=== PATIENT | male | born 1945 | race Caucasian/White ===

== ENCOUNTER 2021-02-24 12:27 | Day surgery (SDC) | payer OTHER, SELFPAY ==
[2021-02-18 12:37] VITALS: BMI 34.2
--- NOTE | 2021-02-23 10:15 | HO.ANESPROP2 ---
Documented by User: Zoraida Loya NP 02/23/21 10:24 HPI - Anesthesia Eval Consult details Narrative: 75yo M for?Upper Endoscopy and Colonoscopy Warfarin for PAF and s/p AVR - to bridge with lovenox AICD in situ [facility] Past Medical History Medical History Arthritis Asthma Barretts esophagus Collapsed lung COPD (chronic obstructive pulmonary disease) COVID-19 vaccine series completed Dilated cardiomyopathy Elevated cholesterol GERD (gastroesophageal reflux disease) History of paroxysmal atrial tachycardia History of placement of internal cardiac defibrillator HTN (hypertension) Myocardial infarction Osteopenia Sleep apnea Surgical History Surgical History H/O colonoscopy History of esophagogastroduodenoscopy (EGD) History of repair of hiatal hernia Hx of aortic valve replacement Social History Social History Are you a primary school childcare attendant to a significant other at home: No Do you presently have visiting nurse or other home services: No Patient Tobacco Use Status: Former Tobacco user Quit Date: 2018 Tobacco use type: Cigarette Years Smoked: 60 Use of substances other than those prescribed or required for medical reasons: No Have you been hit, kicked, punched, or otherwise hurt by someone within the past year? If so, by whom?: No Are you DNR?: Yes Advance Directives Information Provided: Yes (does not have a HCP/is DNR if his AICD fails per patient) Advance Directives on File: No Recently lost weight without trying: No Eating poorly because of decreased appetite: No Nutrition Risks: No Nutritional Risk Poor oral hygiene: No Meds Allergies Allergy/AdvReac Type Severity Reaction Status Date / Time Pagtaqu-Kor-Wvd Reductase Allergy Intermediate muscle Verified 02/18/21 12:26 Inhibitor cramping in ribcage Home Medications Medication Instructions Recorded Confirmed Last Taken Type albuterol sulfate 90 mcg/actuation 2 puff INHALATION Q4-6H PRN 02/18/21 02/18/21 Unknown History aerosol inhaler (Ventolin HFA) dofetilide 250 mcg capsule 250 mcg PO Q12H 02/18/21 02/18/21 Unknown History gemfibrozil 600 mg tablet 600 mg PO BID 02/18/21 02/18/21 Unknown History lisinopril 10 mg tablet 10 mg PO DAILY 02/18/21 02/18/21 Unknown History metoprolol tartrate 75 mg tablet 75 mg PO BID 02/18/21 02/18/21 Unknown History mometasone 200 mcg/actuation HFA 2 puff INHALATION BID 02/18/21 02/18/21 Unknown History aerosol inhaler (Asmanex HFA) omeprazole 40 mg capsule,delayed 40 mg PO DAILY 02/18/21 02/18/21 Unknown History release warfarin 2.5 mg tablet 1.25 mg PO DAILY 02/18/21 02/18/21 Unknown History Exam Exam Date and Time: February 23, 2021 1015 Height,Weight and Vital Signs: Height 5 ft 3 in Weight 87.543 kg Pertinent Lab Results Pertinent Lab Results: BMP 12/2020 from outside facility WNL Narrative Narrative: EKG 10/2020 AV dual-paced rhythm at 78 ECHO 01/[address] [facility] mechanical prosthesis in aortic position Impaired left ventricular contractile function with EF of 40% owing to a region of severe anteroapical hypokinesis Mild LVH AICD wire noted Borderline dilated ascending aorta remaining under 4cm Study performed in a sinus or AV paced rhythm with ectopy Stable when compared to 12/2018 AICD Interr 06/2020 DDDR Vpaced 99% Assessment and Plan Assessment Anesthesia Assessment: Chart Reviewed Documented by User: Lora Gorman MD 02/24/21 14:06 [facility] Past Medical History Medical History Arthritis Asthma Barretts esophagus Collapsed lung COPD (chronic obstructive pulmonary disease) COVID-19 vaccine series completed Dilated cardiomyopathy Elevated cholesterol GERD (gastroesophageal reflux disease) History of paroxysmal atrial tachycardia History of placement of internal cardiac defibrillator HTN (hypertension) Myocardial infarction Osteopenia Sleep apnea Surgical History Surgical History H/O colonoscopy History of esophagogastroduodenoscopy (EGD) History of repair of hiatal hernia Hx of aortic valve replacement History of Problems with Anesthesia: No Social History Social History Are you a primary school childcare attendant to a significant other at home: No Do you presently have visiting nurse or other home services: No Patient Tobacco Use Status: Former Tobacco user Quit Date: 2018 Tobacco use type: Cigarette Years Smoked: 60 Use of substances other than those prescribed or required for medical reasons: No Have you been hit, kicked, punched, or otherwise hurt by someone within the past year? If so, by whom?: No Are you DNR?: Yes Advance Directives Information Provided: Yes (does not have a HCP/is DNR if his AICD fails per patient) Advance Directives on File: No Recently lost weight without trying: No Eating poorly because of decreased appetite: No Nutrition Risks: No Nutritional Risk Poor oral hygiene: No Meds Allergies Allergy/AdvReac Type Severity Reaction Status Date / Time Ckxgwvh-Npf-Mwi Reductase Allergy Intermediate muscle Verified 02/18/21 12:26 Inhibitor cramping in ribcage Home Medications Medication Instructions Recorded Confirmed Last Taken Type albuterol sulfate 90 mcg/actuation 2 puff INHALATION Q4-6H PRN 02/18/21 02/18/21 Unknown History aerosol inhaler (Ventolin HFA) dofetilide 250 mcg capsule 250 mcg PO Q12H 02/18/21 02/18/21 Unknown History gemfibrozil 600 mg tablet 600 mg PO BID 02/18/21 02/18/21 Unknown History lisinopril 10 mg tablet 10 mg PO DAILY 02/18/21 02/18/21 Unknown History metoprolol tartrate 75 mg tablet 75 mg PO BID 02/18/21 02/18/21 Unknown History mometasone 200 mcg/actuation HFA 2 puff INHALATION BID 02/18/21 02/18/21 Unknown History aerosol inhaler (Asmanex HFA) omeprazole 40 mg capsule,delayed 40 mg PO DAILY 02/18/21 02/18/21 Unknown History release warfarin 2.5 mg tablet 1.25 mg PO DAILY 02/18/21 02/18/21 Unknown History Exam Airway Mallampati Class: II (Edentulous upper) TM Dist: >3cm Neck ROM: Limited Loose/Missing/Broken Teeth: Yes and Upper Heart: RRR Lungs: CTA Assessment and Plan Assessment Anesthesia Assessment: Anesthesia Plan Discussed Final Anesthetic Review History of Problems with Anesthesia: No NPO: Yes ASA Class: III Final Preanesthetic Review: Meds/Allgs Chart Reviewed, Consent Obtained/Reviewed and Anes Risks/Benef Reviewed Patient Risk: Intermediate Procedure Risk: Intermediate Anesthetic Plan Anesthetic Plan: MAC: Disposition: Standard PACU
[2021-02-24 12:46] VITALS: BP 136/70; PULSE 85; RESP 16; TEMP 35.8; O2SAT 98
[2021-02-24] MEDS: Lactated Ringers 1,000 ML 50 ML IVCONT (13:08)
--- NOTE | 2021-02-24 13:39 | MHC.SHP ---
Pre-Procedural Eval Section A Date of Service: 02/24/21 The patient is an INPATIENT: No Changes since office visit: No Cold of Flu in the past 2 weeks, No New Medical Problems, No Changes in Medication and No Patient answered all questions The History & Physical has been completed within 30 days and I have reviewed it.: No Section B Chief Complaint: screening,barretts Allergies: Allergies Allergy/AdvReac Type Severity Reaction Status Date / Time Xiuxvoi-Egq-Zoo Reductase Allergy Intermediate muscle Verified 02/18/21 12:26 Inhibitor cramping in ribcage Plan I have reviewed the history and physical and performed a pertinent physical examination on my patient. No changes have occurred unless specified.
[2021-02-24 14:04] LABS: INTERNATIONAL NORM RATIO 1.2 (0.9-1.1); Prothrombin Time 13.9 SEC (9.9-13.0)
[2021-02-24 14:23] VITALS: BP 130/70; PULSE 77; RESP 18; TEMP 37.2; O2SAT 98
--- NOTE | 2021-02-24 14:29 | PM.OP ---
Brief Operative Note Date of Service: 02/24/21 Pre-op diagnosis: Barretts, screening Post-op diagnosis: same Procedure: EGD, colon Surgeon: Konstantin Mccullough Anesthesia: MAC Was an Refrigerator Glazier used for this Procedure?: No Estimated blood loss (mL): 2 Pathology: other (bxs esophagus, antrum, polyps 50 and 40 cm) Condition: stable Disposition: PACU
[2021-02-24 14:38] VITALS: BP 126/69; PULSE 78; RESP 16; TEMP 36.1; O2SAT 97
--- NOTE | 2021-02-24 18:43 | OP_ITS ---
SURGEON: Konstantin Mccullough MD INDICATIONS: 1. Amaro's esophagus. 2. Colon cancer screening and prior history of colon polyps. PREOPERATIVE DIAGNOSIS: POSTOPERATIVE DIAGNOSIS: PROCEDURE PERFORMED: ESTIMATED BLOOD LOSS: COMPLICATIONS: ANESTHESIA: ASSISTANTS: SPECIMENS: PROCEDURES PERFORMED: 1. Upper endoscopy with biopsy. 2. Colonoscopy to the terminal ileum with snare polypectomy. MEDICATIONS: Monitored anesthesia care. DESCRIPTION OF PROCEDURE: History and physical performed. The risks and benefits of the procedure were explained to the patient. Informed consent was obtained. The patient was placed in the left lateral decubitus position. A digital rectal exam was performed and was found to be normal prior to the colonoscopy. First, the Olympus video gastroscope was introduced into the esophagus, stomach, and duodenum. Examination was performed and the scope was removed. He was repositioned for colonoscopy. The Olympus pediatric video colonoscope was introduced into the rectum and advanced to the cecum without difficulty. The cecum was identified by transillumination, palpation, and identification of ileocecal valve. Examination was performed and the scope was removed. He tolerated both procedures well and was returned to recovery area in stable condition. FINDINGS: UPPER ENDOSCOPY: Esophagus: There was a 1.5 cm area of Amaro's esophagus with no raised lesions or ulcerated areas. Biopsies were obtained at 36 and 35 cm. Stomach: The stomach showed no evidence of masses, ulcers, or polyps. Antral biopsies were obtained. Duodenum: The bulb and second portion were normal. COLONOSCOPY: The terminal ileum was examined and appeared normal. The visualized colonic mucosa was normal. The quality of the prep was fair with some liquid stool coating the mucosa. This was washed and suctioned as best possible. Two polyps were identified and removed with a snare, both measured less than 5 mm. The first was located at 50 cm. The second was located at 40 cm. There was scattered diverticulosis throughout the colon. Retroflexed examination showed small internal hemorrhoids. IMPRESSION: 1. Amaro's esophagus. 2. Colon polyps. RECOMMENDATION: Follow up the biopsy results. MD REY Roldan/SARAH / [id number]
== END 2021-02-24 15:41 | disposition home or self-care (01) ==
PROVIDERS: Nurse Practitioner; PCP Nurse Practitioner Family; Visit Provider Internal Medicine Gastroenterology
PROC: (CPT 45385; principal; 2021-02-24 13:30)
DX: Z12.11 Encounter for screening for malignant neoplasm of colon (principal); K63.5 Polyp of colon; K57.30 Diverticulosis of large intestine without perforation or abscess without bleeding; K64.8 Other hemorrhoids; Z86.010 Personal history of colon polyps; K22.70 Barrett's esophagus without dysplasia; I10 Essential (primary) hypertension; Z95.2 Presence of prosthetic heart valve; Z79.01 Long term (current) use of anticoagulants; Z79.899 Other long term (current) drug therapy
CPT/HCPCS: 45385; 43239; 36415; 85610; 88305; 88342

== ENCOUNTER → 2021-09-09 14:21 | Outpatient (BNVA) | payer OTHER, SELFPAY | PROVIDERS: PCP Nurse Practitioner Family; Visit Provider Internal Medicine Cardiovascular Disease | DX: I42.9 Cardiomyopathy, unspecified (principal); I48.0 Paroxysmal atrial fibrillation; I47.2 Ventricular tachycardia; Z79.01 Long term (current) use of anticoagulants; Z95.2 Presence of prosthetic heart valve; Z45.02 Encounter for adjustment and management of automatic implantable cardiac defibrillator | CPT/HCPCS: 93005; 99202 ==

== ENCOUNTER → 2022-01-18 20:49 | Outpatient (REF) | payer OTHER, SELFPAY | LOC: HO.SL 20:49 | PROVIDERS: PCP Nurse Practitioner Family; Visit Provider Nurse Practitioner Family | DX: G47.33 Obstructive sleep apnea (adult) (pediatric) (principal) | CPT/HCPCS: 95810 ==

== ENCOUNTER → 2022-05-25 14:18 | Outpatient (BNVA) | payer OTHER, SELFPAY | PROVIDERS: PCP Nurse Practitioner Family; Visit Provider Internal Medicine Cardiovascular Disease | DX: Z45.02 Encounter for adjustment and management of automatic implantable cardiac defibrillator (principal); I42.9 Cardiomyopathy, unspecified; I48.0 Paroxysmal atrial fibrillation; Z95.2 Presence of prosthetic heart valve; I47.20 Ventricular tachycardia, unspecified | CPT/HCPCS: 93005; 99212 ==

== ENCOUNTER → 2022-05-31 14:41 | Outpatient (REF) | payer OTHER, SELFPAY ==
--- NOTE | 2022-05-31 14:44 | CA_ITS ---
Transthoracic Echocardiogram Patient (Last, First, Middle): Everette Watkins, Gender: Male Date of : 1945 Age: 76 Procedure Date: 05/31/2022 Procedure Type: Transthoracic Echocardiogram Location: OP Height: 160.02 cm Weight: 88.91 kg BSA: 1.92 m2 Heart Rate: bpm BP: 122 / 70 mmHg Varnisher: BROCK Referring MD: Donnell Ledesma MD Steam Trap Man: Donnell Ledesma MD Symptoms: I42.9 - Cardiomyopathy, unspecified Study Quality: Fair/ Contrast used ECG Rhythm: Sinus Conclusions: - 1. Moderate LV systolic dysfunction with LVEF of 35-40% with regional wall motion abnormality consistent with ischemic cardiomyopathy with impaired relaxation filling pattern 2. Normally functioning mechanical aortic prosthetic valve with mean gradient of 15 mmHg with suggestion of patient prosthesis mismatch 3. Normal RV systolic pressure 4. Mildly dilated ascending aorta at 4 cm 5. No gross pericardial effusion Findings Procedure Information Contrast agent, definity, is being given per protocol without apparent complications. Left Ventricle Normal left ventricular cavity size. There is moderately increased left ventricular wall thickness. The left ventricular systolic function is moderately decreased. The visually estimated ejection fraction is between 35 40%. There is evidence of regional wall motion abnormalities. Spectral Doppler is indicative of an impaired relaxation filling pattern. Wall Motion Rest Echo Findings The apex, apical anterior, mid anterior, apical lateral, apical septum, and mid anteroseptal segments are akinetic. All other scored wall segments showed normal motion. Right Ventricle Normal right ventricular cavity size. There is borderline right ventricular systolic function. There is an ICD wire seen in the right ventricle. Atria The left atrium is moderately dilated. Interatrial shunt cannot be excluded. The right atrium is likely dilated. Aortic Valve A mechanical prosthetic aortic valve is present. The mean gradient is 15 mmHg. There is no aortic valve regurgitation. Mean gradient is marginally increased for a mechanical valve, most suggestive of patient prosthesis mismatch Mitral Valve The mitral valve was not well visualized. There is mild mitral annular calcification. There is trace mitral valve regurgitation. There is no mitral valve stenosis. Pulmonic Valve The pulmonic valve was not well visualized. Tricuspid Valve Likely normal tricuspid valve structure and function. There is mild tricuspid valve regurgitation. The right ventricular systolic pressure is normal. The right ventricular systolic pressure is 28 mmHg. Normal right atrial pressure. There is no evidence of pulmonary hypertension. Great Vessels The pulmonary artery was not well visualized. There is mild dilatation of the ascending aorta measuring 4.00 cm. Venous The inferior vena cava is normal in size and collapses greater than 50% with inspiration. Pericardium/Pleural There is no evidence of pericardial effusion. Prior Study Comparison No prior study available for comparison. Measurements 2D Linear Measurements IVSd: 1.41 0.6-0.9/0.6-1.0 cm LVIDd: 5.63 3.9-5.3/4.2-5.9 cm LVIDd Index: 2.93 2.4-3.2/2.2-3.1 cm/m2 LVIDs: 4.57 2.0-3.6 cm LVPWd: 1.40 0.7-1.1 cm Ao Root: 3.80 2.1-3.5 cm LA Diam: 4.10 2.7-3.8/3.0-4.0 cm LAIDs Index: 2.14 1.5-2.3 cm/m2 LV Mass: 439.67 67-162/88-224 g LV Mass Index: 228.99 43-95/49-115 g/m2 LVOT Diam: 2.10 3.0+(-)1.3 cm 2D Systolic Function EF 4C: 50.10 >55% EF 2C: 29.70 >55% EF BiP: 36.90 >55% Mitral Valve MV Pk E: 1.38 MV Decel Time: 225.00 E'Lateral: 5.22 E'Medial: 4.57 E/E' Med: 30.20 E/E' Lat: 26.40 PHT: 66.00 MVA PHT: 3.33 Decel [place]: 6.14 Aortic Valve AoV Pk Blaise: 2.63 AoV Mn Blaise: 1.78 AoV VTI: 0.57 AoV Pk Grad: 28.00 Aov Mn Grad: 15.00 MADY Cont.VTI: 1.12 LVOT LVOT Pk Blaise: 0.79 LVOT Mn [place]aise: 0.56 LVOT VTI: 0.18 LVOT Pk Grad: 3.00 LVOT Mn Grad: 1.00 LVOT Diam: 2.10 LVOT Area: 3.46 Diastolic Function MV Pk E: 1.38 E'Medial: 4.57 E/E' Med: 30.20 E' Laterial: 5.22 E/E' Lat: 26.40 Tricuspid Valve TR Pk Blaise: 2.50 TR Pk Grad: 25.00 RA Press: 3.00 RVSP: 28.00 Great Vessels Aorta Ao Root-2D: 3.80 2.0-3.7 cm Ao Asc: 4.00 2.1-3.4 cm Pulmonary Valve PV Pk Blaise: 0.87 Peak PV Grad: 3.00 Updated in Other Vendor System with Status of Final Donnell Ledesma MD electronically signed on 06/03/2022 3:07:30 PM with status of Final
== END ==
LOC: HO.CARD 14:41
PROVIDERS: Visit Provider Internal Medicine Cardiovascular Disease
DX: I42.9 Cardiomyopathy, unspecified (principal)
CPT/HCPCS: 93306; Q9957

== ENCOUNTER 2022-08-12 13:10 | Emergency (ER) | payer OTHER, SELFPAY ==
--- NOTE | ~2022-08-12 | XR_ITS ---
EXAMINATION: XR CHEST CLINICAL INFORMATION: Cough, recent COVID exposure. COMPARISON: None TECHNIQUE: 2 views of the chest were obtained. FINDINGS: Support devices: Left-sided pacemaker device appears in good position. Surgical clips overlie the epigastric region. No significant abnormality is noted involving the heart, lungs, mediastinum, bony thorax or soft tissues. XR/XR chest 2V IMPRESSION: No acute cardiopulmonary process.
[2022-08-12 13:12] VITALS: BP 118/53; PULSE 77; RESP 20; TEMP 36.4; O2SAT 98; BMI 33.6
--- NOTE | 2022-08-12 13:13 | ED.URI ---
HPI - URI/Sore Throat General Chief Complaint: Upper Respiratory Symptoms <ALYCIA aM - Last Filed: 08/12/22 13:22> Stated Complaint: Pneumonia? <ALYCIA Ma - Last Filed: 08/12/22 13:22> Time Seen by Provider: 08/12/22 17:20 <ALYCIA Ma - Last Filed: 08/12/22 13:22> Source: patient, family (daughter), RN notes reviewed and other <Karel Kang - Last Filed: 08/12/22 19:07> Mode of arrival: ambulatory <Karel Kang - Last Filed: 08/12/22 19:07> Limitations: no limitations <Karel Kang - Last Filed: 08/12/22 19:07> History of Present Illness HPI Narrative: 76-year-old male past medical history significant for V-tach status post biventricular ICD, aortic valve replacement on Coumadin, cardiomyopathy who presents for evaluation of flu-like symptoms. Patient reports that he has had flu-like symptoms with cough, congestion, weakness, nausea for the last 10 days. He reports he recently got back from a trip to [place] His at home was diagnosed with COVID-19 a few days ago [facility] ?when I was coughing there was a little bit of blood on the tissue. ? They wanted me to get checked out because I am on Coumadin. ? He reports feeling weak but his breathing is actually okay and he does not feel short of breath and has no chest pain. <Karel Kang - Last Filed: 08/12/22 19:07> Related Data Home Medications: Home Medications Medication Instructions Recorded Confirmed albuterol sulfate 90 mcg/actuation 2 puff inhalation Q4-6H PRN 02/18/21 05/25/22 aerosol inhaler (Ventolin HFA) Wheezing dofetilide 250 mcg capsule 250 mcg PO Q12H 02/18/21 05/25/22 gemfibrozil 600 mg tablet 600 mg PO BID 02/18/21 05/25/22 lisinopril 10 mg tablet 10 mg PO DAILY 02/18/21 05/25/22 mometasone 200 mcg/actuation HFA 2 puff inhalation BID 02/18/21 05/25/22 aerosol inhaler (Asmanex HFA) omeprazole 40 mg capsule,delayed 40 mg PO DAILY 02/18/21 05/25/22 release warfarin 2.5 mg tablet 1.25 mg PO DAILY 02/18/21 05/25/22 febuxostat 40 mg tablet 40 mg PO DAILY 09/09/21 05/25/22 metoprolol tartrate 75 mg tablet 100 mg PO BID 09/09/21 05/25/22 tamsulosin 0.4 mg capsule 0.4 mg PO BEDTIME 09/09/21 05/25/22 Previous Rx's Medication Instructions Recorded nirmatrelvir 150 mg-ritonavir 100 1 ea PO PER PKG DIR #20 ea 08/12/22 mg tablets in a dose pack (EUA) (Paxlovid) <ALYCIA Ma - Last Filed: 08/12/22 13:22> Allergies/Adverse Reactions: Allergies Allergy/AdvReac Type Severity Reaction Status Date / Time [id number] Reductase Allergy Intermediate muscle Verified 02/18/21 12:26 Inhibitor cramping [[id number] Reductase in ribcage Inhibitor] <ALYCIA Ma - Last Filed: 08/12/22 13:22> Review of Systems Constitutional: Constitutional: Reports as per HPI, Denies chills, Reports fatigue, Reports fever(s), Reports lethargy and Reports malaise <Karel Kang - Last Filed: 08/12/22 19:07> ENT: Reports sore throat <Karel Kang - Last Filed: 08/12/22 19:07> Cardiovascular: Cardiovascular: Denies chest pain and Denies dyspnea <Karel Kang - Last Filed: 08/12/22 19:07> Respiratory: Respiratory: Denies dyspnea <Karel Kang - Last Filed: 08/12/22 19:07> Gastrointestinal: Gastrointestinal: Denies abdominal pain, Denies constipation, Reports nausea, Reports vomiting and Denies hematemesis <Karel Kang - Last Filed: 08/12/22 19:07> Genitourinary: Genitourinary: Denies difficulty urinating and Denies dysuria <Karel Kang - Last Filed: 08/12/22 19:07> Endocrine: Endocrine: Reports fatigue <Karel Pearl - Last Filed: 08/12/22 19:07> [facility] Past Medical History Attestation statement: The following information was validated with the patient. <Karel Pearl - Last Filed: 08/12/22 19:07> Source: old records reviewed, obtained from family and nursing notes reviewed <Karel Kang - Last Filed: 08/12/22 19:07> Medical History: Medical History Arthritis Asthma Barretts esophagus Collapsed lung COPD (chronic obstructive pulmonary disease) COVID-19 vaccine series completed Dilated cardiomyopathy Elevated cholesterol GERD (gastroesophageal reflux disease) History of paroxysmal atrial tachycardia History of placement of internal cardiac defibrillator HTN (hypertension) Myocardial infarction Osteopenia Sleep apnea <ALYCIA Ma - Last Filed: 08/12/22 13:22> Surgical History: Surgical History H/O colonoscopy History of esophagogastroduodenoscopy (EGD) History of repair of hiatal hernia Hx of aortic valve replacement <ALYCIA Ma - Last Filed: 08/12/22 13:22> Social History Social History: Social History Are you a primary patient care associate to a significant other at home: No Do you presently have visiting nurse or other home services: No Alcohol intake: unknown Patient Tobacco Use Status: Former Tobacco user Quit Date: 2018 Tobacco use type: Cigarette Years Smoked: 60 Smoked in Last 30 Days: No Use of substances other than those prescribed or required for medical reasons: No Advance Directives: No Advance Directives Information Provided: Yes <ALYCIA Ma - Last Filed: 08/12/22 13:22> Physical Exam Vital Signs: Vital Signs: Last Vital Signs Temp 97.9 F 08/12/22 17:14 Pulse 60 08/12/22 17:14 Resp 16 08/12/22 17:14 BP 106/58 L 08/12/22 17:14 Pulse Ox 96 08/12/22 17:14 O2 Del Method 08/12/22 17:14 BMI result Body Mass Index 33.6 <ALYCIA Ma Last Filed: 08/12/22 13:22> Vital Signs: Last Vital Signs Temp 97.9 F 08/12/22 17:14 Pulse 60 08/12/22 17:14 Resp 16 08/12/22 17:14 BP 106/58 L 08/12/22 17:14 Pulse Ox 96 08/12/22 17:14 O2 Del Method 08/12/22 17:14 BMI result Body Mass Index 33.6 <Karel Kang - Last Filed: 08/12/22 19:07> Const: General: cooperative, healthy appearing, comfortable, no acute distress and well developed <Karel Kang - Last Filed: 08/12/22 19:07> Orientation/consciousness: patient oriented x3 <Karel Kang - Last Filed: 08/12/22 19:07> Limitations: no limitations <Karel Kang - Last Filed: 08/12/22 19:07> HEENT: Head: Yes normocephalic and Yes atraumatic <Karel Kang - Last Filed: 08/12/22 19:07> Mouth: Normal oral and palatal mucosa present, lip normal and tongue normal <Karel Kang - Last Filed: 08/12/22 19:07> Teeth and gingiva: dentition normal <Karel Kang - Last Filed: 08/12/22 19:07> Throat: Yes posterior oropharynx normal and No other (No retropharyngeal edema or erythema. No blood noted in the oropharynx) <Karel Kang - Last Filed: 08/12/22 19:07> Neck: Neck: Yes full ROM <Karel Kang - Last Filed: 08/12/22 19:07> Resp: Effort & Inspection: normal respiratory effort and able to speak in complete sentences <Karel Kang - Last Filed: 08/12/22 19:07> Auscultation: clear to auscultation bilaterally, no rales, no rhonchi and no wheezes <Karel Kang - Last Filed: 08/12/22 19:07> GI: Inspection: No Abdominal wall edema and No distended <Karel Kang - Last Filed: 08/12/22 19:07> Palpation (GI): Soft to palpation, nontender and no guarding <Karel Kang - Last Filed: 08/12/22 19:07> Auscultation: normoactive bowel sounds <Karel Kang - Last Filed: 08/12/22 19:07> Skin: General skin exam: no rashes or lesions noted and other (Warm dry, well perfused) <Karel Kang - Last Filed: 08/12/22 19:07> Neuro: General: patient oriented x3 and CN's II-XI intact bilaterally <Karel Kang - Last Filed: 08/12/22 19:07> Course Course Course Narrative: RME-13:15PM - 76-year-old male with a PMHx of asthma, arthritis, Amaro's esophagus, collapsed lung, COPD, cardiomyopathy dilated, hyperlipidemia, GERD, proximal atrial fibrillation with placement of internal cardiac defibrillator, hypertension, myocardial infarction, osteopenia and sleep apnea who is presenting to the ER with body aches, fatigue, malaise, cough with sputum production, with blood-tinged sputum, shortness of breath, nausea/vomiting unable to keep anything down since Monday worse today. Recently came back from a vacation at [place]. His has similar symptoms and she tested positive for COVID. He did not have a test at home although he assumes that he is positive for COVID. Plan: Will obtain labs, UA, chest x-ray, COVID/RSV/flu swab. Patient to be sent back to the waiting room to be evaluated in the ER. <ALYCIA Ma - Last Filed: 08/12/22 13:22> Reevaluation(s) Reevaluation #1: The patient 1st had his weakness has improved, he is not nauseous, his vital signs remained stable. He is stable for discharge at this time. The patient's daughter is bedside with patient home. He will be prescribed Paxil did sent to his pharmacy <Karel Kang - Last Filed: 08/12/22 19:07> Time: 18:59 <Karel Kang - Last Filed: 08/12/22 19:07> Medications Administered Discontinued Medications Generic Name Dose Route Start Last Admin Trade Name Freq PRN Reason Stop Dose Admin Sodium Chloride 1,000 mls @ 999 mls/hr 08/12/22 17:37 08/12/22 18:08 Ns IV 08/12/22 18:37 999 mls/hr .Q1H1M STA Administration Ondansetron HCl 4 mg 08/12/22 17:38 08/12/22 18:08 Ondansetron Hcl 4 Mg/2 Ml Vial IVPUSH 08/12/22 17:39 4 mg ONCE ONE Administration <ALYCIA Ma - Last Filed: 08/12/22 13:22> Medications Administered Discontinued Medications Generic Name Dose Route Start Last Admin Trade Name Freq PRN Reason Stop Dose Admin Sodium Chloride 1,000 mls @ 999 mls/hr 08/12/22 17:37 08/12/22 18:08 Ns IV 08/12/22 18:37 999 mls/hr .Q1H1M STA Administration Ondansetron HCl 4 mg 08/12/22 17:38 08/12/22 18:08 Ondansetron Hcl 4 Mg/2 Ml Vial IVPUSH 08/12/22 17:39 4 mg ONCE ONE Administration <Karel Kang - Last Filed: 08/12/22 19:07> Medical Decision Making Medical Decision Making MDM Narrative: 76-year-old male with past medical history is documented above presenting for evaluation of flu-like symptoms. His tested positive cold for 3 days ago. The patient tested positive for COVID-19 today. His chest x-ray is without infiltrates, pneumothorax or effusion. His vital signs are significant for mild hypotension. This which with IV fluids. He is not tachycardic, tachypneic or hypoxic. The patient is afebrile. Lab work is significant for an INR of 3.5 which is above the patient's target INR of 2.0-3.0. This was discussed with the patient he will hold 1 dose of his Coumadin. Patient was given Zofran for reported nausea and vomiting only has not had any vomiting in the emergency room <Karel Kang - Last Filed: 08/12/22 19:07> Differential Diagnosis Differential Diagnoses: The differential diagnosis associated with the presentation includes (COVID-19, pneumonia, flu-like symptoms, sepsis, hypertension, viral illness, gastroenteritis, biliary disease) <Karel Kang - Last Filed: 08/12/22 19:07> Lab Data MDM Lab Attestation statement: I reviewed the patient's lab results. <Karel Kang - Last Filed: 08/12/22 19:07> Result Diagrams: 08/12/22 13:27 08/12/22 13:27 <ALYCIA Ma - Last Filed: 08/12/22 13:22> Labs: Lab Results 08/12/22 08/12/22 08/12/22 Range/Units 13:27 13:27 13:27 WBC 5.3 (4.8-10.8) X10*3/uL RBC 4.42 L (4.60-5.80) X10*6/uL Hgb 14.0 (14.0-18.0) g/dl Hct 41.3 L (42.0-52.0) % MCV 93.4 (80.0-98.0) fL MCH 31.7 (27.0-33.0) pg MCHC 33.9 (31.0-36.0) g/dl RDW 13.2 (11.0-16.0) % Plt Count 150 L (160-400) X10*3/uL MPV 10.9 (9.4-12.4) fL Immature Gran % (Auto) 0.9 H (0.0-0.4) % Neut % (Auto) 70.4 (45-73) % Lymph % (Auto) 18.6 L (20-40) % [place] % (Auto) 9.1 (2-11) % Eos % (Auto) 0.8 (0-4) % Baso % (Auto) 0.2 (0-2) % Lymph # (Auto) 1.0 L (1.2-4.9) X10*3/uL [place] # (Auto) 0.5 (0.1-1.2) X10*3/uL Eos # (Auto) 0.0 (0.0-0.4) X10*3/uL Baso # (Auto) 0.0 (0.0-0.2) X10*3/uL Abs Immat Gran (auto) 0.05 H (0.00-0.03) X10*3/uL Absolute Neuts (auto) 3.7 (2.0-8.3) x10*3/uL Absolute Nucleated RBC 0.000 (0.0-0.012) X10*3/uL Nucleated RBC % (auto) 0.0 (0.0-0.2) /100WBC PT 41.9 H (10.0-13.1) SEC INR 3.5 H (0.9-1.1) Sodium (135-145) mmol/L Potassium (3.3-5.1) mmol/L Chloride (96-108) mmol/L Carbon Dioxide (22-29) mmol/L Anion Gap (12-20) BUN (9-16) mg/dL Creatinine (0.5-1.4) mg/dL Estim Creat Clear Calc Estimated GFR Random Glucose (60-115) mg/dL Calcium (8.4-10.2) mg/dL Magnesium (1.6-2.6) mg/dL Total Bilirubin (0.0-1.0) mg/dL AST (5-37) U/L ALT (0-40) U/L Alkaline Phosphatase (39-117) U/L Total Protein (6.5-8.0) g/dL Albumin (3.5-5.0) g/dL Lipase (8-78) U/L Influenza Type A (PCR) NEGATIVE (Negative) Influenza Type B (PCR) NEGATIVE (Negative) RSV RNA Qual (PCR) NEGATIVE (Negative) SARS-CoV-2 RNA (RT-PCR) POSITIVE A (Negative) 08/12/22 Range/Units 13:27 WBC (4.8-10.8) X10*3/uL RBC (4.60-5.80) X10*6/uL Hgb (14.0-18.0) g/dl Hct (42.0-52.0) % MCV (80.0-98.0) fL MCH (27.0-33.0) pg MCHC (31.0-36.0) g/dl RDW (11.0-16.0) % Plt Count (160-400) X10*3/uL MPV (9.4-12.4) fL Immature Gran % (Auto) (0.0-0.4) % Neut % (Auto) (45-73) % Lymph % (Auto) (20-40) % [place] % (Auto) (2-11) % Eos % (Auto) (0-4) % Baso % (Auto) (0-2) % Lymph # (Auto) (1.2-4.9) X10*3/uL [place] # (Auto) (0.1-1.2) X10*3/uL Eos # (Auto) (0.0-0.4) X10*3/uL Baso # (Auto) (0.0-0.2) X10*3/uL Abs Immat Gran (auto) (0.00-0.03) X10*3/uL Absolute Neuts (auto) (2.0-8.3) x10*3/uL Absolute Nucleated RBC (0.0-0.012) X10*3/uL Nucleated RBC % (auto) (0.0-0.2) /100WBC PT (10.0-13.1) SEC INR (0.9-1.1) Sodium 140 (135-145) mmol/L Potassium 4.6 (3.3-5.1) mmol/L Chloride 108 (96-108) mmol/L Carbon Dioxide 20 L (22-29) mmol/L Anion Gap 17 (12-20) BUN 39 H (9-16) mg/dL Creatinine 1.33 (0.5-1.4) mg/dL Estim Creat Clear Calc 46.5 Estimated GFR 52 Random Glucose 98 (60-115) mg/dL Calcium 8.7 (8.4-10.2) mg/dL Magnesium 2.0 (1.6-2.6) mg/dL Total Bilirubin 0.8 (0.0-1.0) mg/dL AST 25 (5-37) U/L ALT 15 (0-40) U/L Alkaline Phosphatase 105 (39-117) U/L Total Protein 6.5 (6.5-8.0) g/dL Albumin 3.7 (3.5-5.0) g/dL Lipase 59 (8-78) U/L Influenza Type A (PCR) (Negative) Influenza Type B (PCR) (Negative) RSV RNA Qual (PCR) (Negative) SARS-CoV-2 RNA (RT-PCR) (Negative) <ALYCIA Ma - Last Filed: 08/12/22 13:22> Lab Results 08/12/22 08/12/22 08/12/22 Range/Units 13:27 13:27 13:27 WBC 5.3 (4.8-10.8) X10*3/uL RBC 4.42 L (4.60-5.80) X10*6/uL Hgb 14.0 (14.0-18.0) g/dl Hct 41.3 L (42.0-52.0) % MCV 93.4 (80.0-98.0) fL MCH 31.7 (27.0-33.0) pg MCHC 33.9 (31.0-36.0) g/dl RDW 13.2 (11.0-16.0) % Plt Count 150 L (160-400) X10*3/uL MPV 10.9 (9.4-12.4) fL Immature Gran % (Auto) 0.9 H (0.0-0.4) % Neut % (Auto) 70.4 (45-73) % Lymph % (Auto) 18.6 L (20-40) % [place] % (Auto) 9.1 (2-11) % Eos % (Auto) 0.8 (0-4) % Baso % (Auto) 0.2 (0-2) % Lymph # (Auto) 1.0 L (1.2-4.9) X10*3/uL [place] # (Auto) 0.5 (0.1-1.2) X10*3/uL Eos # (Auto) 0.0 (0.0-0.4) X10*3/uL Baso # (Auto) 0.0 (0.0-0.2) X10*3/uL Abs Immat Gran (auto) 0.05 H (0.00-0.03) X10*3/uL Absolute Neuts (auto) 3.7 (2.0-8.3) x10*3/uL Absolute Nucleated RBC 0.000 (0.0-0.012) X10*3/uL Nucleated RBC % (auto) 0.0 (0.0-0.2) /100WBC PT 41.9 H (10.0-13.1) SEC INR 3.5 H (0.9-1.1) Sodium (135-145) mmol/L Potassium (3.3-5.1) mmol/L Chloride (96-108) mmol/L Carbon Dioxide (22-29) mmol/L Anion Gap (12-20) BUN (9-16) mg/dL Creatinine (0.5-1.4) mg/dL Estim Creat Clear Calc Estimated GFR Random Glucose (60-115) mg/dL Calcium (8.4-10.2) mg/dL Magnesium (1.6-2.6) mg/dL Total Bilirubin (0.0-1.0) mg/dL AST (5-37) U/L ALT (0-40) U/L Alkaline Phosphatase (39-117) U/L Total Protein (6.5-8.0) g/dL Albumin (3.5-5.0) g/dL Lipase (8-78) U/L Influenza Type A (PCR) NEGATIVE (Negative) Influenza Type B (PCR) NEGATIVE (Negative) RSV RNA Qual (PCR) NEGATIVE (Negative) SARS-CoV-2 RNA (RT-PCR) POSITIVE A (Negative) 08/12/22 Range/Units 13:27 WBC (4.8-10.8) X10*3/uL RBC (4.60-5.80) X10*6/uL Hgb (14.0-18.0) g/dl Hct (42.0-52.0) % MCV (80.0-98.0) fL MCH (27.0-33.0) pg MCHC (31.0-36.0) g/dl RDW (11.0-16.0) % Plt Count (160-400) X10*3/uL MPV (9.4-12.4) fL Immature Gran % (Auto) (0.0-0.4) % Neut % (Auto) (45-73) % Lymph % (Auto) (20-40) % [place] % (Auto) (2-11) % Eos % (Auto) (0-4) % Baso % (Auto) (0-2) % Lymph # (Auto) (1.2-4.9) X10*3/uL [place] # (Auto) (0.1-1.2) X10*3/uL Eos # (Auto) (0.0-0.4) X10*3/uL Baso # (Auto) (0.0-0.2) X10*3/uL Abs Immat Gran (auto) (0.00-0.03) X10*3/uL Absolute Neuts (auto) (2.0-8.3) x10*3/uL Absolute Nucleated RBC (0.0-0.012) X10*3/uL Nucleated RBC % (auto) (0.0-0.2) /100WBC PT (10.0-13.1) SEC INR (0.9-1.1) Sodium 140 (135-145) mmol/L Potassium 4.6 (3.3-5.1) mmol/L Chloride 108 (96-108) mmol/L Carbon Dioxide 20 L (22-29) mmol/L Anion Gap 17 (12-20) BUN 39 H (9-16) mg/dL Creatinine 1.33 (0.5-1.4) mg/dL Estim Creat Clear Calc 46.5 Estimated GFR 52 Random Glucose 98 (60-115) mg/dL Calcium 8.7 (8.4-10.2) mg/dL Magnesium 2.0 (1.6-2.6) mg/dL Total Bilirubin 0.8 (0.0-1.0) mg/dL AST 25 (5-37) U/L ALT 15 (0-40) U/L Alkaline Phosphatase 105 (39-117) U/L Total Protein 6.5 (6.5-8.0) g/dL Albumin 3.7 (3.5-5.0) g/dL Lipase 59 (8-78) U/L Influenza Type A (PCR) (Negative) Influenza Type B (PCR) (Negative) RSV RNA Qual (PCR) (Negative) SARS-CoV-2 RNA (RT-PCR) (Negative) <Karel Kang - Last Filed: 08/12/22 19:07> Independent Interpretation I performed an independent interpretation of an: Plain X-Ray <Karel Kang - Last Filed: 08/12/22 19:07> Interpretation: Agree with radiologist's interpretation of no acute disease <Karel Kang - Last Filed: 08/12/22 19:07> Discharge Plan Discharge Clinical Impression: COVID-19 <ALYCIA Ma - Last Filed: 08/12/22 13:22> Patient Disposition: Home, Self-Care <ALYCIA Ma - Last Filed: 08/12/22 13:22> Additional Instructions: Take Paxil with twice daily for the next 5 days as prescribed You may also use [id number] antipyretics such as acetaminophen and ibuprofen <ALYCIA Ma - Last Filed: 08/12/22 13:22> Prescriptions: New Paxlovid (EUA) 150-100 mg tablets,dose pack 1 ea PO PER PKG DIR Qty: 20 0RF Rx Instructions: 1 ea orally; No Action dofetilide 250 mcg Capsule 250 mcg PO Q12H warfarin 2.5 mg Tablet 1.25 mg PO DAILY gemfibrozil 600 mg Tablet 600 mg PO BID lisinopril 10 mg Tablet 10 mg PO DAILY Asmanex HFA 200 mcg/actuation Hfa Aerosol Inhaler 2 puff INHALATION BID omeprazole 40 mg Capsule,Delayed Release(Dr/Ec) 40 mg PO DAILY albuterol sulfate [Ventolin HFA] 90 mcg/actuation Hfa Aerosol Inhaler 2 puff INHALATION Q4-6H PRN (Reason: Wheezing) metoprolol tartrate 75 mg tablet 100 mg PO BID febuxostat 40 mg tablet 40 mg PO DAILY tamsulosin 0.4 mg capsule 0.4 mg PO BEDTIME <ALYCIA Ma - Last Filed: 08/12/22 13:22>
--- NOTE | 2022-08-12 13:20 | ECG_ITS ---
Test Reason : cough recent + covid exposure Blood Pressure : / mmHG Vent. Rate : 072 BPM Atrial Rate : 072 BPM P-R Int : 114 ms QRS Dur : 144 ms QT Int : 468 ms P-R-T Axes : 051 121 090 degrees QTc Int : 512 ms AV dual-paced rhythm Biventricular pacemaker detected Abnormal ECG No previous ECGs available Referred By: Antonia Hoff Electronically Signed By:Puma Licona
[2022-08-12 13:32] LABS: MANUAL DIFF FLAG NO
[2022-08-12 13:33] LABS: Basophils Percent Auto 0.2 % (0-2); Eosinophils Percent Auto 0.8 % (0-4); Hematocrit 41.3 % (42.0-52.0); Imm Gran Abs Auto 0.05 X10*3/uL (0.00-0.03); Imm Gran Pct Auto 0.9 % (0.0-0.4); Lymphocytes Percent Auto 18.6 % (20-40); Mean Corpuscular HGB Conc 33.9 g/dl (31.0-36.0); Mean Corpuscular Hemoglobin 31.7 pg (27.0-33.0); Mean Corpuscular Volume 93.4 fL (80.0-98.0); Mean Platelet Volume 10.9 fL (9.4-12.4); Monocytes Absolute Auto 0.5 X10*3/uL (0.1-1.2); Monocytes Percent Auto 9.1 % (2-11); Neutrophils Absolute Auto 3.7 x10*3/uL (2.0-8.3); Neutrophils Percent Auto 70.4 % (45-73); Platelet Count 150 X10*3/uL (160-400); Red Blood Count 4.42 X10*6/uL (4.60-5.80); Red Cell Distribution Width 13.2 % (11.0-16.0); White Blood Count 5.3 X10*3/uL (4.8-10.8)
[2022-08-12 13:38] LABS: INTERNATIONAL NORM RATIO 3.5 (0.9-1.1); Prothrombin Time 41.9 SEC (10.0-13.1)
[2022-08-12 13:54] LABS: Alanine Aminotransferase 15 U/L (0-40); Albumin Level 3.7 g/dL (3.5-5.0); Alkaline Phosphatase 105 U/L (39-117); Anion Gap 17 (12-20); Aspartate Amino Transferase 25 U/L (5-37); Bilirubin Total 0.8 mg/dL (0.0-1.0); Blood Urea Nitrogen 39 mg/dL (9-16); Calcium 8.7 mg/dL (8.4-10.2); Carbon Dioxide 20 mmol/L (22-29); Chloride 108 mmol/L (96-108); Creatinine Clr Calc Pharmacy 46.5; Estimated Glomerular Filt Rate 52; Glucose Random 98 mg/dL (60-115); Lipase 59 U/L (8-78); Potassium 4.6 mmol/L (3.3-5.1); Sodium 140 mmol/L (135-145); Total Protein 6.5 g/dL (6.5-8.0)
[2022-08-12 14:12] LABS: Influenza A PCR NEGATIVE (Negative); Influenza B PCR NEGATIVE (Negative); Resp Syncy Virus RNA Qual PCR NEGATIVE (Negative); SARS COV2 PCR INHOUSE POSITIVE (Negative)
[2022-08-12 17:14] VITALS: BP 106/58; PULSE 60; RESP 16; TEMP 36.6; O2SAT 96
--- NOTE | 2022-08-12 17:21 | PC.NURSE ---
Patient with Covid like symptoms over past week and a half Covid + LS clear no distress noted AOx 4 neuros intact IV access obtained patient remains on precautions for Covid will CTM
[2022-08-12] MEDS: 0.9 % Sodium Chloride 1,000 ML 999 ML IV (18:08)
[2022-08-12] MEDS: ondansetron HCL 4 MG/2 ML VIAL IVPUSH (18:08)
[2022-08-12 19:16] VITALS: BP 109/44; PULSE 60; RESP 16; TEMP 36.7; O2SAT 96
--- NOTE | 2022-08-12 19:26 | PC.NURSE ---
IV line removed. Pt tolerated well. Discharge instructions reviewed with pt. Pt verbalizes understanding.
== END 2022-08-12 19:27 | disposition home or self-care (01) ==
PROVIDERS: Physician Assistant Medical; Emergency Provider Emergency Medicine
DX: U07.1 COVID-19 (principal); I10 Essential (primary) hypertension; E78.5 Hyperlipidemia, unspecified; I48.0 Paroxysmal atrial fibrillation; Z95.810 Presence of automatic (implantable) cardiac defibrillator; Z95.2 Presence of prosthetic heart valve; Z79.01 Long term (current) use of anticoagulants; Z79.899 Other long term (current) drug therapy
CPT/HCPCS: 0241U; 36415; 71046; 80053; 83690; 83735; 85025; 85610; 93005; 96374; 99284; 99285; J2405

== ENCOUNTER 2022-08-31 20:27 | Emergency (ER) | payer OTHER, SELFPAY ==
--- NOTE | 2022-08-31 | ECG_ITS ---
Test Reason : SOB Blood Pressure : / mmHG Vent. Rate : 061 BPM Atrial Rate : 061 BPM P-R Int : 000 ms QRS Dur : 142 ms QT Int : 464 ms P-R-T Axes : 000 217 036 degrees QTc Int : 467 ms AV dual-paced rhythm Abnormal ECG When compared with ECG of 12-AUG-2022 14:13, Vent. rate has decreased BY 11 BPM Referred By: Generic ED Physician Electronically Signed By:JOSE GORDON
--- NOTE | ~2022-08-31 | XR_ITS ---
EXAMINATION: XR CHEST CLINICAL INFORMATION: Shortness of breath COMPARISON: Chest x-ray 08/12/2022 TECHNIQUE: 2 views of the chest were obtained. FINDINGS: No change position of pacemaker leads since prior chest x-ray. Cardiac mediastinal contours are normal. Mild prominence of the central hilar vessels with increased lung markings consistent with mild interstitial edema. Bilateral pleural effusions, small to moderate right pleural effusion and small left pleural effusion. XR/XR chest 2V IMPRESSION: Mild congestive heart failure. Bilateral pleural effusions.
[2022-08-31 20:33] VITALS: BP 130/88; BP 134/62; PULSE 78; RESP 22; TEMP 36.7; O2SAT 93; O2SAT 97; BMI 30.9
--- NOTE | 2022-08-31 20:45 | PC.NURSE ---
Bonnie ([facility]) [phone], call if/when ready to be d/c
--- NOTE | 2022-08-31 20:50 | ED_ITS ---
HPI - SOB/Dyspnea General Chief Complaint: Dyspnea Stated Complaint: SOB Time Seen by Provider: 08/31/22 20:49 Source: patient Mode of arrival: ambulatory History of Present Illness HPI Narrative: 76-year-old male he states that he did not get the most recent was for COVID but to get COVID last month. He states that his symptoms have remained resolved he still feels little short of breath. He has been using inhaler he denies fevers chills nausea vomiting or diarrhea. Patient arrives speaking full sentences not hypoxic or tachycardic and otherwise looks well with completely normal vitals. MD elicited complaint: shortness of breath and cough Related Data Home Medications Medication Instructions Recorded Confirmed albuterol sulfate 90 mcg/actuation 2 puff inhalation Q4-6H PRN 02/18/21 05/25/22 aerosol inhaler (Ventolin HFA) Wheezing dofetilide 250 mcg capsule 250 mcg PO Q12H 02/18/21 05/25/22 gemfibrozil 600 mg tablet 600 mg PO BID 02/18/21 05/25/22 lisinopril 10 mg tablet 10 mg PO DAILY 02/18/21 05/25/22 mometasone 200 mcg/actuation HFA 2 puff inhalation BID 02/18/21 05/25/22 aerosol inhaler (Asmanex HFA) omeprazole 40 mg capsule,delayed 40 mg PO DAILY 02/18/21 05/25/22 release warfarin 2.5 mg tablet 1.25 mg PO DAILY 02/18/21 05/25/22 febuxostat 40 mg tablet 40 mg PO DAILY 09/09/21 05/25/22 tamsulosin 0.4 mg capsule 0.4 mg PO BEDTIME 09/09/21 05/25/22 Previous Rx's Medication Instructions Recorded nirmatrelvir 150 mg-ritonavir 100 1 ea PO PER PKG DIR #20 ea 08/12/22 mg tablets in a dose pack (EUA) (Paxlovid) metoprolol tartrate 100 mg tablet 100 mg PO BID 90 days #180 tabs 08/26/22 prednisone 20 mg tablet 60 mg PO DAILY Asthma 5 days #15 08/31/22 tabs Allergies Allergy/AdvReac Type Severity Reaction Status Date / Time Wiibcuf-LFB-KdJ Reductase Allergy Intermediate muscle Verified 02/18/21 12:26 Inhibitor cramping [Qwloxon-Xav-Xeh Reductase in ribcage Inhibitor] Review of Systems Review of Systems: Review of systems: General: Patient denies any fever chills recent illness or falls Musculoskeletal: Denies back pain or body aches or other injuries HEENT: denies headache, runny nose, ear pain Respiratory: shortness of breath, cough Cardiovascular: no chest pain or palpitations : denies dysuria, frequency Abdomen: no nausea vomiting denies abdominal pain Extremities: no swelling, no pain Skin: no diaphoresis Yes all other systems are reviewed and are negative PMFSH Past Medical History Medical History Arthritis Asthma Barretts esophagus Collapsed lung COPD (chronic obstructive pulmonary disease) COVID-19 vaccine series completed Dilated cardiomyopathy Elevated cholesterol GERD (gastroesophageal reflux disease) History of paroxysmal atrial tachycardia History of placement of internal cardiac defibrillator HTN (hypertension) Myocardial infarction Osteopenia Sleep apnea Surgical History H/O colonoscopy History of esophagogastroduodenoscopy (EGD) History of repair of hiatal hernia Hx of aortic valve replacement Social History Social History Are you a primary manager progressive care to a significant other at home: No Do you presently have visiting nurse or other home services: No Alcohol intake: never Patient Tobacco Use Status: Former Tobacco user Quit Date: 2018 Tobacco use type: Cigarette Years Smoked: 60 Smoked in Last 30 Days: No Use of substances other than those prescribed or required for medical reasons: No Advance Directives: No Physical Exam Vital Signs: Vital Signs: Last Vital Signs Temp 98.0 F 08/31/22 21:20 Pulse 62 08/31/22 21:20 Resp 19 08/31/22 21:20 BP 141/63 H 08/31/22 21:20 Pulse Ox 94 08/31/22 21:20 O2 Del Method 08/31/22 21:20 BMI result Body Mass Index 30.9 General: Well-appearing well-nourished in no signs of distress HEENT: Normocephalic atraumatic Neck: No signs of JVD, no masses no tenderness or lymphadenopathy Cardiovascular: Regular rate and rhythm Respiratory: Clear to auscultation bilaterally Abdomen: Soft nontender no masses Extremities: Normal pedal pulses no signs of edema Skin: Dry warm no rashes Back: No tenderness full ROM Medical Decision Making Medical Decision Making [facility] Narrative: On check labs make sure patient is anemic I will also get an x-ray to make sure there is no pneumonia or other concerning signs. Patient is not wheezing I do f eel comfortable giving him dose of prednisone has he is already using his inhaler when he is not wheezing here right now. He is not hypoxic or tachycardic I do not think this patient has PE do not think a D-dimer was warranted. XR is negative I will send home with Predniosone. Differential Diagnosis Differential Diagnoses: The differential diagnosis associated with the presentation includes Acute on chronic bronchitis COPD shortness of breath related to dehydration Admission/Observation Consideration of admission/observation: Escalation of care including adm ission/observation considered Lab Data [facility] Lab Attestation statement: I reviewed the patient's lab results. 08/31/22 21:06 08/31/22 21:06 Labs: Lab Results 08/31/22 08/31/22 Range/Units 21:06 21:06 WBC 4.6 L (4.8-10.8) X10*3/uL RBC 3.77 L (4.60-5.80) X10*6/uL Hgb 12.0 L (14.0-18.0) g/dl Hct 35.8 L (42.0-52.0) % MCV 95.0 (80.0-98.0) fL MCH 31.8 (27.0-33.0) pg MCHC 33.5 (31.0-36.0) g/dl RDW 14.6 (11.0-16.0) % Plt Count 111 L D (160-400) X10*3/uL MPV 11.2 (9.4-12.4) fL Immature Gran % (Auto) 0.4 (0.0-0.4) % Neut % (Auto) 68.8 (45-73) % Lymph % (Auto) 20.0 (20-40) % Collier % (Auto) 8.9 (2-11) % Eos % (Auto) 1.7 (0-4) % Baso % (Auto) 0.2 (0-2) % Lymph # (Auto) 0.9 L (1.2-4.9) X10*3/uL Collier # (Auto) 0.4 (0.1-1.2) X10*3/uL Eos # (Auto) 0.1 (0.0-0.4) X10*3/uL Baso # (Auto) 0.0 (0.0-0.2) X10*3/uL Abs Immat Gran (auto) 0.02 (0.00-0.03) X10*3/uL Absolute Neuts (auto) 3.2 (2.0-8.3) x10*3/uL Absolute Nucleated RBC 0.000 (0.0-0.012) X10*3/uL Nucleated RBC % (auto) 0.0 (0.0-0.2) /100WBC Sodium 143 (135-145) mmol/L Potassium 3.7 (3.3-5.1) mmol/L Chloride 111 H (96-108) mmol/L Carbon Dioxide 24 (22-29) mmol/L Anion Gap 12 (12-20) BUN 15 (9-16) mg/dL Creatinine 1.02 (0.5-1.4) mg/dL Estim Creat Clear Calc 58.3 Estimated GFR > 60 Random Glucose 102 (60-115) mg/dL Calcium 8.2 L (8.4-10.2) mg/dL Independent Interpretation I performed an independent interpretation of an: EKG and Plain X-Ray Radiology Impression Discussion of test interpretation with radiology: I have reviewed the radiologist's reading. External Record Review External record reviewed: Inpatient record and Office record Discharge Plan Discharge Clinical Impression: Bronchitis Patient Disposition: Home, Self-Care Instructions: How to Use a Metered-Dose Inhaler (ED), Acute Bronchitis (ED) Additional Instructions: you were seen today for your breathing You had a XR and labs and sent home on prednisone Please follow up with your doctor. Prescriptions: New prednisone 20 mg tablet 60 mg PO DAILY 5 Days Qty: 15 0RF No Action metoprolol tartrate 100 mg tablet 100 mg PO BID 90 Days Qty: 180 3RF dofetilide 250 mcg Capsule 250 mcg PO Q12H warfarin 2.5 mg Tablet 1.25 mg PO DAILY gemfibrozil 600 mg Tablet 600 mg PO BID lisinopril 10 mg Tablet 10 mg PO DAILY Asmanex HFA 200 mcg/actuation Hfa Aerosol Inhaler 2 puff INHALATION BID omeprazole 40 mg Capsule,Delayed Release(Dr/Ec) 40 mg PO DAILY albuterol sulfate [Ventolin HFA] 90 mcg/actuation Hfa Aerosol Inhaler 2 puff INHALATION Q4-6H PRN (Reason: Wheezing) Paxlovid (EUA) 150-100 mg tablets,dose pack 1 ea PO PER PKG DIR Qty: 20 0RF Rx Instructions: 1 ea orally; febuxostat 40 mg tablet 40 mg PO DAILY tamsulosin 0.4 mg capsule 0.4 mg PO BEDTIME
--- NOTE | 2022-08-31 20:54 | PC.NURSE ---
Pt A&Ox4, denies any pain. Reports increase SOB, worsens with exertion. Reports productive cough with clear sputum. Lung sounds clear. Non-labored breathing, 94% on RA. Skin warm to touch, some mild edema noted bilaterally.
[2022-08-31 21:10] LABS: MANUAL DIFF FLAG NO
[2022-08-31 21:13] LABS: Basophils Percent Auto 0.2 % (0-2); Hematocrit 35.8 % (42.0-52.0); Imm Gran Abs Auto 0.02 X10*3/uL (0.00-0.03); Imm Gran Pct Auto 0.4 % (0.0-0.4); Mean Corpuscular HGB Conc 33.5 g/dl (31.0-36.0); Mean Corpuscular Hemoglobin 31.8 pg (27.0-33.0); Mean Platelet Volume 11.2 fL (9.4-12.4); PLT CLUMP 1; Red Blood Count 3.77 X10*6/uL (4.60-5.80); Red Cell Distribution Width 14.6 % (11.0-16.0); SCAN SMEAR FLAG 1
[2022-08-31 21:14] LABS: Eosinophils Absolute Auto 0.1 X10*3/uL (0.0-0.4); Eosinophils Percent Auto 1.7 % (0-4); Lymphocytes Absolute Auto 0.9 X10*3/uL (1.2-4.9); Monocytes Absolute Auto 0.4 X10*3/uL (0.1-1.2); Monocytes Percent Auto 8.9 % (2-11); Neutrophils Absolute Auto 3.2 x10*3/uL (2.0-8.3); Neutrophils Percent Auto 68.8 % (45-73)
[2022-08-31 21:18] LABS: Platelet Count 111 X10*3/uL (160-400); White Blood Count 4.6 X10*3/uL (4.8-10.8)
[2022-08-31 21:20] VITALS: BP 141/63; PULSE 62; RESP 19; TEMP 36.7; O2SAT 94
[2022-08-31 21:31] LABS: Anion Gap 12 (12-20); Blood Urea Nitrogen 15 mg/dL (9-16); Calcium 8.2 mg/dL (8.4-10.2); Carbon Dioxide 24 mmol/L (22-29); Chloride 111 mmol/L (96-108); Creatinine Clr Calc Pharmacy 58.3; Estimated Glomerular Filt Rate > 60; Glucose Random 102 mg/dL (60-115); Potassium 3.7 mmol/L (3.3-5.1); Sodium 143 mmol/L (135-145)
[2022-08-31] MEDS: predniSONE 20 MG TABLET 60 MG PO (21:41)
== END 2022-08-31 21:54 | disposition home or self-care (01) ==
PROVIDERS: Emergency Provider Student in an Organized Health Care Education/Training Program
DX: J40 Bronchitis, not specified as acute or chronic (principal); R06.02 Shortness of breath; I10 Essential (primary) hypertension; E78.5 Hyperlipidemia, unspecified; I48.0 Paroxysmal atrial fibrillation; Z87.891 Personal history of nicotine dependence; Z95.810 Presence of automatic (implantable) cardiac defibrillator; Z79.899 Other long term (current) drug therapy; Z79.01 Long term (current) use of anticoagulants
CPT/HCPCS: 36415; 71046; 80048; 85025; 93005; 99283; 99284

== ENCOUNTER → 2022-11-17 13:43 | Outpatient (BNVA) | payer OTHER, SELFPAY | PROVIDERS: PCP Family Medicine; Visit Provider Internal Medicine Cardiovascular Disease | DX: I42.9 Cardiomyopathy, unspecified (principal); I48.0 Paroxysmal atrial fibrillation; I47.20 Ventricular tachycardia, unspecified; I77.810 Thoracic aortic ectasia; I10 Essential (primary) hypertension; I47.1 Supraventricular tachycardia; Z95.810 Presence of automatic (implantable) cardiac defibrillator; Z79.01 Long term (current) use of anticoagulants; Z79.899 Other long term (current) drug therapy | CPT/HCPCS: 93005; 99212 ==

== ENCOUNTER → 2022-12-29 23:59 | Outpatient (BNV) | payer OTHER, SELFPAY ==
--- NOTE | 2023-01-03 11:22 | MHC.OFFVIS ---
Intake Intake Visit Reasons: Remote HF Monitoring- [employer] Allergies Vvtgpvg-QEE-ZrX Reductase Inhibitor [Mlmzjkz-Ziq-Lcj Reductase Inhibitor] Allergy (Intermediate, Verified 02/18/21 12:26) muscle cramping in ribcage [facility] Medical History Arthritis Asthma Barretts esophagus Collapsed lung COPD (chronic obstructive pulmonary disease) COVID-19 vaccine series completed Dilated cardiomyopathy Elevated cholesterol GERD (gastroesophageal reflux disease) History of paroxysmal atrial tachycardia History of placement of internal cardiac defibrillator HTN (hypertension) Myocardial infarction Osteopenia Sleep apnea Surgical History H/O colonoscopy History of esophagogastroduodenoscopy (EGD) History of repair of hiatal hernia Hx of aortic valve replacement Social History Are you a primary long term acute care registered nurse to a significant other at home: No Do you presently have visiting nurse or other home services: No Alcohol intake: never Patient Tobacco Use Status: Former Tobacco user Quit Date: 2018 Tobacco use type: Cigarette Years Smoked: 60 Office Procedures Cardiac Device Check Cardiac Device Check Details: Remote heart failure report generated 12/29/2022. Heart failure parameters have normalized and in normal range [id number] Cardiac Device Interrogation, cardio physiologic monitor Procedure code (CPT) selection complete Coding Level of Care Code Procedure Only Diagnoses CPT Codes Cardiac Device Check - Cardiac Device 15: [id number] Cardiac Device Interrogation, cardio physiologic monitor ([id number])
== END ==
PROVIDERS: PCP Family Medicine; Visit Provider Internal Medicine Cardiovascular Disease
DX: I47.20 Ventricular tachycardia, unspecified (principal); Z95.810 Presence of automatic (implantable) cardiac defibrillator
CPT/HCPCS: 93297

== ENCOUNTER → 2023-01-29 23:59 | Outpatient (BNV) | payer OTHER, SELFPAY ==
--- NOTE | 2023-01-30 12:39 | MHC.OFFVIS ---
Intake Intake Visit Reasons: Remote HF Monitoring- [employer] Allergies Ajtfckl-AAH-WyQ Reductase Inhibitor [Gzdyuos-Vqv-Ruv Reductase Inhibitor] Allergy (Intermediate, Verified 02/18/21 12:26) muscle cramping in ribcage [facility] Medical History Arthritis Asthma Barretts esophagus Collapsed lung COPD (chronic obstructive pulmonary disease) COVID-19 vaccine series completed Dilated cardiomyopathy Elevated cholesterol GERD (gastroesophageal reflux disease) History of paroxysmal atrial tachycardia History of placement of internal cardiac defibrillator HTN (hypertension) Myocardial infarction Osteopenia Sleep apnea Surgical History H/O colonoscopy History of esophagogastroduodenoscopy (EGD) History of repair of hiatal hernia Hx of aortic valve replacement Social History Are you a primary pediatric acute care unit nurse to a significant other at home: No Do you presently have visiting nurse or other home services: No Alcohol intake: never Patient Tobacco Use Status: Former Tobacco user Quit Date: 2018 Tobacco use type: Cigarette Years Smoked: 60 Office Procedures Cardiac Device Check Cardiac Device Check Details: Remote heart failure report generated 01/29/2023. Heart failure parameters are stable [id number] Cardiac Device Interrogation, cardio physiologic monitor Procedure code (CPT) selection complete Coding Level of Care Code Procedure Only Diagnoses CPT Codes Cardiac Device Check - Cardiac Device 15: [id number] Cardiac Device Interrogation, cardio physiologic monitor ([id number])
== END ==
PROVIDERS: PCP Family Medicine; Visit Provider Internal Medicine Cardiovascular Disease
DX: I42.9 Cardiomyopathy, unspecified (principal); Z95.810 Presence of automatic (implantable) cardiac defibrillator
CPT/HCPCS: 93297

== ENCOUNTER → 2023-03-01 23:59 | Outpatient (BNV) | payer OTHER, SELFPAY ==
--- NOTE | 2023-03-02 11:30 | A.OFFVIS_ITS ---
Intake Intake Visit Reasons: Remote HF Monitoring- [employer] Allergies Vonhxgp-KQR-TeR Reductase Inhibitor [Sxbnupz-Xbt-Axl Reductase Inhibitor] Allergy (Intermediate, Verified 02/18/21 12:26) muscle cramping in ribcage [facility] Medical History Arthritis Asthma Barretts esophagus Collapsed lung COPD (chronic obstructive pulmonary disease) COVID-19 vaccine series completed Dilated cardiomyopathy Elevated cholesterol GERD (gastroesophageal reflux disease) History of paroxysmal atrial tachycardia History of placement of internal cardiac defibrillator HTN (hypertension) Myocardial infarction Osteopenia Sleep apnea Surgical History H/O colonoscopy History of esophagogastroduodenoscopy (EGD) History of repair of hiatal hernia Hx of aortic valve replacement Social History Are you a primary clinical care leader to a significant other at home: No Do you presently have visiting nurse or other home services: No Alcohol intake: never Patient Tobacco Use Status: Former Tobacco user Quit Date: 2018 Tobacco use type: Cigarette Years Smoked: 60 Office Procedures Cardiac Device Check Cardiac Device Check Details: Remote heart failure report generated 03/01/2023. Heart failure parameters are stable [id number] Cardiac Device Interrogation, cardio physiologic monitor Procedure code (CPT) selection complete Coding Level of Care Code Procedure Only CPT Codes Cardiac Device Check - Cardiac Device 15: [id number] Cardiac Device Interrogation, cardio physiologic monitor ([id number])
== END ==
PROVIDERS: PCP Family Medicine; Visit Provider Internal Medicine Cardiovascular Disease
DX: I42.9 Cardiomyopathy, unspecified (principal); Z95.810 Presence of automatic (implantable) cardiac defibrillator
CPT/HCPCS: 93297

== ENCOUNTER → 2023-03-27 23:59 | Outpatient (BNV) | payer OTHER, SELFPAY ==
--- NOTE | 2023-03-29 10:05 | A.OFFVIS_ITS ---
Intake Intake Visit Reasons: Remote HF Monitoring- [employer] Allergies Tckovse-QDY-PqV Reductase Inhibitor [Bsrvnnw-Vzf-Pmc Reductase Inhibitor] Allergy (Intermediate, Verified 02/18/21 12:26) muscle cramping in ribcage [facility] Medical History Arthritis Asthma Barretts esophagus Collapsed lung COPD (chronic obstructive pulmonary disease) COVID-19 vaccine series completed Dilated cardiomyopathy Elevated cholesterol GERD (gastroesophageal reflux disease) History of paroxysmal atrial tachycardia History of placement of internal cardiac defibrillator HTN (hypertension) Myocardial infarction Osteopenia Sleep apnea Surgical History H/O colonoscopy History of esophagogastroduodenoscopy (EGD) History of repair of hiatal hernia Hx of aortic valve replacement Social History Are you a primary care management coordinator to a significant other at home: No Do you presently have visiting nurse or other home services: No Alcohol intake: never Patient Tobacco Use Status: Former Tobacco user Quit Date: 2018 Tobacco use type: Cigarette Years Smoked: 60 Office Procedures Cardiac Device Check Cardiac Device Check Details: Remote heart failure report generated 03/27/2023. Heart failure parameters are stable [id number] Cardiac Device Interrogation, cardio physiologic monitor Procedure code (CPT) selection complete Coding Level of Care Code Procedure Only CPT Codes Cardiac Device Check - Cardiac Device 15: [id number] Cardiac Device Interrogation, cardio physiologic monitor ([id number])
== END ==
PROVIDERS: PCP Family Medicine; Visit Provider Internal Medicine Cardiovascular Disease
DX: I42.9 Cardiomyopathy, unspecified (principal); Z95.810 Presence of automatic (implantable) cardiac defibrillator
CPT/HCPCS: 93297

== ENCOUNTER → 2023-05-01 23:59 | Outpatient (BNV) | payer OTHER, SELFPAY ==
--- NOTE | 2023-05-01 12:34 | A.OFFVIS_ITS ---
Intake Intake Visit Reasons: Remote HF Monitoring- [employer] Allergies Umfuita-GUV-QlR Reductase Inhibitor [Bdvozur-Syv-Wuo Reductase Inhibitor] Allergy (Intermediate, Verified 02/18/21 12:26) muscle cramping in ribcage [facility] Medical History Arthritis Asthma Barretts esophagus Collapsed lung COPD (chronic obstructive pulmonary disease) COVID-19 vaccine series completed Dilated cardiomyopathy Elevated cholesterol GERD (gastroesophageal reflux disease) History of paroxysmal atrial tachycardia History of placement of internal cardiac defibrillator HTN (hypertension) Myocardial infarction Osteopenia Sleep apnea Surgical History H/O colonoscopy History of esophagogastroduodenoscopy (EGD) History of repair of hiatal hernia Hx of aortic valve replacement Social History Are you a primary patient care specialist to a significant other at home: No Do you presently have visiting nurse or other home services: No Alcohol intake: never Patient Tobacco Use Status: Former Tobacco user Quit Date: 2018 Tobacco use type: Cigarette Years Smoked: 60 Office Procedures Cardiac Device Check Cardiac Device Check Details: Remote heart failure report generated 05/01/2023. Heart failure parameters are stable [id number] Cardiac Device Interrogation, cardio physiologic monitor Procedure code (CPT) selection complete Coding Level of Care Code Procedure Only CPT Codes Cardiac Device Check - Cardiac Device 15: [id number]-[id number] Cardiac Device Interrogation, cardio physiologic monitor ([id number])
== END ==
PROVIDERS: PCP Family Medicine; Visit Provider Internal Medicine Cardiovascular Disease
DX: I42.9 Cardiomyopathy, unspecified (principal); Z95.810 Presence of automatic (implantable) cardiac defibrillator
CPT/HCPCS: 93297

== ENCOUNTER 2023-05-23 14:16 | Outpatient (AMB) | payer OTHER, SELFPAY ==
--- NOTE | 2023-05-23 14:20 | A.OFFVIS_ITS ---
Intake Vital Signs 05/23/23 14:21 Height 5 ft 3 in Weight 185 lb 3.013 oz BMI 32.8 BP 120/80 Blood Pressure Location Lt brachial Position Sitting Pulse 80 Intake Visit Reasons: 6 mth f/up ICD and ekg Intake Note: 6 month follow-up with ekg and medtronic check feeling good Field Support Engineer Required: No Allergies Hrswruv-QPJ-PnU Reductase Inhibitor [Ejvybhl-Gec-Mlx Reductase Inhibitor] Allergy (Intermediate, Verified 02/18/21 12:26) muscle cramping in ribcage Medication List - Last Reconciled 05/23/23 by Donnell Ledesma MD albuterol sulfate 90 mcg/actuation (Ventolin HFA) 2 puffs inhalation Q4-6H PRN dofetilide 250 mcg PO Q12H febuxostat 40 mg PO DAILY gemfibrozil 600 mg PO BID lisinopril 10 mg PO DAILY metoprolol tartrate 100 mg PO BID 90 days mometasone 200 mcg/actuation (Asmanex HFA) 2 puffs inhalation BID omeprazole 40 mg PO DAILY tamsulosin 0.4 mg PO BEDTIME warfarin 1.25 mg PO DAILY HPI HPI Comments History of Present Illness Details Everette comes for follow-up. He continues to have significant exertional shortness of breath. Denies exertional chest pain. Denies any clear orthopnea, PND, abdominal distension, weight gain, leg edema. Currently not on any diuretic regimen. Denies any prolonged palpitations irregular heartbeat. No bleeding issues or neurologic events. No lightheadedness, syncope, ICD discharge. COUNTS INCLUDE 234 BEDS AT THE [facility] Medical History COVID-19 vaccine series completed Collapsed lung Myocardial infarction GERD (gastroesophageal reflux disease) History of placement of internal cardiac defibrillator History of paroxysmal atrial tachycardia Asthma Dilated cardiomyopathy Osteopenia Arthritis Elevated cholesterol Sleep apnea COPD (chronic obstructive pulmonary disease) HTN (hypertension) Barretts esophagus Surgical History History of repair of hiatal hernia Hx of aortic valve replacement History of esophagogastroduodenoscopy (EGD) H/O colonoscopy Social History Are you a primary director of patient care to a significant other at home: No Do you presently have visiting nurse or other home services: No Alcohol intake: never Patient Tobacco Use Status: Former Tobacco user Quit Date: 2018 Tobacco use type: Cigarette Years Smoked: 60 Review of Systems Const Denies chills, Denies fatigue, Denies fever(s), Denies frequent falls, Denies weakness, Denies weight gain and Denies weight loss ENT Denies dizziness Card Denies chest pain, Denies leg edema, Denies lightheadedness, Denies palpitations, Denies dyspnea, Denies dyspnea on exertion, Denies orthopnea and Denies other (loss of consciousness) Resp Denies cough, Denies dyspnea and Denies dyspnea on exertion GI Denies hematochezia and Denies change in stool character Musc Denies abnormal gait, Denies muscle weakness, Denies numbness, Denies radiating pain into limb and Denies tingling Neuro Denies Abnormal speech present, Denies abnormal gait, Denies dizziness, Denies frequent falls, Denies numbness, Denies tingling and Denies weakness Endo Denies fatigue and Denies palpitations Physical Exam Vital Signs: Last Vital Signs Pulse 80 05/23/23 14:21 BP 120/80 05/23/23 14:21 BMI result Body Mass Index 32.8 Const General: cooperative, comfortable, no acute distress, alert and awake Nutritional Appearance: obese Orientation/consciousness: patient oriented x3 Limitations: no limitations Neck Neck: Yes trachea midline, Yes supple and Yes no JVD Chest Chest palpation & inspection: normal inspection of the chest and other (Well- healed sternotomy scar) Resp Effort & Inspection: normal respiratory effort Auscultation: no rales, no wheezes and diminished lung sounds Cardio Jugular venous distension: no JVD Palpation: normal PMI Rate: regular rate Rhythm: regular rhythm Heart sounds: S1 normal heart sound present, Clicking heart sound present (Sarpy closing click of [place] aortic valve), no gallops and no murmurs Peripheral pulses: Peripheral pulses 2+ throughout GI Inspection: Yes obesity Auscultation: normal bowel sounds Skin General skin exam: no rashes or lesions noted Neuro General: patient oriented x3 and no focal motor deficits Speech: No Abnormal speech present Extrem General: Yes no clubbing, cyanosis or edema Psych Appearance: grossly normal Office Procedures Cardiac Device Check Cardiac Device Check Details: Biventricular Medtronic ICD in place. Programmed in DDDR at 60 beats per minute. Battery life is at about 4 months. Atrial sensitivity is low. Ventricular sensing is adequate. Atrial pacing thresholds adequate and reprogrammed to enhance battery life. RV pacing thresholds adequate and reprogrammed to enhance battery life. LV pacing thresholds adequate. Pacing and shock lead impedance is stable. Multiple high ventricular rate episode noted which are more consistent with SVT although some could represent nonsustained VT. Heart failure parameters are within normal limits. Bi V pacing 99.5% of the time. [id number] Cardiac Device Check, multi lead implantable defibrillator Procedure code (CPT) selection complete EKG Details: EKG shows AV dual paced rhythm with PVCs 18319-[id number], Complete Assessment & Plan Assessment & Plan (1) SOB (shortness of breath) on exertion: Code(s): R06.02 - Shortness of breath Plan: Patient with exertional shortness of shortness of breath with no overt signs of fluid overload and no device findings consistent with fluid accumulation. Findings most consistent with either ischemia, underlying COPD with restrictive lung function and/or deconditioning. Will refer him to phase 2 cardiac rehabilitation. Continue neurohormonal modulation with lisinopril and metoprolol therapy. Will schedule him for Lexiscan myocardial perfusion imaging to evaluate for myocardial ischemia as well as PFTs to assess for any obvious etiology that can be corrected on manage medically or interventionally if required. Also schedule for echocardiogram near future. (2) Cardiomyopathy: Code(s): I42.9 - Cardiomyopathy, unspecified Plan: Cardiomyopathy, ischemic in nature with moderate LV systolic dysfunction by last echocardiogram. Follow-up echocardiogram near future. Continue current metoprolol and lisinopril therapy. Clinically without any overt signs of heart failure. Continue rhythm control approach. Follow-up echocardiogram in near future. Continue CPAP therapy. (3) Paroxysmal atrial fibrillation: Code(s): I48.0 - Paroxysmal atrial fibrillation Plan: Paroxysmal atrial fibrillation which has overall remained suppressed on dofetilide therapy. Continue the same. Has tolerated this therapy well. Semi annual renal function test should be pursued. Currently on warfarin therapy for oral anticoagulation. Continue the same. Target INR between 2 and 3 being followed by [facility]. (4) Aortic valve replaced: Code(s): Z95.2 - Presence of prosthetic heart valve Plan: Mechanical aortic valve replacement in the past. The valve is working well overall by clinical exam as well as well last echocardiogram. Follow-up echocar diogram near future. Advise continue warfarin therapy with target INR between 2 and 3. SBE prophylaxis as per ACC/aha guidelines. (5) Biventricular ICD (implantable cardioverter-defibrillator) in place: Code(s): Z95.810 - Presence of automatic (implantable) cardiac defibrillator Plan: Biventricular ICD in place. As this is working well. Will follow remotely for heart failure follow every 3 months for device and battery check. Battery is close to RIMA and she was sent a sin alert when there is elective replacement indicator turned on. Follow up in the clinic in 6 months time, sooner p.r.n.. Greater than 40 minutes was spent in managing his care. Orders: Orders Cardiac Rehab Today I42.9 - Cardiomyopathy, unspecified CA echo transthoracic complete Today I42.9 - Cardiomyopathy, unspecified CA lexiscan stress w ck Today I42.9 - Cardiomyopathy, unspecified PFT pulmonary function test Today R06.02 - Shortness of breath Coding Level of Care Code Est Pt Level 5 (92471) Diagnoses SOB (shortness of breath) on exertion R06.02 Cardiomyopathy I42.9 Paroxysmal atrial fibrillation I48.0 Aortic valve replaced Z95.2 Biventricular ICD (implantable cardioverter-defibrillator) in place Z95.810 CPT Codes Cardiac Device Check - Cardiac Device 6: [id number] Cardiac Device Check, multi lead implantable defibrillator ([id number]) EKG - CPT: 32191-Zxbhfjepzrkyxhrab, Complete ([id number])
[2023-05-23 14:21] VITALS: BP 120/80; PULSE 80; BMI 32.8
== END 2023-05-23 15:03 | disposition home or self-care (01) ==
PROVIDERS: Referring Provider Family Medicine; Visit Provider Internal Medicine Cardiovascular Disease
DX: R06.02 Shortness of breath (principal); I42.9 Cardiomyopathy, unspecified; I48.0 Paroxysmal atrial fibrillation; Z95.2 Presence of prosthetic heart valve; Z95.810 Presence of automatic (implantable) cardiac defibrillator; R94.31 Abnormal electrocardiogram [ECG] [EKG]
CPT/HCPCS: 93010; 93284; 99215

== ENCOUNTER → 2023-05-23 14:16 | Outpatient (BNVA) | payer OTHER, SELFPAY | PROVIDERS: Visit Provider Internal Medicine Cardiovascular Disease | DX: Z45.02 Encounter for adjustment and management of automatic implantable cardiac defibrillator (principal); I42.9 Cardiomyopathy, unspecified; I48.0 Paroxysmal atrial fibrillation; R06.02 Shortness of breath; Z95.2 Presence of prosthetic heart valve | CPT/HCPCS: 93005; 99212 ==

== ENCOUNTER → 2023-06-01 23:59 | Outpatient (BNV) | payer OTHER, SELFPAY ==
--- NOTE | 2023-06-05 14:35 | MHC.OFFVIS ---
Intake Intake Visit Reasons: Remote HF Monitoring- Medtronic Allergies Xovwfgz-YCS-EmH Reductase Inhibitor [Vgetbgy-Evs-Vei Reductase Inhibitor] Allergy (Intermediate, Verified 02/18/21 12:26) muscle cramping in ribcage [facility] Medical History COVID-19 vaccine series completed Collapsed lung Myocardial infarction GERD (gastroesophageal reflux disease) History of placement of internal cardiac defibrillator History of paroxysmal atrial tachycardia Asthma Dilated cardiomyopathy Osteopenia Arthritis Elevated cholesterol Sleep apnea COPD (chronic obstructive pulmonary disease) HTN (hypertension) Barretts esophagus Surgical History History of repair of hiatal hernia Hx of aortic valve replacement History of esophagogastroduodenoscopy (EGD) H/O colonoscopy Social History Are you a primary senior care specialist to a significant other at home: No Do you presently have visiting nurse or other home services: No Alcohol intake: never Patient Tobacco Use Status: Former Tobacco user Quit Date: 2018 Tobacco use type: Cigarette Years Smoked: 60 Office Procedures Cardiac Device Check Cardiac Device Check Details: Remote heart failure report generated 06/01/2023. Heart failure parameters are stable [id number] Cardiac Device Interrogation, cardio physiologic monitor Procedure code (CPT) selection complete Assessment & Plan Assessment & Plan (1) Biventricular ICD (implantable cardioverter-defibrillator) in place: Code(s): Z95.810 - Presence of automatic (implantable) cardiac defibrillator Plan: Same as above Coding Level of Care Code Procedure Only Diagnoses Biventricular ICD (implantable cardioverter-defibrillator) in place Z95.810 CPT Codes Cardiac Device Check - Cardiac Device 15: [id number] Cardiac Device Interrogation, cardio physiologic monitor ([id number])
== END ==
PROVIDERS: PCP Family Medicine; Visit Provider Internal Medicine Cardiovascular Disease
DX: I42.9 Cardiomyopathy, unspecified (principal); Z95.810 Presence of automatic (implantable) cardiac defibrillator
CPT/HCPCS: 93297

== ENCOUNTER → 2023-06-01 23:59 | Outpatient (BNV) | payer OTHER, SELFPAY ==
--- NOTE | 2023-06-05 14:34 | MHC.OFFVIS ---
Intake Intake Visit Reasons: Remote ICD Check- Medtronic Allergies Hnaodcg-WXX-WuG Reductase Inhibitor [Tikzpbq-Opv-Dro Reductase Inhibitor] Allergy (Intermediate, Verified 02/18/21 12:26) muscle cramping in ribcage [facility] Medical History COVID-19 vaccine series completed Collapsed lung Myocardial infarction GERD (gastroesophageal reflux disease) History of placement of internal cardiac defibrillator History of paroxysmal atrial tachycardia Asthma Dilated cardiomyopathy Osteopenia Arthritis Elevated cholesterol Sleep apnea COPD (chronic obstructive pulmonary disease) HTN (hypertension) Barretts esophagus Surgical History History of repair of hiatal hernia Hx of aortic valve replacement History of esophagogastroduodenoscopy (EGD) H/O colonoscopy Social History Are you a primary home health care provider to a significant other at home: No Do you presently have visiting nurse or other home services: No Alcohol intake: never Patient Tobacco Use Status: Former Tobacco user Quit Date: 2018 Tobacco use type: Cigarette Years Smoked: 60 Office Procedures Cardiac Device Check Cardiac Device Check Details: Remote ICD report generated 06/01/2023. ICD function is adequate. [id number] Cardiac Interrogation, implant defibrillator w/interim Procedure code (CPT) selection complete Assessment & Plan Assessment & Plan (1) Biventricular ICD (implantable cardioverter-defibrillator) in place: Code(s): Z95.810 - Presence of automatic (implantable) cardiac defibrillator Plan: See above Coding Level of Care Code Procedure Only Diagnoses Biventricular ICD (implantable cardioverter-defibrillator) in place Z95.810 CPT Codes Cardiac Device Check - Cardiac Device 13: [id number] Cardiac Interrogation, implant defibrillator w/interim ([id number])
== END ==
PROVIDERS: PCP Family Medicine; Visit Provider Internal Medicine Cardiovascular Disease
DX: I42.9 Cardiomyopathy, unspecified (principal); Z95.810 Presence of automatic (implantable) cardiac defibrillator
CPT/HCPCS: 93295

== ENCOUNTER → 2023-07-02 23:59 | Outpatient (BNV) | payer OTHER, SELFPAY ==
--- NOTE | 2023-07-04 16:24 | MHC.OFFVIS ---
Intake Intake Visit Reasons: Remote HF Monitoring- Medtronic Allergies Xhzmmzq-EAD-IjD Reductase Inhibitor [Qlzoalo-Rht-Nit Reductase Inhibitor] Allergy (Intermediate, Verified 02/18/21 12:26) muscle cramping in ribcage [facility] Medical History COVID-19 vaccine series completed Collapsed lung Myocardial infarction GERD (gastroesophageal reflux disease) History of placement of internal cardiac defibrillator History of paroxysmal atrial tachycardia Asthma Dilated cardiomyopathy Osteopenia Arthritis Elevated cholesterol Sleep apnea COPD (chronic obstructive pulmonary disease) HTN (hypertension) Barretts esophagus Surgical History History of repair of hiatal hernia Hx of aortic valve replacement History of esophagogastroduodenoscopy (EGD) H/O colonoscopy Social History Are you a primary career services assistant to a significant other at home: No Do you presently have visiting nurse or other home services: No Alcohol intake: never Patient Tobacco Use Status: Former Tobacco user Quit Date: 2018 Tobacco use type: Cigarette Years Smoked: 60 Office Procedures Cardiac Device Check Cardiac Device Check Details: Remote heart failure report generated 07/02/2023. Heart failure parameters are stable [id number] Cardiac Device Interrogation, cardio physiologic monitor Procedure code (CPT) selection complete Assessment & Plan Assessment & Plan (1) Biventricular ICD (implantable cardioverter-defibrillator) in place: Code(s): Z95.810 - Presence of automatic (implantable) cardiac defibrillator Plan: See above Coding Level of Care Code Procedure Only Diagnoses Biventricular ICD (implantable cardioverter-defibrillator) in place Z95.810 CPT Codes Cardiac Device Check - Cardiac Device 15: [id number] Cardiac Device Interrogation, cardio physiologic monitor ([id number])
== END ==
PROVIDERS: PCP Family Medicine; Visit Provider Internal Medicine Cardiovascular Disease
DX: I42.9 Cardiomyopathy, unspecified (principal); Z95.810 Presence of automatic (implantable) cardiac defibrillator
CPT/HCPCS: 93297

== ENCOUNTER → 2023-07-17 08:53 | Outpatient (REF) | payer OTHER, SELFPAY ==
--- NOTE | ~2023-07-17 | NM_ITS ---
Lexiscan Myocardial perfusion study Indication: Cardiomyopathy, assess for coronary disease and ischemia Technique: The patient was brought in for a Lexiscan perfusion study on 07/17/2023 and was injected 0.4 mg of Lexiscan intravenously. Within a minute of this injection 30 mCi of sestamibi was given intravenously. Images were obtained using the SPECT gamma camera interlaced with the gating device. Images were obtained in supine position. Resting perfusion study was performed on 07/20/2023. Patient was administered 30 mCi of sestamibi intravenously at rest. Images were then obtained in supine position. Images were processed with the software and compared side to side in short axis, horizontal long axis and vertical long axis views. Total DLP 98mGy-cm. Findings: Raw acquisition reviewed. The stress perfusion study showed absent tracer uptake in several areas including most of the anterior wall, apex, parts of inferior wall and lateral wall. With CT attenuation correction there is lack of improvement and hence likely all true defects. The gated study shows severely reduced LV systolic function with calculated LVEF of 28%. LV cavity is dilated in size. The gated study shows markedly reduced wall thickening and contraction of segments. Resting study shows absent tracer uptake in several areas including most of the anterior wall, apex, parts of inferior wall, lateral wall and mostly similar to stress acquisition. Gating at rest reveals globally reduced wall motion with ejection fraction at 26%. The findings are consistent with large extensive fixed defects involving most of the anterior wall, apex, inferior wall, lateral wall. Minimal reversibility any in the inferior wall. NM/NM ck perf SPECT rest & str Impression: 1. 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 Mild ischemia in the inferior wall. 2. Gated LVEF is 28% during stress and 26% during rest. 3. Transient ischemic dilatation not present. EKG component of the test reported separately.
--- NOTE | 2023-07-17 08:56 | CA_ITS ---
Transthoracic Echocardiogram Patient (Last, First, Middle): Everette Watkins, Gender: Male Date of : 1945 Age: 77 Procedure Date: 07/17/2023 Procedure Type: Transthoracic Echocardiogram Location: OP Height: 160.02 cm Weight: 83.92 kg BSA: 1.87 m2 Heart Rate: bpm BP: 116 / 60 mmHg Vending Attendant: BROCK Referring MD: Donnell Ledesma MD Symptoms: I42.9 - Cardiomyopathy, unspecified Study Quality: Technically Difficult due to obesity ECG Rhythm: Undetermined Conclusions: - The left ventricular systolic function is moderately decreased. The visually estimated ejection fraction is between 30-35%. - The apical anterior and mid anteroseptal segments are akinetic. Even with contrast, difficult to assess LVEF/wall motion. - A mechanical prosthetic aortic valve is present. The prosthetic aortic valve appears to be functioning normally. Findings Procedure Information Contrast agent, definity, is being given per protocol without apparent complications. Left Ventricle Normal left ventricular cavity size. There is moderately increased left ventricular wall thickness. The left ventricular systolic function is moderately decreased. The visually estimated ejection fraction is between 30 35%. Regional wall motion abnormalities can not be excluded due to suboptimal endocardial definition. Diastolic function is indeterminate on the basis of available data. Wall Motion Rest Echo Findings The apical anterior and mid anteroseptal segments are akinetic. Right Ventricle The right ventricle was not well visualized. Mildly increased right ventricular cavity size. There is a pacemaker wire seen in the right ventricle. Atria The left atrium is severely dilated. The right atrium was not well visualized. Aortic Valve A mechanical prosthetic aortic valve is present. The prosthetic aortic valve appears to be functioning normally. The aortic valve was not well visualized. The mean gradient is 8 mmHg. Acceleration time within normal limits. No significant regurgitation noted. Mitral Valve There is mild mitral annular calcification. There is mild mitral valve regurgitation. There is no mitral valve stenosis. Pulmonic Valve The pulmonic valve is likely normal. Tricuspid Valve There is trace tricuspid valve regurgitation. Mild pulmonary hypertension is present. Great Vessels The asc aorta is normal in size. Venous The inferior vena cava is normal in size and collapses greater than 50% with inspiration. Pericardium/Pleural There is no evidence of pericardial effusion. Prior Study Comparison No significant change compared to prior study dated: 05/31/2022. Measurements 2D Linear Measurements IVSd: 1.57 0.6-0.9/0.6-1.0 cm LVIDd: 5.35 3.9-5.3/4.2-5.9 cm LVIDd Index: 2.86 2.4-3.2/2.2-3.1 cm/m2 LVIDs: 4.38 2.0-3.6 cm LVPWd: 1.52 0.7-1.1 cm Ao Root: 3.50 2.1-3.5 cm LA Diam: 3.80 2.7-3.8/3.0-4.0 cm LAIDs Index: 2.03 1.5-2.3 cm/m2 LV Mass: 466.00 67-162/88-224 g LV Mass Index: 249.20 43-95/49-115 g/m2 LVOT Diam: 2.10 3.0+(-)1.3 cm 2D Systolic Function EF 4C: 24.00 >55% EF 2C: 32.90 >55% EF BiP: 27.70 >55% Mitral Valve MV Pk E: 1.21 MV Decel Time: 208.00 E'Lateral: 5.22 E'Medial: 5.00 E/E' Med: 24.20 E/E' Lat: 23.20 PHT: 61.00 MVA PHT: 3.61 Decel Forest: 5.82 Aortic Valve AoV Pk Blaise: 2.31 AoV Mn Blaise: 1.28 AoV VTI: 0.44 AoV Pk Grad: 21.00 Aov Mn Grad: 8.00 MADY Cont.VTI: 1.50 LVOT LVOT Pk Blaise: 0.81 LVOT Mn Blaise: 0.58 LVOT VTI: 0.19 LVOT Pk Grad: 3.00 LVOT Mn Grad: 2.00 LVOT Diam: 2.10 LVOT Area: 3.46 Diastolic Function MV Pk E: 1.21 E'Medial: 5.00 E/E' Med: 24.20 E' Laterial: 5.22 E/E' Lat: 23.20 Tricuspid Valve TR Pk Blaise: 2.70 TR Pk Grad: 29.00 RA Press: 3.00 RVSP: 38.00 Great Vessels Aorta Ao Root-2D: 3.50 2.0-3.7 cm Ao Asc: 3.70 2.1-3.4 cm Pulmonary Valve PV Pk Blaise: 0.61 Peak PV Grad: 1.00 Updated in Other Vendor System with Status of Final Yang Garcia MD electronically signed on 07/18/2023 3:19:32 PM with status of Final
--- NOTE | 2023-07-17 08:56 | CA_ITS ---
Acquisition Time: 2023-07-17 10:09:48 Total Exercise Time: 00:02:00 Test Indications: Dyspnea CARDIOMYOPATHY Medications: METOPROLOL LISINOPRIL OMEPRAZOLE DOFETILIDE FEBUXOSTAT ASMANEX TAMSULOSIN WARFARIN ALBUTEROL Protocol: LEXISCAN Max HR: 070 BPM 48% of Pred: 144 BPM Max BP: 130/070 mmHG Max Work Load: 1.0 METS pharmacological stress test with Lexiscan injection, while sitting and kicking his legs, with mild sob, no chest discomfort, with isolated PVC, with normotensive response to injection, with nondiagnostic EKG for ischemia. Nuclear images pending. Test reviewed with Dr Licona. Referred By: Donnell Ledesma Overread By: JALYN MASON
== END ==
LOC: HO.CARD 08:53
PROVIDERS: PCP Family Medicine; Visit Provider Internal Medicine Cardiovascular Disease
DX: I42.9 Cardiomyopathy, unspecified (principal)
CPT/HCPCS: 78452; 93017; 93306; A9500; J0280; J2785; Q9957

== ENCOUNTER → 2023-07-17 08:56 | Outpatient (BNV) | payer OTHER, SELFPAY | PROVIDERS: PCP Family Medicine; Visit Provider Nurse Practitioner Family | DX: I25.10 Atherosclerotic heart disease of native coronary artery without angina pectoris (principal) | CPT/HCPCS: 78452; 93016; 93018; 93306 ==

== ENCOUNTER 2023-07-28 11:30 | Outpatient (RCR) | payer OTHER, SELFPAY | END 2023-08-16 07:39 | disposition home or self-care (01) | LOC: HO.CR 11:30 | PROVIDERS: PCP Family Medicine; Visit Provider Internal Medicine Cardiovascular Disease | DX: I42.9 Cardiomyopathy, unspecified (principal) | CPT/HCPCS: 93798 ==

== ENCOUNTER 2023-07-31 11:10 | Emergency (ER) | payer OTHER, SELFPAY ==
--- NOTE | ~2023-07-31 | XR_ITS ---
EXAMINATION: XR CHEST CLINICAL INFORMATION: Shortness of breath. COMPARISON: Most recent chest radiograph dated 08/31/2022. TECHNIQUE: 2 views of the chest were obtained. FINDINGS: Resolution of the previously seen small bilateral pleural effusions. No pleural effusion or pneumothorax. Minimal bibasilar atelectasis without confluent airspace consolidation. Stable cardiomegaly. Mediastinal surgical clips are redemonstrated. Left chest wall pacer/AICD, unchanged. XR/XR chest 2V IMPRESSION: Resolution of the previously seen small bilateral pleural effusions. Minimal bibasilar atelectasis without confluent airspace consolidation.
[2023-07-31 11:27] VITALS: BP 129/67; PULSE 72; RESP 20; TEMP 36.4; O2SAT 96; BMI 33.1
--- NOTE | 2023-07-31 11:28 | ED.GENADULT ---
HPI - General Adult General Chief complaint: Dyspnea Stated complaint: Diff breathing/Cough/N/V/D Time Seen by Provider: 07/31/23 12:10 Source: patient Mode of arrival: ambulatory Limitations: no limitations History of Present Illness HPI narrative: 77-year-old male with history of COPD presented with 3 days of generalized body ache, exertional dyspnea, cough with dark sputum, chills, and fever with nonbloody watery diarrhea, last time he felt that way when he had COVID infection, patient declined any exposure to sick contacts, no recent travel. no CP or SOB, no abdominal pain, no nausea, no vomiting. Related Data Home Medications Medication Instructions Recorded Confirmed albuterol sulfate 90 mcg/actuation 2 puff inhalation Q4-6H PRN 02/18/21 05/23/23 aerosol inhaler (Ventolin HFA) Wheezing dofetilide 250 mcg capsule 250 mcg PO Q12H 02/18/21 05/23/23 gemfibrozil 600 mg tablet 600 mg PO BID 02/18/21 05/23/23 lisinopril 10 mg tablet 10 mg PO DAILY 02/18/21 05/23/23 mometasone 200 mcg/actuation HFA 2 puff inhalation BID 02/18/21 05/23/23 aerosol inhaler (Asmanex HFA) omeprazole 40 mg capsule,delayed 40 mg PO DAILY 02/18/21 05/23/23 release warfarin 2.5 mg tablet 1.25 mg PO DAILY 02/18/21 05/23/23 febuxostat 40 mg tablet 40 mg PO DAILY 09/09/21 05/23/23 tamsulosin 0.4 mg capsule 0.4 mg PO BEDTIME 09/09/21 05/23/23 Previous Rx's Medication Instructions Recorded metoprolol tartrate 100 mg tablet 100 mg PO BID 90 days #180 tabs 08/26/22 Allergies Allergy/AdvReac Type Severity Reaction Status Date / Time Gouwwrl-IGB-JeZ Reductase Allergy Intermediate muscle Verified 02/18/21 12:26 Inhibitor cramping [Gsfhljg-Jih-Nia Reductase in ribcage Inhibitor] Review of Systems Review of Systems: All other systems are reviewed and are negative Constitutional: Reports as per HPI and Reports no additional constitutional complaints Eyes: Reports as per HPI and Reports no additional eye complaints Reports system reviewed and no additional complaints, except as documented Cardiovascular: Reports as per HPI and Reports no additional cardiovascular complaints Respiratory: Reports as per HPI and Reports no additional respiratory complaints Gastrointestinal: Reports as per HPI and Reports no additional gastrointestinal complaints Genitourinary: Reports no additional female genitourinary complaints Musculoskeletal: Reports no additional musculoskeletal complaints Skin/Breast: Reports system reviewed and no additional complaints, except as docu Psychiatric: Reports no additional psychiatric complaints Endocrine: Reports no additional endocrine complaints Hematologic/Lymphatic: Reports no additional hematologic/lymphatic complaints Allergic/Immunologic: Reports no additional allergic/immunologic complaints Reports system reviewed and no additional complaints, except as documented and Reports Abnormal speech present [facility] Past Medical History Medical History COVID-19 vaccine series completed Collapsed lung Myocardial infarction GERD (gastroesophageal reflux disease) History of placement of internal cardiac defibrillator History of paroxysmal atrial tachycardia Asthma Dilated cardiomyopathy Osteopenia Arthritis Elevated cholesterol Sleep apnea COPD (chronic obstructive pulmonary disease) HTN (hypertension) Barretts esophagus Surgical History History of repair of hiatal hernia Hx of aortic valve replacement History of esophagogastroduodenoscopy (EGD) H/O colonoscopy Social History Social History Are you a primary assurance services manager health care to a significant other at home: No Do you presently have visiting nurse or other home services: No Alcohol intake: never Patient Tobacco Use Status: Former Tobacco user Quit Date: 2018 Tobacco use type: Cigarette Years Smoked: 60 Smoked in Last 30 Days: No Use of substances other than those prescribed or required for medical reasons: No Advance Directives: No Advance Directives Information Provided: Yes Physical Exam ED Vital Signs: Vital Signs - 24 hr 07/31/23 11:27 07/31/23 11:51 Temperature 97.6 F 97.8 F Pulse Rate 72 68 Respiratory Rate 20 22 H Blood Pressure 129/67 148/73 H Pulse Oximetry 96 96 Oxygen Delivery Method Room Air Room Air BMI result Body Mass Index 33.1 Vital signs have been reviewed and appear to be correct. Blood pressure elevated. Heart rate normal. Respiratory rate normal. Temperature normal. Oxygen saturation normal. Appearance: Alert. Oriented X3. No acute distress. Head: Normal external exam. Normocephalic. Atraumatic. No Decker signs noted. No raccoon eyes noted Eyes: PERRLA. EOMI. Conjunctiva and sclera normal. Eyelids normal. ENT: TM's Normal. Pharynx normal. Uvula midline. Moist mucous membranes. No trismus noted. No drooling noted. No muffled voice noted. Neck: Normal inspection. Neck supple. FROM. No adenopathy. Thyroid Normal. No meningeal signs. No neck mass noted. CVS: Normal heart rate and rhythm. Heart sound normal. No murmurs noted. Pulses normal throughout. Respiratory: No respiratory distress. Painless inspiration. Breath sounds normal. No wheezes/rales/rhonchi noted. Chest nontender. No accessory muscle usage noted or decreased air movement noted. Abdomen: Soft and nontender. Bowel sounds normal in all 4 quadrants. No distention noted. No organomegaly noted. No visible injury noted. Back: No CVA tenderness. Full range of motion noted. Skin: Skin warm and dry. Normal skin color. Normal skin turgor. No rashes/lesions/lacerations noted. Extremities: No lower extremity edema. Extremities exhibit normal range of motion. Extremities nontender. Neuro: Oriented X 3. Cranial nerve exam: II-XII are grossly intact No motor deficit. No sensory deficit. Reflexes normal. Course Course Course Narrative: This is an RME: Additional HPI, ROS, PE not included below will be deferred to primary provider. This is a [id number]-male, with a hx of arthritis, asthma, COPD, cardiomyopathy, GERD, hypertension, mi, sleep apnea, presenting to the emergency department for evaluation of shortness of breath, cough, nausea, and diarrhea x several days. Endorsing productive cough with yellow phlegm as well as subjective fevers and chills 1+ pitting edema noted bilaterally. Vital signs within normal limits. Plan: Labs, EKG, chest x-ray, viral swabs Reevaluation(s) Reevaluation #1: COVID infection with symptoms started 3 days ago. With stable vital signs, stable O2 sat on that room air. Patient do not meet criteria for hospitalization was instructed to come back worsening of his symptoms. Patient was instructed to wear face mask at all times, frequent hand washing, social distancing, self quarantine. Time: 14:54 Medical Decision Making Differential Diagnosis Differential Diagnoses: The differential diagnosis associated with the presentation includes ( Pneumonia, pneumothorax, effusion, COVID infection, influenza, electrolyte abnormality, dehydration, severe anemia , UTI.) Admission/Observation Consideration of admission/observation: Escalation of care including admission/observation considered Lab Data MDM Lab Attestation statement: I reviewed the patient's lab results. 07/31/23 12:09 07/31/23 12:09 Labs: Lab Results 07/31/23 07/31/23 Range/Units 12:09 13:26 WBC 4.3 L (4.8-10.8) X10*3/uL RBC 3.79 L (4.60-5.80) X10*6/uL Hgb 12.1 L (14.0-18.0) g/dl Hct 36.4 L (42.0-52.0) % MCV 96.0 (80.0-98.0) fL MCH 31.9 (27.0-33.0) pg MCHC 33.2 (31.0-36.0) g/dl RDW 13.8 (11.0-16.0) % Plt Count 111 L (160-400) X10*3/uL MPV 11.3 (9.4-12.4) fL Immature Gran % (Auto) 0.9 H (0.0-0.4) % Neut % (Auto) 75.6 H (45-73) % Lymph % (Auto) 12.2 L (20-40) % Edgar % (Auto) 10.2 (2-11) % Eos % (Auto) 0.9 (0-4) % Baso % (Auto) 0.2 (0-2) % Lymph # (Auto) 0.5 L (1.2-4.9) X10*3/uL Edgar # (Auto) 0.4 (0.1-1.2) X10*3/uL Eos # (Auto) 0.0 (0.0-0.4) X10*3/uL Baso # (Auto) 0.0 (0.0-0.2) X10*3/uL Abs Immat Gran (auto) 0.04 H (0.00-0.03) X10*3/uL Absolute Neuts (auto) 3.3 (2.0-8.3) x10*3/uL Absolute Nucleated RBC 0.000 (0.0-0.012) X10*3/uL Nucleated RBC % (auto) 0.0 (0.0-0.2) /100WBC Sodium 140 (135-145) mmol/L Potassium 4.2 (3.3-5.1) mmol/L Chloride 106 (96-108) mmol/L Carbon Dioxide 23 (22-29) mmol/L Anion Gap 15 (12-20) BUN 18 H (9-16) mg/dL Creatinine 1.16 (0.5-1.4) mg/dL Estim Creat Clear Calc 52.1 Estimated GFR > 60 Random Glucose 94 (60-115) mg/dL Calcium 9.1 D (8.4-10.2) mg/dL Total Bilirubin 0.9 (0.0-1.0) mg/dL Direct Bilirubin 0.4 (0.0-0.5) mg/dL AST 16 (5-37) U/L ALT 12 (0-40) U/L Alkaline Phosphatase 79 (39-117) U/L Troponin I High Sens 27.4 (<3.5-35.0) ng/L Total Protein 6.6 (6.5-8.0) g/dL Albumin 3.7 (3.5-5.0) g/dL Urine Color Dark Yellow Urine Appearance Clear Urine pH 5.5 (5.0-9.0) Ur Specific Virgin 1.020 (1.005-1.025) Urine Protein Trace (Neg-Trace) mg/dL Urine Glucose (UA) Negative (Negative) mg/dL Urine Ketones Trace (Negative) mg/dL Urine Blood Negative (Negative) Urine Nitrite Negative (Negative) Ur Leukocyte Esterase Small (1+) H (Negative) Urine RBC 0-2 (0-2) /HPF Urine WBC 0-5 (0-5) /HPF Ur Squamous Epith Cells 0-2 (0-2) /HPF Urine Bacteria None Seen (None Seen) Hyaline Casts 0-2 (0-2) /LPF COVID-19 (ABBY) Positive A (Negative) COVID-19 Clin Com See Note Influenza Type A (BONITA) Negative (Negative) Influenza Type B (BONITA) Negative (Negative) Influenza A & B Note See Note Independent Interpretation I performed an independent interpretation of an: Plain X-Ray ( Chest:Resolution of the previously seen small bilateral pleural effusions. Minimal bibasilar atelectasis without confluent airspace consolidation.) Radiology Impression Discussion of test interpretation with radiology: I have reviewed the radiologist's reading. Discharge Plan Discharge Clinical Impression: COVID-19 virus infection Patient Disposition: Home, Self-Care Instructions: COVID-19 (Coronavirus Disease 2019) (ED) Additional Instructions: self quarantine for 1 week, frequent hand wash, wear face mask at all time, keep social distancing Prescriptions: No Action metoprolol tartrate 100 mg tablet 100 mg PO BID 90 Days Qty: 180 3RF dofetilide 250 mcg Capsule 250 mcg PO Q12H warfarin 2.5 mg Tablet 1.25 mg PO DAILY gemfibrozil 600 mg Tablet 600 mg PO BID lisinopril 10 mg Tablet 10 mg PO DAILY Asmanex HFA 200 mcg/actuation Hfa Aerosol Inhaler 2 puff INHALATION BID omeprazole 40 mg Capsule,Delayed Release(Dr/Ec) 40 mg PO DAILY albuterol sulfate [Ventolin HFA] 90 mcg/actuation Hfa Aerosol Inhaler 2 puff INHALATION Q4-6H PRN (Reason: Wheezing) febuxostat 40 mg tablet 40 mg PO DAILY tamsulosin 0.4 mg capsule 0.4 mg PO BEDTIME Referrals: Joseph Hodgson DO [Primary Care Provider] -
--- NOTE | 2023-07-31 11:32 | ECG_ITS ---
Test Reason : SOB Blood Pressure : / mmHG Vent. Rate : 060 BPM Atrial Rate : 060 BPM P-R Int : 146 ms QRS Dur : 148 ms QT Int : 518 ms P-R-T Axes : 000 162 -09 degrees QTc Int : 518 ms AV dual-paced rhythm Biventricular pacemaker detected Abnormal ECG When compared with ECG of 31-AUG-2022 20:43, No significant change was found Referred By: Yue Cordero Electronically Signed By:JOSE GORDON
[2023-07-31 11:51] VITALS: BP 148/73; PULSE 68; RESP 22; TEMP 36.6; O2SAT 96
--- NOTE | 2023-07-31 11:53 | PC.NURSE ---
pt awake, alert and oriented. breathing slightly elevated, noted to gave difficulty with speaking full sentences. skin warm and dry. pt reports SOB, sore throat, productive cough w/ yellow phlegm, chills, N/V/D all since monday. pt reports hx of COPD and asthma, no baseline O2, did use rescue inhaler this morning with no relief. breathing worsens with exertion, talking and coughing per pt. pt denies CP. ABD noted to be distended and hard, pt reports this sometimes happens with gas . no pedal or lower extremity edema noted.
--- NOTE | 2023-07-31 11:58 | PC.NURSE ---
pt noted to have increased WOB, positive congestion and cough. pt placed on bedside quality assurance monitor chassis, NSR w/ frequent PVCs. continuous pulse ox placed on pt, readings 92-96% on RA
--- NOTE | 2023-07-31 12:17 | PC.NURSE ---
IV established in the right AC 18G. labs sent. provider at bedside.
[2023-07-31 12:19] LABS: MANUAL DIFF FLAG NO
[2023-07-31 12:26] LABS: Basophils Percent Auto 0.2 % (0-2); Eosinophils Percent Auto 0.9 % (0-4); Hematocrit 36.4 % (42.0-52.0); Hemoglobin 12.1 g/dl (14.0-18.0); Imm Gran Abs Auto 0.04 X10*3/uL (0.00-0.03); Imm Gran Pct Auto 0.9 % (0.0-0.4); Lymphocytes Absolute Auto 0.5 X10*3/uL (1.2-4.9); Lymphocytes Percent Auto 12.2 % (20-40); Mean Corpuscular HGB Conc 33.2 g/dl (31.0-36.0); Mean Corpuscular Hemoglobin 31.9 pg (27.0-33.0); Mean Platelet Volume 11.3 fL (9.4-12.4); Monocytes Absolute Auto 0.4 X10*3/uL (0.1-1.2); Monocytes Percent Auto 10.2 % (2-11); Neutrophils Absolute Auto 3.3 x10*3/uL (2.0-8.3); Neutrophils Percent Auto 75.6 % (45-73); Platelet Count 111 X10*3/uL (160-400); Red Blood Count 3.79 X10*6/uL (4.60-5.80); Red Cell Distribution Width 13.8 % (11.0-16.0); White Blood Count 4.3 X10*3/uL (4.8-10.8)
[2023-07-31 12:36] LABS: COVID-19 Test Positive (Negative); IDNOW Serial# 9DB6401D
[2023-07-31 12:40] LABS: Alanine Aminotransferase 12 U/L (0-40); Albumin Level 3.7 g/dL (3.5-5.0); Alkaline Phosphatase 79 U/L (39-117); Anion Gap 15 (12-20); Aspartate Amino Transferase 16 U/L (5-37); Bilirubin Direct 0.4 mg/dL (0.0-0.5); Bilirubin Total 0.9 mg/dL (0.0-1.0); Blood Urea Nitrogen 18 mg/dL (9-16); Calcium 9.1 mg/dL (8.4-10.2); Carbon Dioxide 23 mmol/L (22-29); Chloride 106 mmol/L (96-108); Creatinine Clr Calc Pharmacy 52.1; Estimated Glomerular Filt Rate > 60; Glucose Random 94 mg/dL (60-115); Potassium 4.2 mmol/L (3.3-5.1); Sodium 140 mmol/L (135-145); Total Protein 6.6 g/dL (6.5-8.0)
[2023-07-31 12:42] LABS: IDNOW Serial# 6674DD1D; Influenza A Negative (Negative); Influenza B2 Negative (Negative)
[2023-07-31 13:03] LABS: Troponin-I High Sensitivity 27.4 ng/L (<3.5-35.0)
[2023-07-31 13:32] LABS: Appearance Urine Clear; Color Urine Dark Yellow; Glucose Urine UA Negative (Negative); Leukocyte Esterase Urine Small (1+) (Negative); Nitrite Urine Negative (Negative); PH 5.5 (5.0-9.0); UMIC TRIGGER UACC YES; Urine Blood Negative (Negative); Urine Ketones Trace mg/dL (Negative); Urine Protein Trace mg/dL (Neg-Trace)
[2023-07-31 13:42] LABS: Bacteria Urine None Seen (None Seen); Hyaline Casts Urine 0-2 /LPF (0-2); RBC Urine 0-2 /HPF (0-2); Squamous Epithelial Cell Urine 0-2 /HPF (0-2); UACC Culture Trigger YES; WBC Urine 0-5 /HPF (0-5)
== END 2023-07-31 15:09 | disposition home or self-care (01) ==
PROVIDERS: Physician Assistant Medical; Emergency Provider Emergency Medicine; PCP Family Medicine
DX: U07.1 COVID-19 (principal); R06.00 Dyspnea, unspecified; M79.10 Myalgia, unspecified site; R06.02 Shortness of breath; R94.31 Abnormal electrocardiogram [ECG] [EKG]; Z79.899 Other long term (current) drug therapy
CPT/HCPCS: 71046; 80048; 80076; 81001; 84484; 85025; 87086; 87502; 87635; 93005; 99283; 99285

== ENCOUNTER → 2023-07-31 11:32 | Outpatient (BNV) | payer OTHER, SELFPAY | PROVIDERS: Emergency Provider Emergency Medicine; PCP Family Medicine; Visit Provider Internal Medicine | DX: R06.02 Shortness of breath (principal); Z95.0 Presence of cardiac pacemaker | CPT/HCPCS: 93010 ==

== ENCOUNTER → 2023-09-01 23:59 | Outpatient (BNV) | payer OTHER, SELFPAY ==
--- NOTE | 2023-09-04 15:50 | A.OFFVIS_ITS ---
Intake Intake Visit Reasons: Remote HF Monitoring- [employer] Allergies Gxqtjqg-BHD-ZhM Reductase Inhibitor [Hhyavhn-Uea-Tgy Reductase Inhibitor] Allergy (Intermediate, Verified 02/18/21 12:26) muscle cramping in ribcage [facility] Medical History COVID-19 vaccine series completed Collapsed lung Myocardial infarction GERD (gastroesophageal reflux disease) History of placement of internal cardiac defibrillator History of paroxysmal atrial tachycardia Asthma Dilated cardiomyopathy Osteopenia Arthritis Elevated cholesterol Sleep apnea COPD (chronic obstructive pulmonary disease) HTN (hypertension) Barretts esophagus Surgical History History of repair of hiatal hernia Hx of aortic valve replacement History of esophagogastroduodenoscopy (EGD) H/O colonoscopy Social History Are you a primary health care manager to a significant other at home: No Do you presently have visiting nurse or other home services: No Alcohol intake: never Patient Tobacco Use Status: Former Tobacco user Quit Date: 2018 Tobacco use type: Cigarette Years Smoked: 60 Smoked in Last 30 Days: No Use of substances other than those prescribed or required for medical reasons: No Advance Directives: No Advance Directives Information Provided: Yes Office Procedures Cardiac Device Check Cardiac Device Check Details: Remote heart failure report generated 09/01/2023. Heart failure parameters are stable [id number] Cardiac Device Interrogation, cardio physiologic monitor Procedure code (CPT) selection complete Assessment & Plan Assessment & Plan (1) Biventricular ICD (implantable cardioverter-defibrillator) in place: Code(s): Z95.810 - Presence of automatic (implantable) cardiac defibrillator Plan: See above Coding Level of Care Code Procedure Only Diagnoses Biventricular ICD (implantable cardioverter-defibrillator) in place Z95.810 CPT Codes Cardiac Device Check - Cardiac Device 15: [id number] Cardiac Device Interrogation, cardio physiologic monitor ([id number])
== END ==
PROVIDERS: PCP Family Medicine; Visit Provider Internal Medicine Cardiovascular Disease
DX: I42.9 Cardiomyopathy, unspecified (principal); Z95.810 Presence of automatic (implantable) cardiac defibrillator
CPT/HCPCS: 93297

== ENCOUNTER → 2023-10-01 23:59 | Outpatient (BNV) | payer OTHER, SELFPAY ==
--- NOTE | 2023-10-03 14:00 | MHC.OFFVIS ---
Intake Intake Visit Reasons: Remote HF monitoring- [employer] Allergies Fprsebu-LYC-IkH Reductase Inhibitor [Rlwgkck-Gkj-Ptc Reductase Inhibitor] Allergy (Intermediate, Verified 02/18/21 12:26) muscle cramping in ribcage [facility] Medical History COVID-19 vaccine series completed Collapsed lung Myocardial infarction GERD (gastroesophageal reflux disease) History of placement of internal cardiac defibrillator History of paroxysmal atrial tachycardia Asthma Dilated cardiomyopathy Osteopenia Arthritis Elevated cholesterol Sleep apnea COPD (chronic obstructive pulmonary disease) HTN (hypertension) Barretts esophagus Surgical History History of repair of hiatal hernia Hx of aortic valve replacement History of esophagogastroduodenoscopy (EGD) H/O colonoscopy Social History Are you a primary child care leader to a significant other at home: No Do you presently have visiting nurse or other home services: No Alcohol intake: never Patient Tobacco Use Status: Former Tobacco user Quit Date: 2018 Tobacco use type: Cigarette Years Smoked: 60 Smoked in Last 30 Days: No Use of substances other than those prescribed or required for medical reasons: No Advance Directives: No Advance Directives Information Provided: Yes Office Procedures Cardiac Device Check Cardiac Device Check Details: Remote heart failure report generated 10/01/2023. Heart failure parameters are stable [id number] Cardiac Device Interrogation, cardio physiologic monitor Procedure code (CPT) selection complete Assessment & Plan Assessment & Plan (1) Biventricular ICD (implantable cardioverter-defibrillator) in place: Code(s): Z95.810 - Presence of automatic (implantable) cardiac defibrillator Plan: See above Coding Level of Care Code Procedure Only Diagnoses Biventricular ICD (implantable cardioverter-defibrillator) in place Z95.810 CPT Codes Cardiac Device Check - Cardiac Device 15: [id number] Cardiac Device Interrogation, cardio physiologic monitor ([id number])
== END ==
PROVIDERS: PCP Family Medicine; Visit Provider Internal Medicine Cardiovascular Disease
DX: Z45.02 Encounter for adjustment and management of automatic implantable cardiac defibrillator (principal)
CPT/HCPCS: 93297

== ENCOUNTER → 2023-10-01 23:59 | Outpatient (BNV) | payer OTHER, SELFPAY ==
--- NOTE | 2023-10-03 13:58 | MHC.OFFVIS ---
Intake Intake Visit Reasons: Remote ICD check- [employer] Allergies Uscsldk-RDL-ZjF Reductase Inhibitor [Egdounb-Ygn-Awk Reductase Inhibitor] Allergy (Intermediate, Verified 02/18/21 12:26) muscle cramping in ribcage [facility] Medical History COVID-19 vaccine series completed Collapsed lung Myocardial infarction GERD (gastroesophageal reflux disease) History of placement of internal cardiac defibrillator History of paroxysmal atrial tachycardia Asthma Dilated cardiomyopathy Osteopenia Arthritis Elevated cholesterol Sleep apnea COPD (chronic obstructive pulmonary disease) HTN (hypertension) Barretts esophagus Surgical History History of repair of hiatal hernia Hx of aortic valve replacement History of esophagogastroduodenoscopy (EGD) H/O colonoscopy Social History Are you a primary infant caregiver to a significant other at home: No Do you presently have visiting nurse or other home services: No Alcohol intake: never Patient Tobacco Use Status: Former Tobacco user Quit Date: 2018 Tobacco use type: Cigarette Years Smoked: 60 Smoked in Last 30 Days: No Use of substances other than those prescribed or required for medical reasons: No Advance Directives: No Advance Directives Information Provided: Yes Office Procedures Cardiac Device Check Cardiac Device Check Details: Remote ICD report generated 10/01/2023. Battery life is less than 1 month. Bi V pacing 99.4% of the time [id number] Cardiac Interrogation, implant defibrillator w/interim Procedure code (CPT) selection complete Assessment & Plan Assessment & Plan (1) Biventricular ICD (implantable cardioverter-defibrillator) in place: Code(s): Z95.810 - Presence of automatic (implantable) cardiac defibrillator Plan: See above Coding Level of Care Code Procedure Only Diagnoses Biventricular ICD (implantable cardioverter-defibrillator) in place Z95.810 CPT Codes Cardiac Device Check - Cardiac Device 13: [id number] Cardiac Interrogation, implant defibrillator w/interim ([id number])
== END ==
PROVIDERS: PCP Family Medicine; Visit Provider Internal Medicine Cardiovascular Disease
DX: Z45.02 Encounter for adjustment and management of automatic implantable cardiac defibrillator (principal)
CPT/HCPCS: 93295

== ENCOUNTER → 2023-10-30 23:59 | Outpatient (BNV) | payer OTHER, SELFPAY ==
--- NOTE | 2023-11-03 13:51 | A.OFFVIS_ITS ---
Intake Visit Reasons: Remote HF monitoring- [employer] Allergies Hsxgerv-OEH-JdZ Reductase Inhibitor [Qsbuhko-Cjc-Hoj Reductase Inhibitor] Allergy (Intermediate, Verified 02/18/21 12:26) muscle cramping in ribcage COUNT INCLUDES [facility] Medical History COVID-19 vaccine series completed Collapsed lung Myocardial infarction GERD (gastroesophageal reflux disease) History of placement of internal cardiac defibrillator History of paroxysmal atrial tachycardia Asthma Dilated cardiomyopathy Osteopenia Arthritis Elevated cholesterol Sleep apnea COPD (chronic obstructive pulmonary disease) HTN (hypertension) Barretts esophagus Surgical History History of repair of hiatal hernia Hx of aortic valve replacement History of esophagogastroduodenoscopy (EGD) H/O colonoscopy Social History Are you a primary rn home care to a significant other at home: No Do you presently have visiting nurse or other home services: No Alcohol intake: never Patient Tobacco Use Status: Former Tobacco user Quit Date: 2018 Tobacco use type: Cigarette Years Smoked: 60 Smoked in Last 30 Days: No Use of substances other than those prescribed or required for medical reasons: No Advance Directives: No Advance Directives Information Provided: Yes Office Procedures Cardiac Device Check Cardiac Device Check Details: Remote heart failure report generated 10/30/2023. Heart failure parameters are within normal limits [id number] Cardiac Device Interrogation, cardio physiologic monitor Procedure code (CPT) selection complete Assessment & Plan Assessment & Plan (1) Biventricular ICD (implantable cardioverter-defibrillator) in place: Code(s): Z95.810 - Presence of automatic (implantable) cardiac defibrillator Category: Medical Plan: See above Coding Level of Care Code Procedure Only Diagnoses Biventricular ICD (implantable cardioverter-defibrillator) in place Z95.810 CPT Codes Cardiac Device Check - Cardiac Device 15: [id number] Cardiac Device Interrogation, cardio physiologic monitor ([id number])
== END ==
PROVIDERS: PCP Family Medicine; Visit Provider Internal Medicine Cardiovascular Disease
DX: Z45.02 Encounter for adjustment and management of automatic implantable cardiac defibrillator (principal)
CPT/HCPCS: 93297

== ENCOUNTER 2023-11-16 13:31 | Outpatient (REF) | payer OTHER, SELFPAY ==
--- NOTE | ~2023-11-16 | XR_ITS ---
EXAMINATION: XR CHEST CLINICAL INFORMATION: Presence of automatic (implantable) cardiac defibrillator COMPARISON: Chest 07/31/2023 TECHNIQUE: 2 views of the chest were obtained. FINDINGS: The lungs are well expanded without focal consolidation, interstitial pulmonary edema or pneumothorax. Stable cardiomegaly. No pleural effusion. Mediastinal clips are again noted. Surgical clips are also seen in the region of the gastroesophageal junction. Left chest wall pacer/AICD is unchanged. No acute osseous abnormality. XR/XR chest 2V IMPRESSION: Left chest wall pacer/AICD is unchanged. No acute cardiopulmonary disease.
== END 2023-11-16 13:32 | disposition home or self-care (01) ==
LOC: HO.XRAY 13:31
PROVIDERS: PCP Family Medicine; Visit Provider Internal Medicine Cardiovascular Disease
DX: Z95.810 Presence of automatic (implantable) cardiac defibrillator (principal); Z95.2 Presence of prosthetic heart valve; I48.0 Paroxysmal atrial fibrillation; I42.9 Cardiomyopathy, unspecified
CPT/HCPCS: 71046; 99212

== ENCOUNTER 2023-11-16 13:31 | Outpatient (AMB) | payer OTHER, SELFPAY ==
--- NOTE | 2023-11-16 13:34 | A.OFFVIS_ITS ---
Vital Signs 11/16/23 13:35 Height 5 ft 3 in Weight 180 lb 12.465 oz BMI 32.0 BP 120/80 Blood Pressure Location Lt brachial Position Sitting Pulse 83 Intake Visit Reasons: 6 mth f/up pacer ck Intake Note: 6 month follow-up with Medtronic check at [facility] Monitor Car Operator Required: No Allergies Fvnbfic-AJK-FvS Reductase Inhibitor [Ryermse-Ffz-Uhy Reductase Inhibitor] Allergy (Intermediate, Verified 02/18/21 12:26) muscle cramping in ribcage Medication List - Last Reconciled 11/16/23 by Donnell Ledesma MD albuterol sulfate 90 mcg/actuation (Ventolin HFA) 2 puffs inhalation Q4-6H PRN dofetilide 250 mcg PO Q12H febuxostat 40 mg PO DAILY gemfibrozil 600 mg PO BID lisinopril 10 mg PO DAILY metoprolol tartrate 100 mg PO BID 90 days mometasone 200 mcg/actuation (Asmanex HFA) 2 puffs inhalation BID omeprazole 40 mg PO DAILY tamsulosin 0.4 mg PO BEDTIME warfarin 1.25 mg PO DAILY HPI Comments Details: Everette comes for follow-up, accompanied by his . Recently reached [facility] on his device. Had seen electrophysiology consulted yesterday and felt like his atrial lead was not sensing appropriately. He was brought in for his routine visit today. He is doing well from cardiac perspective. He denies any new symptoms. Denies any prolonged palpitation irregular heartbeat. No lightheadedness, syncope, ICD discharge. No orthopnea, PND, leg edema, weight gain, abdominal distension. No chest pain. No bleeding issues or neurologic events. [facility] Medical History COVID-19 vaccine series completed Collapsed lung Myocardial infarction GERD (gastroesophageal reflux disease) History of placement of internal cardiac defibrillator History of paroxysmal atrial tachycardia Asthma Dilated cardiomyopathy Osteopenia Arthritis Elevated cholesterol Sleep apnea COPD (chronic obstructive pulmonary disease) HTN (hypertension) Barretts esophagus Surgical History History of repair of hiatal hernia Hx of aortic valve replacement History of esophagogastroduodenoscopy (EGD) H/O colonoscopy Social History Are you a primary career counselor to a significant other at home: No Do you presently have visiting nurse or other home services: No Alcohol intake: never Patient Tobacco Use Status: Former Tobacco user Quit Date: 2018 Tobacco use type: Cigarette Years Smoked: 60 Review of Systems Const Denies chills, Denies fatigue, Denies fever(s), Denies frequent falls, Denies weakness, Denies weight gain and Denies weight loss ENT Denies dizziness Card Denies chest pain, Denies leg edema, Denies lightheadedness, Denies palpitations, Denies dyspnea, Denies dyspnea on exertion, Denies orthopnea and Denies other (loss of consciousness) Resp Denies cough, Denies dyspnea and Denies dyspnea on exertion GI Denies hematochezia and Denies change in stool character Musc Denies abnormal gait, Denies muscle weakness, Denies numbness, Denies radiating pain into limb and Denies tingling Neuro Denies Abnormal speech present, Denies abnormal gait, Denies dizziness, Denies frequent falls, Denies numbness, Denies tingling and Denies weakness Endo Denies fatigue and Denies palpitations Physical Exam Vital Signs: Last Vital Signs Pulse 83 11/16/23 13:35 BP 120/80 11/16/23 13:35 BMI result Body Mass Index 32.0 Const General: cooperative, comfortable, no acute distress, alert and awake Nutritional Appearance: obese Orientation/consciousness: patient oriented x3 Limitations: no limitations Neck Neck: Yes trachea midline, Yes supple and Yes no JVD Chest Chest palpation & inspection: normal inspection of the chest and other (Well- healed sternotomy scar) Resp Effort & Inspection: normal respiratory effort Auscultation: no rales, no wheezes and diminished lung sounds Cardio Jugular venous distension: no JVD Palpation: normal PMI Rate: regular rate Rhythm: regular rhythm Heart sounds: S1 normal heart sound present, Clicking heart sound present ([place] closing click of [place] aortic valve), no gallops and no murmurs Peripheral pulses: Peripheral pulses 2+ throughout GI Inspection: Yes obesity Auscultation: normal bowel sounds Skin General skin exam: no rashes or lesions noted Neuro General: patient oriented x3 and no focal motor deficits Speech: No Abnormal speech present Extrem General: Yes no clubbing, cyanosis or edema Psych Appearance: grossly normal Office Procedures Cardiac Device Check Cardiac Device Check Details: Biventricular Medtronic ICD in place. Atrial sensing is very low was reprogrammed leading to far field RV sensing. Otherwise biventricular function is adequate. 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 Ventricularly pacer dependent. No atrial fibrillation noted. Ventricular sensing is adequate. [id number] Cardiac Device Check, multi lead implantable defibrillator Procedure code (CPT) selection complete Assessment & Plan Assessment & Plan (1) Biventricular ICD (implantable cardioverter-defibrillator) in place: Code(s): Z95.810 - Presence of automatic (implantable) cardiac defibrillator Category: Medical Plan: Biventricular ICD in place for development of cardiomyopathy process after RV pacing. Ventricular pacing is working well. Atrial lead shows good lead impedance and thresholds but this showing undersensing of the atrial activity possibly related to scarring. Will most likely require atrial lead replacement, will discuss with EPS regarding presence of multiple leads. May require preoperative venogram to see if he has access through his current left subclavian system. Requires pulse generator change soon. (2) Aortic valve replaced: Code(s): Z95.2 - Presence of prosthetic heart valve Category: Medical Plan: Mechanical aortic valve in place. Working well by most recent echocardiogram. Continue to monitor annually by echocardiogram. Continue warfarin therapy with target INR between 2.5 and 3.5. Continue metoprolol therapy. SBE prophylaxis as per ACC/[place] guidelines. (3) Cardiomyopathy: Code(s): I42.9 - Cardiomyopathy, unspecified Category: Medical Plan: Severe cardiomyopathy with wall motion abnormality suggestive of ischemic cardiomyopathy. No symptoms of angina. No signs or symptoms of heart failure. Continue current neurohormonal modulation with metoprolol and lisinopril. Consider switching to Entresto therapy. No signs or symptoms of heart failure. Does not require any Lasix therapy. Follow-up echocardiogram in 6 months time. (4) Paroxysmal atrial fibrillation: Code(s): I48.0 - Paroxysmal atrial fibrillation Category: Medical Plan: Paroxysmal atrial fibrillation, currently suppressed on Tikosyn therapy. Continue to monitor by EKG every 6 months. Continue metoprolol therapy avoidance of stimulants was discussed. Has benefitted from rhythm control approach will continue pursue rhythm control approach. Continue full oral anticoagulation, currently on warfarin therapy with target INR between 2.5 and 3.5 Will follow up in the clinic in 2 months time tentatively post generator change. Thank you for allowing me to partake in his care Orders: Orders XR chest 2V Today Z95.810 - Presence of automatic (implantable) cardiac defibrillator Coding Level of Care Code Est Pt Level 4 (23480) Diagnoses Biventricular ICD (implantable cardioverter-defibrillator) in place Z95.810 Aortic valve replaced Z95.2 Cardiomyopathy I42.9 Paroxysmal atrial fibrillation I48.0 CPT Codes Cardiac Device Check - Cardiac Device 6: [id number] Cardiac Device Check, multi lead implantable defibrillator ([id number])
[2023-11-16 13:35] VITALS: BP 120/80; PULSE 83; BMI 32.0
== END 2023-11-16 14:22 | disposition home or self-care (01) ==
PROVIDERS: PCP Family Medicine; Visit Provider Internal Medicine Cardiovascular Disease
DX: Z95.810 Presence of automatic (implantable) cardiac defibrillator (principal); Z95.2 Presence of prosthetic heart valve; I42.9 Cardiomyopathy, unspecified; I48.0 Paroxysmal atrial fibrillation
CPT/HCPCS: 93284; 99214

== ENCOUNTER → 2023-11-30 23:59 | Outpatient (BNV) | payer OTHER, SELFPAY ==
--- NOTE | 2023-12-01 13:43 | MHC.OFFVIS ---
Intake Visit Reasons: Remote HF Monitoring- Medtronic Allergies Ivdupir-CSY-MtN Reductase Inhibitor [Rwghfxy-Zcn-Coa Reductase Inhibitor] Allergy (Intermediate, Verified 02/18/21 12:26) muscle cramping in ribcage [facility] Medical History COVID-19 vaccine series completed Collapsed lung Myocardial infarction GERD (gastroesophageal reflux disease) History of placement of internal cardiac defibrillator History of paroxysmal atrial tachycardia Asthma Dilated cardiomyopathy Osteopenia Arthritis Elevated cholesterol Sleep apnea COPD (chronic obstructive pulmonary disease) HTN (hypertension) Barretts esophagus Surgical History History of repair of hiatal hernia Hx of aortic valve replacement History of esophagogastroduodenoscopy (EGD) H/O colonoscopy Social History Are you a primary care program resident to a significant other at home: No Do you presently have visiting nurse or other home services: No Alcohol intake: never Patient Tobacco Use Status: Former Tobacco user Tobacco use type: Cigarette Years Smoked: 60 Office Procedures Cardiac Device Check Cardiac Device Check Details: Remote heart failure report generated 11/30/2023. Heart failure parameters are stable [id number] Cardiac Device Interrogation, cardio physiologic monitor Procedure code (CPT) selection complete Assessment & Plan Assessment & Plan (1) Biventricular ICD (implantable cardioverter-defibrillator) in place: Code(s): Z95.810 - Presence of automatic (implantable) cardiac defibrillator Category: Medical Plan: See above Coding Level of Care Code Procedure Only Diagnoses Biventricular ICD (implantable cardioverter-defibrillator) in place Z95.810 CPT Codes Cardiac Device Check - Cardiac Device 15: [id number] Cardiac Device Interrogation, cardio physiologic monitor ([id number])
== END ==
PROVIDERS: PCP Family Medicine; Visit Provider Internal Medicine Cardiovascular Disease
DX: Z45.02 Encounter for adjustment and management of automatic implantable cardiac defibrillator (principal)
CPT/HCPCS: 93297

== ENCOUNTER → 2023-12-19 12:36 | Outpatient (BNV) | payer OTHER, SELFPAY | PROVIDERS: PCP Family Medicine; Visit Provider Internal Medicine Cardiovascular Disease | DX: R94.31 Abnormal electrocardiogram [ECG] [EKG] (principal); Z95.0 Presence of cardiac pacemaker | CPT/HCPCS: 93010 ==

== ENCOUNTER 2023-12-19 17:21 | Inpatient (IN) | payer OTHER, SELFPAY ==
[2023-12-19] VITALS (11 sets, daily range): BP systolic 113–134; BP diastolic 52–78; PULSE 60–66; RESP 16–18; TEMP 35.9–36.4; O2SAT 96–99; BMI 32.8; BMI 32.5
--- NOTE | ~2023-12-19 | FL_ITS ---
EXAMINATION: XR FLUOROSCOPY WITH IMAGES CLINICAL INFORMATION: ICD generator change. COMPARISON: None available. TECHNIQUE: Fluoroscopy Supervised By: Dr. Joe Vines. Fluoroscopy Time: 20.0 minutes. Cumulative Dose: 217 mGy. DAP: 59.2 Gy-cm2. Images: 9. FINDINGS: Intraoperative fluoroscopy and spot films were performed during a procedure in the OR. An ACID is present with 6 leads seen. Some contrast media is seen in the axillary and innominate vein. Please correlate with Dr. Joe Vines's report for complete details. FL/FL guidance in OR IMPRESSION: Intraoperative fluoroscopy and spot films were obtained. Please see Dr. Joe Vines's report for complete details.
--- NOTE | ~2023-12-19 | XR_ITS ---
EXAMINATION: XR CHEST 2 VIEWS CLINICAL INFORMATION: AICD. COMPARISON: Prior chest radiographs, most recently 11/16/2023. TECHNIQUE: Frontal and lateral views of the chest were obtained. FINDINGS: The heart, great vessels, pulmonary vasculature and mediastinum are stable. There is stable mild cardiomegaly. AICD leads are unchanged in position, without lead fracture noted. The lungs show no focal infiltrate, effusion or pneumothorax. There is no acute osseous abnormality. XR/XR chest 2V IMPRESSION: 1. No active cardiopulmonary disease. 2. No AICD lead change in position or fracture is noted.
--- NOTE | 2023-12-19 12:36 | ECG_ITS ---
Test Reason : preop Blood Pressure : / mmHG Vent. Rate : 072 BPM Atrial Rate : 071 BPM P-R Int : 000 ms QRS Dur : 146 ms QT Int : 452 ms P-R-T Axes : 000 145 130 degrees QTc Int : 494 ms AV dual-paced rhythm Biventricular pacemaker detected Abnormal ECG When compared with ECG of 31-JUL-2023 12:34, Vent. rate has increased BY 12 BPM Referred By: Joe Vines Electronically Signed By:JIGNESH RICHEY MD
[2023-12-19 13:04] LABS: INTERNATIONAL NORM RATIO 1.8 (0.9-1.1); Prothrombin Time 21.9 SEC (11.1-13.3)
[2023-12-19] MEDS: Lactated Ringers 1,000 ML 100 ML IVCONT (13:13)
--- NOTE | 2023-12-19 13:40 | HO.ANESPROP2 ---
Documented by User: Zoraida Loya NP 12/18/23 11:03 HPI - Anesthesia Eval Consult details Narrative: 78yo M for ICD Generator Change [place] [facility] [place]madin for afib and s/p AVR PMFSH Active Problems Active Problems: All Active Problems COVID-19 virus infection (Acute) SOB (shortness of breath) on exertion (Acute) COVID-19 (Acute) Ventricular tachycardia (Acute) Biventricular ICD (implantable cardioverter-defibrillator) in place (Acute) Aortic valve replaced (Acute) Cardiomyopathy (Acute) Paroxysmal atrial fibrillation (Acute) Past Medical History Medical History COVID-19 vaccine series completed Collapsed lung Myocardial infarction GERD (gastroesophageal reflux disease) History of placement of internal cardiac defibrillator History of paroxysmal atrial tachycardia Asthma Dilated cardiomyopathy Osteopenia Arthritis Elevated cholesterol Sleep apnea COPD (chronic obstructive pulmonary disease) HTN (hypertension) Barretts esophagus Surgical History Surgical History History of repair of hiatal hernia Hx of aortic valve replacement History of esophagogastroduodenoscopy (EGD) H/O colonoscopy History of Problems with Anesthesia: No Social History Social History Are you a primary healthcare translator to a significant other at home: No Do you presently have visiting nurse or other home services: No Alcohol intake: never Patient Tobacco Use Status: Former Tobacco user Tobacco use type: Cigarette Years Smoked: 60 Use of substances other than those prescribed or required for medical reasons: No Are you DNR?: No Advance Directives: No Advance Directives Information Provided: Yes Meds Allergies Allergy/AdvReac Type Severity Reaction Status Date / Time Vnjespt-SAI-GiR Reductase Allergy Intermediate muscle Verified 02/18/21 12:26 Inhibitor cramping [Txezssv-Cgc-Szt Reductase in ribcage Inhibitor] Home Medications ?Medication ?Instructions ?Recorded ?Confirmed ?Last Taken ?Type albuterol sulfate 90 mcg/actuation 2 puff inhalation Q4-6H PRN 02/18/21 11/16/23 Unknown History aerosol inhaler (Ventolin HFA) Wheezing dofetilide 250 mcg capsule 250 mcg PO Q12H 02/18/21 11/16/23 Unknown History gemfibrozil 600 mg tablet 600 mg PO BID 02/18/21 11/16/23 Unknown History lisinopril 10 mg tablet 10 mg PO DAILY 02/18/21 11/16/23 Unknown History mometasone 200 mcg/actuation HFA 2 puff inhalation BID 02/18/21 11/16/23 Unknown History aerosol inhaler (Asmanex HFA) omeprazole 40 mg capsule,delayed 40 mg PO DAILY 02/18/21 11/16/23 Unknown History release warfarin 2.5 mg tablet 1.25 mg PO DAILY 02/18/21 11/16/23 Unknown History febuxostat 40 mg tablet 40 mg PO DAILY 09/09/21 11/16/23 Unknown History tamsulosin 0.4 mg capsule 0.4 mg PO BEDTIME 09/09/21 11/16/23 Unknown History Exam Pertinent Lab Results Pertinent Lab Results: Laboratory Tests 07/31/23 12:09 WBC 4.3 L Hgb 12.1 L Hct 36.4 L Plt Count 111 L Sodium 140 Potassium 4.2 Chloride 106 Carbon Dioxide 23 BUN 18 H Creatinine 1.16 Narrative Narrative: Cardiac Device Check 10/2023 Details: Biventricular Medtronic ICD in place. Atrial sensing is very low was reprogrammed leading to far field RV sensing. Otherwise biventricular function is adequate. 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 Ventricularly pacer dependent. No atrial fibrillation noted. Ventricular sensing is adequate. EKG 07/2023 Vent. Rate : 060 BPM Atrial Rate : 060 BPM P-R Int : 146 ms QRS Dur : 148 ms QT Int : 518 ms P-R-T Axes : 000 162 -09 degrees QTc Int : 518 ms AV dual-paced rhythm Biventricular pacemaker detected Abnormal ECG When compared with ECG of 31-AUG-2022 20:43, No significant change was found ECHO 06/2023 Conclusions: - The left ventricular systolic function is moderately decreased. The visually estimated ejection fraction is between 30-35%. - The apical anterior and mid anteroseptal segments are akinetic. Even with contrast, difficult to assess LVEF/wall motion. - A mechanical prosthetic aortic valve is present. The prosthetic aortic valve appears to be functioning normally. NM ck perf SPECT rest & str 06/2023 Impression: 1. 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 Mild ischemia in the inferior wall. 2. Gated LVEF is 28% during stress and 26% during rest. 3. Transient ischemic dilatation not present. EKG component of the test reported separately. Assessment and Plan Assessment Anesthesia Assessment: Chart Reviewed Final Anesthetic Review History of Problems with Anesthesia: No Documented by User: Dania Jaramillo DO 12/19/23 13:47 HPI - Anesthesia Eval Consult details Narrative: 78yo M for ICD Generator Change [place] [facility] [place] Coumadin for afib and s/p AVR. INR 1.8 today which is acceptable per Dr. Vines. [facility] Past Medical History Medical History COVID-19 vaccine series completed Collapsed lung Myocardial infarction GERD (gastroesophageal reflux disease) History of placement of internal cardiac defibrillator History of paroxysmal atrial tachycardia Asthma Dilated cardiomyopathy Osteopenia Arthritis Elevated cholesterol Sleep apnea COPD (chronic obstructive pulmonary disease) HTN (hypertension) Barretts esophagus Family History Family history of problems with anesthesia: No Surgical History Surgical History History of repair of hiatal hernia Hx of aortic valve replacement History of esophagogastroduodenoscopy (EGD) H/O colonoscopy History of Problems with Anesthesia: No Social History Social History Are you a primary healthcare translator to a significant other at home: No Do you presently have visiting nurse or other home services: No Alcohol intake: never Patient Tobacco Use Status: Former Tobacco user Tobacco use type: Cigarette Years Smoked: 60 Use of substances other than those prescribed or required for medical reasons: No Are you DNR?: No Advance Directives: No Advance Directives Information Provided: Yes Meds Allergies Allergy/AdvReac Type Severity Reaction Status Date / Time Fekpouw-PLP-EhZ Reductase Allergy Intermediate muscle Verified 02/18/21 12:26 Inhibitor cramping [Hsryioq-Wty-Ijj Reductase in ribcage Inhibitor] Home Medications ?Medication ?Instructions ?Recorded ?Confirmed ?Last Taken ?Type albuterol sulfate 90 mcg/actuation 2 puff inhalation Q4-6H PRN 02/18/21 11/16/23 Unknown History aerosol inhaler (Ventolin HFA) Wheezing dofetilide 250 mcg capsule 250 mcg PO Q12H 02/18/21 11/16/23 Unknown History gemfibrozil 600 mg tablet 600 mg PO BID 02/18/21 11/16/23 Unknown History lisinopril 10 mg tablet 10 mg PO DAILY 02/18/21 11/16/23 Unknown History mometasone 200 mcg/actuation HFA 2 puff inhalation BID 02/18/21 11/16/23 Unknown History aerosol inhaler (Asmanex HFA) omeprazole 40 mg capsule,delayed 40 mg PO DAILY 02/18/21 11/16/23 Unknown History release warfarin 2.5 mg tablet 1.25 mg PO DAILY 02/18/21 11/16/23 Unknown History febuxostat 40 mg tablet 40 mg PO DAILY 09/09/21 11/16/23 Unknown History tamsulosin 0.4 mg capsule 0.4 mg PO BEDTIME 09/09/21 11/16/23 Unknown History Exam Exam Date and Time: December 19, 2023 1338 Height,Weight and Vital Signs: Height 5 ft 3 in Weight 83.915 kg Vital Signs Temperature 96.6 F L 12/19/23 13:08 Pulse Rate 66 12/19/23 13:08 Respiratory Rate 16 12/19/23 13:08 Blood Pressure 128/78 12/19/23 13:08 Pulse Oximetry 97 12/19/23 13:08 Oxygen Delivery Method Room Air 12/19/23 13:08 Temperature 96.6 F L 12/19/23 13:08 Pulse Rate 66 12/19/23 13:08 Respiratory Rate 16 12/19/23 13:08 Blood Pressure 128/78 12/19/23 13:08 Pulse Oximetry 97 12/19/23 13:08 Oxygen Delivery Method Room Air 12/19/23 13:08 Airway Mallampati Class: III TM Dist: <=3cm Neck ROM: Limited Loose/Missing/Broken Teeth: Yes (edentulous top jaw, poor dentition lower jaw) Heart: S1S2 Lungs: CTAB Assessment and Plan Assessment Anesthesia Assessment: Anesthesia Plan Discussed and Chart Reviewed Final Anesthetic Review Family History of Problems with Anesthesia: No History of Problems with Anesthesia: No NPO: Yes ASA Class: IV Final Preanesthetic Review: No Changes in Pt Med Stat, Meds/Allgs Chart Reviewed, Consent Obtained/Reviewed and Anes Risks/Benef Reviewed Patient Risk: High Procedure Risk: High Anesthetic Plan Anesthetic Plan: GA and Agree w/ Assess. and Plan Disposition: Standard PACU
--- NOTE | 2023-12-19 16:39 | P.OP_ITS ---
Operative Note Operative Note Date of Service: 12/19/23 Narrative: ICD?Generator?Changeout?(Medtronic) Atrial lead upgrade Tunnelling of atrial lead from right side to left ? Cement Truck Loader: Dr. Joe Vines ? Description of Procedure:??Patient was identified brought to the electrophysiology laboratory in a postabsorptive state.??The left and right??pectoral region was prepped and draped in usual sterile fashion.??The patient received IV Antibiotics prior to the case for surgical prophylaxis. At start of the procedure 1% Lidocaine was infiltrated at prior incision site. Incision was made over the left pectoral area at the prior incision site and utilizing blunt dissection and electrocautery the prior device was exposed. Hemostasis was obtained with electrocautery. With further careful dissection the leads were freed from adhesions in the pocket. The?pulse?generator?was extracted. Left upper extremity venogram was performed. Left axillary vein was noted to be open. We attempted access of left axillary vein but were unable to cross the wire past the subclavian/innominate junction. Contrast was obtained on the right side and right sided veins were noted to be patent. Access was obtained. Atrial lead was placed in the right atrial appendage. lead was secured in the right axillary region and tunnelled to the left side and connected to the new pulse generator along with antibiotic pouch The wound was thoroughly irrigated with antibiotic solution. The existing leads were plugged into the pulse generator.. The?pulse?generator?and leads was placed into the subcutaneous pocket. The right and left pectoral pockets was closed with 3 layers of absorbable sutures.?? Patient tolerated the procedure well.??There were no complications. Conclusion Successful ICD?Generator?Changeout? Atrial lead upgrade Tunnelling of atrial lead from right side to left side Post-op instructions. Do not shower 3 days Keep bandage on 5 days Please do not remove steristrips. Let them fall by themselves. Restriction of left arm for 4-6 weeks.?
--- NOTE | 2023-12-19 16:53 | ECG_ITS ---
Test Reason : post op Blood Pressure : / mmHG Vent. Rate : 060 BPM Atrial Rate : 060 BPM P-R Int : 146 ms QRS Dur : 144 ms QT Int : 502 ms P-R-T Axes : 058 160 122 degrees QTc Int : 502 ms AV dual-paced rhythm Biventricular pacemaker detected Abnormal ECG When compared with ECG of 19-DEC-2023 12:36, Vent. rate has decreased BY 12 BPM Referred By: Joe Vines Electronically Signed By:JIGNESH RICHEY MD
[2023-12-19 18:01] LABS: INTERNATIONAL NORM RATIO 1.8 (0.9-1.1); Prothrombin Time 21.3 SEC (11.1-13.3)
[2023-12-19 18:04] LABS: Partial Thromboplastin Time 38.8 SEC (26.0-36.8)
[2023-12-19 18:05] LABS: Creatinine Clr Calc Pharmacy 44.5; Estimated Glomerular Filt Rate 52
--- NOTE | 2023-12-19 18:06 | PM.IMHP ---
History of Present Illness Date of Service: 12/19/23 Chief Complaint: Elective ICD generator changeout 78-year-old male with a history of ventricular tachycardia status post biventricular ICD implantation presents today for elective generator change out. Procedure done without issue. Examined in the postoperative area. Will need to be monitored overnight and interrogated in a.m.. Patient states no acute medical issues; was at baseline prior to this procedure Review of Systems Review of Systems: Denies chest pain Denies shortness of breath Denies nausea vomiting diarrhea Denies fever chills [facility] Medical History COVID-19 vaccine series completed Collapsed lung Myocardial infarction GERD (gastroesophageal reflux disease) History of placement of internal cardiac defibrillator History of paroxysmal atrial tachycardia Asthma Dilated cardiomyopathy Osteopenia Arthritis Elevated cholesterol Sleep apnea COPD (chronic obstructive pulmonary disease) HTN (hypertension) Barretts esophagus Surgical History History of repair of hiatal hernia Hx of aortic valve replacement History of esophagogastroduodenoscopy (EGD) H/O colonoscopy Social History Are you a primary career guidance counselor to a significant other at home: No Do you presently have visiting nurse or other home services: No Alcohol intake: never Patient Tobacco Use Status: Former Tobacco user Tobacco use type: Cigarette Years Smoked: 60 Use of substances other than those prescribed or required for medical reasons: No Are you DNR?: No Advance Directives: No Advance Directives Information Provided: Yes Meds Allergies Allergy/AdvReac Type Severity Reaction Status Date / Time Vyyfvzq-SEW-ReS Reductase Allergy Intermediate muscle Verified 02/18/21 12:26 Inhibitor cramping [Sairzqa-Rbn-Kcq Reductase in ribcage Inhibitor] Active Medications: Current Medications Acetaminophen (Acetaminophen 325 Mg Tablet) 650 mg PO Q6H PRN PRN Reason: Pain, Mild (Pain Scale 1-3), fever or headache Albuterol Sulfate (Albuterol Sulfate (0.083%) 2.5 Mg/3 Ml Vial.Neb) 2.5 mg INHALE ONCE PRN PRN Reason: Shortness of Breath/Wheezing Calcium Carbonate (Calcium Carbonate 750 Mg Tab.Chew) 750 mg PO Q4H PRN PRN Reason: Heartburn Enoxaparin Sodium (Enoxaparin Sodium 80 Mg/0.8 Ml Syringe) 80 mg 1 mg/kg (80 mg) SUBCUT Q12H [facility] Fentanyl (Fentanyl Citrate/Pf 100 Mcg/2 Ml Vial) 25 mcg IVPUSH Q5M PRN PRN Reason: Pain, Moderate(Pain Scale 4-6) Stop: 12/19/23 20:59 Fentanyl (Fentanyl Citrate/Pf 100 Mcg/2 Ml Vial) 25 mcg IVPUSH Q5M PRN PRN Reason: Pain, Moderate(Pain Scale 4-6) Stop: 12/19/23 22:50 Gemfibrozil (Gemfibrozil 600 Mg Tablet) 600 mg PO BID [facility] Haloperidol Lactate (Haloperidol Lactate 5 Mg/Ml Vial) 0.5 mg IVPUSH ONCE PRN PRN Reason: intractable nausea Stop: 12/19/23 20:59 Hydromorphone HCl (Hydromorphone Hcl 0.5 Mg/0.5 Ml Syringe) 0.25 mg IVPUSH Q5M PRN PRN Reason: Pain, Severe (Pain Scale 7-10) Stop: 12/19/23 20:59 Lactated Ringer's (Lr) 1,000 mls @ 100 mls/hr IVCONT .Q10H [facility] Last Infusion: 12/19/23 16:52 Dose: Infused Cefazolin Sodium/Dextrose (Ancef) 2 gm in 50 mls @ 100 mls/hr IV Q8H [facility] Stop: 12/20/23 16:00 Lisinopril (Lisinopril 10 Mg Tablet) 10 mg PO DAILY [facility]; Protocol Magnesium Hydroxide (Milk Of Magnesia 30 Ml Oral.Susp) 30 ml PO DAILY PRN PRN Reason: Constipation Melatonin (Melatonin 3 Mg Tablet) 6 mg PO BEDTIME PRN PRN Reason: Insomnia Metoprolol Tartrate (Metoprolol Tartrate 100 Mg Tablet) 100 mg PO BID [facility]; Protocol Non-Formulary Medication (Dofetilide) 250 mcg PO Q12H [facility] Non-Formulary Medication (Febuxostat) 40 mg PO DAILY [facility] Omeprazole (Omeprazole 40 Mg Capsule.Dr) 40 mg PO DAILY [facility] Ondansetron HCl (Ondansetron Hcl 4 Mg/2 Ml Vial) 4 mg IVPUSH Q8H PRN PRN Reason: Nausea and Vomiting Oxycodone HCl (Oxycodone Hcl Immed Release 5 Mg Tablet) 5 mg PO Q6H PRN PRN Reason: Pain, Moderate(Pain Scale 4-6) Sodium Chloride (0.9 % Sodium Chloride Flush 3 Ml Syringe) 3 ml IVFLUSH QSHIFT JERSON Tamsulosin HCl (Tamsulosin Hcl 0.4 Mg Capsule) 0.4 mg PO BEDTIME JERSON Warfarin Sodium (Warfarin Sodium 1.25 Mg Halftab) 1.25 mg PO DAILY [facility] Home Medications ?Medication ?Instructions ?Recorded ?Confirmed ?Last Taken ?Type albuterol sulfate 90 mcg/actuation 2 puff inhalation Q6H PRN Wheezing 02/18/21 12/19/23 11/09/22 08:00 History aerosol inhaler (Ventolin HFA) dofetilide 250 mcg capsule 250 mcg PO BID 02/18/21 12/19/23 12/18/23 20:00 History gemfibrozil 600 mg tablet 600 mg PO BID 02/18/21 12/19/23 12/18/23 08:00 History lisinopril 10 mg tablet 10 mg PO DAILY 02/18/21 12/19/23 12/18/23 20:00 History warfarin 2.5 mg tablet 1.25 mg PO DAILY 02/18/21 11/16/23 12/17/23 20:00 History febuxostat 40 mg tablet 40 mg PO DAILY 09/09/21 12/19/23 12/18/23 20:00 History tamsulosin 0.4 mg capsule 0.4 mg PO BEDTIME 09/09/21 12/19/23 12/18/23 20:00 History omeprazole 20 mg capsule,delayed 20 mg PO DAILY@0630 12/19/23 12/19/23 Unknown History release Physical Exam Vital Signs and Narrative: Vital Signs: Last Vital Signs Temp 97.5 F 12/19/23 16:46 Pulse 61 12/19/23 17:46 Resp 16 12/19/23 17:46 BP 118/56 L 12/19/23 17:46 Pulse Ox 96 12/19/23 17:46 O2 Del Method Room Air 12/19/23 17:46 O2 Flow Rate 1 12/19/23 17:01 BMI result Body Mass Index 32.8 Const: Other: Awake alert no acute distress Chest: Other: Bilateral op sites; dressings dry and intact no palpable fluctuance Resp: Other: Clear to auscultation bilaterally no rales rhonchi or wheezes Cardio: Other: Mechanical heart sounds; sharp clicking noted (Saint Santos valve) GI: Other: Soft nontender nondistended normoactive bowel sounds Extrem: Other: No edema bilaterally Results Labs 12/19/23 17:47 12/19/23 17:47 Labs: Laboratory Results - last 24 hr 12/19/23 12/19/23 12:49 17:47 PT 21.9 H 21.3 H INR 1.8 H 1.8 H APTT 38.8 H Estim Creat Clear Calc 44.5 Estimated GFR 52 Assessment and Plan (1) Biventricular ICD (implantable cardioverter-defibrillator) in place: Status: Acute Plan 78-year-old male with a history of ventricular tachycardia status post biventricular ICD placement presents for generator change out today electively. Procedure without acute issues. Will be admitted overnight on telemetry and reassess in a.m. 1. Ventricular tachycardia (status post implantable device change out) -observe on telemetry overnight -portable chest in a.m. -Cardiology to interrogate in a.m. 2. Paroxysmal atrial fibrillation/mechanical heart valve -Lovenox bridge 1 milligram/kilogram q.12 hours -start Coumadin tonight -continue all outpatient medication Full code Lovenox Patient will require overnight stay to monitor cardiac rhythm status post implantable device change out. This can not be achieved a lesser acute setting Quality Stroke Does the patient have a stroke diagnosis?: No VTE Prior VTE?: No VTE Risk Level:: Medical - moderate - high VTE Device Contraindication: Treatment Not Indicated VTE Drug Contraindication: N/A - Med Ordered
[2023-12-19 18:24] LABS: Hematocrit 37.8 % (42.0-52.0); Hemoglobin 12.9 g/dl (14.0-18.0); Mean Corpuscular HGB Conc 34.1 g/dl (31.0-36.0); Mean Corpuscular Hemoglobin 32.7 pg (27.0-33.0); Mean Corpuscular Volume 95.7 fL (80.0-98.0); Mean Platelet Volume 11.6 fL (9.4-12.4); Platelet Count 100 X10*3/uL (160-400); Red Blood Count 3.95 X10*6/uL (4.60-5.80); Red Cell Distribution Width 13.7 % (11.0-16.0)
--- NOTE | 2023-12-19 19:44 | PHA.MEDREC ---
Pharmacy Consult ? Medication Reconciliation Pharmacy has completed the medication reconciliation. Called [facility] and got a list from them, confirmed medications and saw Gemfibrozil 600mg 1 BID and Tamsulosin 0.4mg tabs one tab at bedtime was not on the [facility] list, when asked about them to the patient he stated that those were filled at the [facility] and by the time I asked and went to call them they were closed for the day. I confirmed all the meds but Gemfibrozil and Tamsulosin until we can call 12/19 and confirm them.
[2023-12-19] MEDS: Enoxaparin Sodium 80 MG/0.8 ML SYRINGE SUBCUT (20:50)
[2023-12-19] MEDS: ceFAZolin Sodium/Dextrose,Iso 2 GM/50 ML PIGGYBACK IV (20:52)
[2023-12-19] MEDS: 0.9 % Sodium Chloride Flush 3 ML SYRINGE IVFLUSH (20:54)
[2023-12-19] MEDS: Warfarin Sodium 1 MG TABLET PO (21:02)
[2023-12-19] MEDS: Metoprolol Tartrate 100 MG TABLET PO (21:03)
[2023-12-19] MEDS: Dofetilide 125 MCG CAPSULE 250 MCG PO (21:03)
[2023-12-19] MEDS: oxyCODONE HCl Immed Release 5 MG TABLET PO (23:23)
[2023-12-20] VITALS: BP 102/55; PULSE 60; RESP 20; TEMP 36.4; O2SAT 96
[2023-12-20 04:00] VITALS: BP 115/60; PULSE 61; RESP 20; TEMP 36.2; O2SAT 97
[2023-12-20 06:23] LABS: MANUAL DIFF FLAG NO
[2023-12-20 06:30] LABS: Hematocrit 35.9 % (42.0-52.0); Hemoglobin 12.7 g/dl (14.0-18.0); Imm Gran Abs Auto 0.04 X10*3/uL (0.00-0.03); Imm Gran Pct Auto 0.5 % (0.0-0.4); Lymphocytes Absolute Auto 0.9 X10*3/uL (1.2-4.9); Lymphocytes Percent Auto 12.5 % (20-40); Mean Corpuscular HGB Conc 35.4 g/dl (31.0-36.0); Mean Corpuscular Hemoglobin 33.9 pg (27.0-33.0); Mean Corpuscular Volume 95.7 fL (80.0-98.0); Mean Platelet Volume 11.6 fL (9.4-12.4); Monocytes Absolute Auto 0.3 X10*3/uL (0.1-1.2); Monocytes Percent Auto 3.6 % (2-11); Neutrophils Absolute Auto 6.3 x10*3/uL (2.0-8.3); Neutrophils Percent Auto 83.4 % (45-73); Platelet Count 109 X10*3/uL (160-400); Red Blood Count 3.75 X10*6/uL (4.60-5.80); Red Cell Distribution Width 13.4 % (11.0-16.0); White Blood Count 7.5 X10*3/uL (4.8-10.8)
[2023-12-20] MEDS: Omeprazole 40 MG CAPSULE.DR PO (06:31)
[2023-12-20] MEDS: oxyCODONE HCl Immed Release 5 MG TABLET PO (06:31)
[2023-12-20] MEDS: ceFAZolin Sodium/Dextrose,Iso 2 GM/50 ML PIGGYBACK IV (06:33)
[2023-12-20 06:38] LABS: Alanine Aminotransferase 11 U/L (0-40); Albumin Level 3.7 g/dL (3.5-5.0); Alkaline Phosphatase 83 U/L (39-117); Anion Gap 13 (12-20); Aspartate Amino Transferase 13 U/L (5-37); Bilirubin Total 0.6 mg/dL (0.0-1.0); Blood Urea Nitrogen 29 mg/dL (9-16); Calcium 9.1 mg/dL (8.4-10.2); Carbon Dioxide 23 mmol/L (22-29); Chloride 110 mmol/L (96-108); Creatinine Clr Calc Pharmacy 47.6; Estimated Glomerular Filt Rate 57; Glucose Random 121 mg/dL (60-115); Potassium 4.5 mmol/L (3.3-5.1); Sodium 141 mmol/L (135-145); Total Protein 6.3 g/dL (6.5-8.0)
[2023-12-20 06:46] LABS: INTERNATIONAL NORM RATIO 1.8 (0.9-1.1); Prothrombin Time 22.2 SEC (11.1-13.3)
[2023-12-20 07:48] VITALS: BP 119/60; PULSE 60; RESP 20; TEMP 36.3; O2SAT 96
--- NOTE | 2023-12-20 08:30 | HO.POSTANES ---
Post Anesthesia Evaluation Post Anesthesia Evaluation Date of Service: 12/19/23 Vital Signs: Vital Signs Temp Pulse Resp BP Pulse Ox O2 Del Method 12/20/23 07:48 97.4 F 60 20 119/60 96 CPAP 12/20/23 05:13 Room Air 12/20/23 04:00 97.2 F 61 20 115/60 97 CPAP 12/20/23 00:00 97.6 F 60 20 102/55 L 96 Room Air 12/19/23 21:03 60 134/60 Anesthesia: General Mental Status: Awake Pain Control: Satisfactory Nausea/Vomiting: None Hydration: Adequate Anesthesia-Related Issues: No Anes. Related Issues
[2023-12-20 09:00] VITALS: O2SAT 97
--- NOTE | 2023-12-20 09:33 | MHC.CM.PN ---
RANJITH 12/20/23 MALE S/P AICD BATTERY CHANGE He lives with his . 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 He is independent with all functional mobility. [facility] is [facility]. He will have a new pcp. Dr Wills 1st appt 02/16. The plan is to discharge after the device has been interrogated this am. Patient will f/o with Dr Ledesma 11/26/23 for suture removal. DP home self care. Pt has arranged for private transport home.
[2023-12-20] MEDS: lisinopriL 10 MG TABLET PO (09:37)
[2023-12-20] MEDS: Enoxaparin Sodium 80 MG/0.8 ML SYRINGE SUBCUT (09:37)
[2023-12-20] MEDS: Dofetilide 125 MCG CAPSULE 250 MCG PO (09:37)
[2023-12-20] MEDS: 0.9 % Sodium Chloride Flush 3 ML SYRINGE IVFLUSH (09:42)
[2023-12-20] MEDS: Metoprolol Tartrate 100 MG TABLET PO (09:42)
[2023-12-20 11:22] VITALS: BP 101/56; PULSE 60; RESP 18; TEMP 36.6; O2SAT 96
--- NOTE | 2023-12-20 12:29 | P.DS_ITS ---
DS: Providers Provider Date of Service: 12/20/23 Date of admission: 12/20/23 09:33 Date of discharge: 12/20/23 Primary care physician: Joseph Hodgson DO DS: Diagnosis Discharge Diagnosis (1) Biventricular ICD (implantable cardioverter-defibrillator) in place: Status: Acute DS: Summary Hospital Course Hospital Course: 78-year-old male with a history of ventricular tachycardia status post biventricular ICD implantation presents today for elective generator change out. Procedure done without issue. Examined in the postoperative area. Will need to be monitored overnight and interrogated in a.m.. Patient states no acute medical issues; was at baseline prior to this procedure Hospital Course Patient admitted to telemetry overnight with uneventful monitoring. Device was interrogated this morning and found to be without issue. After discussion with Cardiology, patient will be discharged to resume his current Coumadin dosing will follow up with his Coumadin Clinic in the next 3-5 days. He will follow up with Cardiology and PCP as scheduled Time Attestation Discharge Coordination Time (in mins): 35 Quality: Safe Use of Opioids Does Pt have an Active Cancer Diagnosis on the Problem List?: No Quality: Stroke Does the patient have a stroke diagnosis?: No Physical Exam Vital Signs: Vital Signs: Last Vital Signs Temp 97.8 F 12/20/23 11:22 Pulse 60 12/20/23 11:22 Resp 18 12/20/23 11:22 BP 101/56 L 12/20/23 11:22 Pulse Ox 96 12/20/23 11:22 O2 Del Method Room Air 12/20/23 11:22 O2 Flow Rate 1 12/19/23 17:01 BMI result Body Mass Index 32.5 Const: Other: Awake alert no acute distress Chest: Other: Bilateral op sites; dressings dry and intact no palpable fluctuance Resp: Other: Clear to auscultation bilaterally no rales rhonchi or wheezes Cardio: Other: Mechanical heart sounds; sharp clicking noted (Saint Santos valve) GI: Other: Soft nontender nondistended normoactive bowel sounds Extrem: Other: No edema bilaterally DS: Data Data Completed and Pending Labs on day of discharge: Laboratory Results - last 24 hr 12/19/23 12/19/23 12/20/23 12:49 17:47 06:15 WBC 8.0 7.5 RBC 3.95 L 3.75 L Hgb 12.9 L 12.7 L Hct 37.8 L 35.9 L MCV 95.7 95.7 MCH 32.7 33.9 H MCHC 34.1 35.4 RDW 13.7 13.4 Plt Count 100 L 109 L MPV 11.6 11.6 Immature Gran % (Auto) 0.5 H Neut % (Auto) 83.4 H Lymph % (Auto) 12.5 L [place] % (Auto) 3.6 Eos % (Auto) 0.0 Baso % (Auto) 0.0 Lymph # (Auto) 0.9 L [place] # (Auto) 0.3 Eos # (Auto) 0.0 Baso # (Auto) 0.0 Abs Immat Gran (auto) 0.04 H Absolute Neuts (auto) 6.3 Absolute Nucleated RBC 0.000 0.000 Nucleated RBC % (auto) 0.0 0.0 PT 21.9 H 21.3 H 22.2 H INR 1.8 H 1.8 H 1.8 H APTT 38.8 H Sodium 141 Potassium 4.5 Chloride 110 H Carbon Dioxide 23 Anion Gap 13 BUN 29 H Creatinine 1.33 1.24 Estim Creat Clear Calc 44.5 47.6 Estimated GFR 52 57 Random Glucose 121 H Calcium 9.1 Total Bilirubin 0.6 AST 13 ALT 11 Alkaline Phosphatase 83 Total Protein 6.3 L Albumin 3.7 Discharge Plan Discharge Anticipated Discharge Date/Time: 12/20/23 12:26 Patient Disposition: Home, Self-Care Discharge Diagnosis: ICD generator change out with atrial lead upgrade Referrals: Joseph Hodgson DO [Primary Care Provider] - 1 Week Discharge Medications: New omeprazole 40 mg Capsule,Delayed Release(Dr/Ec) 40 mg PO DAILY@0630 Qty: 30 0RF warfarin [Jantoven] 1 mg Tablet 1.25 mg PO DAILY@1800 Qty: 30 0RF Continued metoprolol tartrate 100 mg tablet 100 mg PO BID 90 Days Qty: 180 3RF dofetilide 250 mcg Capsule 250 mcg PO BID gemfibrozil 600 mg Tablet 600 mg PO BID lisinopril 10 mg Tablet 10 mg PO DAILY albuterol sulfate [Ventolin HFA] 90 mcg/actuation Hfa Aerosol Inhaler 2 puff INHALATION Q6H PRN (Reason: Wheezing) Patient Comments: time last taken is estimated last year omeprazole 20 mg Capsule,Delayed Release(Dr/Ec) 20 mg PO DAILY@0630 warfarin 1 mg Tablet 1 mg PO DAILY febuxostat 40 mg tablet 40 mg PO DAILY tamsulosin 0.4 mg capsule 0.4 mg PO BEDTIME Discharge Orders: Discharge Order (Routine); Ordered 12/20/23 Ordered By: Quincy Johnson Diet: Advance to usual diet Activity on Discharge: As tolerated Stand Alone Forms: Patient Portal Discharge page Print Language: Syrian Care Plan Goals: Continue all meds as taken prior to procedure. Restart your Coumadin at your prescribed dosing Health Concerns: Follow-up with Coumadin clinic as scheduled; should be within the next few days Plan of Treatment: Follow up with PCP and Cardiology as scheduled Assessment: See discharge summary
--- NOTE | 2023-12-20 12:43 | MHC.CM.PN ---
RANJITH 12/20/23 Patient is discharged to home today self care. He has arranged for a ride home.
== END 2023-12-20 13:14 | disposition home or self-care (01) | DRG 261 ==
LOC: HO.EDOVER 17:36 → HO.S3 18:43 → HO.IMC 18:50
PROVIDERS: Internal Medicine Cardiovascular Disease; Nurse Practitioner; Absent Provider Hospitalist; Admitting Provider Hospitalist; PCP Family Medicine; Referring Provider Family Medicine; Visit Provider Hospitalist
PROC: 0JPT0PZ Removal of Cardiac Rhythm Related Device from Trunk Subcutaneous Tissue and Fascia, Open Approach (ICD-10-PCS; CPT 33249; principal; 2023-12-19 15:00)
DX: Z45.02 Encounter for adjustment and management of automatic implantable cardiac defibrillator (principal); I47.20 Ventricular tachycardia, unspecified; I48.0 Paroxysmal atrial fibrillation; Z95.2 Presence of prosthetic heart valve; Z87.891 Personal history of nicotine dependence; Z79.01 Long term (current) use of anticoagulants; Z79.899 Other long term (current) drug therapy
CPT/HCPCS: 33249; 36415; 71046; 80053; 82565; 85025; 85027; 85610; 85730; 93005; C1769; C1882; C1889; C1892; C1898; J0131; J0690; J1100; J1650; J2371; J2405; J2704; J3010; Q9967

== ENCOUNTER → 2023-12-19 17:21 | Outpatient (BNV) | payer OTHER, SELFPAY | PROVIDERS: Absent Provider Hospitalist; Admitting Provider Hospitalist; PCP Family Medicine; Visit Provider Hospitalist | DX: Z95.810 Presence of automatic (implantable) cardiac defibrillator (principal) | CPT/HCPCS: 99222; 99239 ==

== ENCOUNTER 2023-12-26 13:59 | Outpatient (AMB) | payer OTHER, SELFPAY ==
[2023-12-26 14:15] VITALS: BP 120/52; PULSE 65; BMI 31.9
--- NOTE | 2023-12-26 14:15 | MHC.OFFVIS ---
Vital Signs 12/26/23 14:15 Height 5 ft 3 in Weight 179 lb 14.355 oz BMI 31.9 BP 120/52 L Blood Pressure Location Lt brachial Position Sitting Pulse 65 Pulse Source Pulse Oximeter Intake Visit Reasons: wound ck / device Chemical Analyst Required: No Allergies Bwxlnru-BPT-XgB Reductase Inhibitor [Utgnxhf-Guz-Fxx Reductase Inhibitor] Allergy (Intermediate, Verified 12/26/23 14:17) muscle cramping in ribcage Medication List - Last Reconciled 12/26/23 by Dayna Garcia, BUNG DRIVER-C albuterol sulfate 90 mcg/actuation (Ventolin HFA) 2 puffs inhalation Q6H PRN dofetilide 250 mcg PO BID febuxostat 40 mg PO DAILY gemfibrozil 600 mg PO BID lisinopril 10 mg PO DAILY metoprolol tartrate 100 mg PO BID 90 days omeprazole 20 mg PO DAILY@0630 omeprazole 40 mg PO DAILY@0630 tamsulosin 0.4 mg PO BEDTIME warfarin (Jantoven) 1.25 mg (1.25 x 1 mg) PO DAILY@1800 warfarin 1 mg PO DAILY HPI HPI wound ck / device: Details: Everette is a 78-year-old male with past medical history of nonischemic cardiomyopathy, paroxysmal atrial fibrillation, mechanical aortic valve replacement, ventricular tachycardia, Bi V ICD who recently underwent a generator change and now presents for wound check. Today he reports that he has been feeling well since his recent procedure. He has some minor soreness at the ICD site. No other chest discomfort at rest or with activity. No shortness of breath, lightheadedness, presyncope, syncope, PND, orthopnea or edema. Reports doing only light physical activity. Compliant with meds. No bleeding issues with Coumadin. [facility] Medical History (Updated 12/26/23 @ 15:37 by Dayna Garcia, BUNG DRIVER-C) COVID-19 vaccine series completed Collapsed lung Myocardial infarction GERD (gastroesophageal reflux disease) History of placement of internal cardiac defibrillator History of paroxysmal atrial tachycardia Asthma Dilated cardiomyopathy Osteopenia Arthritis Elevated cholesterol Sleep apnea COPD (chronic obstructive pulmonary disease) HTN (hypertension) Barretts esophagus Surgical History (Updated 12/26/23 @ 15:37 by Dayna Garcia, BUNG DRIVER-C) History of repair of hiatal hernia Hx of aortic valve replacement History of esophagogastroduodenoscopy (EGD) H/O colonoscopy Social History Household Members: Spouse Housing: House Are you a primary wound care technician to a significant other at home: No Do you presently have visiting nurse or other home services: No Alcohol intake: never Patient Tobacco Use Status: Former Tobacco user Tobacco use type: Cigarette Years Smoked: 60 service: Yes Review of Systems Const All systems reviewed & are unremarkable except as noted in HPI and below ENT Denies dizziness Card Details: Minor soreness at pacer site Denies chest pain, Denies chest pain at rest, Denies chest pain with activity, Denies rapid heart rate, Denies pedal edema, Denies edema, Denies leg edema, Denies lightheadedness, Denies palpitations, Denies dyspnea, Denies dyspnea on exertion and Denies orthopnea Resp Denies cough, Denies dyspnea and Denies dyspnea on exertion GI Denies hematochezia and Denies change in stool character Musc Denies abnormal gait, Denies limited range of motion, Denies muscle cramps, Denies muscle weakness, Denies numbness, Denies radiating pain into limb, Denies stiffness and Denies tingling Neuro Denies abnormal gait, Denies dizziness, Denies numbness and Denies tingling Endo Denies palpitations Physical Exam Vital Signs: Last Vital Signs Pulse 65 12/26/23 14:15 BP 120/52 L 12/26/23 14:15 BMI result Body Mass Index 31.9 Const General: cooperative, healthy appearing, comfortable and no acute distress Orientation/consciousness: patient oriented x3 Neck Neck: Yes normal visual inspection and Yes no JVD Chest Other: Pacer site left upper chest. Dressing removed and steri strips fully intact. No redness, swelling, drainage. Nontender to gentle palpation of the area. Incision well approximated at this time with Steri-Strips. Lead change site right upper chest, outer dressing removed. Steri-Strips intact. Also no redness, swelling, drainage. Incision well approximated with Steri-Strips. Resp Effort & Inspection: normal respiratory effort Auscultation: clear to auscultation bilaterally, no crackles, no rales, no rhonchi and no wheezes Cardio Jugular venous distension: no JVD Rate: regular rate Rhythm: regular rhythm Heart sounds: S2 normal heart sound present, Clicking heart sound present (aortic), no murmurs and no rubs Neuro General: patient oriented x3 Extrem General: Yes normal to inspection and No no pedal edema Psych Appearance: grossly normal Mental Status: mental status grossly normal Speech and movement: Normal speech and movement present Office Procedures Cardiac Device Check Cardiac Device Check Details: Medtronic Bi V ICD interrogation today, DDDR mode, low rate 60, battery 7 years, RV threshold 0.65 volts at 0.4 milliseconds, LV threshold 0.625 volts at 0.4 milliseconds, therapies reviewed, no VT or VF, PAF noted, longest 14 hours. [id number] Cardiac Device Check, multi lead implantable defibrillator Procedure code (CPT) selection complete Assessment & Plan Assessment & Plan (1) Biventricular ICD (implantable cardioverter-defibrillator) in place: Code(s): Z95.810 - Presence of automatic (implantable) cardiac defibrillator Category: Medical Plan: History of Medtronic Bi V ICD. Recent generator change and left atrial lead upgrade with tunneling from [id number]. Incisions well approximated over right and left upper chest regions, fully intact with Steri-Strips. No sign of infection, drainage, swelling or ecchymosis. Mild discomfort when laying on his sides. Remote monitoring in use. Device check today shows battery 7 years, device is functioning normally. No VT or VF. Office interrogation due in 1 month, for repeat device check and reduction in left atrial lead amplitude. (2) Visit for wound check: Code(s): Z51.89 - Encounter for other specified aftercare Category: Medical Plan: Site care reviewed with him. Leave Steri-Strips intact until they fall off on their own. He may shower and blot the areas dry. Call if any signs of redness, swelling, drainage, wound dehiscence. Instructed on not raising left arm above the level of his shoulder for another 2 weeks. (3) Paroxysmal atrial fibrillation: Code(s): I48.0 - Paroxysmal atrial fibrillation Category: Medical Plan: History of paroxysmal atrial fibrillation. Device interrogation shows 2 recent episodes PAF. He denies any heart palpitations. He is on metoprolol for heart rate control, dofetilide for rhythm control. Last EKG done 12/20/2023 showing V paced rhythm, rate 72. He is on Coumadin for anticoagulation, INR goal 2-3. Follows with anticoagulation clinic. (4) Cardiomyopathy: Code(s): I42.9 - Cardiomyopathy, unspecified Category: Medical Plan: History of ischemic cardiomyopathy. ICD in place. Last echocardiogram 07/17/2023 shows EF 30-35%, apical anterior and mid anterior septal segments akinetic, mechanical prosthetic aortic valve present and functioning normally. 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 He was managed medically. No reports of anginal sounding symptoms. He reports only light physical activity. Recent generator change as above. He is on lisinopril and metoprolol for neurohormonal modulation. No signs of decompensated heart failure on exam. He has not requiring diuretics. (5) Aortic valve replaced: Code(s): Z95.2 - Presence of prosthetic heart valve Category: Surgical Plan: History of mechanical aortic valve. Recent echo shows it is functioning normally. [place] click heard with auscultation. He is on Coumadin with INR goal 2-3. SBE prophylaxis reviewed. Plan Time spent on chart review, documentation, interview and assessment Coding Level of Care Code Est Pt Level 4 (02411) Diagnoses Biventricular ICD (implantable cardioverter-defibrillator) in place Z95.810 Visit for wound check Z51.89 Paroxysmal atrial fibrillation I48.0 Cardiomyopathy I42.9 Aortic valve replaced Z95.2 CPT Codes Cardiac Device Check - Cardiac Device 6: [id number] Cardiac Device Check, multi lead implantable defibrillator ([id number])
== END 2023-12-26 15:00 | disposition home or self-care (01) ==
PROVIDERS: PCP Family Medicine; Visit Provider Nurse Practitioner Family
DX: Z95.810 Presence of automatic (implantable) cardiac defibrillator (principal); Z51.89 Encounter for other specified aftercare; I48.0 Paroxysmal atrial fibrillation; I42.9 Cardiomyopathy, unspecified; Z95.2 Presence of prosthetic heart valve
CPT/HCPCS: 93284; 99214

== ENCOUNTER → 2023-12-26 13:59 | Outpatient (BNVA) | payer OTHER, SELFPAY | PROVIDERS: PCP Family Medicine; Visit Provider Nurse Practitioner Family | DX: I42.9 Cardiomyopathy, unspecified (principal); I48.0 Paroxysmal atrial fibrillation; Z95.810 Presence of automatic (implantable) cardiac defibrillator; Z51.89 Encounter for other specified aftercare | CPT/HCPCS: 99212 ==

== ENCOUNTER → 2023-12-31 23:59 | Outpatient (BNV) | payer OTHER, SELFPAY ==
--- NOTE | 2024-01-09 16:05 | MHC.OFFVIS ---
Intake Visit Reasons: Remote ICD check- Medtronic Allergies Leztfmd-XTV-RpY Reductase Inhibitor [Oaixsth-Rwd-Ahc Reductase Inhibitor] Allergy (Intermediate, Verified 12/26/23 14:17) muscle cramping in ribcage [facility] Medical History (Updated 01/09/24 @ 15:18 by Donnell Ledesma MD) Biventricular ICD (implantable cardioverter-defibrillator) in place COVID-19 vaccine series completed Collapsed lung Myocardial infarction GERD (gastroesophageal reflux disease) History of placement of internal cardiac defibrillator History of paroxysmal atrial tachycardia Asthma Dilated cardiomyopathy Osteopenia Arthritis Elevated cholesterol Sleep apnea COPD (chronic obstructive pulmonary disease) HTN (hypertension) Barretts esophagus Surgical History (Updated 12/28/23 @ 00:02 by Patience Aflaro) History of repair of hiatal hernia Hx of aortic valve replacement History of esophagogastroduodenoscopy (EGD) H/O colonoscopy Social History Household Members: Spouse Housing: House Are you a primary health care marketing manager to a significant other at home: No Do you presently have visiting nurse or other home services: No Alcohol intake: never Patient Tobacco Use Status: Former Tobacco user Tobacco use type: Cigarette Years Smoked: 60 service: Yes Office Procedures Cardiac Device Check Cardiac Device Check Details: Remote ICD report generated 12/31/2023. ICD function is adequate [id number] Cardiac Interrogation, implant defibrillator w/interim Procedure code (CPT) selection complete Assessment & Plan Assessment & Plan (1) Biventricular ICD (implantable cardioverter-defibrillator) in place: Code(s): Z95.810 - Presence of automatic (implantable) cardiac defibrillator Category: Medical Plan: See above Coding Level of Care Code Procedure Only Diagnoses Biventricular ICD (implantable cardioverter-defibrillator) in place Z95.810 CPT Codes Cardiac Device Check - Cardiac Device 13: [id number] Cardiac Interrogation, implant defibrillator w/interim ([id number])
== END ==
PROVIDERS: PCP Family Medicine; Visit Provider Internal Medicine Cardiovascular Disease
DX: Z45.02 Encounter for adjustment and management of automatic implantable cardiac defibrillator (principal)
CPT/HCPCS: 93295

== ENCOUNTER → 2023-12-31 23:59 | Outpatient (BNV) | payer OTHER, SELFPAY ==
--- NOTE | 2024-01-09 15:17 | MHC.OFFVIS ---
Intake Visit Reasons: Remote HF Monitoring- Medtr[employer] Allergies Rxsszbo-PWK-UxQ Reductase Inhibitor [Gbpaqgj-Kom-Tcx Reductase Inhibitor] Allergy (Intermediate, Verified 12/26/23 14:17) muscle cramping in ribcage [facility] Medical History (Updated 01/09/24 @ 15:18 by Donnell Ledesma MD) Biventricular ICD (implantable cardioverter-defibrillator) in place COVID-19 vaccine series completed Collapsed lung Myocardial infarction GERD (gastroesophageal reflux disease) History of placement of internal cardiac defibrillator History of paroxysmal atrial tachycardia Asthma Dilated cardiomyopathy Osteopenia Arthritis Elevated cholesterol Sleep apnea COPD (chronic obstructive pulmonary disease) HTN (hypertension) Barretts esophagus Surgical History (Updated 12/28/23 @ 00:02 by Patience Alfaro) History of repair of hiatal hernia Hx of aortic valve replacement History of esophagogastroduodenoscopy (EGD) H/O colonoscopy Social History Household Members: Spouse Housing: House Are you a primary respite care provider to a significant other at home: No Do you presently have visiting nurse or other home services: No Alcohol intake: never Patient Tobacco Use Status: Former Tobacco user Tobacco use type: Cigarette Years Smoked: 60 service: Yes Office Procedures Cardiac Device Check Cardiac Device Check Details: Remote heart failure report generated 12/31/2023. Heart failure parameters are stable [id number] Cardiac Device Interrogation, cardio physiologic monitor Procedure code (CPT) selection complete Assessment & Plan Assessment & Plan (1) Biventricular ICD (implantable cardioverter-defibrillator) in place: Code(s): Z95.810 - Presence of automatic (implantable) cardiac defibrillator Category: Medical Plan: See above Coding Level of Care Code Procedure Only Diagnoses Biventricular ICD (implantable cardioverter-defibrillator) in place Z95.810 CPT Codes Cardiac Device Check - Cardiac Device 15: [id number] Cardiac Device Interrogation, cardio physiologic monitor ([id number])
== END ==
PROVIDERS: PCP Family Medicine; Visit Provider Internal Medicine Cardiovascular Disease
DX: Z45.02 Encounter for adjustment and management of automatic implantable cardiac defibrillator (principal)
CPT/HCPCS: 93297

== ENCOUNTER 2024-01-30 14:20 | Outpatient (AMB) | payer OTHER, SELFPAY ==
[2024-01-30 14:25] VITALS: BP 130/80; PULSE 86; BMI 31.6
--- NOTE | 2024-01-30 14:25 | A.OFFVIS_ITS ---
Vital Signs 01/30/24 14:25 Height 5 ft 3 in Weight 178 lb 9.191 oz BMI 31.6 BP 130/80 Blood Pressure Location Lt brachial Position Sitting Pulse 86 Intake Visit Reasons: 6 wk new med device ck Intake Note: 6 week follow-up with Med[employer] check feeling good Machines Technician Required: No Allergies Cgtxuzq-TEI-CkI Reductase Inhibitor [Ryfwngv-Gjb-Rvk Reductase Inhibitor] Allergy (Intermediate, Verified 12/26/23 14:17) muscle cramping in ribcage Medication List - Last Reconciled 01/30/24 by Donnell Ledesma MD albuterol sulfate 90 mcg/actuation (Ventolin HFA) 2 puffs inhalation Q6H PRN dofetilide 250 mcg PO BID febuxostat 40 mg PO DAILY gemfibrozil 600 mg PO BID lisinopril 10 mg PO DAILY metoprolol tartrate 100 mg PO BID 90 days omeprazole 20 mg PO DAILY@0630 omeprazole 40 mg PO DAILY@0630 tamsulosin 0.4 mg PO BEDTIME warfarin (Jantoven) 1.25 mg (1.25 x 1 mg) PO DAILY@1800 warfarin 1 mg PO DAILY HPI Comments Details: Everette comes for follow-up. He has been doing well from cardiac perspective. He denies any symptoms of exertional shortness of breath, orthopnea, PND, leg edema. Denies any palpitations. No lightheadedness, syncope, ICD discharge. Denies any exertional chest pain. Has been taking all his medications regularly. No bleeding issues or neurologic events. [facility] Medical History Biventricular ICD (implantable cardioverter-defibrillator) in place COVID-19 vaccine series completed Collapsed lung Myocardial infarction GERD (gastroesophageal reflux disease) History of placement of internal cardiac defibrillator History of paroxysmal atrial tachycardia Asthma Dilated cardiomyopathy Osteopenia Arthritis Elevated cholesterol Sleep apnea COPD (chronic obstructive pulmonary disease) HTN (hypertension) Barretts esophagus Surgical History History of repair of hiatal hernia Hx of aortic valve replacement History of esophagogastroduodenoscopy (EGD) H/O colonoscopy Social History Household Members: Spouse Housing: House Are you a primary healthcare analyst to a significant other at home: No Do you presently have visiting nurse or other home services: No Alcohol intake: never Patient Tobacco Use Status: Former Tobacco user Tobacco use type: Cigarette Years Smoked: 60 service: Yes Review of Systems Const Denies chills, Denies fatigue, Denies fever(s), Denies frequent falls, Denies weakness, Denies weight gain and Denies weight loss ENT Denies dizziness Card Denies chest pain, Denies leg edema, Denies lightheadedness, Denies palpitations, Denies dyspnea, Denies dyspnea on exertion, Denies orthopnea and Denies other (loss of consciousness) Resp Denies cough, Denies dyspnea and Denies dyspnea on exertion GI Denies hematochezia and Denies change in stool character Musc Denies abnormal gait, Denies muscle weakness, Denies numbness, Denies radiating pain into limb and Denies tingling Neuro Denies Abnormal speech present, Denies abnormal gait, Denies dizziness, Denies frequent falls, Denies numbness, Denies tingling and Denies weakness Endo Denies fatigue and Denies palpitations Physical Exam Vital Signs: Last Vital Signs Pulse 86 01/30/24 14:25 BP 130/80 01/30/24 14:25 BMI result Body Mass Index 31.6 Const General: cooperative, comfortable, no acute distress, alert and awake Nutritional Appearance: obese Orientation/consciousness: patient oriented x3 Limitations: no limitations Neck Neck: Yes trachea midline, Yes supple and Yes no JVD Chest Chest palpation & inspection: normal inspection of the chest and other (Well- healed sternotomy scar) Resp Effort & Inspection: normal respiratory effort Auscultation: no rales, no wheezes and diminished lung sounds Cardio Jugular venous distension: no JVD Palpation: normal PMI Rate: regular rate Rhythm: regular rhythm Heart sounds: S1 normal heart sound present, Clicking heart sound present ([place] closing click of [place] aortic valve), no gallops and no murmurs Peripheral pulses: Peripheral pulses 2+ throughout GI Inspection: Yes obesity Auscultation: normal bowel sounds Skin General skin exam: no rashes or lesions noted Neuro General: patient oriented x3 and no focal motor deficits Speech: No Abnormal speech present Extrem General: Yes no clubbing, cyanosis or edema Psych Appearance: grossly normal Office Procedures Cardiac Device Check Cardiac Device Check Details: Biventricular Medtronic ICD in place. Programmed in DDDR at 60 beats per minute atrial sensing is excellent. Atrial pacing thresholds excellent and reprogrammed to enhance battery life. RV pacing thresholds excellent and reprogrammed to enhance battery life. LV pacing thresholds are stable. Battery life is at about 8 and half years. One episode of atrial fibrillation noted that lasted for 2 hours. Three episodes of nonsustained ventricular tachycardia noted. [id number] Cardiac Device Check, multi lead implantable defibrillator Procedure code (CPT) selection complete EKG Details: EKG shows atrially paced ventricularly paced rhythm with LV pacing 84148-Rlqatplrtbdsjmhlo, Complete Assessment & Plan Assessment & Plan (1) Cardiomyopathy: Code(s): I42.9 - Cardiomyopathy, unspecified Category: Medical Plan: Cardiomyopathy without symptoms of heart failure. Clinically euvolemic and well compensated. Currently having good control on his symptoms. Continue metoprolol as well as lisinopril for neurohormonal modulation. Signs and symptoms of heart failure were discussed. Avoidance of salt loading was discussed. Follow-up echocardiogram in 6 months time. (2) Paroxysmal atrial fibrillation: Code(s): I48.0 - Paroxysmal atrial fibrillation Category: Medical Plan: Paroxysmal atrial fibrillation with intermittent episodes of atrial fibrillation but lasting short period of time. Having no symptoms related to it. Continue current antiarrhythmic drug therapy with dofetilide which has helped him significantly. Continue rhythm control approach. Continue metoprolol therapy. Continue full oral anticoagulation, currently on warfarin. Maintain target INR between 2 and 3. (3) Aortic valve replaced: Code(s): Z95.2 - Presence of prosthetic heart valve Category: Surgical Plan: Status post aortic valve replacement. Valve is working well clinically. Continue warfarin therapy with target INR between 2.5 and 3.5. Follow-up echocardiogram 6 months time. SBE prophylaxis as per ACC/aha guidelines. (4) Biventricular ICD (implantable cardioverter-defibrillator) in place: Code(s): Z95.810 - Presence of automatic (implantable) cardiac defibrillator Category: Medical Plan: Biventricular ICD in place, working well. Reprogrammed for adequate function. Will follow remotely for heart failure as well as device function. Follow up in the clinic in 6 months time. Will follow up in the clinic in 6 months time, sooner p.r.n.. Thank you for allowing me to partake in his care Orders: Orders Basic Metabolic Panel Today I48.0 - Paroxysmal atrial fibrillation Coding Level of Care Code Est Pt Level 4 (21245) Diagnoses Cardiomyopathy I42.9 Paroxysmal atrial fibrillation I48.0 Aortic valve replaced Z95.2 Biventricular ICD (implantable cardioverter-defibrillator) in place Z95.810 CPT Codes Cardiac Device Check - Cardiac Device 6: 35446-FM Cardiac Device Check, multi lead implantable defibrillator ([id number]) EKG - CPT: 87752-Cglcnopjbaaxkzabq, Complete ([id number])
== END 2024-01-30 14:43 | disposition home or self-care (01) ==
PROVIDERS: PCP Family Medicine; Visit Provider Internal Medicine Cardiovascular Disease
DX: I42.9 Cardiomyopathy, unspecified (principal); I48.0 Paroxysmal atrial fibrillation; Z95.2 Presence of prosthetic heart valve; Z95.810 Presence of automatic (implantable) cardiac defibrillator
CPT/HCPCS: 93010; 93284; 99214

== ENCOUNTER 2024-01-30 14:20 | Outpatient (REF) | payer OTHER, SELFPAY ==
[2024-01-30 15:48] LABS: Anion Gap 9 (12-20); Blood Urea Nitrogen 22 mg/dL (9-16); Calcium 9.2 mg/dL (8.4-10.2); Carbon Dioxide 26 mmol/L (22-29); Chloride 110 mmol/L (96-108); Estimated Glomerular Filt Rate 58; Glucose Random 132 mg/dL (60-115); Sodium 140 mmol/L (135-145)
== END 2024-01-30 14:21 | disposition home or self-care (01) ==
LOC: HO.LAB 14:20
PROVIDERS: PCP Family Medicine; Visit Provider Internal Medicine Cardiovascular Disease
DX: I48.0 Paroxysmal atrial fibrillation (principal); I42.9 Cardiomyopathy, unspecified; Z95.2 Presence of prosthetic heart valve; Z45.02 Encounter for adjustment and management of automatic implantable cardiac defibrillator
CPT/HCPCS: 36415; 80048; 93005; 99212

== ENCOUNTER → 2024-03-02 23:59 | Outpatient (BNV) | payer OTHER, SELFPAY ==
--- NOTE | 2024-03-18 09:11 | A.OFFVIS_ITS ---
Intake Visit Reasons: remote HF monitoring- Medtr[employer] Allergies Jtvxxxl-QDL-OnX Reductase Inhibitor [Ihwxzox-Iax-Ajt Reductase Inhibitor] Allergy (Intermediate, Verified 12/26/23 14:17) muscle cramping in ribcage [facility] Medical History Biventricular ICD (implantable cardioverter-defibrillator) in place COVID-19 vaccine series completed Collapsed lung Myocardial infarction GERD (gastroesophageal reflux disease) History of placement of internal cardiac defibrillator History of paroxysmal atrial tachycardia Asthma Dilated cardiomyopathy Osteopenia Arthritis Elevated cholesterol Sleep apnea COPD (chronic obstructive pulmonary disease) HTN (hypertension) Barretts esophagus Surgical History History of repair of hiatal hernia Hx of aortic valve replacement History of esophagogastroduodenoscopy (EGD) H/O colonoscopy Social History Household Members: Spouse Housing: House Are you a primary healthcare project manager to a significant other at home: No Do you presently have visiting nurse or other home services: No Alcohol intake: never Patient Tobacco Use Status: Former Tobacco user Tobacco use type: Cigarette Years Smoked: 60 service: Yes Office Procedures Cardiac Device Check Cardiac Device Check Details: Remote heart failure report generated 03/02/2024. I was requested to read this study today. Heart failure parameters 11238-Wbtizk Cardiac Device Interrogation, cardio physiologic monitor Procedure code (CPT) selection complete Assessment & Plan Assessment & Plan (1) Biventricular ICD (implantable cardioverter-defibrillator) in place: Code(s): Z95.810 - Presence of automatic (implantable) cardiac defibrillator Category: Medical Plan: See above Coding Level of Care Code Procedure Only Diagnoses Biventricular ICD (implantable cardioverter-defibrillator) in place Z95.810 CPT Codes Cardiac Device Check - Cardiac Device 15: 94620-Rtxwyv Cardiac Device Interrogation, cardio physiologic monitor ([id number])
== END ==
PROVIDERS: PCP Family Medicine; Visit Provider Internal Medicine Cardiovascular Disease
DX: Z45.02 Encounter for adjustment and management of automatic implantable cardiac defibrillator (principal)
CPT/HCPCS: 93297

== ENCOUNTER → 2024-04-02 23:59 | Outpatient (BNV) | payer OTHER, SELFPAY ==
--- NOTE | 2024-04-03 11:51 | MHC.OFFVIS ---
Intake Visit Reasons: remote HF monitoring- [employer]tr[employer] Allergies Icpruxb-PAN-CwD Reductase Inhibitor [Ydtrpwr-Tpj-Yvn Reductase Inhibitor] Allergy (Intermediate, Verified 12/26/23 14:17) muscle cramping in ribcage [facility] Medical History Biventricular ICD (implantable cardioverter-defibrillator) in place COVID-19 vaccine series completed Collapsed lung Myocardial infarction GERD (gastroesophageal reflux disease) History of placement of internal cardiac defibrillator History of paroxysmal atrial tachycardia Asthma Dilated cardiomyopathy Osteopenia Arthritis Elevated cholesterol Sleep apnea COPD (chronic obstructive pulmonary disease) HTN (hypertension) Barretts esophagus Surgical History History of repair of hiatal hernia Hx of aortic valve replacement History of esophagogastroduodenoscopy (EGD) H/O colonoscopy Social History Household Members: Spouse Housing: House Are you a primary eye care professional to a significant other at home: No Do you presently have visiting nurse or other home services: No Alcohol intake: never Patient Tobacco Use Status: Former Tobacco user Tobacco use type: Cigarette Years Smoked: 60 service: Yes Office Procedures Cardiac Device Check Cardiac Device Check Details: Remote heart failure report generated 04/02/2024. Heart failure parameters are stable 36448-Yvqzxh Cardiac Device Interrogation, cardio physiologic monitor Procedure code (CPT) selection complete Assessment & Plan Assessment & Plan (1) Biventricular ICD (implantable cardioverter-defibrillator) in place: Code(s): Z95.810 - Presence of automatic (implantable) cardiac defibrillator Category: Medical Plan: See above Coding Level of Care Code Procedure Only Diagnoses Biventricular ICD (implantable cardioverter-defibrillator) in place Z95.810 CPT Codes Cardiac Device Check - Cardiac Device 15: 71308-Oxwblp Cardiac Device Interrogation, cardio physiologic monitor ([id number])
== END ==
PROVIDERS: PCP Family Medicine; Visit Provider Internal Medicine Cardiovascular Disease
DX: Z45.02 Encounter for adjustment and management of automatic implantable cardiac defibrillator (principal)
CPT/HCPCS: 93297

== ENCOUNTER → 2024-04-02 23:59 | Outpatient (BNV) | payer OTHER, SELFPAY ==
--- NOTE | 2024-04-03 11:52 | A.OFFVIS_ITS ---
Intake Visit Reasons: Remote ICD check- Medtronic Allergies Oiwwptg-PVZ-ByU Reductase Inhibitor [Wbffjxt-Yxs-Dwb Reductase Inhibitor] Allergy (Intermediate, Verified 12/26/23 14:17) muscle cramping in ribcage [facility] Medical History Biventricular ICD (implantable cardioverter-defibrillator) in place COVID-19 vaccine series completed Collapsed lung Myocardial infarction GERD (gastroesophageal reflux disease) History of placement of internal cardiac defibrillator History of paroxysmal atrial tachycardia Asthma Dilated cardiomyopathy Osteopenia Arthritis Elevated cholesterol Sleep apnea COPD (chronic obstructive pulmonary disease) HTN (hypertension) Barretts esophagus Surgical History History of repair of hiatal hernia Hx of aortic valve replacement History of esophagogastroduodenoscopy (EGD) H/O colonoscopy Social History Household Members: Spouse Housing: House Are you a primary career development director to a significant other at home: No Do you presently have visiting nurse or other home services: No Alcohol intake: never Patient Tobacco Use Status: Former Tobacco user Tobacco use type: Cigarette Years Smoked: 60 service: Yes Office Procedures Cardiac Device Check Cardiac Device Check Details: Remote ICD report generated 04/02/2024. ICD function is adequate. Bi V pacing 99.5% of the time [id number] Cardiac Interrogation, implant defibrillator w/interim Procedure code (CPT) selection complete Assessment & Plan Assessment & Plan (1) Biventricular ICD (implantable cardioverter-defibrillator) in place: Code(s): Z95.810 - Presence of automatic (implantable) cardiac defibrillator Category: Medical Plan: See above Coding Level of Care Code Procedure Only Diagnoses Biventricular ICD (implantable cardioverter-defibrillator) in place Z95.810 CPT Codes Cardiac Device Check - Cardiac Device 13: 85516-Yczrts Cardiac Interrogation, implant defibrillator w/interim ([id number])
== END ==
PROVIDERS: PCP Family Medicine; Visit Provider Internal Medicine Cardiovascular Disease
DX: Z45.02 Encounter for adjustment and management of automatic implantable cardiac defibrillator (principal)
CPT/HCPCS: 93295

== ENCOUNTER → 2024-05-03 23:59 | Outpatient (BNV) | payer OTHER, SELFPAY ==
--- NOTE | 2024-05-15 15:40 | A.OFFVIS_ITS ---
Intake Visit Reasons: Remote HF monitoring- Medtr[employer] Allergies Auihlik-SAN-QwS Reductase Inhibitor [Icsffts-Mpa-Jyr Reductase Inhibitor] Allergy (Intermediate, Verified 12/26/23 14:17) muscle cramping in ribcage [facility] Medical History Biventricular ICD (implantable cardioverter-defibrillator) in place COVID-19 vaccine series completed Collapsed lung Myocardial infarction GERD (gastroesophageal reflux disease) History of placement of internal cardiac defibrillator History of paroxysmal atrial tachycardia Asthma Dilated cardiomyopathy Osteopenia Arthritis Elevated cholesterol Sleep apnea COPD (chronic obstructive pulmonary disease) HTN (hypertension) Barretts esophagus Surgical History History of repair of hiatal hernia Hx of aortic valve replacement History of esophagogastroduodenoscopy (EGD) H/O colonoscopy Social History Household Members: Spouse Housing: House Are you a primary palliative care physician to a significant other at home: No Do you presently have visiting nurse or other home services: No Alcohol intake: never Patient Tobacco Use Status: Former Tobacco user Tobacco use type: Cigarette Years Smoked: 60 service: Yes Office Procedures Cardiac Device Check Cardiac Device Check Details: Remote heart failure report generated 05/03/2024. Heart failure parameters are stable 26391-Yppbgi Cardiac Device Interrogation, cardio physiologic monitor Procedure code (CPT) selection complete Assessment & Plan Assessment & Plan (1) Biventricular ICD (implantable cardioverter-defibrillator) in place: Code(s): Z95.810 - Presence of automatic (implantable) cardiac defibrillator Category: Medical Plan: See above Coding Level of Care Code Procedure Only Diagnoses Biventricular ICD (implantable cardioverter-defibrillator) in place Z95.810 CPT Codes Cardiac Device Check - Cardiac Device 15: 06826-Uasmjf Cardiac Device Interrogation, cardio physiologic monitor ([id number])
== END ==
PROVIDERS: PCP Family Medicine; Visit Provider Internal Medicine Cardiovascular Disease
DX: Z45.02 Encounter for adjustment and management of automatic implantable cardiac defibrillator (principal)
CPT/HCPCS: 93297

== ENCOUNTER 2024-05-08 13:39 | Outpatient (REF) | payer OTHER, SELFPAY ==
--- NOTE | 2024-05-08 13:42 | PFT_ITS ---
Flows: FEV1: 68 % of predicted at 1.62 L FVC: 88 % of predicted at 2.75 L FEV1/FVC: 59 % Bronchodilator response: Present in small to medium airways only Volumes: Total lung capacity: 74 % of predicted at 4.10 L Residual volume: 58 % of predicted at 1.23 L Slow vital capacity: 85 % of predicted at 2.86 L Expiratory reserve volume: 61 % of predicted at 0.52 L Diffusion capacity: Moderately decreased, adjusts to being mildly decreased after correction for alveolar ventilation. 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 Decreased diffusion capacity suggests emphysema. MTDD
== END 2024-05-08 13:40 | disposition home or self-care (01) ==
LOC: HO.RESP 13:39
PROVIDERS: PCP Family Medicine; Visit Provider Internal Medicine Cardiovascular Disease
DX: R06.02 Shortness of breath (principal)
CPT/HCPCS: 94010; 94640; 94727; 94729

== ENCOUNTER → 2024-05-08 13:42 | Outpatient (BNV) | payer OTHER, SELFPAY | PROVIDERS: PCP Family Medicine; Visit Provider Internal Medicine Pulmonary Disease | DX: R06.02 Shortness of breath (principal) | CPT/HCPCS: 94060; 94727; 94729 ==

== ENCOUNTER → 2024-06-02 23:59 | Outpatient (BNV) | payer OTHER, SELFPAY ==
--- NOTE | 2024-06-05 15:15 | MHC.OFFVIS ---
Intake Visit Reasons: Remote HF monitoring- Medtr[employer] Allergies Jblzait-BYN-ZoW Reductase Inhibitor [Mxyaotw-Jvm-Kiv Reductase Inhibitor] Allergy (Intermediate, Verified 12/26/23 14:17) muscle cramping in ribcage [facility] Medical History Biventricular ICD (implantable cardioverter-defibrillator) in place COVID-19 vaccine series completed Collapsed lung Myocardial infarction GERD (gastroesophageal reflux disease) History of placement of internal cardiac defibrillator History of paroxysmal atrial tachycardia Asthma Dilated cardiomyopathy Osteopenia Arthritis Elevated cholesterol Sleep apnea COPD (chronic obstructive pulmonary disease) HTN (hypertension) Barretts esophagus Surgical History History of repair of hiatal hernia Hx of aortic valve replacement History of esophagogastroduodenoscopy (EGD) H/O colonoscopy Social History Household Members: Spouse Housing: House Are you a primary director of career services to a significant other at home: No Do you presently have visiting nurse or other home services: No Alcohol intake: never Patient Tobacco Use Status: Former Tobacco user Tobacco use type: Cigarette Years Smoked: 60 service: Yes Office Procedures Cardiac Device Check Cardiac Device Check Details: Remote heart failure report generated 06/02/2024. Heart failure parameters are still within normal limits 76890-Lclgpk Cardiac Device Interrogation, cardio physiologic monitor Procedure code (CPT) selection complete Assessment & Plan Assessment & Plan (1) Biventricular ICD (implantable cardioverter-defibrillator) in place: Code(s): Z95.810 - Presence of automatic (implantable) cardiac defibrillator Category: Medical Plan: See above Coding Level of Care Code Procedure Only Diagnoses Biventricular ICD (implantable cardioverter-defibrillator) in place Z95.810 CPT Codes Cardiac Device Check - Cardiac Device 15: 51767-Aqeota Cardiac Device Interrogation, cardio physiologic monitor ([id number])
== END ==
PROVIDERS: PCP Family Medicine; Visit Provider Internal Medicine Cardiovascular Disease
DX: Z45.02 Encounter for adjustment and management of automatic implantable cardiac defibrillator (principal)
CPT/HCPCS: 93297

== ENCOUNTER → 2024-06-21 12:42 | Outpatient (REF) | payer OTHER, SELFPAY ==
--- NOTE | 2024-06-21 12:45 | CA_ITS ---
Transthoracic Echocardiogram Patient (Last, First, Middle): Everette Watkins, Gender: Male Date of : 1945 Age: 78 Procedure Date: 06/21/2024 Procedure Type: Transthoracic Echocardiogram Location: OP Height: 160.02 cm Weight: 79.83 kg BSA: 1.83 m2 Heart Rate: 65 bpm BP: 124 / 78 mmHg Surgery Manager: Referring MD: Donnell Ledesma MD Symptoms: Z95.2 - Presence of prosthetic heart valve Study Quality: Technically Difficult, Unable to get IV in ECG Rhythm: Atrial Fibrillation Conclusions: - Normal left ventricular cavity size. There is severely increased left ventricular wall thickness. The left ventricular systolic function is severely decreased. The visually estimated ejection fraction is between 15-20%. - The apical lateral, apical septum, mid anterolateral, mid inferoseptal, mid anteroseptal, and mid inferolateral segments are akinetic. - The apex, apical anterior, and mid anterior segments are dyskinetic. - Normal right ventricular cavity size. There is mildly decreased right ventricular systolic function. There is a pacemaker wire seen in the right ventricle. - A mechanical prosthetic aortic valve is present. The prosthetic aortic valve appears to be functioning normally. - Normal right atrial pressure. Mild pulmonary hypertension is present. - There is mild dilatation of the ascending aorta measuring 3.80 cm. Findings Left Ventricle Normal left ventricular cavity size. There is severely increased left ventricular wall thickness. The left ventricular systolic function is severely decreased. The visually estimated ejection fraction is between 15 20%. There is evidence of regional wall motion abnormalities. Abnormal diastolic function is noted. Spectral Doppler is indicative of a restrictive filling pattern. Elevated filling pressures. Wall Motion Rest Echo Findings The apical lateral, apical septum, mid anterolateral, mid inferoseptal, mid anteroseptal, and mid inferolateral segments are akinetic. The apex, apical anterior, and mid anterior segments are dyskinetic. Right Ventricle Normal right ventricular cavity size. There is mildly decreased right ventricular systolic function. There is a pacemaker wire seen in the right ventricle. Atria The left atrium is severely dilated. Aortic Valve A mechanical prosthetic aortic valve is present. The prosthetic aortic valve appears to be functioning normally. There is no aortic valve stenosis. There is no aortic valve regurgitation. Mitral Valve The mitral valve appears normal. There is trace mitral valve regurgitation. There is no mitral valve stenosis. Pulmonic Valve The pulmonic valve is likely normal. Tricuspid Valve There is mild tricuspid valve regurgitation. The right ventricular systolic pressure is 44 mmHg. Normal right atrial pressure. Mild pulmonary hypertension is present. Great Vessels There is mild dilatation of the ascending aorta measuring 3.80 cm. The visualized portions of the pulmonary artery and branches are normal. Venous The inferior vena cava is normal in size and collapses greater than 50% with inspiration. Pericardium/Pleural There is no evidence of pericardial effusion. Prior Study Comparison Changes noted compared to prior study dated: 07/17/2023. EF 15-20% with multiple regional motion abnormalities. Measurements 2D Linear Measurements IVSd: 1.54 0.6-0.9/0.6-1.0 cm LVIDd: 4.95 3.9-5.3/4.2-5.9 cm LVIDd Index: 2.70 2.4-3.2/2.2-3.1 cm/m2 LVIDs: 2.78 2.0-3.6 cm LVPWd: 1.48 0.7-1.1 cm Ao Root: 3.50 2.1-3.5 cm LA Diam: 3.70 2.7-3.8/3.0-4.0 cm LAIDs Index: 2.02 1.5-2.3 cm/m2 LV Mass: 400.37 67-162/88-224 g LV Mass Index: 218.78 43-95/49-115 g/m2 LVOT Diam: 2.40 3.0+(-)1.3 cm 2D Systolic Function EF 4C: 19.50 >55% EF 2C: 23.20 >55% EF BiP: 19.40 >55% Mitral Valve MV VTI: 0.39 MV Pk Blaise: 1.59 MV Mn Blaise: 0.77 MV Pk Grad: 10.00 MV Mn Grad: 3.00 MV Pk E: 1.35 MV Decel Time: 239.00 E'Lateral: 3.37 E'Medial: 3.70 E/E' Med: 36.50 E/E' Lat: 40.10 PHT: 70.00 MVA PHT: 3.14 MVA Continuity: 1.30 Decel Dare: 5.65 Aortic Valve AoV Pk Blaise: 2.32 AoV Mn Blaise: 1.62 AoV VTI: 0.50 AoV Pk Grad: 22.00 Aov Mn Grad: 12.00 MADY Cont.VTI: 1.01 LVOT LVOT Pk Blaise: 0.53 LVOT Mn Blaise: 0.37 LVOT VTI: 0.11 LVOT Pk Grad: 1.00 LVOT Mn Grad: 1.00 LVOT Diam: 2.40 LVOT Area: 4.52 Diastolic Function MV Pk E: 1.35 E'Medial: 3.70 E/E' Med: 36.50 E' Laterial: 3.37 E/E' Lat: 40.10 Right Ventricle TAPSE (mm): 20.70 TVS' Blaise: 7.07 Tricuspid Valve TR Pk Blaise: 3.19 TR Pk Grad: 41.00 RVSP: 44.00 Great Vessels Aorta Ao Root-2D: 3.50 2.0-3.7 cm Ao Asc: 3.80 2.1-3.4 cm Pulmonary Valve PV Pk Blaise: 0.71 Peak PV Grad: 2.00 Updated in Other Vendor System with Status of Final Puma Licona MD electronically signed on 06/23/2024 8:01:50 PM with status of Final
== END ==
LOC: HO.CARD 12:42
PROVIDERS: PCP Family Medicine; Visit Provider Internal Medicine Cardiovascular Disease
DX: Z95.2 Presence of prosthetic heart valve (principal)
CPT/HCPCS: 93306

== ENCOUNTER → 2024-06-21 12:45 | Outpatient (BNV) | payer OTHER, SELFPAY | PROVIDERS: PCP Family Medicine; Visit Provider Internal Medicine Cardiovascular Disease | DX: I36.1 Nonrheumatic tricuspid (valve) insufficiency (principal); Z95.2 Presence of prosthetic heart valve | CPT/HCPCS: 93306 ==

== ENCOUNTER 2024-06-27 14:30 | Outpatient (REF) | payer OTHER, SELFPAY ==
[2024-06-27 16:26] LABS: Anion Gap 13 (12-20); Blood Urea Nitrogen 20 mg/dL (9-16); Calcium 9.3 mg/dL (8.4-10.2); Carbon Dioxide 23 mmol/L (22-29); Chloride 110 mmol/L (96-108); Estimated Glomerular Filt Rate 54; Glucose Random 93 mg/dL (60-115); Potassium 4.9 mmol/L (3.3-5.1); Sodium 141 mmol/L (135-145)
== END 2024-06-27 14:31 | disposition home or self-care (01) ==
LOC: HO.LAB 14:30
PROVIDERS: Visit Provider Internal Medicine Cardiovascular Disease
DX: I47.20 Ventricular tachycardia, unspecified (principal)
CPT/HCPCS: 36415; 80048

== ENCOUNTER → 2024-07-03 23:59 | Outpatient (BNV) | payer OTHER, SELFPAY ==
--- NOTE | 2024-07-09 14:02 | A.OFFVIS_ITS ---
Intake Visit Reasons: Remote HF monitoring- Medtronic Allergies Octsxsx-RZS-NwN Reductase Inhibitor [Axzxlns-Dae-Tuk Reductase Inhibitor] Allergy (Intermediate, Verified 12/26/23 14:17) muscle cramping in ribcage [facility] Medical History Biventricular ICD (implantable cardioverter-defibrillator) in place COVID-19 vaccine series completed Collapsed lung Myocardial infarction GERD (gastroesophageal reflux disease) History of placement of internal cardiac defibrillator History of paroxysmal atrial tachycardia Asthma Dilated cardiomyopathy Osteopenia Arthritis Elevated cholesterol Sleep apnea COPD (chronic obstructive pulmonary disease) HTN (hypertension) Barretts esophagus Surgical History History of repair of hiatal hernia Hx of aortic valve replacement History of esophagogastroduodenoscopy (EGD) H/O colonoscopy Social History Household Members: Spouse Housing: House Are you a primary transitions rn care coordinator to a significant other at home: No Do you presently have visiting nurse or other home services: No Alcohol intake: never Patient Tobacco Use Status: Former Tobacco user Tobacco use type: Cigarette Years Smoked: 60 service: Yes Office Procedures Cardiac Device Check Cardiac Device Check Details: Remote heart failure report generated June 2024. Heart failure parameters are stable [id number] Cardiac Device Interrogation, cardio physiologic monitor Procedure code (CPT) selection complete Assessment & Plan Assessment & Plan (1) Biventricular ICD (implantable cardioverter-defibrillator) in place: Code(s): Z95.810 - Presence of automatic (implantable) cardiac defibrillator Category: Medical Plan: See above Coding Level of Care Code Procedure Only Diagnoses Biventricular ICD (implantable cardioverter-defibrillator) in place Z95.810 CPT Codes Cardiac Device Check - Cardiac Device 15: [id number] Cardiac Device Interrogation, cardio physiologic monitor ([id number])
== END ==
PROVIDERS: PCP Family Medicine; Visit Provider Internal Medicine Cardiovascular Disease
DX: Z45.02 Encounter for adjustment and management of automatic implantable cardiac defibrillator (principal)
CPT/HCPCS: 93297

== ENCOUNTER → 2024-07-03 23:59 | Outpatient (BNV) | payer OTHER, SELFPAY ==
--- NOTE | 2024-07-09 14:04 | A.OFFVIS_ITS ---
Intake Visit Reasons: Remote ICD check- Medtronic Allergies Vzxthka-KCV-YhN Reductase Inhibitor [Efznyrl-Yyu-Ttc Reductase Inhibitor] Allergy (Intermediate, Verified 12/26/23 14:17) muscle cramping in ribcage [facility] Medical History Biventricular ICD (implantable cardioverter-defibrillator) in place COVID-19 vaccine series completed Collapsed lung Myocardial infarction GERD (gastroesophageal reflux disease) History of placement of internal cardiac defibrillator History of paroxysmal atrial tachycardia Asthma Dilated cardiomyopathy Osteopenia Arthritis Elevated cholesterol Sleep apnea COPD (chronic obstructive pulmonary disease) HTN (hypertension) Barretts esophagus Surgical History History of repair of hiatal hernia Hx of aortic valve replacement History of esophagogastroduodenoscopy (EGD) H/O colonoscopy Social History Household Members: Spouse Housing: House Are you a primary home care and home health aides teacher to a significant other at home: No Do you presently have visiting nurse or other home services: No Alcohol intake: never Patient Tobacco Use Status: Former Tobacco user Tobacco use type: Cigarette Years Smoked: 60 service: Yes Office Procedures Cardiac Device Check Cardiac Device Check Details: Remote ICD report generated 07/03/2024. ICD function is adequate. Bi V pacing 99.3% of the time [id number] Cardiac Interrogation, implant defibrillator w/interim Procedure code (CPT) selection complete Assessment & Plan Assessment & Plan (1) Biventricular ICD (implantable cardioverter-defibrillator) in place: Code(s): Z95.810 - Presence of automatic (implantable) cardiac defibrillator Category: Medical Plan: See above Coding Level of Care Code Procedure Only Diagnoses Biventricular ICD (implantable cardioverter-defibrillator) in place Z95.810 CPT Codes Cardiac Device Check - Cardiac Device 13: [id number] Cardiac Interrogation, implant defibrillator w/interim ([id number])
== END ==
PROVIDERS: PCP Family Medicine; Visit Provider Internal Medicine Cardiovascular Disease
DX: Z45.02 Encounter for adjustment and management of automatic implantable cardiac defibrillator (principal)
CPT/HCPCS: 93295

== ENCOUNTER → 2024-08-03 23:59 | Outpatient (BNV) | payer OTHER, SELFPAY ==
--- NOTE | 2024-08-08 14:08 | MHC.OFFVIS ---
Intake Visit Reasons: Remote HF monitoring- [employer] Allergies Dhwfaif-PQJ-FlI Reductase Inhibitor [Enmlaoy-Bwj-Mal Reductase Inhibitor] Allergy (Intermediate, Verified 12/26/23 14:17) muscle cramping in ribcage [facility] Medical History Biventricular ICD (implantable cardioverter-defibrillator) in place COVID-19 vaccine series completed Collapsed lung Myocardial infarction GERD (gastroesophageal reflux disease) History of placement of internal cardiac defibrillator History of paroxysmal atrial tachycardia Asthma Dilated cardiomyopathy Osteopenia Arthritis Elevated cholesterol Sleep apnea COPD (chronic obstructive pulmonary disease) HTN (hypertension) Barretts esophagus Surgical History (Updated 08/08/24 @ 13:56 by Donnell Ledesma MD) Aortic valve replaced History of repair of hiatal hernia Hx of aortic valve replacement History of esophagogastroduodenoscopy (EGD) H/O colonoscopy Social History Household Members: Spouse Housing: House Are you a primary customer care voice consultant to a significant other at home: No Do you presently have visiting nurse or other home services: No Alcohol intake: never Patient Tobacco Use Status: Former Tobacco user Tobacco use type: Cigarette Years Smoked: 60 service: Yes Office Procedures Cardiac Device Check Cardiac Device Check Details: Remote heart failure report generated 08/03/2024. Heart failure parameters are stable [id number] Cardiac Device Interrogation, cardio physiologic monitor Procedure code (CPT) selection complete Assessment & Plan Assessment & Plan (1) Biventricular ICD (implantable cardioverter-defibrillator) in place: Code(s): Z95.810 - Presence of automatic (implantable) cardiac defibrillator Category: Medical Plan: See above Coding Level of Care Code Procedure Only Diagnoses Biventricular ICD (implantable cardioverter-defibrillator) in place Z95.810 CPT Codes Cardiac Device Check - Cardiac Device 15: [id number] Cardiac Device Interrogation, cardio physiologic monitor ([id number])
== END ==
PROVIDERS: PCP Family Medicine; Visit Provider Internal Medicine Cardiovascular Disease
DX: Z45.02 Encounter for adjustment and management of automatic implantable cardiac defibrillator (principal)
CPT/HCPCS: 93297

== ENCOUNTER 2024-08-08 13:18 | Outpatient (AMB) | payer OTHER, SELFPAY ==
--- NOTE | 2024-08-08 13:20 | A.OFFVIS_ITS ---
Vital Signs 08/08/24 13:23 Height 5 ft 3 in Weight 176 lb 5.917 oz BMI 31.2 BP 120/70 Blood Pressure Location Lt brachial Position Sitting Pulse 77 Intake Visit Reasons: 6 mth f/up w/ med ck Allergies Gzgxggj-JEX-PhG Reductase Inhibitor [Ynvniqh-Imh-Tsg Reductase Inhibitor] Allergy (Intermediate, Verified 12/26/23 14:17) muscle cramping in ribcage Medication List - Last Reconciled 08/08/24 by Donnell Ledesma MD albuterol sulfate 90 mcg/actuation (Ventolin HFA) 2 puffs inhalation Q6H PRN dofetilide 250 mcg PO BID febuxostat 40 mg PO DAILY gemfibrozil 600 mg PO BID metoprolol tartrate 100 mg PO BID 90 days omeprazole 20 mg PO DAILY@0630 omeprazole 40 mg PO DAILY@0630 tamsulosin 0.4 mg PO BEDTIME valsartan 80 mg PO BID warfarin (Jantoven) 1.25 mg (1.25 x 1 mg) PO DAILY@1800 warfarin 1 mg PO DAILY HPI Comments Details: Everette comes for follow-up. Has been taking all his medications. Denies any symptoms of palpitations. No lightheadedness, syncope, ICD discharge. Takes all his medications. He said he had lab work done with his PCP yesterday, everything was within okay limits. Finally seeing a associate store leader for his shortness of breath. He denies any clear orthopnea, PND, leg edema, abdominal distension. No bleeding issues or neurologic events. He has Coumadin levels are being followed by [facility]. Echocardiogram in May showed markedly reduced LV ejection fraction of 15-20% with severely increased wall thickness with multiple different regional wall motion abnormalities consistent with ischemic cardiomyopathy. Normally functioning prosthetic aortic valve. [facility] Medical History Biventricular ICD (implantable cardioverter-defibrillator) in place COVID-19 vaccine series completed Collapsed lung Myocardial infarction GERD (gastroesophageal reflux disease) History of placement of internal cardiac defibrillator History of paroxysmal atrial tachycardia Asthma Dilated cardiomyopathy Osteopenia Arthritis Elevated cholesterol Sleep apnea COPD (chronic obstructive pulmonary disease) HTN (hypertension) Barretts esophagus Surgical History (Updated 08/08/24 @ 13:56 by Donnell Ledesma MD) Aortic valve replaced History of repair of hiatal hernia Hx of aortic valve replacement History of esophagogastroduodenoscopy (EGD) H/O colonoscopy Social History Household Members: Spouse Housing: House Are you a primary progressive care unit registered nurse to a significant other at home: No Do you presently have visiting nurse or other home services: No Alcohol intake: never Patient Tobacco Use Status: Former Tobacco user Tobacco use type: Cigarette Years Smoked: 60 service: Yes Review of Systems Const Denies chills, Denies fatigue, Denies fever(s), Denies frequent falls, Denies weakness, Denies weight gain and Denies weight loss ENT Denies dizziness Card Denies chest pain, Denies leg edema, Denies lightheadedness, Denies palpitations, Denies dyspnea, Denies dyspnea on exertion, Denies orthopnea and Denies other (loss of consciousness) Resp Denies cough, Denies dyspnea and Denies dyspnea on exertion GI Denies hematochezia and Denies change in stool character Musc Denies abnormal gait, Denies muscle weakness, Denies numbness, Denies radiating pain into limb and Denies tingling Neuro Denies Abnormal speech present, Denies abnormal gait, Denies dizziness, Denies frequent falls, Denies numbness, Denies tingling and Denies weakness Endo Denies fatigue and Denies palpitations Physical Exam Vital Signs: Last Vital Signs Pulse 77 08/08/24 13:23 BP 120/70 08/08/24 13:23 BMI result Body Mass Index 31.2 Const General: cooperative, comfortable, no acute distress, alert and awake Nutritional Appearance: obese Orientation/consciousness: patient oriented x3 Limitations: no limitations Neck Neck: Yes trachea midline, Yes supple and Yes no JVD Chest Chest palpation & inspection: normal inspection of the chest and other (Well- healed sternotomy scar) Resp Effort & Inspection: normal respiratory effort Auscultation: no rales, no wheezes and diminished lung sounds Cardio Jugular venous distension: no JVD Palpation: normal PMI Rate: regular rate Rhythm: regular rhythm Heart sounds: S1 normal heart sound present, Clicking heart sound present (Cross closing click of [place] aortic valve), no gallops and no murmurs Peripheral pulses: Peripheral pulses 2+ throughout GI Inspection: Yes obesity Auscultation: normal bowel sounds Skin General skin exam: no rashes or lesions noted Neuro General: patient oriented x3 and no focal motor deficits Speech: No Abnormal speech present Extrem General: Yes no clubbing, cyanosis or edema Psych Appearance: grossly normal Office Procedures Cardiac Device Check Cardiac Device Check Details: Biventricular Medtronic ICD in place. Programmed in DDDR at 60 beats per minute. Biventricular pacing 99 % of the time. Atrial fibrillation burden noted at 0.8%. Multiple episodes of nonsustained VT noted which was appropriately sensed. Atrial ventricular sensing is adequate. Atrial ventricular capture thresholds are adequate and reprogrammed to provide adequate safety margin and to preserve retrofit installer battery life. Pacing and shock lead impedance is stable. Battery life is at about 8 years [id number] Cardiac Device Check, multi lead implantable defibrillator Procedure code (CPT) selection complete EKG Details: EKG shows atrially sensed, ventricularly paced rhythm with left ventricular pacing with normal QT interval [id number], Complete Assessment & Plan Assessment & Plan (1) Biventricular ICD (implantable cardioverter-defibrillator) in place: Code(s): Z95.810 - Presence of automatic (implantable) cardiac defibrillator Category: Medical Plan: Biventricular ICD in place for severe LV systolic dysfunction, working well. Reprogrammed for adequate function. Will follow remotely for heart failure as well as device functioning. (2) Hx of aortic valve replacement: Comment: 1983 ([place].Santos valve) Code(s): Z95.2 - Presence of prosthetic heart valve Category: Surgical Plan: Prior history of [place] Santos aortic valve replacement in 1983. Valve seems to be working well clinically and by recent echocardiogram. Continue warfarin therapy being followed by [facility] in [place]. Maintain target INR between 2.5 and 3. SBE prophylaxis as per ACC/aha guidelines. (3) Ventricular tachycardia: Code(s): I47.2 - Ventricular tachycardia Category: Medical Plan: Noted episodes of nonsustained ventricular tachycardia which at 5-6 beats which her expected although no therapies delivered. For now continue metoprolol therapy. Avoidance of stimulants was discussed. (4) Paroxysmal atrial fibrillation: Code(s): I48.0 - Paroxysmal atrial fibrillation Category: Medical Plan: Paroxysmal atrial fibrillation without any significantly increasing burden at this point time. Clinically doing well. Continue rhythm control approach which has helped him significantly with his heart failure syndrome. Continue dofetilide therapy. Quarterly renal function test should be pursued. Currently on warfarin therapy being followed by [facility]. Maintain target INR between 2.5 and 3. Avoidance of stimulants was discussed. (5) Cardiomyopathy: Code(s): I42.9 - Cardiomyopathy, unspecified Category: Medical Plan: Severe cardiomyopathy suspected to be ischemic. Clinically without any signs and symptoms heart failure. Could not tolerate other neurohormonal modulation with Entresto. For now continue valsartan as well as metoprolol therapy. Clinically with no signs or symptoms of heart failure. Continue rhythm control approach as above. Signs and symptoms of heart failure were discussed. Avoidance of salt loading was discussed. His shortness of breath could easily be explained by severe cardiomyopathy although his symptoms as more suggestive of COPD as well. Follow up with Pulmonary. Will follow up in the clinic in 6 months time. Greater than 30 minutes was spent in managing his complex care Coding Level of Care Code Est Pt Level 5 (04722) Complex EM visit Add On G2211 Diagnoses Biventricular ICD (implantable cardioverter-defibrillator) in place Z95.810 Hx of aortic valve replacement Z95.2 Ventricular tachycardia I47.2 Paroxysmal atrial fibrillation I48.0 Cardiomyopathy I42.9 CPT Codes Cardiac Device Check - Cardiac Device 6: [id number] Cardiac Device Check, multi lead implantable defibrillator ([id number]) EKG - CPT: 40845-Kxqwwpzrtsdhuabsm, Complete ([id number])
[2024-08-08 13:23] VITALS: BP 120/70; PULSE 77; BMI 31.2
--- OUTSIDE RECORDS SUMMARY | 2024-08-08 13:26 | XMS_ITS ---
Author Organization [facility] Address [address] [place] [address] Care Team Providers Care Slot Editor Name Role Phone KATHE Arriaga, DOUG Primary Care Provider Konstantin Muñoz Jr Unavailable ALLERGIES Allergen (clinical drug ingredient) Drug/Non Drug Allergy documented on EMR Reaction Allergy Type Onset Date Status Substance with 8-knkkvig-4-methylgluta ryl-coenzyme A reductase inhibitor mechanism of action (substance) Statins Unknown Drug Allergy Active 12 Hour Nasal [place] Unknown Drug Allergy Active REASON FOR VISIT Patient presents today for Amaro's Esophagus MEDICATIONS Medication SIG (Take, Route, Frequency, Duration) Notes Start Date End Date Status Asmanex HFA 200 MCG/ACT 2 puffs Inhalati on Twice a day Active Lisinopril 10 MG 1 tablet Orally Once a day for 30 day(s) Active Dofetilide 250 MCG 1 capsule Orally Twi ce a day for 30 day(s) Active Omeprazole 40 MG 1 capsule 30 minutes before morning meal Orally Once a day for 30 day(s) 01/27/2021 Active Coumadin Active Calcium Active Metoprolol Tartrate 75 MG 1 tablet with food Orally Twice a day for 30 day(s) Active Gemfibrozil 600 MG 1 tablet 30 minutes before morning and evening meals Orally Twice a day Active SOCIAL HISTORY Tobacco Use: Social History Observation Description Date Details (start date - stop date) Former Smoker NA - NA Sex Assigned At : Social History Observation Description Sex Assigned At Unknown Tobacco Use/Smoking Question Answer Notes Patient is a former smoker How long has it been since you last smoked? 1-5 years Alcohol Screen Question Answer Notes Did you have a drink containing alcohol in the p ast year? 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 K22.70 and Colon cancer screening Z12.11 ASSESSMENTS Encounter Date Diagnosis Assessment Notes Treatment Notes Treatment Clinical Notes 01/24/2024 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
--- OUTSIDE RECORDS SUMMARY | 2024-08-08 13:27 | XMS_ITS | Encounter Summary ---
Author Name [facility] [place] Organization [facility] [place] Address [address] [place] [address] Care Team Providers Care Salt Washer Name Role Phone DOUG ARCHULETA Primary Care Provider Unavailabl e Insurance Providers: All historical and current Section Date Range: From patient's date of to the date document was created. This section includes the names of all active insurance providers for the patient. Insurance Provider Type of Coverage Plan Name Start of Policy Coverage End of Policy Coverage Group Number Member ID Insurance Provider's Telephone Number Policy Zendejas's Name Patient's Relationship to Policy Zendejas MEDICARE (WNR) MEDICARE (M) PART A Jun 26, 2006 PART A [id number] [phone] DIMITRIS HENSLEY PATIENT MEDICARE (WNR) MEDICARE (M) PART A Jun 26, 2006 PART A [id number] [id number] DIMITRIS HENSLEY PATIENT Selected Encounter This section includes the information on record at [place] for the Encounter. Date/Time Encounter Type Encounter Description Reason Pro vider Source Jul 30, 2024 12:22 PM Outpatient Encounter PRIMARY CARE/MEDICINE IHE Encounter Template Text not used by [place] Plan of Treatment: Future Appointments (+ 6 months) and Future Tests (+/- 45 days) The Plan of Treatment section includes future care activities for the patient from all [facility] treatment[facility]ilities. This section includes future appointments and future orders which are active, pending or scheduled. Future Appointments This section includes appointments that were scheduled to occur 6 months from the date of the Encounter, up to a maximum of 20 appointments. The data comes from all [place] treatment facilities. Appointment Date/Time Appointment Type Appointme nt Facility Name Aug 08, 2024 09:30 AM [facility] Aug 19, 2024 08:00 AM AMBULATORY - MEDICINE [facility] Oct 08, 2024 01:00 PM [facility] November 04, 2024 03:00 PM AMBULATORY - MEDICINE [facility] Active, Pending, and Scheduled Orders This section includes a listing of several types of active, pending, and scheduled orders, including clinic medications orders, diagnostic test orders, procedure orders and consult orders; where the start date of the order is 45 days before the date of the Encounter or 45 days after the date of theEncounter. The data comes from all [facility]. Test Date/Time Test Type Test Details Facility Name Aug 20, 2024 12:00 AM Laboratory - Chemi strиван Order PT & INR (COUMADIN) BLOOD (BLUE-PLASMA) SP ONCE [facility] Lab Results: +/- 30 days of the encounter This section includes the Chemistry and Hematology Lab Results on record with [place] for the patient. Radiology Reports and Pathology Reports are provided separately, in subsequent sections. Lab Results This section contains the Chemistry/Hematology Results that were resulted 30 days before or 30 daysafter the date of the Encounter. Date/Time Source Result Type Result - Unit Interpretation Reference Range Comment Aug 06, 2024 10:32 AM [facility] LIPID PANEL FASTING Specimen Type: SERUM No comment entered. Ordering Provider: GAIL VALDIVIA Report Released Date/Time: Jul 30, 2024 09:22 AM Reporting Lab: [facility] [address] [facility] [address] Performing Lab: [address] [address] CHOLESTEROL 164 mg/dL TRIGLYCERIDE 88 mg/dL 0-150 LDL calculated 106 mg/dL 0-129 CHOL/HDL 4.1 HDL CHOLESTEROL 40 mg/dL 40-60 Aug 06, 2024 10:32 AM [facility] LIVER FUNCTION Specimen Type: SERUM No comment entered. Ordering Provider: GAIL VALDIVIA Report Released Date/Time: Jul 30, 2024 09:22 AM Reporting Lab: [facility] [address] [facility] [address] Performing Lab: [address] [address] PROTEIN,TOTAL 6.6 g/dL 6.0-8.3 ALBUMIN 3.6 g/dL 3.5-5.0 ALKALINE PHOSPHATASE 81 U/L 40-150 AST 13 U/L 5-34 ALT 10 U/L BILIRUBIN, TOTAL 0.7 mg/dL 0.2-1.2 Aug 06, 2024 10:32 AM [facility] HEMOGLOBIN A1C PANEL Specimen Type: BLOOD Comment: Values obtained from A1C measurements can vary. For atypical A1C assays, a reported value of 7.0 could actually be between 6.72 and 7.28 if measured by a reference method. A reported value of 9.0 could actually be between 8.73 and 9.27. Ref: http://www.ngs p.org/CAPdata. asp Ordering Provider: GAIL VALDIVIA Report Released Date/Time: Jul 30, 2024 09:22 AM Reporting Lab: [address] [address] Performing Lab: [address] [address] HEMOGLOBIN A1C 5.2 4.0-5.6 Aug 06, 2024 10:32 AM [facility] BASIC METABOLIC PANEL (fasting) Specimen Type: SERUM No comment entered. Ordering Provider: GAIL VALDIVIA Report Released Date/Time: Jul 30, 2024 09:22 AM Reporting Lab: [address] [address] Performing Lab: [address] [address] UREA NITROGEN 24 mg/dL 7-25 GLUCOSE 98 mg/dL 65-100 SODIUM 142 mmol/L 135-145 POTASSIUM 4.6 mmol/L 3.5-5.0 CHLORIDE 110 mmol/L 100-110 CO2 25 meq/L 20-30 CREATININE, Serum 1.12 mg/dL 0.50-1.40 eGFR(CKD-EPI 2020) 67 mL/min >60 Aug 06, 2024 10:32 AM [facility] TSH Specimen Type: SERUM No comment entered. Ordering Provider: GAIL VALDIVIA Report Released Date/Time: Jul 30, 2024 09:22 AM Reporting Lab: [facility] [address] [facility] [address] Performing Lab: [address] [address] TSH 2.61 u[IU]/mL 0.35-5.00 Aug 06, 2024 10:32 AM [facility] MICROALBUMIN CREATININE RATIO PANEL Specimen Type: URINE No comment entered. Ordering Provider: GAIL VALDIVIA Report Released Date/Time: Jul 30, 2024 09:22 AM Reporting Lab: [facility] [address] [facility] [address] Performing Lab: [address] [address] MICROALBUMIN/C REATININE RATIO 17.6 mg/g 0-29.9 MICROALBUMIN,Q UANTITATIVE 2.5 mg/dL RR UNAVAIL CREATININE URINE 141.74 mg/dL Aug 06, 2024 10:32 AM [facility] MICROSCOPIC AUTOMATED, URINE Specimen Type: URINE Comment: If Glucose = >500 and Ketones are positive, please alert the Physician. Ordering Provider: GAIL VALDIVIA Report Released Date/Time: Jul 30, 2024 09:22 AM Reporting Lab: [address] [address] Performing Lab: [address] [address] UA WBC 0-5 /[HPF] 0-5 UA RBC 3-5 /[HPF] 0-3 UA SQUAMOUS EPITH FEW /[HPF] Aug 06, 2024 10:32 AM [facility] CBC AND DIFF (AUTO) Specimen Type: BLOOD No comment entered. Ordering Provider: GAIL VALDIVIA Report Released Date/Time: Jul 30, 2024 09:22 AM Reporting Lab: [facility] [address] [facility] [address] Performing Lab: [facility] [address] [facility] [address] WBC 4.64 10*3/uL 4.50-11.00 RBC 3.86 10*6/uL L 4.23-5.66 HGB 12.3 g/dL L 12.8-17 HCT 37.2 L 39.2-50.4 MCV 96.4 fL 82-99 MCHC 33.1 g/dL 30.8-35.1 PLT 112 10*3/uL L 140-360 RDW-CV 13.1 12.0-16.0 MONO, ABS 0.27 10*3/uL L 0.30-1.10 MCH 31.9 pg 26.2-32.6 NEUT % 68.3 43.7-75.8 LYMPH % 24.4 14.0-42.3 MONO % 5.8 5.1-13.7 EOS % 0.9 0.4-6.8 BASO % 0.2 0.1-2.0 NEUT, ABS 3.17 10*3/uL 2.20-7.60 LYMPH, ABS 1.13 10*3/uL 1.00-3.20 EOS, ABS 0.04 10*3/uL 0.03-0.44 BASO, ABS 0.01 10*3/uL 0.01-0.13 IMMATURE GRAN % 0.4 0.0-0.7 IMMATURE GRAN, ABS 0.02 10*3/uL 0.00-0.06 NRBC % 0.0 0.0-0.0 NRBC, ABS 0.00 10*3/uL 0.00-0.00 Aug 06, 2024 10:32 AM [facility] URINALYSIS Specimen Type: URINE Comment: If Glucose = >500 and Ketones are positive, please alert the Physician. Ordering Provider: GAIL VALDIVIA Report Released Date/Time: Jul 30, 2024 09:22 AM Reporting Lab: [address] [address] Performing Lab: [address] [address] UA COLOR Yellow Yellow UA APPEARANCE Clear Clear UA GLUCOSE Normal mg/dL Negative UA KETONES NEGATIVE mg/dL Negative UA BLOOD NEGATIVE mg/dL Negative UA PROTEIN NEGATIVE mg/dL Negative UA NITRITE NEGATIVE mg/dL Negative UA BILIRUBIN NEGATIVE mg/dL Negative UA SPECIFIC GRAVITY 1.024 H 1.016-1.02 2 UA pH 6.5 5.0-9.0 UA UROBILINOGEN 4 mg/dL <2.0 UA LEUKOCYTE TRACE Negative Aug 06, 2024 10:31 AM [facility] PT & INR (COUMADIN) Specimen Type: PLASMA No comment entered. Ordering Provider: REILLY JAIME Report Released Date/Time: Jul 02, 2024 04:04 PM Reporting Lab: [address] [address] Performing Lab: [address] [address] INR 1.9 PROTIME 20.1 s H 10.0-13.1 Jul 02, 2024 01:00 PM [facility] PT & INR (COUMADIN) Specimen Type: PLASMA No comment entered. Ordering Provider: REILLY JAIME Report Released Date/Time: Jun 04, 2024 02:14 PM Reporting Lab: [address] [address] Performing Lab: [address] [address] INR 2.3 PROTIME 25.2 s H 10.0-13.1 Social History: Smoking Status (Most current) and Tobacco Use (All prior to encounter date) This section includes the most current, and the historical, smoking and tobacco- related health factors from the [place] facility where the Encounter took place. Current Smoking Status This section includes the most current smoking, or tobacco-related health factor, from the [place] facility where the Encounter took place. Date/Time Current Smoking Status Comment Dwight ity May 24, 2021 08:53 AM [facility] Tobacco Use History This section includes a history of the smoking, or tobacco-related health factors, that were collected on or before the date of the Encounter. The data comes from the [place] facility where the Encounter took place. Date/Time Smoking Status/Tobacco Use Comment F acility May 24, 2021 08:53 AM VA-TOBACCO NEVER USED [place] [facility] [place] [facility] May 24, 2021 08:53 AM VA-TOBACCO QUIT 1 TO < 5 YRS [place] [facility] [place] [facility] Apr 27, 2020 11:42 AM [facility]AC[facility] Advance Directives: All historical and current Section Date Range: From patient's date of to the date document was created. This section includes ALL of a patient's completed or amended [place] Advance and Rescinded Directives. The entries below indicate that a directive exists for the patient, but an actual copy is not included with this document. The data comes from all [place] facilities. Date Advance Directives Provider Source Oct 03, 2017 ADVANCE DIRECTIVE MARILU MIRZA [facility] Dec 23, 2013 ADVANCE DIRECTIVE NIALL SALCEDO Encounter Notes: All associated encounter notes This section contains the clinical notes associated to the Encounter. Date/Time Encounter Note(s) Provider Source Jul 30, 2024 12:23 PM PRIMARY CARE TELEP MICHAEL ENCOUNTER NOTE: LOCAL TITLE: TELEPHONE NOTE/PRIMARY CARE STANDARD TITLE: PRIMARY CARE TELEPHONE ENCOUNTER NOTE DATE OF NOTE: JUL 30, 2024@12:23 ENTRY DATE: JUL 30, 2024@12:23:13 AUTHOR: SUMANTH SOLIZ EXP COSIGNER: URGENCY: STATUS: COMPLETED S/W VET RE FBW PRIOR TO APPT ON 08/08 /barbie/ SUMANTH SOLIZ ADVANCED SHIPPING CHECKER Signed: 07/30/2024 12:23 SUMANTH SOLIZFIELD
--- OUTSIDE RECORDS SUMMARY | 2024-08-08 13:27 | XMS_ITS | Patient Health Record ---
Author Organization [facility] Address [address] [place] [address] Care Team Providers Care [employer] Special Education Teacher Name Role Phone KATHE Arriaga, DOUG Primary Care Provider Konstantin Muñoz Jr Unavailable ALLERGIES Allergen (clinical drug ingredient) Drug/Non Drug Allergy documented on EMR Reaction Allergy Type Onset Date Status Substance with 7-camflpe-4-methylgluta ryl-coenzyme A reductase inhibitor mechanism of action (substance) Statins Unknown Drug Allergy Active 12 Hour Nasal [place] Unknown Drug Allergy Active REASON FOR REFERRAL Referring Provider First Name DOUG Referring Provider Last Name KATHE Referred Organization [facility] Referred Provider Konstantin Mccullough Jr Referred Address [address] [facility],[place], [place],[address], Referred Provider Specialty Gastroentero logy Referral Priority Routine MEDICATIONS Medication SIG (Take, Route, Frequency, Duration) [...] evening meals Orally Twice a day Active IMMUNIZATIONS Vaccine Route Administration Date Status Comme nts Influenza Unknown 03/26/2020 Administered Influenza Unknown 05/16/2023 Administered SOCIAL HISTORY Tobacco Use: Social History Observation [...] ast year? 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 180639769 Problem Colon cancer screening (Z12.11) Active confirmed 612578854 Problem skilled nursing (current) use of anticoagulants (Z79.01) Active confirmed 728433413 Problem Amaro esophagus (K22.70) Active confirmed Amaro esophagus (125415936) VITAL SIGNS Temperature 97.1 degrees Fahrenheit 01/24/2024 Blood pressure diastolic 00 mm Hg 01/24/2024 Height 63 in 01/24/2024 Blood pressure systolic 000 mm Hg 01/24/2024 Weight 178 lb 6 oz lbs 01/24/2024 BMI 31.59 kg/m2 01/24/2024 Encounters Encounter Location Date Provider Diagnosis [facility] [address] [place] [address] 01/24/2024 Konstantin Mccullough Jr Amaro's esophagus without dysplasia K22.70 and Colon cancer screening Z12.11 ASSESSMENTS Encounter Date Diagnosis Assessment Notes Treatment Notes Treatment Clinical Notes 01/24/2024 Colon cancer screening (ICD-10 - Z12.11) 01/24/2024 Amaro's esophagus without dysplasia (ICD-10 - K22.70) Genetic testing and your cancer risk material was printed PLAN OF TREATMENT Future Test Test Name Order Date UPPER GI ENDOSCOPY 01/27/2021 COLONOSCOPY 01/27/2021 Next Appt Details Provider Name:Konstantin escalera Jr, 01/23/2025 01:15:00 PM, [address], [address], [place], [address], Insurance Providers Payer Name Payer Address Payer Phone Subscriber Number Group Number Insured Name Patient Relationship to Insured Coverage Start Date Coverage End Date [facility]LY [facility] [employer] [address] [place] [address] [id number] ERIC HENSLEY Self - patient is the insured MEDICAL (GENERAL) HISTORY Medical History History ICD Code AVR, St. Santos's valve Hypertension COPD Hyperlipidemia Amaro's esophagus, EGD 02/25 1, short segment Amaro's, no dysplasia. Further screening is not recommended Colonoscopy 03/16, 2 hyperpla stic polyps, further screening is not recommended. 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 Santos valve 1984 Pacemaker/defibrillator placement
--- OUTSIDE RECORDS SUMMARY | 2024-08-08 13:27 | XMS_ITS | Encounter Summary ---
Author Name [facility] [place] Address [address] [place] [address] Care Team Providers Care Commissioned Fire Officer Name Role Phone LIZET ARCHULETAA Primary Care Provider Unavailabl e Insurance Providers: [...] PART A Jun 26, 2006 PART A [id number] DIMITRIS WATKINS PATIENT MEDICARE (WNR) MEDICARE (M) PART A Jun 26, 2006 PART A [id number] [id number] [phone] DIMITRIS WATKINS PATIENT Selected Encounter This section includes the information on record at [place] for the Encounter. Date/Time Encounter Type Encounter Description Reason Provider Source Feb 12, 2024 12:30 PM OFFICE O/P EST MOD 30 MIN UROLOGY CLINIC ICD-10-CM N40.1 Benign prostatic hyperplasia with lower urinary tract symp ERIKALOFGARRETT Encounter Template Text not used by VA Assessments - Encounter Diagnoses This section includes the primary and secondary diagnoses documented for the Encounter. Date/Time Primary/Secondary Diagnosis Diagnosis Name Provider Source Feb 12, 2024 12:58 PM PRIMARY Benign prostatic hyperplasia with lower urinary tract symp ANNGARRETT Aguillon Plan of Treatment: Future Appointments (+ 6 months) and Future Tests (+/- 45 days) The Plan of Treatment section includes future care activities for the patient from all [place] treatmentfacilities. This section includes future appointments and future orders which are active, pending or scheduled. Future Appointments This section includes appointments that were scheduled to occur 6 months from the date of the Encounter, up to a maximum of 20 appointments. The data comes from all [place] treatment facilities. Appointment Date/Time Appointment Type Appointme nt Facility Name Apr 09, 2024 01:00 PM AMBULATORY - NONE [place] [facility] [place] [facility] Jun 21, 2024 01:00 PM AMBULATORY - MEDICINE [place] [facility] [place] [facility] Aug 08, 2024 09:30 AM AMBULATORY - MEDICINE [facility] Lab Results: +/- 30 days of the encounter This section includes the Chemistry and Hematology Lab Results on record with VA for the patient. Radiology Reports and Pathology Reports are provided separately, in subsequent sections. Lab Results This section contains the Chemistry/Hematology Results that were resulted 30 days before or 30 daysafter the date of the Encounter. Date/Time Source Result Type Result - Unit Interpretation Reference Range Comment Mar 11, 2024 01:17 PM [facility] [place] [facility] PT & INR (COUMADIN) Specimen Type: PLASMA No comment entered. Ordering Provider: JA MARQUEZ Report Released Date/Time: Feb 12, 2024 02:50 PM Reporting Lab: [place] [facility] [place] [address] [address] Performing Lab: [facility] [address] [address] INR 1.5 PROTIME 16.8 s H 10.0-13.1 Feb 12, 2024 11:18 AM [facility] & INR (COUMADIN) Specimen Type: PLASMA No comment entered. Ordering Provider: KATINA GRANT Report Released Date/Time: Jan 15, 2024 04:23 PM Reporting Lab: [place] [facility] [place] [address] [address] Performing Lab: [facility] [address] [address] INR 2.2 PROTIME 24.1 s H 10.0-13.1 Jan 15, 2024 12:58 PM [facility] PT & INR (COUMADIN) Specimen Type: PLASMA No comment entered. Ordering Provider: KATINA GRANT Report Released Date/Time: Jan 01, 2024 02:52 PM Reporting Lab: [facility] [address] [facility] [address] Performing Lab: [facility] [address] [facility] [address] INR 2.0 PROTIME 22.5 s H 10.0-13.1 Advance Directives: All historical and current Section Date Range: From patient's date of to the date document was created. This section includes ALL of a patient's completed or amended [place] Advance and Rescinded Directives. The entries below indicate that a directive exists for the patient, but an actual copy is not included with this document. The data comes from all [place] facilities. Date Advance Directives Provider Source Oct 03, 2017 ADVANCE DIRECTIVE MARILU MIRZA [facility] Dec 23, 2013 ADVANCE DIRECTIVE NIALL SALCEDO Encounter Notes: All associated encounter notes This section contains the clinical notes associated to the Encounter. Date/Time Encounter Note(s) Provider Source Feb 12, 2024 12:26 PM UROLOGY OUTPATIENT NOTE: LOCAL TITLE: CLINIC PROGRESS NOTE STANDARD TITLE: UROLOGY OUTPATIENT NOTE DATE OF NOTE: FEB 12, 2024@12:26 ENTRY DATE: FEB 12, 2024@12:26:50 AUTHOR: GARRETT MACKEY EXP COSIGNER: URGENCY: STATUS: COMPLETED CC: Follow up HPI: Mr. Watkins is a 78 yo WM who is known to for f/u of his BPH/LUTS. Taking Flomax with good effect, f/u in 09/2020 and reported nocturia as bothersome, PVR low and did not wish to trial any other medications/therapies. Follow up in 09/2021, taking Flomax 0.4mg from PCP in [facility] and doing well, PVR = 21 mL and no voiding complaints. F/u in 09/2022, worsening LUTS with slower flow and difficulty starting stream, feels as though he empties completely. Nocturia 4x, wears CPAP every night for ELENI. PVR = 3mL, it was agreed to trial increase of Flomax to 0.8mg which he did not notice any improvement with and agreed to add Finasteride. F/u in 07/2023, decreased Flomax back to 0.4mg and continued on Finasteride, no changes but wished to CPM. Today patient states voiding is stable with Finasteride/Flomax 0.4mg, content to continue. Pt denies dysuria, urgency, gross hematuria, incomplete bladder emptying. PMH: per chart review 1. Sleep Apnea -on cpap regularly 2. 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 Amaro's Esophagus 4. Colonic Polyps 5. Nicotine Dependence 6. 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 Hyperlipidemia 8. Esophageal Reflux (GERD) 9. Asthma 10. BPH 11. ED Allergies: LOVASTATIN, SIMVASTATIN, NIACIN, FLUVASTATIN, OMEPRAZOLE Active Outpatient Medications (excluding Supplies): Active Outpatient Medications Status = 1) FINASTERIDE 5MG TAB TAKE ONE TABLET BY MOUTH ONCE ACTIVE DAILY FOR PROSTATE Active Non-VA Medications Status = 1) Non-VA WARFARIN<HAZ PURPLE> TAB 1.25MG MOUTH MONDAY, ACTIVE MONDAY AND MONDAY 2) Non-VA WARFARIN<HAZ PURPLE> TAB 2.5MG MOUTH ACTIVE MIRZA-MO-WE-FR medications reconciled - Flomax per PCP in [place] Labs: Sep 27, 2023 CREATININE, Serum 1.28 mg/dL 0.50 - 1.40 [631] eGFR(CKD-EPI 2020) 58 L mL/min Ref: >=60 [631] GLUCOSE 96 mg/dL 65 - 100 [631] May 31, 2022 CREATININE, Serum 1.39 mg/dL 0.50 - 1.40 [631] eGFR(CKD-EPI 2020) 53 L mL/min Ref: >=60 [631] HEMOGLOBIN A1C 5.4 % 4.0 - 5.6 [631] Imaging: N/A PE: Gen: NAD, AAOX4 Resp: regular, no increase work of breathing GI: abdomen soft, non-tender, no distension or guarding appreciated LE: no swelling appreciated PVR: 17 mL A/P: Mr. Watkins is a 78 yo WM who is known to for f/u of his BPH/LUTS. 1. BPH/LUTS: -Empties bladder well -No complaints -Content to continue on Flomax/Finasteride -Will ask PCP to renew Finasteride when needed RTC PRN Call with questions/concerns in the interim /barbie/ GARRETT MACKEY APRN ADVANCED PRACTICE REGISTERED NURSE Signed: 02/12/2024 12:58 GARRETT MACKEY
--- OUTSIDE RECORDS SUMMARY | 2024-08-08 13:28 | XMS_ITS | Encounter Summary ---
Author Name [facility] [place] Organization [facility] [place] [facility] [place] Address [address] [place] [id number] Care Team Providers Care Sales And Retail Management Recruiter Name Role Phone KATHE DOUG Primary Care Provider Unavailabl e Insurance Providers: [...] PART A Jun 26, 2006 PART A [id number] DIMITRIS HENSLEY PATIENT MEDICARE (WNR) MEDICARE (M) PART A Jun 26, 2006 PART A [id number] [id number] DIMITRIS HENSLEY PATIENT Selected Encounter This section includes the information on record at [place] for the Encounter. Date/Time Encounter Type Encounter Description Reason Provider Source Feb 12, 2024 10:33 AM QNHP OL DIG ASSMT&MGMT 21+ PULMONARY/CHEST ICD-10-CM Z12.2 Encntr screen for malignant neoplasm of respiratory organs ROMAN BREAUX Encounter Template Text not used by [facility] Assessments - Encounter Diagnoses This section includes the primary and secondary diagnoses documented for the Encounter. Date/Time Primary/Secondary Diagnosis Diagnosis Name Provider Source Feb 12, 2024 10:45 AM PRIMARY Encntr screen for malignant neoplasm of respiratory organs [facility] Plan of Treatment: Future Appointments (+ 6 months) and Future Tests (+/- 45 days) The Plan of Treatment section includes future care activities for the patient from all [place] treatmentfacilities. This section includes future appointments and future orders which are active, pending or scheduled. Future Appointments This section includes appointments that were scheduled to occur 6 months from the date of the Encounter, up to a maximum of 20 appointments. The data comes from all [place] treatment facilities. Appointment Date/Time Appointment Type Appointme nt Facility Name Apr 09, 2024 01:00 PM AMBUL[facility]ORY - NONE [place] [facility] Jun 21, 2024 01:00 PM [facility] [place]IC[facility] [place] [facility] Aug 08, 2024 09:30 AM AMBULATORY - MEDICINE [facility] Lab Results: +/- 30 days of the encounter This section includes the Chemistry and Hematology Lab Results on record with [place] for the patient. Radiology Reports and Pathology Reports are provided separately, in subsequent sections. Lab Results This section contains the Chemistry/Hematology Results that were resulted 30 days before or 30 daysafter the date of the Encounter. Date/Time Source Result Type Result - Unit Interpretation Reference Range Comment Mar 11, 2024 01:17 PM [facility] ([place]) Specimen Type: PLASMA No comment entered. Ordering Provider: JA MARQUEZ Report Released Date/Time: Feb 12, 2024 02:50 PM Reporting Lab: [facility] [address] Performing Lab: [facility] [address] INR 1.5 PROTIME 16.8 s H 10.0-13.1 Feb 12, 2024 11:18 AM [facility] PT & INR ([place]) Specimen Type: PLASMA No comment entered. Ordering Provider: KATINA GRANT Report Released Date/Time: Jan 15, 2024 04:23 PM Reporting Lab: [address] [address] Performing Lab: [facility] [address] [address] INR 2.2 PROTIME 24.1 s H 10.0-13.1 Jan 15, 2024 12:58 PM [facility] ([place]) Specimen Type: PLASMA No comment entered. Ordering Provider: KATINA GRANT Report Released Date/Time: Jan 01, 2024 02:52 PM Reporting Lab: [facility] [address] [address] Performing Lab: [facility] [address] [address] INR 2.0 PROTIME 22.5 s H 10.0-13.1 Social History: Smoking Status (Most current) and Tobacco Use (All prior to encounter date) This section includes the most current, and the historical, smoking and tobacco- related health factors from the [place] facility where the Encounter took place. Current Smoking Status This section includes the most current smoking, or tobacco-related health factor, from the [place] facility where the Encounter took place. Date/Time Current Smoking Status Comment Facil ity May 24, 2021 08:53 AM VA-TOBACCO NEVER USED [facility] Tobacco Use History This section includes a history of the smoking, or tobacco-related health factors, that were collected on or before the date of the Encounter. The data comes from the [place] facility where the Encounter took place. Date/Time Smoking Status/Tobacco Use Comment F acility May 24, 2021 08:53 AM VA-TOBACCO NEVER USED [facility] May 24, 2021 08:53 AM VA-TOBACCO QUIT 1 TO < 5 YRS [facility] Apr 27, 2020 11:42 AM VA-TOBACCO NEVER USED [facility] Advance Directives: All historical and current Section Date Range: From patient's date of to the date document was created. This section includes ALL of a patient's completed or amended VA Advance and Rescinded Directives. The entries below indicate that a directive exists for the patient, but an actual copy is not included with this document. The data comes from all [place] facilities. Date Advance Directives Provider Source Oct 03, 2017 ADVANCE DIRECTIVE MARILU MIRZA T [facility] Dec 23, 2013 ADVANCE DIRECTIVE NIALL SALCEDO LD Encounter Notes: All associated encounter notes This section contains the clinical notes associated to the Encounter. Date/Time Encounter Note(s) Provider Source Feb 12, 2024 10:33 AM PREVENTIVE MEDICINE RISK ASSESSMENT SCREENING NOTE: LOCAL TITLE: LUNG CANCER SCREENING DOCUMENTATION STANDARD TITLE: PREVENTIVE MEDICINE RISK ASSESSMENT SCREENING NO DATE OF NOTE: FEB 12, 2024@10:33 ENTRY DATE: FEB 12, 2024@10:34:01 AUTHOR: NU BREAUX COSIGNER: URGENCY: STATUS: COMPLETED LUNG CANCER SCREENING PROGRAM [facility] Chart review completed by [facility] LCS Program. Information provided in this documentation is obtained from source documents within the Veterans personal electronic health record and directly from the through LCS Coorinator outreach in an effort to confirm eligibility for Lung Cancer Screening. LCS Coordinator outreach attempt, successful. PCP: Gail Valdivia HEATER MECHANIC. 78 year old seen in clinic by PCPSamuel on 02/09/24. Lung Cancer Screening provider clinical reminder completed, patient meets USPSTF criteria for Lung Cancer Screening: Age 50-80, minimum 20 pack year history of smoking cigarettes, currently smoking or quit within the past 15 years. Provider engaged in a shared decision making conversation with the [place] discussing rationale, risks and benefits for Lung Cancer Screening. At the conclusion of the visit, with the Veterans permission, an order for LCS LDCT was placed. scheduled for 04/09/2024 Cigarette Smoking Hx: 61 TPY (1 pack/day for 60 years) Smoking Status: Quit 2018 Referral to Tobacco Cessation Program: N/A Clinically Relevant: COPD, ELENI, GERD, Amaro's esophagus, A-fib, HTN, HLD, cardiomyopathy, hx valve replacement, has pacemaker/defib replaced 11/2023. hx of spontaneous Right pneumothorax 1976 unknown etiology. Active Problem Gout M10.9 02/09/2024 GAIL VALDIVIA Benign prostatic hypertrophy N40.0 02/09/2024 GAIL VALDIVIA Atrial fibrillation I48.91 09/07/2023 DOUG ARCHULETA Obstructive sleep apnea syndrome G4 02/09/2024 BREANNA LAU Moderate chronic obstructive pulmon 09/07/2023 DOUG ARCHULETA Osteopenia R69. 09/14/2015 TRES THAYER History of aortic valve replacement 04/02/2015 MARITZADEMETRIUS AVILABIE Benign essential hypertension I10. 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 09/27/2023 DOUG ARCHULETA Former smoker Z87.891 02/11/2024 GAIL VALDIVIA Cardiac pacemaker in situ (SNOMED C 02/11/2024 GAIL VALDIVIA Hyperlipidemia (SNOMED CT [id number]) 09/27/2023 DOUG ARCHULETA Gastroesophageal reflux disease wit 06/09/2022 JEIMY FUNEZ Active Outpatient Medications (including Supplies): Active Outpatient Medications Status 1) CICLESONIDE 160MCG 60D ORAL INHL INHALE 1 PUFF BY ACTIVE MOUTH TWICE DAILY (RINSE MOUTH AFTER USE) (REPLACES MOMETASONE [ASMANEX]) 2) DOFETILIDE 250MCG CAP TAKE ONE CAPSULE BY MOUTH TWICE ACTIVE DAILY FOR ATRIAL FIBRILLATION 3) FEBUXOSTAT 40MG TAB TAKE ONE TABLET BY MOUTH ONCE ACTIVE DAILY TO PREVENT ACUTE GOUT ATTACK 4) LISINOPRIL 10MG TAB TAKE ONE TABLET BY MOUTH DAILY TO ACTIVE CONTROL BLOOD PRESSURE 5) METOPROLOL TARTRATE 100MG TAB TAKE ONE TABLET BY ACTIVE MOUTH TWICE DAILY DIRECTED BY PROVIDER FOR BLOOD PRESSURE/HEART 6) TAMSULOSIN HCL 0.4MG CAP TAKE TWO CAPSULES BY MOUTH ACTIVE ONCE DAILY IMAGING STUDIES: IP - Imaging Profile 04/29/2022 CT THORAX W/O CONT CPT Code: 52403 Interpreting Staff: RADIOLOGY,OUTSIDE Exam Case Number: [id number] Exam Status: COMPLETE Rpt Status: VERIFIED Technologist: RUFUS RANGEL Reason for Study: 12 month nodule follow up Report: CT THORAX W/O CONT [PRINTSET] HISTORY: 12 month nodule follow-up COMPARISON: April 29, 2021 and April 29, 2020 TECHNIQUE: Images were obtained [facility] the local [facility], and then submitted to the [facility] for interpretation. [address] Serial transverse [address] images of the chest without contrast. Additional coronal and sagittal reconstructed images were obtained. Additional vessel suppression images obtained. Total DLP (mGy*cm): 103 IV Contrast: None FINDINGS: Hide Measuring Machine Operator images demonstrate left subclavian approach AICD device and surgical clips in the epigastric region. Atherosclerotic calcifications are noted in the aorta and branch vessels, including the coronary arteries. Sternotomy and sequelae of aortic valve replacement noted. Caliber of the ascending thoracic aorta measures up to 3.2 cm. No aneurysm. Borderline cardiomegaly with prominent left atrium noted. No pericardial effusion. No mediastinal or hilar adenopathy. Multiple surgical clips identified in the epigastric region. No abnormal mediastinal mass is seen. No inflammatory changes are seen. The tracheobronchial tree appears patent. No endobronchial lesions are seen. Severe centrilobular emphysema is present. Small amount of apical bullous disease is noted. The appearance is unchanged. No focal airspace consolidation or pleural effusion is seen. No pneumothorax is seen. Unchanged mild pleural thickening at the medial right lung apex. Prominent extrapleural and pericardial and epicardial adipose tissues noted diffusely. Unchanged appearance of multiple pulmonary nodules including a 4 mm right upper lobe nodule seen on image 97 of 397, CT series #8. A small 3 mm right middle lobe nodule seen on image 188 appears unchanged. There is a new mixed density nodule seen in the left upper lobe on image 174 measuring approximately 8 mm x 3 mm in size, with central more solid appearance and peripheral more groundglass appearance. Solid component appears less than 6 mm in size. The partially visualized upper abdomen appears unremarkable. The chest wall soft tissues appear unremarkable. Osteopenia is noted. Degenerative osteophytosis noted in the spine. No acute osseous abnormality is seen. Impression: 1. New mixed density nodule in the left upper lobe measuring approximately 8 x 3 mm in size, partially groundglass and partially solid in appearance. Follow-up chest CT in 6 months is recommended. 2. Severe emphysema and unchanged appearance of other small nodules. 3. Atherosclerotic calcifications throughout the coronary arteries and sequelae of prior aortic valve replacement and cardiac pulse generating device. READING PHYSICIAN: Eric Gregory M.D. -[id number] 04/30/2022 11:32 EDT [facility] National Teleradiology Program [phone] (For Medical Practitioner Use Only) Attention Patients / Veterans: If you have questions or concerns about these test results, please contact your ordering provider or primary care team. DX Codes: POSSIBLE MALIGNANCY 04/29/2021 CT THORAX W/O CONT CPT Code: 76618 Interpreting Staff: RADIOLOGY,OUTSIDE Exam Case Number: [id number] Exam Status: COMPLETE Rpt Status: VERIFIED Technologist: SAVANNA FERRER Reason for Study: low dose chect CT nodule monitoring Report: CT THORAX W/O CONT [PRINTSET] HISTORY: low dose chect CT nodule monitoring COMPARISON: 04/27/2020 TECHNIQUE: Helical CT of the chest, with multiplanar reformats was performed at the local [place] facility with maximum intensity projection (MIP) reconstructions and vessel suppression imaging. 1136 images were received by the [place] [facility] ([facility]P) for interpretation. RADIATION DOSE (mGy*cm): 195 IV CONTRAST: Not administered. FINDINGS: Lower Neck: The visualized portions of the thyroid gland are unremarkable. No lymph node enlargement or mass. Airways: Patent. Mediastinum/jorge/axillae: No lymph node enlargement. Thickening of the distal thoracic esophagus, suggesting esophagitis. Surgical clips at the gastroesophageal junction. Heart: Heart size is mildly enlarged. Status post aortic valve replacement. Mitral annulus calcification. Coronary artery calcifications: Moderate. No pericardial effusion. Vessels: The ascending aorta measures 3.9 x 3.9 cm on image 28 of series 3. Extensive calcifications of the thoracic aorta and branch vessels.The main pulmonary artery is not enlarged. Left subclavian multilead cardiac rhythm maintenance device is seen in place with lead tips in the right atrial appendage, right ventricle, and great cardiac vein. Pleura: No pneumothorax or pleural effusion. Right posterior costal pleural thickening on image 64 series 8. Lungs: Mild central bronchial thickening. Scarring at the right lung apex. Substantial paraseptal and advanced destructive centrilobular pulmonary emphysema. Unchanged 3 mm medial right upper lobe solid nodule on image 110 of series 8. Unchanged 4 mm medial right upper lobe solid nodule on image 103 of series 8. Unchanged right middle lobe micronodule on image 205 of series 8. Tiny calcified granulomas in the left lung no new suspicious lung nodule. Interval development of interlobular septal thickening and groundglass opacities in the lungs, consistent with interstitial pulmonary edema. No pneumonia. Musculoskeletal: Moderate degenerative changes of the cervical spine. Upper Abdomen: Unremarkable. Other: Unremarkable. Impression: 1. Right posterior costal pleural calcification. 2. Severe pulmonary emphysema. 3. Unchanged small right lung nodules. These nodules are likely benign. No new suspicious lung nodule. If the patient meets criteria for CT lung screening, suggest follow-up low-dose unenhanced CT scan of the chest in 12 months. 4. Mild cardiomegaly. Aortic valve replacement. Development of mild interstitial pulmonary edema. 5. Fusiform dilatation of the ascending aorta. READING PHYSICIAN: Zachary Figueroa M.D. -[id number] 04/30/2021 13:56 EDT [facility] [phone] (For Medical Practitioner Use Only) [address] [place] [address], [address] [place] [address] Attention Patients / Veterans: If you have questions or concerns about these test results, please contact your ordering provider or primary care team. DX Codes: SIGNIFICANT ABNORMALITY, ATTN NEEDED 04/29/2020 CT THORAX W/O CONT CPT Code: 29493 Interpreting Staff: ZACHARY FROST Exam Case Number: [id number] Exam Status: COMPLETE Rpt Status: VERIFIED Technologist: KYM LUU Reason for Study: smoker-screening Report: EXAM: CT chest without contrast HISTORY: Look for cancer COMPARISON: Chest x-ray 07/09/2015 TECHNIQUE: Helical CT thorax from the thoracic inlet to the upper abdomen. Multiplanar reformats and the Tomogram were reviewed. DOSE: Information is available in the PACS system. FINDINGS: Hide Measuring Machine Operator: There is a left anterior chest multilead Pacemaker/defibrillator device. With multiple leads is unchanged. LUNGS AND AIRWAYS: The trachea and mainstem bronchi are patent. Moderately advanced centrilobular emphysematous changes with biapical bulla. As the medial right upper lobe 4 mm nodule image 8-107. There are are several 1 to 2 mm nodules at the lateral left lung base image 9-125. No suspicious lung nodules. No lung consolidation. PLEURAL SPACES: No pleural effusion. No pneumothorax. MEDIASTINUM, LYMPH NODES, VASCULAR CALCIFICATIONS: Prominent heart size.No significant pericardial effusion.. Normal caliber great vessels. There are heavy arterial vascular calcifications: Including coronary artery. No suspicious mediastinal, hilar, or axillary lymphadenopathy. LIMITED UPPER NOMINAL IMAGING WITHOUT IV CONTRAST: ADRENALS: No suspicious abnormality. INCIDENTAL: Surgical clips are seen at the gastric esophageal junction. BONES: No acute changes. Impression: 1. Medial right upper lobe 4 mm nodule. Recommendation: Noncontrast chest CT in one year. 2. Bullous emphysema. DX Codes: No immediate attention required 07/09/2015 CHEST 2 VIEWS PA&LAT CPT Code: 56938 Interpreting Staff: LOI LOAIZA Exam Case Number: [id number] Exam Status: COMPLETE Rpt Status: VERIFIED Technologist: RODDY HERNANDEZ Reason for Study: COUGH, GREEN SPUTUM History: Covering resident, fellow, HEATER MECHANIC or attending: FERNANDO Thayer [place] Pager: [phone] Backup pager: History: COUGH X'S 3 WEEKS, TREATED WITH ANTIBIOTICS 06/20/15. STILL COUGH PRODUCTIVE OF GREEN SPUTUM Report: Chest: Cough with green sputum production. PA and lateral views are compared to previous of 07-31-14. Mild hyperinflation of the lungs is redemonstrated suggesting presence of COPD. However no pulmonary infiltrates or masses. Heart size is within upper limits of normal. Pacemaker defibrillator device with multiple leads is reidentified with the pack over the left chest and leads in the heart as before. No pneumothorax. Epigastric surgical clips are again seen also without change. Bone mineralization is average for age. Impression: No evidence of active disease. Mild hyperinflation of lungs, which may indicate the presence of COPD, is redemonstrated without change. Heart is within upper limits of normal without congestion or effusion. Pacemaker/defibrillator with multiple leads is unchanged. DX Codes: No immediate attention required Pulmonary Medicine Provider: Per [place], saw [facility] for sleep apnea testing/evaluation 2007, hasn't seen pulmonary since. PFTS: 09/01/2017 Pulmonary Function Test INTERPRETATION FVC =Forced Vital Capacity FEV1=Forced Expiratory Volume at 1 second ERV =Expiratory [place] Volume FRC =Functional Residual Capacity RV =Residual Volume TLC =Total Lung Capacity Spirometry: FVC 2.48 L, 75 % of predicted.(Mildly Reduced) FEV1 1.57 L, 65% of predicted.(Mildly Reduced) FEV1/FVC 63% (normal:70 to 90%) Static Lung Volume testing: Total lung capacity 4.4L, 77% of predicted. Reduced ERV 30% of predicted which may reflect obesity or body habitus. Reduced ERV and FRC may reflect obesity or body habitus. Diffusing Capacity: Diffusing capacity is 37% of predicted. Impression: Moderate obstructive physiology. Reduction in ERV may reflect obesity or body habitus. Mild restrictive ventilatory defect. Severely reduced diffusing capacity. TTE: 02/03/2021 Echocardiogram Interpretation Summary Abnormal study. Normally functioning [place] mechanical prosthesis in the aortic position. Impaired left ventricular contractile function with an ejection fraction of 40% owing to a region of severe anteroapical hypokinesis as described previously. Mild left ventricular hypertrophy.. AICD wire noted. Borderline dilated ascending aorta remaining under 4 cm. Study performed in a sinus or AV paced rhythm with ectopy. Overall findings are stable when compared to prior [place] echocardiogram report from [place] dated 01/22/2019. Pathology: No prior relevant pathology per chart review. Personal History of Malignancy: No personal hx malignancy per report. Family History of Malignancy: No family hx malignancy per [place] report. 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 LCS welcome letter and educational materials will be mailed to Veterans address on file. Chart review for administrative purposes only. This documentation serves to update TPY reminder based on 's reported smoking history during LCS outreach call. [place] reports smoked for 60 years, no more than 1 pack/day, quit smoking 2018. Patient used cigarettes in the past, but quit and does not currently use them: Quit smoking LESS THAN 15 years. Year the patient quit smoking: Date: 2018 ? Exact date is unknown How many years has the patient smoked? # of years 60 Average number of packs/day over the entire time patient smoked: Packs/day 1 This documentation serves to satisfy the Initial provider clinical reminder for LCS in the absence of prior completion, with LCS LDCT ordered: No clinical exclusions, patient is a current candidate for the lung cancer screening program. Patient agrees to lung cancer screening. Lung cancer screening information provided and low dose CT will be ordered. /barbie/ ANATOLY LAURA,RN. LUNG CANCER SCREENING NURSE Signed: 02/12/2024 10:45 NU BREAUX [place] [facility]
--- OUTSIDE RECORDS SUMMARY | 2024-08-08 13:28 | XMS_ITS | Encounter Summary ---
Author Name [facility] [place] Organization [facility] [place] [place] Address [address] [place] [id number] Care Team Providers Care Medical Referral Coordinator Name Role Phone DOUG ARCHULETA Primary Care [...] PART A Jun 26, 2006 PART A [id number] DIMITRIS HENSLEY PATIENT MEDICARE (WNR) MEDICARE (M) PART A Jun 26, 2006 PART A [id number] DIMITRIS HENSLEY PATIENT Selected Encounter This section includes the information on record at [place] for the Encounter. Date/Time Encounter Type Encounter Description Reason Provider Source November 01, 2023 10:30 AM OFFICE O/P EST LOW 20 MIN PRIMARY CARE/MEDICINE ICD-10-CM I10 Essential (primary) hypertension DOUG ARCHULETA Encounter Template Text not used by [place] Assessments - Encounter Diagnoses This section includes the primary and secondary diagnoses documented for the Encounter. Date/Time Primary/Secondary Diagnosis Diagnosis Name Provider Source November 01, 2023 11:39 AM PRIMARY Essential (primary) hypertension DOUG ARCHULETA November 01, 2023 11:39 AM SECONDARY Hyperlipidemia, unspecified DOUG ARCHULETA November 01, 2023 11:39 AM SECONDARY Tobacco use DOUG ARCHULETA LEROY BILLINGS Plan of Treatment: Future Appointments (+ 6 months) and Future Tests (+/- 45 days) The Plan of Treatment section includes future care activities for the patient from all [place] treatmentfacilities. This section includes future appointments and future orders which are active, pending or scheduled. Future Appointments This section includes appointments that were scheduled to occur 6 months from the date of the Encounter, up to a maximum of 20 appointments. The data comes from all [place] treatment facilities. Appointment Date/Time Appointment Type Appointme nt Facility Name November 15, 2023 08:00 AM AMBULATORY - MEDICINE [place] [facility] [place] [facility] November 15, 2023 01:45 PM AMBULATORY - MEDICINE [place] [facility] [place] [facility] Jan 24, 2024 10:00 AM AMBULATORY - MEDICINE [place] [facility] [place] [facility] Feb 09, 2024 01:00 PM AMBUL[facility]ORY - MEDICINE [facility] Feb 12, 2024 12:30 PM AMBUL[place]ORY [place] SURG[place] [facility] Apr 09, 2024 01:00 PM AMBUL[facility]ORY - NONE [facility] Lab Results: +/- 30 days of the encounter This section includes the Chemistry and Hematology Lab Results on record with [place] for the patient. Radiology Reports and Pathology Reports are provided separately, in subsequent sections. Lab Results This section contains the Chemistry/Hematology Results that were resulted 30 days before or 30 daysafter the date of the Encounter. Date/Time Source Result Type Result - Unit Interpretation Reference Range Comment Nov 29, 2023 09:04 AM [facility] PT & INR (COUMADIN) Specimen Type: PLASMA No comment entered. Ordering Provider: TG SALAS Report Released Date/Time: November 01, 2023 01:31 PM Reporting Lab: [facility] [address] [facility] [id number] Performing Lab: [facility] [address] [address] INR 2.0 PROTIME 21.6 s H 10.0-13.1 November 01, 2023 09:59 AM [facility] PT & INR (COUMADIN) Specimen Type: PLASMA No comment entered. Ordering Provider: TG SALAS Report Released Date/Time: Oct 11, 2023 01:49 PM Reporting Lab: [facility] [address] [facility] [address] Performing Lab: [address] [address] INR 2.0 PROTIME 22.3 s H 10.0-13.1 Oct 11, 2023 11:05 AM [facility] PT & INR (COUMADIN) Specimen Type: PLASMA No comment entered. Ordering Provider: TG SALAS Report Released Date/Time: Sep 27, 2023 01:26 PM Reporting Lab: [facility] [address] [address] Performing Lab: [address] [address] INR 2.4 PROTIME 25.9 s H 10.0-13.1 Social History: Smoking Status (Most current) and Tobacco Use (All prior to encounter date) This section includes the most current, and the historical, smoking and tobacco- related health factors from the [place] facility where the Encounter took place. Current Smoking Status This section includes the most current smoking, or tobacco-related health factor, from the [place] facility where the Encounter took place. Date/Time Current Smoking Status Comment Dwight itиван Sep 27, 2023 10:30 AM VA-TOBACCO FORMER USER [facility] Tobacco Use History This section includes a history of the smoking, or tobacco-related health factors, that were collected on or before the date of the Encounter. The data comes from the [place] facility where the Encounter took place. 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 YES [facility] Dec 20, 2018 09:40 AM VA-TOBACCO USE MED NOTIFY PROVIDER [facility] Dec 20, 2018 09:40 AM VA-TOBACCO USE WI 30 MIN OF WAKEUP [facility] Dec 20, 2018 09:40 AM VA-TOBACCO USER EVERY DAY [facility] Mar 05, 2018 01:38 PM CURRENT SMOKER [facility] Sep 04, 2017 01:34 PM CURRENT SMOKER [facility] Sep 09, 2016 01:00 PM QUIT TOBACCO USE I N PAST YEAR 04/26/16 quit [facility] Sep 14, 2015 08:27 AM QUIT TOBACCO USE I N PAST YEAR [facility] Feb 13, 2015 05:11 PM QUIT TOBACCO USE I N PAST YEAR [facility] Aug 18, 2014 04:22 PM V1-PT NOT INTEREST ED IN QUIT TOBACCO USE [facility] Dec 16, 2013 10:23 AM CURRENT SMOKER 1/2 ppd [facility] Dec 16, 2013 10:23 AM V1-PT DECLINES REF TO TOBACCO CESS [facility] Dec 16, 2013 10:23 AM V1-PT DECLINES TOB ACCO CESSATION [facility] Dec 16, 2013 10:23 AM V1-PT NOT INTEREST ED IN QUIT TOBACCO USE [facility] Sep 25, 2012 01:54 PM QUIT TOBACCO USE I N PAST YEAR [facility] Dec 23, 2011 09:43 AM CURRENT SMOKER Pt states he smokes a half a pack of cigaretts a day. [facility] Dec 23, 2011 09:43 AM V1-PT DECLINES REF TO TOBACCO CESS [facility] Dec 23, 2011 09:43 AM V1-PT DECLINES TOB ACCO CESSATION [facility] Dec 23, 2011 09:43 AM V1-PT NOT INTEREST ED IN QUIT TOBACCO USE [facility] Dec 30, 2010 01:14 PM V1-PT DECLINES REF TO TOBACCO CESS [facility] Dec 30, 2010 01:14 PM V1-PT DECLINES TOB ACCO CESSATION [facility] Dec 30, 2010 01:14 PM V1-PT NOT INTEREST ED IN QUIT TOBACCO USE [facility] Jun 02, 2010 09:23 AM CURRENT SMOKER smoker for 50 yrs...1 ppd [facility] Jun 02, 2010 09:23 AM V1-PT DECLINES REF TO TOBACCO CESS [facility] Jun 02, 2010 09:23 AM V1-PT THINKING ABO UT QUIT TOBACCO USE [facility] May 19, 2009 11:23 AM CURRENT SMOKER 10-12 cigaretts daily...smoking 50 years [facility] Apr 08, 2008 01:51 PM CURRENT SMOKER Patient reports smoking a pack of ciggs a day. [facility] Dec 18, 2007 10:09 AM V1-PT DECLINES REF TO TOBACCO CESS [facility] Dec 18, 2007 10:09 AM V1-PT READY TO MARCIANO T TOBACCO USE [facility] Apr 17, 2007 01:58 PM QUIT TOBACCO USE I N PAST YEAR [facility] Oct 16, 2006 02:20 PM V1-PT DECLINES REF TO TOBACCO CESS [facility] Oct 16, 2006 02:20 PM V1-PT READY TO MARCIANO T TOBACCO USE [facility] Jan 13, 2006 01:11 PM CURRENT SMOKER Rocío continues to smoke 1 pkg of cigarettes daily. He said he does not want quit tobacco. [facility] Nov 30, 2004 12:31 PM CURRENT SMOKER 1 pack a day [facility] Advance Directives: All historical and current Section Date Range: From patient's date of to the date document was created. This section includes ALL of a patient's completed or amended [place] Advance and Rescinded Directives. The entries below indicate that a directive exists for the patient, but an actual copy is not included with this document. The data comes from all [place] facilities. Date Advance Directives Provider Source Oct 03, 2017 ADVANCE DIRECTIVE MARILU MIRZA [facility] Dec 23, 2013 ADVANCE DIRECTIVE NIALL SALCEDO Encounter Notes: All associated encounter notes This section contains the clinical notes associated to the Encounter. Date/Time Encounter Note(s) Provider Source November 01, 2023 10:34 AM PREVENTIVE MEDICIN E NURSING NOTE: LOCAL TITLE: CLINICAL REMINDERS/NURSING STANDARD TITLE: PREVENTIVE MEDICINE NURSING NOTE DATE OF NOTE: NOVEMBER 01, 2023@10:34 ENTRY DATE: NOVEMBER 01, 2023@10:34:22 AUTHOR: CATHY GAN EXP COSIGNER: URGENCY: STATUS: COMPLETED Falls & Incontinence Screen: Falls Screen: 4. No falls within the past year. Incontinence Screen No incontinence. /barbie/ CATHY GAN LPN PACT 10 Signed: 11/01/2023 10:39 CATHY GAN [facility] November 01, 2023 05:59 AM PHYSICIAN NOTE: LOCAL TITLE: NOTE STANDARD TITLE: PHYSICIAN NOTE DATE OF NOTE: NOVEMBER 01, 2023@05:59 ENTRY DATE: NOVEMBER 01, 2023@05:59:58 AUTHOR: DOUG ARCHULETA EXP COSIGNER: URGENCY: STATUS: COMPLETED HISTORY OF PRESENT ILLNESS: ERIC HENSLEY, is a 77 yo MALE [place], who presents at the [facility] for his annual wellness exam. Labs completed. He recently transferred from Dr Hodgson's panel on 09/27/23. [facility] is PCP. started off our conversation complaining about and berating Dr Ledesma citing his inadequacies and mistakes and poor practice qualities. He cited details that Dr Ledesma paid no attention to me and is considering switching to [facility] cardiology. Advised him to let me know if decides to do this to put in consults. After completing our discussion about his lab results and performing an exam, I questioned him about calling me a bitch twice to my nurse Cathy Gan. He denied the allegation and started complaining about the fact that I spent an hour with the previous patient running over time and that his appt was for 10:30AM and he should have been seen on time. I advised him that other 's visits are confidential and none of his business and that times spent with patients can vary depending on need. He brushed right by me while trying to explain, grabbed his coat, walked out. NonVA Providers: Cardiology: Dr Ledesma - [facility] Cardio Gastroenterology: Dr Mccullough - [facility] Active problems - Computerized Problem List is the source for the followin. Atrial fibrillation 2. Obstructive sleep apnea syndrome 3. Moderate chronic obstructive pulmonary disease 4. Osteopenia 5. History of aortic valve replacement 6. Benign essential hypertension 7. Long-term current use of anticoagulant 8. Dilated cardiomyopathy 9. Amaro's esophagus 10. Colonoscopy Screening 11. Nicotine dependence 12. Postsurgical Status of Cardiac Pacemaker in Situ 13. Hyperlipidemia 14. Gastroesophageal reflux disease with esophagitis The following VA and Non-VA meds were reconciled with patient: Active Outpatient Medications (including Supplies): Issue Date Status Last Fill Active Outpatient Medications Refills Expiration ======= 1) ALBUTEROL 90MCG (CFC-F) 200D ORAL INHL ACTIVE Issu:12-20-22 Qty: 1 for 30 days Sig: INHALE 2 Refills: 3 Last:12-20-22 PUFFS BY MOUTH EVERY 6 HOURS NEEDED Expr:12-21-23 [place]ORNESS OF BREATHE 2) CICLESONIDE 160MCG 60D ORAL INHL Qty: 3 ACTIVE Issu:09-08-23 for 90 days Sig: INHALE 1 PUFF BY Refills: 0 Last:09-09-23 MOUTH TWICE DAILY (RINSE MOUTH AFTER Expr:12-07-23 USE) (REPLACES MOMETASONE [ASMANEX]) 3) DOFETILIDE 250MCG CAP Qty: 180 for 90 ACTIVE Issu:07-31-23 days Sig: TAKE ONE CAPSULE BY MOUTH Refills: 1 Last:07-31-23 TWICE DAILY TO PREVENT ATRIAL Expr:07-31-24 FIBRILLATION 4) FEBUXOSTAT 40MG TAB Qty: 90 for 90 days ACTIVE Issu:12-20-22 Sig: TAKE ONE TABLET BY MOUTH ONCE Refills: 0 Last:09-24-23 DAILY Expr:12-21-23 5) GEMFIBROZIL 600MG TAB Qty: 180 for 90 ACTIVE Issu:09-08-23 days Sig: TAKE ONE TABLET BY MOUTH Refills: 0 Last:09-09-23 TWICE DAILY TO LOWER CHOLESTEROL Expr:12-07-23 6) LISINOPRIL 10MG TAB Qty: 90 for 90 days ACTIVE Issu:09-08-23 Sig: TAKE ONE TABLET BY MOUTH DAILY TO Refills: 0 Last:09-09-23 CONTROL BLOOD PRESSURE Expr:12-07-23 7) WARFARIN NA (SU STATE) 1MG TAB Qty: ACTIVE Issu:10-11-23 105 for 90 days Sig: TAKE ONE TABLET Refills: 0 Last:10-11-23 BY MOUTH WITH DIRECTIONS PROVIDED FROM Expr:01-09-24 YOUR [place] PROVIDER ([facility]ATION CLINIC extension [id number]) FOR THE PREVENTION OF BLOOD CLOTS ALLERGIES: ========= PRILOSEC 20MG CAPSULE, ZOCOR, FLUVASTATIN, MEXILETINE, ALLOPURINOL LAB HISTORY: CHEM 7 TREND Collection DT Spec GLUCOSE BUN CREATIN Sodium K+/Pot CL CO2 09/27/2023 10:00 SERUM 96 24 1.28 142 4.9 107 26 11/16/2022 10:09 SERUM 96 21 1.09 141 4.6 109 23 05/31/2022 13:05 SERUM 97 27 H 1.39 138 4.8 109 25 10/26/2021 11:00 SERUM 104 H 21 1.22 139 5.1 H 107 25 06/22/2021 13:04 SERUM 91 21 1.19 140 4.4 107 22 CBC TREND Collection DT Spec WBC RBC HGB HCT MCV MCH PLT 09/27/2023 10:00 BLOOD 5.27 4.21 L 13.4 40.9 97.1 31.8 143 11/16/2022 10:09 BLOOD 4.71 3.88 L 12.4 L 37.7 L 97.2 32.0 144 05/31/2022 13:05 BLOOD 5.62 3.85 L 12.2 L 36.8 L 95.6 31.7 156 09/29/2020 12:57 BLOOD 5.78 4.10 L 13.0 40.0 97.6 31.7 165 04/27/2020 13:31 BLOOD 6.06 4.04 L 13.0 39.3 97.3 32.2 160 HEMOGLOBIN A1C TREND Collection DT Spec HGBA1c 09/27/2023 10:00 BLOOD 5.5 11/16/2022 10:09 BLOOD 5.0 05/31/2022 13:05 BLOOD 5.4 03/01/2018 13:11 BLOOD 5.6 08/18/2015 13:16 BLOOD 5.5 LIPID PANEL TREND Collection DT Spec CHOL HDL CHO/HDL LDL-c TRIG 09/27/2023 10:00 SERUM 161 33 L 4.9 101 137 11/16/2022 10:09 SERUM 183 33 L 5.5 122 140 05/31/2022 13:05 SERUM 167 28 L 6.0 103 182 H 10/26/2021 11:00 SERUM 189 33 L 5.7 119 183 H 09/29/2020 12:57 SERUM 207 H 32 L 6.5 132 H 215 H LIVER PANEL TREND Collection DT Spec AST ALT T BILI ALK MADONNA T. PROT ALBUMIN 09/27/2023 10:00 SERUM 17 15 0.6 96 6.6 3.7 11/16/2022 10:09 SERUM 12 13 0.4 82 6.4 3.5 05/31/2022 13:05 SERUM 15 17 0.5 81 6.3 3.3 L 10/26/2021 11:00 SERUM 16 18 0.7 83 6.7 3.5 07/13/2021 12:58 SERUM 29 36 0.5 84 6.7 3.8 Collection DT Spec TSH 09/27/2023 10:00 SERUM 1.58 HISTORY: PERIOD OF SERVICE - [employer] FROM Jun TO Sep COMBAT SERVICE INDICATED: No VITAL SIGNS: Blood Pressure 121/76 (11/01/2023 10:33) Pulse 94 (11/01/2023 10:33) Respiration 16 (11/01/2023 10:33) Pulse Oximetry 96% (11/01/2023 10:33) Temperature 98.7 F [37.1 C] (11/01/2023 10:33) Pain 0 (11/01/2023 10:33) Height 63 in [160.0 cm] (11/01/2023 10:33) Weight 182.6 lb [82.83 kg] (11/01/2023 10:33) BMI BMI: 32.4 REVIEW OF SYSTEMS: ENT: No sore throat, no cough CARDIOVASCULAR: No chest pain, no palpitations RESPIRATORY: No SOB, no wheezing GASTROINTESTINAL: No abd pain, no N/V/D MUSCULOSKELETAL: No joint pain, no joint swelling NEUROLOGIC: No H/A, no numbness, no weakness, no tingling EXAMINATION: GENERAL: WD/WN , pleasant & in NAD HEENT: Moist mucosa NECK: Supple HEART: RRR, S1-S2, no murmurs LUNGS: CTA B/L, no wheezes ABDOMEN: Soft, NT/ND PERIPH PULSES: 2+ B/L EXTREMITIES: FROM x 4 gait normal NEUROLOGIC: AAO x3, no focal findings PSYCHIATRIC: Good eye contact ASSESSMENT/PLAN: Adult Annual General Wellness Exam -advised eye exams yearly and dental exams Q6 mths prn -advised heart healthy well balanced diet and lifestyle habits -advised regular CV exercise for 30 mins on most days of the week 1. Atrial Fibrillation: on coumadin managed by [place] [facility], on dofetilide 250mg BID, managed by Dr Ledesma 2. Dilated Cardiomyopathy: managed by Dr Ledesma, last OV 05/23/24 3. 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 Pacemaker: s/p medtronic biventricular dual chamber defibrillator implantation in 1984 with his AICD in 2009 and redo for [employer]IM[employer] in 2016, AICD is monitered though Dr Ledesma's office 5. Hypertension: well controlled on lisinopril 10mg/day and metoprolol tartrate 100mg BID 6. Hyperlipidemia: under acceptable control on gemfibrozil 600mg BID Collection DT Spec CHOL HDL CHO/HDL LDL-c TRIG 09/27/2023 10:00 SERUM 161 33 L 4.9 101 137 7. COPD: on ciclesonide inh BID and alb inh prn 8. Obesity: BMI ~32, counseled on weight loss 9. Sleep Apnea: mod-severe, compliant with CPAP 10. Amaro's Esophagus: on omeprazole 40mg/QAM, last EGD 02/24/21 - appt for EGD scheduled for 01/24/24 /[facility] 11. Gout: on febuxostat 40mg/day 12. BPH: on tamsulosin 0.8mg/day 13. Colonoscopy Screening: last screen 02/24/21 - 2 polyps - repeat ?, per vet aged out, will confirm however with GI FOLLOW UP: 6 mths - HTN/Lipids/WT - FBW prior ========= (Unlikely he will return to this Pact team due to his poor behavior today.) UPCOMING APPOINTMENTS: 01/24/2024 10:00 [facility] CARE-EGD No barriers; Patient understands and agrees to current treatment plan. If pt has any questions, concerns, or changes in current health status he/she will call or come in to the VA. EGD F/U: EGD F/U procedure already scheduled outside of local [facility]. Home Telehealth (CCHT) Referral: Patient not a candidate for CCHT Program at this time. Medication Reconciliation: Outpatient: Has the patient been taking medications as documented in the EMLR? YES: The patient has been taking medications as documented in the EMLR. Essential Medication List for Review used to complete this medication reconciliation. INCLUDED IN THIS LIST: Alphabetical list of active outpatient prescriptions dispensed from this [place] (local) and dispensed from another [place] or [facility] facility (remote) as well as inpatient orders (local, pending and active), local clinic medications, locally documented non-VA medications, and local prescriptions that have or been discontinued in the past 90 days. - All changes in medications, including all non-VA/Herbal/OTC medications were entered into CPRS. - If there were any medications the patient should no longer take, they were discontinued. - The patient/caregiver was instructed to update this list, discard old lists, and take this list to the next appointment, whether with a VA or non-VA provider. JLV Link Data on this list may not be complete. Please check [email or web address] - [email or web address]. Allergies/ADRs (Tool #5) FACILITY ALLERGY/ADR -------- [facility] D NO KNOWN ALLERGIES [facility] [place] [facility] ALLOPURINOL [facility] [place] [facility] FLUVASTATIN [facility] [place] [facility] MEXILETINE [facility] [place] [facility] PRILOSEC [facility]MG [facility] [place] [facility] FLUVASTATIN [facility] LOVASTATIN [facility] NIACIN [facility] OMEPRAZOLE [facility] SIMVASTATIN Med Recon NoGlossary (Tool #1) INCLUDED IN THIS LIST: Alphabetical list of active outpatient prescriptions dispensed from this [place] (local) and dispensed from another [place] or [facility] facility (remote) as well as inpatient orders (local pending and active), local clinic medications, locally documented non-VA medications, and local prescriptions that have or been discontinued in the past 90 days. Non-VA Meds Last Documented On: Dec 09, 2021 NOTE The display of VA prescriptions dispensed from another [place] or [facility] facility (remote) is limited to active outpatient prescription entries matched to National Drug File at the originating site and may not include some items such as investigational drugs, compounds, etc. NOT INCLUDED IN THIS LIST: Medications self-entered by the patient into personal health records (i.e. [facility]) are NOT included in this list. Non-VA medications documented outside this [place], remote inpatient orders (regardless of status) and remote clinic medications are NOT included in this list. The patient and provider must always discuss medications the patient is taking, regardless of where the medication was dispensed or obtained. ------ OUTPT ALBUTEROL 90MCG (CFC-F) 200D ORAL INHL (Status = Active) INHALE 2 PUFFS BY MOUTH EVERY 6 HOURS NEEDED SHORNESS OF BREATHE Rx# [id number] Last Released: 12/23/22 Qty/Days Supply: 07/25 Rx Expiration Date: 12/21/23 Refills Remainin Remote ALPROSTADIL 40MCG/CARTRIDGE INJ,SYSTEM INJECT 40 MCG(CARTRIDGE) INTO CAVERNOSAL CAVITY 1 HOUR BEFORE SEXUAL RELATIONS. FOR SEXUAL RELATIONS Last Filled: 02/06/23 (Active at [facility]) Rx Expiration Date: 02/04/24 Days Supply: 30 OUTPT CICLESONIDE 160MCG 60D ORAL INHL (Status = Active) INHALE 1 PUFF BY MOUTH TWICE DAILY (RINSE MOUTH AFTER USE) (REPLACES MOMETASONE [ASMANEX]) Rx# [id number] Last Released: 09/12/23 Qty/Days Supply: Rx Expiration Date: 12/07/23 Refills Remainin OUTPT DOFETILIDE 250MCG CAP (Status = Active) TAKE ONE CAPSULE BY MOUTH TWICE DAILY TO PREVENT ATRIAL FIBRILLATION Rx# [id number] Last Released: 08/07/23 Qty/Days Supply: 180/90 Rx Expiration Date: 07/31/24 Refills Remainin Indication: TO PREVENT ATRIAL FIBRILLATION OUTPT FEBUXOSTAT 40MG TAB (Status = Active) TAKE ONE TABLET BY MOUTH ONCE DAILY Rx# [id number] Last Released: 09/22/23 Qty/Days Supply: 90/90 Rx Expiration Date: 12/21/23 Refills Remainin Remote FINASTERIDE 5MG TAB TAKE ONE TABLET BY MOUTH ONCE DAILY FOR PROSTATE Last Filled: 10/24/23 (Active at [facility]) Rx Expiration Date: 08/04/24 Days Supply: 90 OUTPT GEMFIBROZIL 600MG TAB (Status = Active) TAKE ONE TABLET BY MOUTH TWICE DAILY TO LOWER CHOLESTEROL Rx# [id number] Last Released: 09/11/23 Qty/Days Supply: 180/90 Rx Expiration Date: 12/07/23 Refills Remainin OUTPT LISINOPRIL 10MG TAB (Status = Discontinued) TAKE ONE TABLET BY MOUTH DAILY TO CONTROL BLOOD PRESSURE Rx# [id number] Last Released: 06/13/23 Qty/Days Supply: 90/90 Rx Expiration Date: 09/10/23 Refills Remainin OUTPT LISINOPRIL 10MG TAB (Status = Active) TAKE ONE TABLET BY MOUTH DAILY TO CONTROL BLOOD PRESSURE Rx# [id number] Last Released: 09/11/23 Qty/Days Supply: 90/90 Rx Expiration Date: 12/07/23 Refills Remainin OUTPT METOPROLOL TARTRATE 100MG TAB (Status = ) TAKE ONE TABLET BY MOUTH TWICE DAILY DIRECTED BY PROVIDER FOR BLOOD PRESSURE/HEART Rx# [id number] Last Released: 08/16/23 Qty/Days Supply: 180/90 Rx Expiration Date: 08/27/23 Refills Remainin OUTPT TAMSULOSIN HCL 0.4MG CAP (Status = ) TAKE TWO CAPSULES BY MOUTH ONCE DAILY Rx# [id number] Last Released: 05/10/23 Qty/Days Supply: 180/90 Rx Expiration Date: 10/25/23 Refills Remainin Indication: FOR ENLARGED PROSTATE OUTPT WARFARIN NA (SU STATE) 1MG TAB (Status = Discontinued) TAKE ONE TABLET BY MOUTH WITH DIRECTIONS PROVIDED FROM YOUR VA PROVIDER ([facility]IN[facility] EXTENSION [id number]) FOR THE PREVENTION OF BLOOD CLOTS Rx# [id number] Last Released: 07/12/23 Qty/Days Supply: Rx Expiration Date: 10/04/23 Refills Remainin Indication: TO PREVENT BLOOD CLOTS OUTPT WARFARIN NA (SU STATE) 1MG TAB (Status = Active) TAKE ONE TABLET BY MOUTH WITH DIRECTIONS PROVIDED FROM YOUR [place] PROVIDER (ANTICO[facility]ULATION CLINIC EXTENSION [id number]) FOR THE PREVENTION OF BLOOD CLOTS Rx# [id number] Last Released: 10/12/23 Qty/Days Supply: Rx Expiration Date: 01/09/24 Refills Remainin Indication: TO PREVENT BLOOD CLOTS ------ SUPPLIES ------ /barbie/ DOUG ARCHULETA MD Primary Care Physician Signed: 11/01/2023 11:45 DOUG ARCHULETA [facility]
--- OUTSIDE RECORDS SUMMARY | 2024-08-08 13:28 | XMS_ITS | Encounter Summary ---
Author Name [facility] Address [address] [place] [id number] Care Team Providers Care Bobbin Inspector Name Role Phone DOUG ARCHULETA Primary Care [...] PART A Jun 26, 2006 PART A [id number] [phone] DIMITRIS HENSLEY PATIENT MEDICARE (WNR) MEDICARE (M) PART A Jun 26, 2006 PART A [id number] [id number] DIMITRIS HENSLEY PATIENT Selected Encounter This section includes the information on record at [place] for the Encounter. Date/Time Encounter Type Encounter Description Reason Pro vider Source Aug 08, 2024 09:39 AM Outpatient Encounter PRIMARY CARE/MEDICINE [facility] Encounter Template Text not used by [place] Plan of Treatment: Future Appointments (+ 6 [...] 20 appointments. The data comes from all [place] treatment facilities. Appointment Date/Time Appointment Type Appointme nt Facility Name Aug 19, 2024 08:00 AM AMBULATORY - MEDICINE [facility] Oct 08, 2024 01:00 PM AMBULATORY - NONE [facility] November 04, 2024 03:00 PM AMBULATORY - MEDICINE [facility] [place] Active, Pending, and Scheduled Orders This section includes a listing of several types of active, pending, and scheduled orders, including clinic medications orders, diagnostic test orders, procedure orders and consult orders; where the start date of the order is 45 days before the date of the Encounter or 45 days after the date of theEncounter. The data comes from all [facility]. Test Date/Time Test Type Test Details Facility Name Aug 20, 2024 12:00 AM Laboratory - Chemi stry Order PT & INR ([facility]) BLOOD (BLUE-PLASMA) SP ONCE [facility] Lab Results: +/- 30 days of the encounter This section includes the Chemistry and Hematology Lab Results on record with [place] for the patient. Radiology Reports and Pathology Reports are provided separately, in subsequent sections. Lab Results This section contains the Chemistry/Hematology Results that were resulted 30 days before or 30 daysafter the date of the Encounter. Date/Time Source Result Type Result - Unit Interpretation Reference Range Comment Aug 06, 2024 10:32 AM [facility] LIPID PANEL FASTING Specimen Type: SERUM No comment entered. Ordering Provider: GAIL VALDIVIA Report Released Date/Time: Jul 30, 2024 09:22 AM Reporting Lab: [facility] [address] [facility] [address] Performing Lab: [facility] [address] [facility] [address] CHOLESTEROL 164 mg/dL TRIGLYCERIDE 88 mg/dL 0-150 LDL calculated 106 mg/dL 0-129 CHOL/HDL 4.1 HDL CHOLESTEROL 40 mg/dL 40-60 Aug 06, 2024 10:32 AM [facility] HEMOGLOBIN A1C PANEL Specimen Type: BLOOD [...] Jul 30, 2024 09:22 AM Reporting Lab: [address] [phone] Performing Lab: [address] [address] HEMOGLOBIN A1C 5.2 4.0-5.6 Aug 06, 2024 10:32 AM [facility] LIVER FUNCTION Specimen Type: SERUM No comment entered. Ordering Provider: GAIL VALDIVIA Report Released Date/Time: Jul 30, 2024 09:22 AM Reporting Lab: [address] [address] Performing Lab: [address] [address] PROTEIN,TOTAL 6.6 g/dL 6.0-8.3 ALBUMIN 3.6 g/dL 3.5-5.0 ALKALINE PHOSPHATASE 81 U/L 40-150 AST 13 U/L 5-34 ALT 10 U/L BILIRUBIN, TOTAL 0.7 mg/dL 0.2-1.2 Aug 06, 2024 10:32 AM [facility] BASIC METABOLIC PANEL (fasting) Specimen Type: SERUM No comment entered. Ordering Provider: GAIL VALDIVIA Report Released Date/Time: Jul 30, 2024 09:22 AM Reporting Lab: [address] [address] Performing Lab: [address] [address] UREA NITROGEN 24 mg/dL 7-25 GLUCOSE 98 mg/dL 65-100 SODIUM 142 mmol/L 135-145 POTASSIUM 4.6 mmol/L 3.5-5.0 CHLORIDE 110 mmol/L 100-110 CO2 25 meq/L 20-30 CREATININE, Serum 1.12 mg/dL 0.50-1.40 eGFR(CKD-EPI 2020) 67 mL/min >60 Aug 06, 2024 10:32 AM [facility] TSH Specimen Type: SERUM No comment entered. Ordering Provider: GAIL VALDIVIA Report Released Date/Time: Jul 30, 2024 09:22 AM Reporting Lab: [facility] [address] [facility] [address] Performing Lab: [facility] [address] [facility] [address] TSH 2.61 u[IU]/mL 0.35-5.00 Aug 06, 2024 10:32 AM [facility] MICROALBUMIN CREATININE RATIO PANEL Specimen Type: URINE No comment entered. Ordering Provider: GAIL VALDIVIA Report Released Date/Time: Jul 30, 2024 09:22 AM Reporting Lab: [facility] [address] [facility] [address] Performing Lab: [facility] [address] [facility] [address] MICROALBUMIN/C REATININE RATIO 17.6 mg/g 0-29.9 MICROALBUMIN,Q UANTITATIVE 2.5 mg/dL RR UNAVAIL CREATININE URINE 141.74 mg/dL Aug 06, 2024 10:32 AM [facility] MICROSCOPIC AUTOMATED, URINE Specimen Type: URINE Comment: If Glucose = >500 and Ketones are positive, please alert the Physician. Ordering Provider: GAIL VALDIVIA Report Released Date/Time: Jul 30, 2024 09:22 AM Reporting Lab: [address] [phone] Performing Lab: [address] [address] UA WBC 0-5 /[HPF] 0-5 UA RBC 3-5 /[HPF] 0-3 UA SQUAMOUS EPITH FEW /[HPF] Aug 06, 2024 10:32 AM [facility] CBC AND DIFF (AUTO) Specimen Type: BLOOD No comment entered. Ordering Provider: GAIL VALDIVIA Report Released Date/Time: Jul 30, 2024 09:22 AM Reporting Lab: [facility] [address] [facility] [address] Performing Lab: [facility] [address] [facility] [address] WBC 4.64 10*3/uL 4.50-11.00 RBC 3.86 10*6/uL [...] 10*3/uL 0.00-0.00 Aug 06, 2024 10:32 AM [facility] URINALYSIS Specimen Type: URINE Comment: If Glucose = >500 and Ketones are positive, please alert the Physician. Ordering Provider: GAIL VALDIVIA Report Released Date/Time: Jul 30, 2024 09:22 AM Reporting Lab: [facility] [address] [facility] [phone] Performing Lab: [address] [address] UA COLOR Yellow Yellow UA APPEARANCE Clear Clear UA GLUCOSE Normal mg/dL Negative UA KETONES NEGATIVE mg/dL Negative UA BLOOD NEGATIVE mg/dL Negative UA PROTEIN NEGATIVE mg/dL Negative UA NITRITE NEGATIVE mg/dL Negative UA BILIRUBIN NEGATIVE mg/dL Negative UA SPECIFIC GRAVITY 1.024 H 1.016-1.02 2 UA pH 6.5 5.0-9.0 UA UROBILINOGEN 4 mg/dL <2.0 UA LEUKOCYTE TRACE Negative Aug 06, 2024 10:31 AM [facility] PT & INR ([facility]) Specimen Type: PLASMA No comment entered. Ordering Provider: REILLY JAIME Report Released Date/Time: Jul 02, 2024 04:04 PM Reporting Lab: [address] [address] Performing Lab: [address] [address] INR 1.9 PROTIME 20.1 s H 10.0-13.1 Social History: Smoking Status (Most current) and Tobacco Use (All prior to encounter date) This section includes the most current, and the historical, smoking and tobacco- related health factors from the [place] facility where the Encounter took place. Current Smoking Status This section includes the most current smoking, or tobacco-related health factor, from the [place] facility where the Encounter took place. Date/Time Current Smoking Status Comment Dwight ity May 24, 2021 08:53 AM VA-TOBACCO NEVER USED [facility] Tobacco Use History This section includes a history of the smoking, or tobacco-related health factors, that were collected on or before the date of the Encounter. The data comes from the [place] facility where the Encounter took place. Date/Time Smoking Status/Tobacco Use Comment F acility May 24, 2021 08:53 AM VA-TOBACCO NEVER USED [facility] May 24, 2021 08:53 AM VA-TOBACCO QUIT 1 TO < 5 YRS [facility] Apr 27, 2020 11:42 AM VA-TOBACCO NEVER USED [facility] Advance Directives: All historical and current Section Date Range: From patient's date of to the date document was created. This section includes ALL of a patient's completed or amended [place] Advance and Rescinded Directives. The entries below indicate that a directive exists for the patient, but an actual copy is not included with this document. The data comes from all [place] facilities. Date Advance Directives Provider Source Oct 03, 2017 ADVANCE DIRECTIVE HERMESMARILUPawan Torres [facility] Dec 23, 2013 ADVANCE DIRECTIVE NIALL SALCEDO Encounter Notes: All associated encounter notes This section contains the clinical notes associated to the Encounter. Date/Time Encounter Note(s) Provider Source Aug 08, 2024 09:39 AM PREVENTIVE MEDICIN E NURSING NOTE: LOCAL TITLE: CLINICAL REMINDERS/NURSING STANDARD TITLE: PREVENTIVE MEDICINE NURSING NOTE DATE OF NOTE: AUG 08, 2024@09:39 ENTRY DATE: AUG 08, 2024@09:39:47 AUTHOR: NAN WALSH EXP COSIGNER: URGENCY: STATUS: COMPLETED COVID-19 Immunization: Refused Moderna Monovalent COVID-19 vaccine Immunization: COVID-19 (MODERNA), MRNA, LNP-S, PF, 50 MCG/0.5 ML (AGES 12+ YEARS) Refusal Reason: PATIENT DECISION Patient refuses all immunization(s) in the COVID-19 group Date Documented: 08/08/24 09:40 RSV Immunization: Respiratory Syncytial Virus (RSV) Vaccine: Refused Pfizer (Abrysvo, RSVpreF vaccine). Immunization: RSV, BIVALENT, PROTEIN SUBUNIT RSVPREF, DILUENT RECONSTITUTED, 0.5 ML, PF Refusal Reason: PATIENT DECISION Patient refuses all immunization(s) in the RSV group Date Documented: 08/08/24 09:40 Eye Care At-Risk Screen : Patient identified to be at risk for the following eye condition(s): MACULAR DEGENERATION: Macular Degeneration Risk Factors Information: Reminder Term: VA-AMD RISK FACTORS Encounter Diagnosis: 11/01/2023@10:30 Z72.0 (ICD-10-CM) Tobacco use rank: SECONDARY Prov. Narr. - Nicotine dependence ([facility] [id number]) Action: Patient has a future eye care appointment scheduled within the next 90 days. Date of Appointment: [facility] is [facility] to schedule /barbie/ OLIVE WALSH LPN LPN Signed: 08/08/2024 09:41 OLIVE WALSH [place]
--- OUTSIDE RECORDS SUMMARY | 2024-08-08 13:28 | XMS_ITS | Encounter Summary ---
Author Name [facility] [place] [facility] [place] [facility] [place] Address [address] [place] [id number] Care Team Providers Care Surface Grinding Machine Hand Name Role Phone LIZET ARCHULETAA Primary Care [...] PART A Jun 26, 2006 PART A [id number] [phone] DIMITRIS HENSLEY PATIENT MEDICARE (WNR) MEDICARE (M) PART A Jun 26, 2006 PART A [id number] DIMITRIS HENSLEY PATIENT Selected Encounter This section includes the information on record at [place] for the Encounter. Date/Time Encounter Type Encounter Description Reason Provider Source Apr 09, 2024 02:44 PM QNHP OL DIG ASSMT&MGMT 11-20 PULMONARY/CHEST ICD-10-CM R91.1 Solitary pulmonary nodule CARLA CELAYA CCA L IHE Encounter Template Text not used by [facility] Assessments - Encounter Diagnoses This section includes the primary and secondary diagnoses documented for the Encounter. Date/Time Primary/Secondary Diagnosis Diagnosis Name Provider Source Apr 09, 2024 04:16 PM PRIMARY Solitary pulmonary nodule PUCCARLA WAYNE CCA L [facility] Plan of Treatment: Future Appointments (+ 6 months) and Future Tests (+/- 45 days) The Plan of Treatment section includes future care activities for the patient from all [place] treatmentfacilities. This section includes future appointments and future orders which are active, pending or scheduled. Future Appointments This section includes appointments that were scheduled to occur 6 months from the date of the Encounter, up to a maximum of 20 appointments. The data comes from all [place] treatment facilities. Appointment Date/Time Appointment Type Appointme nt Facility Name Jun 21, 2024 01:00 PM AMBULATORY - MEDICINE [facility] Aug 08, 2024 09:30 AM [facility] Aug 19, 2024 08:00 AM AMBUL[facility] - MEDICINE [facility] Oct 08, 2024 01:00 PM AMBULATORY - NONE [facility] Lab Results: +/- 30 days of the encounter This section includes the Chemistry and Hematology Lab Results on record with [place] for the patient. Radiology Reports and Pathology Reports are provided separately, in subsequent sections. Lab Results This section contains the Chemistry/Hematology Results that were resulted 30 days before or 30 daysafter the date of the Encounter. Date/Time Source Result Type Result - Unit Interpretation Reference Range Comment Apr 26, 2024 10:32 AM [facility] PT & INR ([place]) Specimen Type: PLASMA No comment entered. Ordering Provider: FERNY BOURNE Report Released Date/Time: Mar 29, 2024 02:19 PM Reporting [facility] [address] [address] Performing Lab: [address] [address] INR 2.4 PROTIME 25.5 s H 10.0-13.1 Apr 26, 2024 10:32 AM [facility] LIVER FUNCTION Specimen Type: SERUM No comment entered. Ordering Provider: DOUG ARCHULETA Report Released Date/Time: November 01, 2023 06:13 AM Reporting Lab: [address] [place] [address] Performing Lab: [address] [address] PROTEIN,TOTAL 6.1 g/dL 6.0-8.3 ALBUMIN 3.3 g/dL L 3.5-5.0 ALKALINE PHOSPHATASE 88 U/L 40-150 AST 12 U/L 5-34 ALT 12 U/L BILIRUBIN, TOTAL 0.6 mg/dL 0.2-1.2 Apr 26, 2024 10:32 AM [facility] LIPID PANEL FASTING Specimen Type: SERUM No comment entered. Ordering Provider: DOUG ARCHULETA Report Released Date/Time: November 01, 2023 06:13 AM Reporting Lab: [address] [address] Performing Lab: [address] [address] CHOLESTEROL 156 mg/dL TRIGLYCERIDE 94 mg/dL 0-150 LDL calculated 102 mg/dL 0-129 CHOL/HDL 4.5 HDL CHOLESTEROL 35 mg/dL L 40-60 Apr 26, 2024 10:32 AM [facility] BASIC METABOLIC PANEL (fasting) Specimen Type: SERUM No comment entered. Ordering Provider: DOUG ARCHULETA Report Released Date/Time: November 01, 2023 06:13 AM Reporting Lab: [address] [address] Performing Lab: [address] [address] UREA NITROGEN 23 mg/dL 7-25 GLUCOSE 96 mg/dL 65-100 SODIUM 140 mmol/L 135-145 POTASSIUM 4.3 mmol/L 3.5-5.0 CHLORIDE 111 mmol/L H 100-110 CO2 23 meq/L 20-30 CREATININE, Serum 1.18 mg/dL 0.50-1.40 eGFR(CKD-EPI 2020) 64 mL/min >60 Mar 29, 2024 10:09 AM [facility] PT & INR ([place]) Specimen Type: PLASMA No comment entered. Ordering Provider: KATINA GRANT Report Released Date/Time: Mar 18, 2024 03:54 PM Reporting [facility] [address] [address] Performing Lab: [facility] [place] [address] [address] INR 2.0 PROTIME 22.3 s H 10.0-13.1 Mar 18, 2024 10:11 AM [facility] PT & INR ([place]) Specimen Type: PLASMA No comment entered. Ordering Provider: ANTONETTE AGUILLON Report Released Date/Time: Mar 12, 2024 10:30 AM Reporting Lab: [facility] [address] [address] Performing Lab: [facility] [address] [address] INR 1.8 PROTIME 19.8 s H 10.0-13.1 Mar 11, 2024 01:17 PM [facility] PT & INR ([place]) Specimen Type: PLASMA No comment entered. Ordering Provider: JA MARQUEZ Report Released Date/Time: Feb 12, 2024 02:50 PM Reporting Lab: [facility] [place] [address] [address] Performing Lab: [facility] [address] [address] INR 1.5 PROTIME 16.8 s H 10.0-13.1 Social History: Smoking Status (Most current) and Tobacco Use (All prior to encounter date) This section includes the most current, and the historical, smoking and tobacco- related health factors from the [place] facility where the Encounter took place. Current Smoking Status This section includes the most current smoking, or tobacco-related health factor, from the [place] facility where the Encounter took place. Date/Time Current Smoking Status Comment Dwight rosas May 24, 2021 08:53 AM [facility]-TOBACCO NEVER USED [facility] Tobacco Use History This section includes a history of the smoking, or tobacco-related health factors, that were collected on or before the date of the Encounter. The data comes from the [place] facility where the Encounter took place. Date/Time Smoking Status/Tobacco Use Comment F acility May 24, 2021 08:53 AM VA-TOBACCO NEVER USED [facility] May 24, 2021 08:53 AM VA-TOBACCO QUIT 1 TO < 5 YRS [place] [facility] [place] [facility] Apr 27, 2020 11:42 AM VA-TOBACCO NEVER USED [facility] Advance Directives: All historical and current Section Date Range: From patient's date of to the date document was created. This section includes ALL of a patient's completed or amended [place] Advance and Rescinded Directives. The entries below indicate that a directive exists for the patient, but an actual copy is not included with this document. The data comes from all [place] facilities. Date Advance Directives Provider Source Oct 03, 2017 ADVANCE DIRECTIVE MARILU MIRZA [facility] Dec 23, 2013 ADVANCE DIRECTIVE NIALL SALCEDO Radiology Reports: +/- 30 days of the encounter Radiology Reports For cases when an order for radiology services may have been completed prior to the date of the Encounter, the report list includes the Radiology Reports that were completed up to 30 days before dateof the Encounter. For cases when an order for radiology services may have been completed after the date of the Encounter, the report list also includes the Radiology Reports that were completed up to30 days after date of the Encounter. The data comes from all [place] treatment facilities. Date/Time Radiology Report Provider Source Apr 09, 2024 12:51 PM LDCT LUNG CANCER SCREENING: ERIC HENSLEY [id number] -[id number] M Ex Date: APR 09, 2024@12:51 Req Phys: GAIL VALDIVIA Loc: CWM/SO/PACT 7 (Req'g Loc) Img Loc: NHM/CT Service: Unknown [facility] [address] (Case 42 COMPLETE) LDCT LUNG CANCER SCREENING (CT Detailed) CPT:38785 Reason for Study: lung cancer screening Clinical History: LDCT For Lung Cancer Screening Questionnaire Please verify the following nine conditions are met. If any are not met, the patient does not qualify for this exam. Answer the below questions: 1. Age 55-80 --> Yes 2. 30 pack-year or more smoking history --> Yes 3. Must be a Surgical candidate --> Yes 4. Has quit smoking less than 15 years --> Yes 5. No known lung nodule --> multiple small nodules noted LDCT 04/29/22 6. no history of Lung Cancer --> Yes 7. Absent of Lung Cancer symptoms --> Yes 8. Patient is agreeable to shared decision making with primary ordering provider regarding needed care--> Yes 9. Willing to participate in smoking cessation --> Yes Report Status: Verified Date Reported: APR 09, 2024 Date Verified: APR 09, 2024 Trolley Worker E-Sig:/ES/ORION ORTIZ JR Report: Study: Lung cancer screening CT of the chest. Provided History: Lung cancer screening. Comparison: CT scan of the chest from April 29, 2022, April 29, 2021 and April 29, 2020. Technique: 1 mm lung algorithm and 3 mm soft tissue algorithm axial reconstructions from the lung apices through the lung bases without the administration of intravenous contrast as per standard department protocol for lung cancer screening. Subsequently, sagittal and coronal reformats were generated. MIP images also provided and reviewed. Secondary computer-aided detection with post-processing from [employer] is used. The lack of intravenous contrast inherently limits the evaluation of hilar structures, vascular structures, and abnormal enhancement patterns. Lower than standard dose was utilized limiting sensitivity for fine parenchymal detail. Dose Parameters: CTDI(vol): 2.6 mGy. DLP: 90.5 mGy*cm. Findings: Lungs: Emphysema: Mild to moderate centrilobular and paraseptal emphysematous changes with associated scattered parenchymal scarring is unchanged. Index Nodule: New 5.4 mm solid, irregular left upper lobe pulmonary nodule, 8-103. Other Nodules: None. Interval resolution of several small previously scattered pulmonary nodules. Lungs/airway findings: No acute pulmonary process or pleural effusion is identified. There are mild dependent changes present at the lung bases. The tracheobronchial tree is patent and normal. Multiple scattered bilateral punctate calcified granulomata are again seen. Heart, mediastinum and lymph nodes: Moderate global cardiomegaly again seen. Prominent aortic valve annular calcifications again seen. Left-sided AICD pacemaker device present in the left chest. The heart size is normal. No pericardial effusion identified. Normal caliber thoracic aorta. No mediastinal or hilar lymphadenopathy by size criteria. No axillary lymphadenopathy by size criteria. Normal caliber pulmonary arteries. Visualized coronary artery and aortic calcifications: Atherosclerotic changes of the aorta and coronary arteries. Upper abdomen: Epigastric surgical clips present. Bones and soft tissues: Normal age-related degenerative changes present. No acute bony abnormality identified. Other findings: None. Impression: No acute pulmonary process identified. Lung-RADS Assessment: Category 3, probably benign. Recommendation: Lung cancer screening CT in 6 months. Other Significant Findings and Recommendations: None. Primary Diagnostic Code: No immediate attention required Secondary Diagnostic Codes: LUNGRADS 3: PROBABLY BENIGN Primary Interpreting Staff: ORION ORTIZ JR, Radiologist (Trolley Worker) /ORION GRUBER JR [place] [facility] [facility] Encounter Notes: All associated encounter notes This section contains the clinical notes associated to the Encounter. Date/Time Encounter Note(s) Provider Source Apr 09, 2024 02:44 PM PREVENTIVE MEDICINE RISK ASSESSMENT SCREENING NOTE: LOCAL TITLE: LUNG CANCER SCREENING DOCUMENTATION STANDARD TITLE: PREVENTIVE MEDICINE RISK ASSESSMENT SCREENING NO DATE OF NOTE: APR 09, 2024@14:44 ENTRY DATE: APR 09, 2024@14:44:57 AUTHOR: KEL CELAYA COSIGNER: URGENCY: STATUS: COMPLETED LUNG CANCER SCREENING DOCUMENTATION Has ADDENDA TRACKING OF NODULE INDICATED: Date of current image: Date: April 09, 2024 Lung RADS Score: 3 Index Nodule: New 5.4 mm solid, irregular left upper lobe pulmonary nodule, 8-103. Other Nodules: None. Interval resolution of several small previously scattered pulmonary nodules. Incidental Findings: The following *INCIDENTAL FINDINGS* were noted: Emphysema: Mild to moderate centrilobular and paraseptal emphysematous changes with associated scattered parenchymal scarring is unchanged Heart, mediastinum and lymph nodes: Moderate global cardiomegaly again seen. Prominent aortic valve annular calcifications again seen. Left-sided AICD pacemaker device present in the left chest. Visualized coronary artery and aortic calcifications: Atherosclerotic changes of the aorta and coronary arteries. Upper abdomen: Epigastric surgical clips present. I am notifying the Primary Care Provider for information, and for follow-up of incidental findings, if indicated. Comment: Alejandra Wills APPLICATION ARCHITECT MANAGER via TEAMs message and second signer in CPRS, PACT team via second signer in CPRS Plan: Interval until next LDCT scan is due: 6 months Comment: Pending recommendations via image review for all LR 3/0 through established clinical pathway with [place], [place] Patient Notification of results: Patient contacted by telephone. Comment: Call placed to the . Results of LCS LDCT reviewed in detail, specifically the interval resolution of previously described small nodules and new 5.4mm nodule in the PHILL. Education provided. Discussed the process for image review through [place], [place]. [place] aware that the radiology recommendations are for a 6 month LCS LDCT, however the recommendation from [place] may align with this recommendation or vary. Webster aware that LCS Coordinator will follow up with him by phone with recommendations. [place] expressed understanding of this plan and agreement. /es/ KEL LEDBETTER,RN,OCN LUNG CANCER SCREENING NURSE NAVIGATOR Signed: 04/09/2024 15:01 Receipt Acknowledged By: 04/18/2024 04:59 /es/ ALEJANDRA WILLS NP NURSE PRACTITIONER 04/09/2024 16:24 /es/ ANATOLY MONAHAN RN-BC REGISTERED NURSE for CHENG SALAZAR 04/09/2024 ADDENDUM STATUS: COMPLETED Recommendations from [place], [place] on 04/09/2024: [facility] Associated on: Apr 09, 2024@15:56:34 LOCAL TITLE: LUNG CANCER SCREENING E-CONSULT STANDARD TITLE: PULMONARY CONSULT DATE OF NOTE: APR 09, 2024@15:52 ENTRY DATE: APR 09, 2024@15:52:48 AUTHOR: VICENTE MUNOZ EXP COSIGNER: URGENCY: STATUS: COMPLETED 78 year old male, part of [facility] LCS Program. He just underwent a new LDCT for LCS on 04/09/2024, there does not appear to be an interval scan in 2022, and last scan noted to be 04/29/2022. On the 04/09/2024 there is a new <6mm nodule in the PHILL that was not present 2 years ago. This nodule is too small and he does appear to have a hx of waxing and waning nodules as some nodules noted on prior imaging are not seen on this scan. According to lung rads criteria a new nodule noted to be 4mm or greater but less than 6mm is coded a lung rads 3. Recommendations : LDCT LCS in 6months- this to be coordinated by the [facility] LCS team. /es/ VICENTE MUNOZ APRN, [employer] PRACTICE REGISTERED NURSE Signed: 04/09/2024 15:56 LCS Coordinator placed call to concurrence of 6 month LCS LDCT reviewed with [place]. [place] verbalized good understanding and agreement with this plan. /barbie/ KEL HERNANDEZN,RN,OCN LUNG CANCER SCREENING NURSE NAVIGATOR Signed: 04/09/2024 16:16 KEL CELAYA [facility]
--- OUTSIDE RECORDS SUMMARY | 2024-08-08 13:28 | XMS_ITS | Encounter Summary ---
Author Name [facility] [place] Organization [facility] [place] Address [address] [place] [id number] Care Team Providers Care Sap Project Manager Name Role Phone DOUG ARCHULETA Primary Care [...] PART A Jun 26, 2006 PART A [id number] DIMITRIS HENSLEY PATIENT MEDICARE (WNR) MEDICARE (M) PART A Jun 26, 2006 PART A [id number] DIMITRIS HENSLEY PATIENT Selected Encounter This section includes the information on record at CT for the Encounter. Date/Time Encounter Type Encounter Description Reason Provider Source Feb 09, 2024 01:00 PM OFFICE O/P EST MOD 30 MIN PRIMARY CARE/MEDICINE ICD-10-CM I48.91 Unspecified atrial fibrillation BARBARA VALDIVIA Rashid Encounter Template Text not used by CT Assessments - Encounter Diagnoses This section includes the primary and secondary diagnoses documented for the Encounter. Date/Time Primary/Secondary Diagnosis Diagnosis Name Provider Source Feb 11, 2024 08:44 AM PRIMARY Unspecified atrial fibrillation GAIL VALDIVIA Feb 11, 2024 08:44 AM SECONDARY Chronic obstructive pulmonary disease, unspecified GAIL VALDIVIA [facility] Feb 11, 2024 08:44 AM SECONDARY Dilated cardiomyopathy GAIL VALDIVIA [facility] Feb 11, 2024 08:44 AM SECONDARY Essential (primary) hypertension GAIL VALDIVIA [facility] Feb 11, 2024 08:44 AM SECONDARY Hyperlipidemia, unspecified GAIL VALDIVIA [facility] Feb 11, 2024 08:44 AM SECONDARY MCC (current) use of anticoagulants GAIL VALDIVIA [facility] Feb 11, 2024 08:44 AM SECONDARY Personal history of nicotine dependence GAIL VALDIVIA [facility] Feb 11, 2024 08:44 AM SECONDARY Presence of cardiac pacemaker GAIL VALDIVIA [facility] Plan of Treatment: Future Appointments (+ 6 months) and Future Tests (+/- 45 days) The Plan of Treatment section includes future care activities for the [facility] This section includes future appointments and future orders which are active, pending or scheduled. Future Appointments This section includes appointments that were scheduled to occur 6 months from the date of the Encounter, up to a maximum of 20 appointments. The data comes from all CT treatment facilities. Appointment Date/Time Appointment Type Appointme nt Facility Name Feb 12, 2024 12:30 PM AMBULATORY - SURGERY [facility] Apr 09, 2024 01:00 PM AMBULATORY - NONE [facility] Jun 21, 2024 01:00 PM AMBULATORY - MEDICINE [facility] Aug 08, 2024 09:30 AM AMBULATORY - MEDICINE [facility] Lab Results: +/- 30 days of the encounter This section includes the Chemistry and Hematology Lab Results on record with CT for the patient. Radiology Reports and Pathology Reports are provided separately, in subsequent sections. Lab Results This section contains the Chemistry/Hematology Results that were resulted 30 days before or 30 daysafter the date of the Encounter. Date/Time Source Result Type Result - Unit Interpretation Reference Range Comment Feb 12, 2024 11:18 AM [facility] PT & INR ([facility]) Specimen Type: PLASMA No comment entered. Ordering Provider: KATINA GRANT Report Released Date/Time: Jan 15, 2024 04:23 PM Reporting Lab: [address] [address] Performing Lab: [facility] [address] [facility] [address] INR 2.2 PROTIME 24.1 s H 10.0-13.1 Jan 15, 2024 12:58 PM [facility] PT & INR ([place]) Specimen Type: PLASMA No comment entered. Ordering Provider: KATINA GRANT Report Released Date/Time: Jan 01, 2024 02:52 PM Reporting Lab: [facility] [address] [facility] [address] Performing Lab: [facility] [address] [facility] [address] INR 2.0 PROTIME 22.5 s H 10.0-13.1 Vital Signs: All taken on the encounter date This section contains inpatient and outpatient Vital Signs collected on the date of the Encounter. Date/Time Temperature Pulse Blood Pressure Respiratory Rate SP02 Pain Height Weight Body Mass Index Source Feb 09, 2024 01:06 PM 97.7 93 124/81 20 96 63 178 [address] [facility] IE Social History: Smoking Status (Most current) and Tobacco Use (All prior to encounter date) This section includes the most current, and the historical, smoking and tobacco- related health factors from the CT facility where the Encounter took place. Current Smoking Status This section includes the most current smoking, or tobacco-related health factor, from the [place] facility where the Encounter took place. Date/Time Current Smoking Status Comment Dwight itиван Sep 27, 2023 10:30 AM VA-TOBACCO FORMER USER [facility] Tobacco Use History This section includes a history of the smoking, or tobacco-related health factors, that were collected on or before the date of the Encounter. The data comes from the CT facility where the Encounter took place. 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 [facility] Dec 20, 2018 09:40 AM VA-TOBACCO USE MED NOTIFY PROVIDER [facility] Dec 20, 2018 09:40 AM VA-TOBACCO USE WI 30 MIN OF WAKEUP [facility] Dec 20, 2018 09:40 AM VA-TOBACCO USER EVERY DAY [facility] Mar 05, 2018 01:38 PM [facility] Sep 04, 2017 01:34 PM [facility] Sep 09, 2016 01:00 PM QUIT TOBACCO USE I N PAST YEAR 04/26/16 quit [facility] Sep 14, 2015 08:27 AM QUIT TOBACCO USE I N PAST YEAR [facility] Feb 13, 2015 05:11 PM QUIT TOBACCO USE I N PAST YEAR [facility] Aug 18, 2014 04:22 PM V1-PT NOT INTEREST ED IN QUIT TOBACCO USE [facility] Dec 16, 2013 10:23 AM CURRENT SMOKER 1/2 ppd [facility] Dec 16, 2013 10:23 AM V1-PT DECLINES REF TO [facility]CO [facility] Dec 16, 2013 10:23 AM V1-PT DECLINES TOB ACCO CESSATION [facility] Dec 16, 2013 10:23 AM V1-PT NOT INTEREST ED IN QUIT TOBACCO USE [facility] Sep 25, 2012 01:54 PM QUIT TOBACCO USE I N PAST YEAR [facility] Dec 23, 2011 09:43 AM CURRENT SMOKER Pt states he smokes a half a pack of cigaretts a day. [facility] Dec 23, 2011 09:43 AM V1-PT DECLINES REF TO TOBACCO [facility] Dec 23, 2011 09:43 AM V1-PT DECLINES TOB ACCO CESSATION [facility] Dec 23, 2011 09:43 AM V1-PT NOT INTEREST ED IN QUIT TOBACCO USE [facility] Dec 30, 2010 01:14 PM V1-PT DECLINES REF TO TOBACCO [facility] Dec 30, 2010 01:14 PM V1-PT DECLINES TOB ACCO CESSATION [facility] Dec 30, 2010 01:14 PM V1-PT NOT INTEREST ED IN QUIT TOBACCO USE [facility] Jun 02, 2010 09:23 AM CURRENT SMOKER smoker for 50 yrs...1 ppd [facility] Jun 02, 2010 09:23 AM V1-PT DECLINES REF TO TOBACCO [facility] Jun 02, 2010 09:23 AM V1-PT THINKING ABO UT QUIT TOBACCO USE [facility] May 19, 2009 11:23 AM CURRENT SMOKER 10-12 cigaretts daily...smoking 50 years [facility] Apr 08, 2008 01:51 PM CURRENT SMOKER Patient reports smoking a pack of ciggs a day. [facility] Dec 18, 2007 10:09 AM V1-PT DECLINES REF TO TOBACCO [facility] Dec 18, 2007 10:09 AM V1-PT READY TO MARCIANO T TOBACCO USE [facility] Apr 17, 2007 01:58 PM QUIT TOBACCO USE I N PAST YEAR [facility] Oct 16, 2006 02:20 PM V1-PT [facility]CL[facility]ES REF [facility] Oct 16, 2006 02:20 PM V1-PT READY TO MARCIANO T TOBACCO USE [facility] Jan 13, 2006 01:11 PM CURRENT SMOKER Rocío continues to smoke 1 pkg of cigarettes daily. He said he does not want quit tobacco. [facility] Nov 30, 2004 12:31 PM CURRENT SMOKER 1 pack a day [facility] Advance Directives: All historical and current Section Date Range: From patient's date of to the date document was created. This section includes ALL of a patient's completed or amended CT Advance and Rescinded Directives. The entries below indicate that a directive exists for the patient, but an actual copy is not included with this document. The data comes from all CT facilities. Date Advance Directives Provider Source Oct 03, 2017 ADVANCE DIRECTIVE MARILU MIRZA [facility] Dec 23, 2013 ADVANCE DIRECTIVE NIALL SALCEDO Encounter Notes: All associated encounter notes This section contains the clinical notes associated to the Encounter. Date/Time Encounter Note(s) Provider Source Apr 11, 2024 08:05 AM ADDENDUM: LOCAL TITLE: Addendum STANDARD TITLE: ADDENDUM DATE OF NOTE: APR 11, 2024@08:05:14 ENTRY DATE: APR 11, 2024@08:05:15 AUTHOR: GAIL VALDIVIA EXP COSIGNER: URGENCY: STATUS: COMPLETED Please notify patient that nodule noted on CT appears benign but we should recheck CT in 6 months. /barbie/ STORM STERN CERTIFIED NURSE PRACTITIONER Signed: 04/11/2024 08:05 Receipt Acknowledged By: 04/16/2024 10:10 /barbie/ ANATOLY MONAHAN RN-BC REGISTERED NURSE --- Original Document --- 02/09/24 NURSE PRACTITIONER OUTPATIENT NOTE: PRIMARY CARE VISIT ERIC HENSLEY, is a 78 y/o WHITE MALE who presents today at the [facility]. TYPE OF VISIT: Face to face HPI: AFib, HTN, cardiomyopathy. Hx valve replacement. Has pacemaker/defib, replaced November 2023. On Warfarin. INR has been stable. HLD - on gemfibrozil. Would like to go to [facility] for cardiology f/u. COPD - hs smoker, quit 5 years ago. Last LDCT shsowed multiple small nodules 04/29/22. On maintenance and rescue Rx. Recent labs reviewed and all medications were reconciled during this visit. HEALTHCARE PROVIDERS: cardiolgy GI HISTORY: PERIOD OF SERVICE - [employer] FROM Jun TO Sep COMBAT SERVICE INDICATED: No VITAL SIGNS: Temperature 97.7 F [36.5 C] (02/09/2024 13:06) Blood Pressure 124/81 (02/09/2024 13:06) Pulse 93 (02/09/2024 13:06) Respiration 20 (02/09/2024 13:06) Pain 0 (11/01/2023 10:33) BMI BMI: 31.6 Weight 178 lb [80.74 kg] (02/09/2024 13:06) Pulse Oximetry 96% (02/09/2024 13:06) ASSISTIVE DEVICES: NA REVIEW OF SYSTEMS: CONSTITUTIONAL: No fevers, chills, unexpected weight changes. CARDIOVASCULAR: No chest pain, palpitations or peripheral edema. RESPIRATORY: No SOB, cough, sputum, wheeze. GASTROINTESTINAL: Denies abdominal pain, N/V/D/C. No melena or hematochezia. GENITOURINARY: No dysuria, hematuria, urinary frequency or urgency. No nocturia. NEUROLOGIC: No headaches, dizziness, numbness/tingling in the extremities or unilateral weakness. PHYSICAL EXAMINATION: General: Well-appearing in no obvious distress. Mental Status: Alert and oriented x4. Neck: Supple. No lymphadenopathy. No bruit. Thyroid unremarkable. Lungs: CTAB, diminished in bases. Normal chest excursion. Eupneic respirations. CV: Heart tones S1, S2. RRR. No M/G/R. Pacemaker palpated left upper chest. No peripheral edema. GI: Abdomen is soft and nontender. No palpable mass or organomegaly. : No CVA tenderness. Neuro: CN II through XII grossly intact. Normal speech. Normal gait. Psych: Normal mood and affect. Normal judgment. Cooperative with exam, follows commands. ALLERGIES: PRILOSEC 20MG CAPSULE, ZOCOR, FLUVASTATIN, MEXILETINE, ALLOPURINOL HEALTH MAINTENANCE - see end of note PREVENTIVE MEDICINE GOALS Info Only: [facility] DUE NOW EGD F/U Jan 31 Home Telehealth ([facility]HT) Referral October 31 Primary Care Provider Search DUE NOW Medication Reconciliation DUE NOW (Optional) Whole Health Documentation DUE NOW ASSESSMENT/PLAN: Active problems - Computerized Problem List is the source for the followin. Atrial fibrillation - stable, continues on warfarin. INR stable. Has pacer. Referral made to [facility] cardiology for f/u 2. Benign essential hypertension - stable, continue Rx 3. Dilated cardiomyopathy - see POC #1 4. Postsurgical Status of Cardiac Pacemaker in Situ - replaced 11/2023 5. Hyperlipidemia (SNOMED CT 11932554) - labs stable, continue Rx 6. History of aortic valve replacement - 7. Long-term current use of anticoagulant (SNOMED CT 079690440) - at high risk for bleeding complications. INR has been stable. 8. Moderate chronic obstructive pulmonary disease - former smoker. Continue Rx. Decline expected with natural progression of disease. Will order repeat LDCT 9. Former smoker - quit 2019. Will repeat labs next appt FOLLOW UP: Return to clinic as noted below and/or sooner PRN UPCOMING APPOINTMENTS: No data available No barriers noted; patient understands and agrees to current treatment plan. If patient has any questions, concerns or changes in current health status he/she will call or come in to the [facility]. HM: Info Only: [facility] Capable: Primary Care Provider Search: Patient desires Primary Care at this [facility] - already established. Medication Reconciliation: Outpatient: Has the patient been taking medications as documented in the EMLR? YES: The patient has been taking medications as documented in the EMLR. Essential Medication List for Review used to complete this medication reconciliation. INCLUDED IN THIS LIST: Alphabetical list of active outpatient prescriptions dispensed from this CT (local) and dispensed from another CT or [facility] facility (remote) as well as inpatient orders [...] whether with a VA or non-VA provider. /barbie/ STORM STERN CERTIFIED NURSE PRACTITIONER Signed: 02/11/2024 08:45 GAIL VALDIVIA [facility] Feb 09, 2024 01:02 PM PRIMARY CARE NURSE PRACTITIONER OUTPATIENT NOTE: LOCAL TITLE: NURSE PRACTITIONER OUTPATIENT NOTE STANDARD TITLE: PRIMARY CARE NURSE PRACTITIONER OUTPATIENT NOTE DATE OF NOTE: FEB 09, 2024@13:02 ENTRY DATE: FEB 09, 2024@13:02:56 AUTHOR: GAIL VALDIVIA EXP COSIGNER: URGENCY: STATUS: COMPLETED NURSE PRACTITIONER OUTPATIENT NOTE Has ADDENDA PRIMARY CARE VISIT ERIC CHAN HENSLEY, is a 78 y/o WHITE MALE [place] who presents today at the [facility]. TYPE OF VISIT: Face to face HPI: AFib, HTN, cardiomyopathy. Hx valve replacement. Has pacemaker/defib, replaced November 2023. On Warfarin. INR has been stable. HLD - on gemfibrozil. Would like to go to [facility] for cardiology f/u. COPD - hs smoker, quit 5 years ago. Last LDCT shsowed multiple small nodules 04/29/22. On maintenance and rescue Rx. Recent labs reviewed and all medications were reconciled during this visit. HEALTHCARE PROVIDERS: cardiolgy GI HISTORY: PERIOD OF SERVICE - [employer] FROM Jun TO Sep COMBAT SERVICE INDICATED: No VITAL SIGNS: Temperature 97.7 F [36.5 C] (02/09/2024 13:06) Blood Pressure 124/81 (02/09/2024 13:06) Pulse 93 (02/09/2024 13:06) Respiration 20 (02/09/2024 13:06) Pain 0 (11/01/2023 10:33) BMI BMI: 31.6 Weight 178 lb [80.74 kg] (02/09/2024 13:06) Pulse Oximetry 96% (02/09/2024 13:06) ASSISTIVE DEVICES: NA REVIEW OF SYSTEMS: CONSTITUTIONAL: No fevers, chills, unexpected weight changes. CARDIOVASCULAR: No chest pain, palpitations or peripheral edema. RESPIRATORY: No SOB, cough, sputum, wheeze. GASTROINTESTINAL: Denies abdominal pain, N/V/D/C. No melena or hematochezia. GENITOURINARY: No dysuria, hematuria, urinary frequency or urgency. No nocturia. NEUROLOGIC: No headaches, dizziness, numbness/tingling in the extremities or unilateral weakness. PHYSICAL EXAMINATION: General: Well-appearing in no obvious distress. Mental Status: Alert and oriented x4. Neck: Supple. No lymphadenopathy. No bruit. Thyroid unremarkable. Lungs: CTAB, diminished in bases. Normal chest excursion. Eupneic respirations. CV: Heart tones S1, S2. RRR. No M/G/R. Pacemaker palpated left upper chest. No peripheral edema. GI: Abdomen is soft and nontender. No palpable mass or organomegaly. : No CVA tenderness. Neuro: CN II through XII grossly intact. Normal speech. Normal gait. Psych: Normal mood and affect. Normal judgment. Cooperative with exam, follows commands. ALLERGIES: PRILOSEC 20MG CAPSULE, ZOCOR, FLUVASTATIN, MEXILETINE, ALLOPURINOL HEALTH MAINTENANCE - see end of note PREVENTIVE MEDICINE GOALS Info Only: [facility] DUE NOW EGD F/U Jan 31 Home Telehealth ([facility]HT) Referral October 31 Primary Care Provider Search DUE NOW Medication Reconciliation DUE NOW (Optional) Whole Health Documentation DUE NOW ASSESSMENT/PLAN: Active problems - Computerized Problem List is the source for the followin. Atrial fibrillation - stable, continues on warfarin. INR stable. Has pacer. Referral made to [facility] cardiology for f/u 2. Benign essential hypertension - stable, continue Rx 3. Dilated cardiomyopathy - see POC #1 4. Postsurgical Status of Cardiac Pacemaker in Situ - replaced 11/2023 5. Hyperlipidemia (SNOMED CT 13380084) - labs stable, continue Rx 6. History of aortic valve replacement - 7. Long-term current use of anticoagulant (SNOMED CT 585116432) - at high risk for bleeding complications. INR has been stable. 8. Moderate chronic obstructive pulmonary disease - former smoker. Continue Rx. Decline expected with natural progression of disease. Will order repeat LDCT 9. Former smoker - quit 2018. Will repeat labs next appt FOLLOW UP: Return to clinic as noted below and/or sooner PRN UPCOMING APPOINTMENTS: No data available No barriers noted; patient understands and agrees to current treatment plan. If patient has any questions, concerns or changes in current health status he/she will call or come in to the [facility]. HM: Info Only: [facility] Connect Capable: Primary Care Provider Search: Patient desires Primary Care at this [facility] - already established. Medication Reconciliation: Outpatient: Has the patient been taking medications as documented in the EMLR? YES: The patient has been taking medications as documented in the EMLR. Essential Medication List for Review used to complete this medication reconciliation. INCLUDED IN THIS LIST: Alphabetical list of active outpatient prescriptions dispensed from this CT (local) and dispensed from another [facility] or [facility] facility (remote) as well as inpatient orders [...] whether with a VA or non-VA provider. /STORM Guevara CERTIFIED NURSE PRACTITIONER Signed: 02/11/2024 08:45 04/11/2024 ADDENDUM STATUS: COMPLETED Please notify patient that nodule noted on CT appears benign but we should recheck CT in 6 months. /STORM Guevara CERTIFIED NURSE PRACTITIONER Signed: 04/11/2024 08:05 Receipt Acknowledged By: 04/16/2024 10:10 /barbie/ ANATOLY MONAHAN RN-REY REGISTERED NURSE 04/16/2024 ADDENDUM STATUS: COMPLETED [facility] staff has spoke with [place] regarding lung cancer screening results and recommendation to recheck in 6 months. no further action needed. /ANATOLY Odonnell RN-BC REGISTERED NURSE Signed: 04/16/2024 10:12 GAIL VALDIVIA
--- OUTSIDE RECORDS SUMMARY | 2024-08-08 13:28 | XMS_ITS | Encounter Summary ---
Author Name [facility] [place] Organization [facility] [place] Address [address] [place] [id number] Care Team Providers Care Belt Repairer Name Role Phone DOUG ARCHULETA Primary Care [...] PART A Jun 26, 2006 PART A [id number] [phone] DIMITRIS HENSLEY PATIENT MEDICARE (WNR) MEDICARE (M) PART A Jun 26, 2006 PART A [id number] [phone] DIMITRIS HENSLEY PATIENT Selected Encounter This section includes the information on record at [place] for the Encounter. Date/Time Encounter Type Encounter Description Reason Provider Source Sep 27, 2023 10:30 AM OFFICE O/P EST MOD 30 MIN PRIMARY CARE/MEDICINE ICD-10-CM I10 Essential (primary) hypertension DOUG ARCHULETA Encounter Template Text not used by NE Assessments - Encounter Diagnoses This section includes the primary and secondary diagnoses documented for the Encounter. Date/Time Primary/Secondary Diagnosis Diagnosis Name Provider Source Sep 27, 2023 11:01 AM PRIMARY Essential (primary) hypertension DOUG ARCHULETA Sep 27, 2023 11:01 AM SECONDARY Amaro's esophagus without dysplasia DOUG ARCHULETA MANUELITO Sep 27, 2023 11:01 AM SECONDARY Chronic obstructive pulmonary disease, unspecified DOUG ARCHULETA MANUELITO Sep 27, 2023 11:01 AM SECONDARY Hyperlipidemia, unspecified DOUG ARCHULETA Plan of Treatment: Future Appointments (+ 6 months) and Future Tests (+/- 45 days) The Plan of Treatment section includes future care activities for the patient from all [place] treatmentfacilities. This section includes future appointments and future orders which are active, pending or scheduled. Future Appointments This section includes appointments that were scheduled to occur 6 months from the date of the Encounter, up to a maximum of 20 appointments. The data comes from all [place] treatment facilities. Appointment Date/Time Appointment Type Appointme nt Facility Name November 01, 2023 10:30 AM AMBULATORY [place]ICINE [place] [facility] [place] [facility] November 15, 2023 08:00 AM [facility] November 15, 2023 01:45 PM AM[facility]ULATORY - MEDICINE [place] [facility] [place] [facility] Jan 24, 2024 10:00 AM AMBULATORY - MEDICINE [place] [facility] [place] [facility] Feb 09, 2024 01:00 PM AMBULATORY - MEDICINE [facility] Feb 12, 2024 12:30 PM AMBULATORY - SURGERY [facility] Lab Results: +/- 30 days of the encounter This section includes the Chemistry and Hematology Lab Results on record with NE for the patient. Radiology Reports and Pathology Reports are provided separately, in subsequent sections. Lab Results This section contains the Chemistry/Hematology Results that were resulted 30 days before or 30 daysafter the date of the Encounter. Date/Time Source Result Type Result - Unit Interpretation Reference Range Comment Oct 11, 2023 11:[address] [facility] PT & INR (COUMADIN) Specimen Type: PLASMA No comment entered. Ordering Provider: TG SALAS Report Released Date/Time: Sep 27, 2023 01:26 PM Reporting [facility] [address] [address] Performing Lab: [address] [address] INR 2.4 PROTIME 25.9 s H 10.0-13.1 Sep 27, 2023 10:[address] [facility] PT & INR (COUMADIN) Specimen Type: PLASMA No comment entered. Ordering Provider: FERNY BOURNE Report Released Date/Time: Sep 13, 2023 03:08 PM Reporting Lab[facility] [address] [facility] [address] Performing Lab: [facility] [address] [address] INR 2.1 PROTIME 22.8 s H 10.0-13.1 Sep 27, 2023 10:[address] [facility] VITAMIN B12 Specimen Type: SERUM No comment entered. Ordering Provider: DOUG ARCHULETA Report Released Date/Time: Sep 27, 2023 06:33 AM Reporting Lab: [facility] [address] [address] Performing Lab: [facility] [address] [address] VITAMIN B12 303 pg/mL 200-900 Sep 27, 2023 10:[address] [facility] LIPID PANEL FASTING Specimen Type: SERUM No comment entered. Ordering Provider: DOUG ARCHULETA Report Released Date/Time: Sep 27, 2023 06:33 AM Reporting Lab: [facility] [address] [address] Performing Lab: [facility] [address] [address] CHOLESTEROL 161 mg/dL TRIGLYCERIDE 137 mg/dL 0-150 LDL calculated 101 mg/dL 0-129 CHOL/HDL 4.9 HDL CHOLESTEROL 33 mg/dL L 40-60 Sep 27, 2023 10:[address] [facility] URIC ACID Specimen Type: SERUM No comment entered. Ordering Provider: DOUG ARCHULETA Report Released Date/Time: Sep 27, 2023 06:33 AM Reporting Lab: [facility] [address] [address] Performing Lab: [facility] [address] [facility] [address] URIC ACID 1.8 mg/dL L 3.5-7.2 Sep 27, 2023 10:00 AM [facility] LIVER FUNCTION Specimen Type: SERUM No comment entered. Ordering Provider: DOUG ARCHULETA Report Released Date/Time: Sep 27, 2023 06:33 AM Reporting Lab: [address] [address] Performing Lab: [address] [address] PROTEIN,TOTAL 6.6 g/dL 6.0-8.3 ALBUMIN 3.7 g/dL 3.5-5.0 ALKALINE PHOSPHATASE 96 U/L 40-150 AST 17 U/L 5-34 ALT 15 U/L BILIRUBIN, TOTAL 0.6 mg/dL 0.2-1.2 Sep 27, 2023 10:00 AM [facility] TSH Specimen Type: SERUM No comment entered. Ordering Provider: DOUG ARCHULETA Report Released Date/Time: Sep 27, 2023 06:33 AM Reporting Lab: [address] [address] Performing Lab: [address] [address] TSH 1.58 u[IU]/mL 0.35-5.00 Sep 27, 2023 10:00 AM [facility] BASIC METABOLIC PANEL (fasting) Specimen Type: SERUM No comment entered. Ordering Provider: DOUG ARCHULETA Report Released Date/Time: Sep 27, 2023 06:33 AM Reporting Lab: [address] [address] Performing Lab: [address] [address] UREA NITROGEN 24 mg/dL 7-25 GLUCOSE 96 mg/dL 65-100 SODIUM 142 mmol/L 135-145 POTASSIUM 4.9 mmol/L 3.5-5.0 CHLORIDE 107 mmol/L 100-110 CO2 26 meq/L 20-30 CREATININE, Serum 1.28 mg/dL 0.50-1.40 eGFR(CKD-EPI 2020) 58 mL/min L >60 Sep 27, 2023 10:00 AM [facility] HEMOGLOBIN A1C PANEL Specimen Type: BLOOD Comment: Values obtained from A1C measurements can vary. For atypical A1C assays, a reported value of 7.0 could actually be between 6.72 and 7.28 if measured by a reference method. A reported value of 9.0 could actually be between 8.73 and 9.27. Ref: [email or web address] Ordering Provider: DOUG ARCHULETA Report Released Date/Time: Sep 27, 2023 06:33 AM Reporting Lab: [address] [address] Performing Lab: [address] [address] HEMOGLOBIN A1C 5.5 4.0-5.6 Sep 27, 2023 10:00 AM [facility] CBC AND DIFF (AUTO) Specimen Type: BLOOD No comment entered. Ordering Provider: DOUG ARCHULETA Report Released Date/Time: Sep 27, 2023 06:33 AM Reporting Lab: [address] [address] Performing Lab: [address] [address] WBC 5.27 10*3/uL 4.50-11.00 RBC 4.21 10*6/uL L 4.23-5.66 HGB 13.4 g/dL 12.8-17 HCT 40.9 39.2-50.4 MCV 97.1 fL 82-99 MCHC 32.8 g/dL 30.8-35.1 PLT 143 10*3/uL 140-360 RDW-CV 13.2 12.0-16.0 [place], Abs 0.36 10*3/uL 0.30-1.10 MCH 31.8 pg 26.2-32.6 Neut % 70.0 43.7-75.8 Lymph % 20.9 14.0-42.3 [place] % 6.8 5.1-13.7 Eos % 1.1 0.4-6.8 Baso % 0.4 0.1-2.0 Neut, Abs 3.69 10*3/uL 2.20-7.60 Lymph, Abs 1.10 10*3/uL 1.00-3.20 Eos, Abs 0.06 10*3/uL 0.03-0.44 Baso, Abs 0.02 10*3/uL 0.01-0.13 Immature Gran % 0.8 H 0.0-0.7 Immature Gran, Abs 0.04 10*3/uL 0.00-0.06 Sep 13, 2023 10:[address] [facility] PT & INR ([place]OU[place]IN) Specimen Type: PLASMA No comment entered. Ordering Provider: FERNY BOURNE Report Released Date/Time: Aug 30, 2023 03:07 PM Reporting Lab: [address] [address] Performing Lab: [address] [address] INR 2.2 PROTIME 24.4 s H 10.0-13.1 Aug 30, 2023 10:33 AM [facility] PT & INR (COU[place]ADIN) Specimen Type: PLASMA No comment entered. Ordering Provider: MARY PALAFOX Report Released Date/Time: Aug 24, 2023 11:15 AM Reporting Lab: [address] [address] [facility]forming Lab[facility] [address] [address] INR 2.6 PROTIME 27.9 s H 10.0-13.1 Social History: Smoking Status (Most current) and Tobacco Use (All prior to encounter date) This section includes the most current, and the historical, smoking and tobacco- related health factors from the NE facility where the Encounter took place. Current Smoking Status This section includes the most current smoking, or tobacco-related health factor, from the NE facility where the Encounter took place. Date/Time Current Smoking Status Comment Dwight rosas Sep 27, 2023 10:30 AM VA-TOBACCO FORMER USER [facility] Tobacco Use History This section includes a history of the smoking, or tobacco-related health factors, that were collected on or before the date of the Encounter. The data comes from the NE facility where the Encounter took place. Date/Time Smoking Status/Tobacco Use Comment F acility Sep 27, 2023 10:30 AM VA-TOBACCO QUIT 5 TO < 15 YRS [facility] Jun 09, 2022 01:00 PM VA-TOBACCO NEVER USED [facility] Dec 20, 2018 09:40 AM VA-TOBACCO USE 30 YEARS OR MORE [facility] Dec 20, 2018 09:40 AM VA-TOBACCO USE ADVICE [facility] Dec 20, 2018 09:40 AM VA-TOBACCO USE RN EMBEDDED YES [facility] Dec 20, 2018 09:40 AM VA-TOBACCO USE MED NOTIFY PROVIDER [facility] Dec 20, 2018 09:40 AM VA-TOBACCO USE WI 30 MIN OF WAKEUP [facility] Dec 20, 2018 09:40 AM VA-TOBACCO USER EVERY DAY [facility] Mar 05, 2018 01:38 PM CURRENT SMOKER SPRI [facility] Sep 04, 2017 01:34 PM CURRENT SMOKER LEOI [facility] Sep 09, 2016 01:00 PM QUIT TOBACCO USE I N PAST YEAR 04/26/16 quit [facility] Sep 14, 2015 08:27 AM QUIT TOBACCO USE I N PAST YEAR [facility] Feb 13, 2015 05:11 PM QUIT TOBACCO USE I N PAST YEAR [facility] Aug 18, 2014 04:22 PM V1-PT NOT INTEREST ED IN QUIT TOBACCO USE [facility] Dec 16, 2013 10:23 AM CURRENT SMOKER 1/2 ppd [facility] Dec 16, 2013 10:23 AM V1-PT DECLINES REF TO TOBACCO CESS [facility] Dec 16, 2013 10:23 AM V1-PT DECLINES TOB ACCO CESSATION [facility] Dec 16, 2013 10:23 AM V1-PT NOT INTEREST ED IN QUIT TOBACCO USE [facility] Sep 25, 2012 01:54 PM QUIT TOBACCO USE I N PAST YEAR [facility] Dec 23, 2011 09:43 AM CURRENT SMOKER Pt states he smokes a half a pack of cigaretts a day. [facility] Dec 23, 2011 09:43 AM V1-PT DECLINES REF TO TOBACCO CESS [facility] Dec 23, 2011 09:43 AM V1-PT DECLINES TOB ACCO CESSATION [facility] Dec 23, 2011 09:43 AM V1-PT NOT INTEREST ED IN QUIT TOBACCO USE [facility] Dec 30, 2010 01:14 PM V1-PT DECLINES REF TO TOBACCO CESS [facility] [place] Dec 30, 2010 01:14 PM V1-PT DECLINES TOB ACCO CESSATION [facility] Dec 30, 2010 01:14 PM V1-PT NOT INTEREST ED IN QUIT TOBACCO USE [facility] Jun 02, 2010 09:23 AM CURRENT SMOKER smoker for 50 yrs...1 ppd [facility] Jun 02, 2010 09:23 AM V1-PT DECLINES REF TO TOBACCO CESS [facility] Jun 02, 2010 09:23 AM V1-PT THINKING ABO UT QUIT TOBACCO USE [facility] May 19, 2009 11:23 AM CURRENT SMOKER 10-12 cigaretts daily...smoking 50 years [facility] Apr 08, 2008 01:51 PM CURRENT SMOKER Patient reports smoking a pack of ciggs a day. [facility] Dec 18, 2007 10:09 AM V1-PT DECLINES REF TO TOBACCO CESS [facility] Dec 18, 2007 10:09 AM V1-PT READY TO MARCIANO T TOBACCO USE [facility] Apr 17, 2007 01:58 PM QUIT TOBACCO USE I N PAST YEAR [facility] Oct 16, 2006 02:20 PM V1-PT DECLINES REF TO TOBACCO CESS [facility] Oct 16, 2006 02:20 PM V1-PT READY TO MARCIANO T TOBACCO USE [facility] Jan 13, 2006 01:11 PM CURRENT SMOKER Rocío continues to smoke 1 pkg of cigarettes daily. He said he does not want quit tobacco. [facility] Nov 30, 2004 12:31 PM CURRENT SMOKER 1 pack a day [facility] Advance Directives: All historical and current Section Date Range: From patient's date of to the date document was created. This section includes ALL of a patient's completed or amended [place] Advance and Rescinded Directives. The entries below indicate that a directive exists for the patient, but an actual copy is not included with this document. The data comes from all [place] facilities. Date Advance Directives Provider Source Oct 03, 2017 ADVANCE DIRECTIVE MARILU MIRZA [facility] Dec 23, 2013 ADVANCE DIRECTIVE NIALL SALCEDO Encounter Notes: All associated encounter notes This section contains the clinical notes associated to the Encounter. Date/Time Encounter Note(s) Provider Source Sep 27, 2023 10:37 AM PREVENTIVE MEDICIN E NURSING NOTE: LOCAL TITLE: CLINICAL REMINDERS/NURSING STANDARD TITLE: PREVENTIVE MEDICINE NURSING NOTE DATE OF NOTE: SEP 27, 2023@10:37 ENTRY DATE: SEP 27, 2023@10:37:26 AUTHOR: DEMETRI JOYIGNER: URGENCY: STATUS: COMPLETED Advance Directive Screen MH AD: Patient has an Advance Directive on file at this [facility]. No updates are needed at this time. The patient received education about Advance Directives and written notification of his/her rights. Homelessness/Food Insecurity Screen: In the past 2 months, have you been living in stable housing that you own, rent, or stay in as part of a household? Yes - Living in stable housing. Are you worried or concerned that in the next 2 months you may NOT have stable housing that you own, rent, or stay in as part of a household? No - Not worried about housing near future The reports the following: Within the past 12 months, you worried whether your food would run out before you got money to buy more. Never true Within the past 12 months, the food you bought just didn't last and you didn't have money to get more. Never true Depression Screening: Perform PHQ-2 A PHQ-2 screen was performed. The score was 0 which is a negative screen for depression. Over the past two weeks, how often have you been bothered by the following problems? 1. Little interest or pleasure in doing things Not at all 2. Feeling down, depressed, or hopeless Not at all Tobacco Use Screening: The patient is a former tobacco user. The patient quit five to less than fifteen years ago. Alcohol Use Screen (AUDIT-C): Alcohol Screen: SCREEN FOR ALCOHOL (AUDIT-C) An alcohol screening test (AUDIT-C) was negative (score=0). 1. How often did you have a drink containing alcohol in the past year? Consider a drink to be a 12 ounce can or bottle of regular beer, 8 ounces of malt liquor, a 5 ounce glass of table wine, or a 1.5 ounce shot of liquor (like scotch, gin, or vodka). Never 2. How many drinks containing alcohol did you have on a typical day when you were drinking in the past year? Response not required due to responses to other questions. 3. How often did you have six or more drinks on one occasion in the past year? Response not required due to responses to other questions. COVID-19 Immunization: Defer vaccine, reassess in 1 year Reason: decline Sexual Orientation: The patient thinks of their sexual orientation as: Straight or Heterosexual RHS Screen: RHS Screen Session Format: Face to Face Environmental Check Upon inquiry, the individual reports that the environment is safe to proceed. Informed Consent to Screen and Document The individual consents to proceed with screening. The individual consents to documentation of responses. PRIMARY SCREEN: In the past 12 months, how often did a current or former intimate partner (e.g., boyfriend, girlfriend, , , sexual partner): 1. Scream or curse at you Never 2. Insult or talk down to you Never 3. Threaten you with harm Never 4. Physically hurt you Never 5. Force or pressure you to have sexual contact against your will, or when you were unable to say no Never ?? The HITS tool (items 1-4 above) is US copyright protected by Quincy Castellanos MD, and the user has full rights to use it throughout the [facility] system. PRIMARY SCREEN RESULT: The Primary Screen is NEGATIVE. The individual answered never to all forms of IPV above (i.e., answered never to all 5 items) The individual accepts education and/or resources: No EDUCATION: The individual indicated readiness to learn. Education offered during this session as noted above. The individual indicated understanding by asking relevant questions and making appropriate comments. No barriers to learning were observed or identified. Eye Care At-Risk Screen : Patient identified to be at risk for the following eye condition(s): MACULAR DEGENERATION: Macular Degeneration Risk Factors Information: Reminder Term: VA-AMD RISK FACTORS Encounter Diagnosis: 06/09/2022@13:00 Z72.0 (ICD-10-CM) Tobacco use rank: SECONDARY Prov. Narr. - Nicotine dependence ([facility] [[email or web address]] [id number]) Action: Referral Ordered: Comprehensive Eye Exam Patient has an exclusion to Tele-Eye Screening. Schedule for a comprehensive eye exam ordered. /barbie/ MATILDA MEIT 10 Signed: 09/27/2023 10:41 DEMETRI JOY [facility] Sep 27, 2023 06:06 AM PHYSICIAN NOTE: LOCAL TITLE: MD NOTE STANDARD TITLE: PHYSICIAN NOTE DATE OF NOTE: SEP 27, 2023@06:06 ENTRY DATE: SEP 27, 2023@06:06:31 AUTHOR: DOUG ARCHULETA COSIGNER: URGENCY: STATUS: COMPLETED HISTORY OF PRESENT ILLNESS: ERIC CHAN HENSLEY, is a 77 yo MALE , who presents at the [facility] as a transfer from Dr Hodgson's panel whom he last saw 12/20/22. The [facility] is [facility]. Reviewed chart in detail. Last set of screening labs completed 11/16/22. He lives with his girlfriend in [place]. Has 2 children he does not see much. 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 He tells me hejust got his labs drawn this AM and states he was fasting. NonVA Providers: Cardiology: Dr Ledesma [facility] Cardio Gastroenterology: Dr Mccullough [facility] GI Active problems - Computerized Problem List [...] Hyperlipidemia 14. Gastroesophageal reflux disease with esophagitis Active and Recently Outpatient Medications (including Supplies): Active Outpatient Medications Status ========= 1) ALBUTEROL 90MCG (CFC-F) 200D ORAL INHL INHALE 2 PUFFS ACTIVE BY MOUTH EVERY 6 HOURS NEEDED SHORNESS OF BREATHE 2) CICLESONIDE 160MCG 60D ORAL INHL INHALE 1 PUFF BY ACTIVE MOUTH TWICE DAILY (RINSE MOUTH AFTER USE) (REPLACES MOMETASONE [ASMANEX]) 3) DOFETILIDE 250MCG CAP TAKE ONE CAPSULE BY MOUTH TWICE ACTIVE DAILY TO PREVENT ATRIAL FIBRILLATION 4) FEBUXOSTAT 40MG TAB TAKE ONE TABLET BY MOUTH ONCE ACTIVE DAILY 5) GEMFIBROZIL 600MG TAB TAKE ONE TABLET BY MOUTH TWICE ACTIVE DAILY TO LOWER CHOLESTEROL 6) LISINOPRIL 10MG TAB TAKE ONE TABLET BY MOUTH DAILY TO ACTIVE CONTROL BLOOD PRESSURE 7) TAMSULOSIN HCL 0.4MG CAP TAKE TWO CAPSULES BY MOUTH ACTIVE ONCE DAILY 8) WARFARIN NA (SU STATE) 1MG TAB TAKE ONE TABLET BY ACTIVE MOUTH WITH DIRECTIONS PROVIDED FROM YOUR VA PROVIDER ([facility] extension [id number]) FOR THE PREVENTION OF BLOOD CLOTS ALLERGIES: ========= PRILOSEC 20MG CAPSULE, ZOCOR, FLUVASTATIN, MEXILETINE, ALLOPURINOL LAB HISTORY: CHEM 7 TREND Collection DT Spec GLUCOSE BUN CREATIN Sodium K+/Pot CL CO2 11/16/2022 10:09 SERUM 96 21 1.09 141 4.6 109 23 05/31/2022 13:05 SERUM 97 27 H 1.39 138 4.8 109 25 10/26/2021 11:00 SERUM 104 H 21 1.22 139 5.1 H 107 25 06/22/2021 13:04 SERUM 91 21 1.19 140 4.4 107 22 04/09/2021 10:27 SERUM 117 H 29 H 1.29 138 4.4 105 22 CBC TREND Collection DT Spec WBC RBC HGB HCT MCV MCH PLT 11/16/2022 10:09 BLOOD 4.71 3.88 L 12.4 L 37.7 L 97.2 32.0 144 05/31/2022 13:05 BLOOD 5.62 3.85 L 12.2 L 36.8 L 95.6 31.7 156 09/29/2020 12:57 BLOOD 5.78 4.10 L 13.0 40.0 97.6 31.7 165 04/27/2020 13:31 BLOOD 6.06 4.04 L 13.0 39.3 97.3 32.2 160 02/25/2020 10:49 BLOOD 6.15 3.88 L 12.6 L 37.4 L 96.4 32.5 146 HEMOGLOBIN A1C TREND Collection DT Spec HGBA1c 11/16/2022 10:09 BLOOD 5.0 05/31/2022 13:05 BLOOD 5.4 03/01/2018 13:11 BLOOD 5.6 08/18/2015 13:16 BLOOD 5.5 11/30/2011 08:46 BLOOD 5.5 LIPID PANEL TREND Collection DT Spec CHOL HDL CHO/HDL LDL-c TRIG 11/16/2022 10:09 SERUM 183 33 L 5.5 122 140 05/31/2022 13:05 SERUM 167 28 L 6.0 103 182 H 10/26/2021 11:00 SERUM 189 33 L 5.7 119 183 H 09/29/2020 12:57 SERUM 207 H 32 L 6.5 132 H 215 H 02/25/2020 10:49 SERUM 211 H 40 5.3 140 H 157 H LIVER PANEL TREND Collection DT Spec AST ALT T BILI ALK MADONNA T. PROT ALBUMIN 11/16/2022 10:09 SERUM 12 13 0.4 82 6.4 3.5 05/31/2022 13:05 SERUM 15 17 0.5 81 6.3 3.3 L 10/26/2021 11:00 SERUM 16 18 0.7 83 6.7 3.5 07/13/2021 12:58 SERUM 29 36 0.5 84 6.7 3.8 09/29/2020 12:57 SERUM 17 15 0.3 76 6.9 3.6 Collection DT Spec TSH 11/16/2022 10:09 SERUM 2.69 HISTORY: PERIOD OF SERVICE - [facility] FROM Jun TO Sep COMBAT SERVICE INDICATED: No VITAL SIGNS: Blood Pressure 119/78 (09/27/2023 10:36) Pulse 82 (09/27/2023 10:36) Respiration 16 (09/27/2023 10:36) Pulse Oximetry 96% (09/27/2023 10:36) Temperature 97.1 F [36.2 C] (09/27/2023 10:36) Pain 0 (09/27/2023 10:36) Height 63 in [160.0 cm] (09/27/2023 10:36) Weight 182.5 lb [82.78 kg] (09/27/2023 10:36) BMI BMI: 32.4 REVIEW OF SYSTEMS: CARDIOVASCULAR: No chest pain, no palpitations RESPIRATORY: No SOB, no wheezing GASTROINTESTINAL: No abd pain, no N/V/D GENITOURINARY: No dysuria, no hematuria MUSCULOSKELETAL: No joint pain, no joint swelling PSYCHIATRIC: No anxiety, no trouble sleeping, no depression NEUROLOGIC: No H/A, no numbness, no weakness, no tingling EXAMINATION: GENERAL: WD/WN , pleasant & in NAD HEENT: Moist mucosa NECK: Supple, no carotid bruits HEART: RRR, S1-S2, +murmur, loud snap from AVR LUNGS: CTA B/L, no wheezes ABDOMEN: Soft, NT/ND, no HSM, + BS x 4 Quads PERIPH PULSES: 2+ B/L EXTREMITIES: FROM x 4, gait normal NEUROLOGIC: AAO x3, no focal findings PSYCHIATRIC: Good eye contact, affect normal ASSESSMENT/PLAN: 1. Atrial Fibrillation: on coumadin managed by NE ACC, on dofetilide 250mg BID 2. Dilated Cardiomyopathy: managed by Dr Ledesma, last OV 05/23/24 3. 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 Pacemaker: s/p medtronic biventricular dual chamber defibrillator implantation in 1984 with his AICD in 2009 and redo for [employer]IM[employer] in 2017, AICD is monitered though demian Ledesma's office 5. Hypertension: well controlled on lisinopril 10mg/day and metoprolol tartrate 100mg BID 6. Hyperlipidemia: on gemfibrozil 600mg BID 7. COPD: on ciclesonide inh BID and alb inh prn 8. Obesity: BMI ~32, counseled on weight loss 9. Sleep Apnea: mod-severe, compliant with CPAP 10. 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 Gout: on febuxostat 40mg/day 12. BPH: on tamsulosin 0.8mg/day 13. Colonoscopy Screening: last screen 02/24/21 - 2 polyps - repeat ? FOLLOW UP: 6 weeks - AWE - FBW prior ========= No barriers; Patient understands and agrees to current treatment plan. If pt has any questions, concerns, or changes in current health status he/she will call or come in to the [facility]. Medication Reconciliation: Outpatient: Has the patient been taking medications as documented in the EMLR? YES: The patient has been taking medications as documented in the EMLR. Essential Medication List for Review used to complete this medication reconciliation. INCLUDED IN THIS LIST: Alphabetical list of active outpatient prescriptions dispensed from this NE (local) and dispensed from another [place] or [facility] facility (remote) as well as inpatient [...] list may not be complete. Please check JLV. Allergies/ADRs (Tool #5) FACILITY ALLERGY/ADR -------- [facility] NO KNOWN ALLERGIES [facility] [place] ALLOPUR[facility] FLUVASTATIN [facility] [facility] PRILOSEC [facility] FLUVASTATIN [facility] LOVASTATIN [facility] NIACIN [facility] OMEPRAZOLE [facility] SIMVASTATIN Med Recon Donnaary (Tool #1) INCLUDED IN THIS LIST: Alphabetical list of active outpatient prescriptions dispensed from this [place] (local) and dispensed from another [place] or [facility] facility (remote) as well as inpatient orders (local pending and active), local clinic medications, locally documented non-VA medications, and local prescriptions that have or been discontinued in the past 90 days. Non-VA Meds Last Documented On: Dec 09, 2021 NOTE The display of VA prescriptions dispensed from another [place] or [facility] facility (remote) is limited to active outpatient prescription entries matched to National Drug File at the originating site and may not include some items such as investigational drugs, compounds, etc. NOT INCLUDED IN THIS LIST: Medications self-entered by the patient into personal health records (i.e. [employer]) are NOT included in this list. Non-VA medications documented outside this [place], remote inpatient orders (regardless of status) and remote clinic medications are NOT included in this list. The patient and provider must always discuss medications the patient is taking, regardless of where the medication was dispensed or obtained. -------- OUTPT ALBUTEROL 90MCG (CFC-F) 200D ORAL INHL (Status = Active) INHALE 2 PUFFS BY MOUTH EVERY 6 HOURS NEEDED [facility] [place] Rx# [id number] Last Released: 12/23/22 Qty/Days Supply: 07/25 Rx Expiration Date: 12/21/23 Refills Remainin Remote ALPROSTADIL 40MCG/CARTRIDGE INJ,SYSTEM INJECT 40 MCG(CARTRIDGE) INTO CAVERNOSAL CAVITY 1 HOUR BEFORE SEXUAL RELATIONS. FOR SEXUAL RELATIONS Last Filled: 02/06/23 (Active at [facility]) Rx Expiration Date: 02/04/24 Days Supply: 30 OUTPT CICLESONIDE 160MCG 60D ORAL INHL (Status = Active) INHALE 1 PUFF BY MOUTH TWICE DAILY (RINSE MOUTH AFTER USE) (REPLACES MOMETASONE [ASMANEX]) Rx# [id number] Last Released: 09/12/23 Qty/Days Supply: Rx Expiration Date: 12/07/23 Refills Remainin OUTPT DOFETILIDE 250MCG CAP (Status = Active) TAKE ONE CAPSULE BY MOUTH TWICE DAILY TO PREVENT ATRIAL FIBRILLATION Rx# [id number] Last Released: 08/07/23 Qty/Days Supply: Rx Expiration Date: 07/31/24 Refills Remainin Indication: TO PREVENT ATRIAL FIBRILLATION OUTPT FEBUXOSTAT 40MG TAB (Status = Active) TAKE ONE TABLET BY MOUTH ONCE DAILY Rx# [id number] Last Released: 09/22/23 Qty/Days Supply: Rx Expiration Date: 12/21/23 Refills Remainin Remote FINASTERIDE 5MG TAB TAKE ONE TABLET BY MOUTH ONCE DAILY FOR PROSTATE Last Filled: 10/24/23 (Active/Suspended at [facility]) Rx Expiration Date: 08/04/24 Days Supply: 90 OUTPT GEMFIBROZIL 600MG TAB (Status = Active) TAKE ONE TABLET BY MOUTH TWICE DAILY TO LOWER CHOLESTEROL Rx# [id number] Last Released: 09/11/23 Qty/Days Supply: 180 Rx Expiration Date: 12/07/23 Refills Remainin OUTPT LISINOPRIL 10MG TAB (Status = Discontinued) TAKE ONE TABLET BY MOUTH DAILY TO CONTROL BLOOD PRESSURE Rx# [id number] Last Released: 06/13/23 Qty/Days Supply: Rx Expiration Date: 09/10/23 Refills Remainin OUTPT LISINOPRIL 10MG TAB (Status = Active) TAKE ONE TABLET BY MOUTH DAILY TO CONTROL BLOOD PRESSURE Rx# [id number] Last Released: 09/11/23 Qty/Days Supply: Rx Expiration Date: 12/07/23 Refills Remainin OUTPT METOPROLOL TARTRATE 100MG TAB (Status = ) TAKE ONE TABLET BY MOUTH TWICE DAILY DIRECTED BY PROVIDER FOR BLOOD PRESSURE/HEART Rx# [id number] Last Released: 08/16/23 Qty/Days Supply: 180 Rx Expiration Date: 08/27/23 Refills Remainin OUTPT TAMSULOSIN HCL 0.4MG CAP (Status = Active) TAKE TWO CAPSULES BY MOUTH ONCE DAILY Rx# [id number] Last Released: 05/10/23 Qty/Days Supply: 180/90 Rx Expiration Date: 10/25/23 Refills Remainin Indication: FOR ENLARGED PROSTATE OUTPT WARFARIN NA (SU STATE) 1MG TAB (Status = Discontinued) TAKE ONE TABLET BY MOUTH WITH DIRECTIONS PROVIDED FROM YOUR VA PROVIDER (ANTICOAGULATION CLINIC EXTENSION 2454) FOR THE PREVENTION OF BLOOD CLOTS Rx# [id number] Last Released: 04/26/23 Qty/Days Supply: Rx Expiration Date: 07/23/23 Refills Remainin Indication: TO PREVENT BLOOD CLOTS OUTPT WARFARIN NA (SU STATE) 1MG TAB (Status = Active) TAKE ONE TABLET BY MOUTH WITH DIRECTIONS PROVIDED FROM YOUR [place] PROVIDER (ANTICOAGULATION CLINIC EXTENSION 1073) FOR THE PREVENTION OF BLOOD CLOTS Rx# [id number] Last Released: 07/12/23 Qty/Days Supply: Rx Expiration Date: 10/04/23 Refills Remainin Indication: TO PREVENT BLOOD CLOTS -------- SUPPLIES -------- [facility] ([facility] Referral: Patient declines participation in [facility] at this time. Follow Up Colonoscopy: Colonoscopy is due based on information available to this reminder. Defer reminder for 4 months Reason for deferral: defer EGD F/U: Order placed for EGD F/U procedure. Home Telehealth ([facility]) Referral: Patient not a candidate for [facility] at this time. /barbie/ DOUG ARCHULETA MD Primary Care Physician Signed: 09/27/2023 11:21 DOUG ARCHULETA Sep 12, 2023 01:48 PM ADMINISTRATIVE NOT E: LOCAL TITLE: ADMINISTRATIVE NOTE STANDARD TITLE: ADMINISTRATIVE NOTE DATE OF NOTE: SEP 12, 2023@13:48 ENTRY DATE: SEP 12, 2023@13:48:48 AUTHOR: KENNETH MORAES EXP COSIGNER: URGENCY: STATUS: COMPLETED [place] is requesting a new primary care provider. Form has been completed with . Veterans current provider: DOUG ARCHULETA [place] is requesting... [ ] Review of my opioid medication treatment [X} New provider in the same location [ ] New primary care provider at a new location [ ] NHM [ ] POPC [ ] GOPC [ ] WOPC [ ] FOPC Lacquer Sprayer please approve/disapprove and assign new PCP. Roosevelt made appt with Pact Team 10 for 09/27/23 to be seen earlier per CPRS. He states he is almost out of medication. He has not been seen by the new Pact 2 provider. /barbie/ KENNETH CASTILLO Signed: 09/12/2023 13:53 Receipt Acknowledged By: 09/15/2023 12:14 /barbie/ ALEJANDRA ARMENTA NP NURSE PRACTITIONER KENNETH MORAES
--- OUTSIDE RECORDS SUMMARY | 2024-08-08 13:28 | XMS_ITS ---
Author Name [facility] [place] Organization [facility] [place] Address [address] [place] [id number] Care Team Providers Care Farm Adviser Name Role Phone DOUG ARCHULETA Primary Care [...] PART A Jun 26, 2006 PART A [id number] DIMITRIS HENSLEY PATIENT MEDICARE (WNR) MEDICARE (M) PART A Jun 26, 2006 PART A [id number] [phone] DIMITRIS HENSLEY PATIENT Selected Encounter This section includes the information on record at [place] for the Encounter. Date/Time Encounter Type Encounter Description Reason Provider Source Aug 06, 2024 02:42 PM MTMS BY PHARM EST 15 MIN TELEPHONE/SHIRA KHALIL ICD-10-CM Z51.81 Encounter for therapeutic drug level monitoring REILLY JAIME Rashid Encounter Template Text not used by [place] Assessments - Encounter Diagnoses This section includes the primary and secondary diagnoses documented for the Encounter. Date/Time Primary/Secondary Diagnosis Diagnosis Name Provider Source Aug 06, 2024 02:42 PM PRIMARY Encounter for therapeutic drug level monitoring REILLY JAIME [facility] [address] ([id number]) Plan of Treatment: Future Appointments (+ 6 [...] 08, 2024 09:30 AM AMBULATORY - MEDICINE [facility] [place] Aug 19, 2024 08:00 AM AMBULATORY - MEDICINE [facility] Oct 08, 2024 01:00 PM AMBULATORY - [facility] November 04, 2024 03:00 PM [facility] Active, Pending, and Scheduled Orders This section includes a listing of several types of active, pending, and scheduled orders, including clinic medications orders, diagnostic test orders, procedure orders and consult orders; where the start date of the order is 45 days before the date of the Encounter or 45 days after the date of theEncounter. The data comes from all [place] treatment facilities. Test Date/Time Test Type Test Details Facility Name Aug 20, 2024 12:00 AM Laboratory - Chemi stry Order PT & INR (COUMADIN) BLOOD (BLUE-PLASMA) SP ONCE [facility] Lab Results: +/- 30 days of [...] Range Comment Aug 06, 2024 10:32 AM [facility] LIPID PANEL FASTING Specimen Type: SERUM No comment entered. Ordering Provider: GAIL VALDIVIA Report Released Date/Time: Jul 30, 2024 09:22 AM Reporting Lab: [address] [address] Performing Lab: [facility] [address] [facility] [address] CHOLESTEROL 164 mg/dL TRIGLYCERIDE 88 mg/dL 0-150 LDL calculated 106 mg/dL 0-129 CHOL/HDL 4.1 HDL CHOLESTEROL 40 mg/dL 40-60 Aug 06, 2024 10:32 AM [facility] HEMOGLOBIN A1C PANEL Specimen Type: BLOOD [...] Jul 30, 2024 09:22 AM Reporting Lab: [address] [address] Performing Lab: [address] [address] HEMOGLOBIN A1C 5.2 4.0-5.6 Aug 06, 2024 10:32 AM [facility] LIVER FUNCTION Specimen Type: SERUM No comment entered. Ordering Provider: GAIL VALDIVIA Report Released Date/Time: Jul 30, 2024 09:22 AM Reporting Lab: [address] [address] Performing Lab: [address] [address] PROTEIN,TOTAL 6.6 g/dL 6.0-8.3 ALBUMIN 3.6 g/dL 3.5-5.0 ALKALINE PHOSPHATASE 81 U/L 40-150 AST 13 U/L 5-34 ALT 10 U/L BILIRUBIN, TOTAL 0.7 mg/dL 0.2-1.2 Aug 06, 2024 10:32 AM [facility] BASIC METABOLIC PANEL (fasting) Specimen Type: SERUM No comment entered. Ordering Provider: GAIL VALDIVIA Report Released Date/Time: Jul 30, 2024 09:22 AM Reporting Lab: [facility] [address] [facility] [address] Performing [facility]: [facility] [address] [address] UREA NITROGEN 24 mg/dL 7-25 GLUCOSE 98 mg/dL 65-100 SODIUM 142 mmol/L 135-145 POTASSIUM 4.6 mmol/L 3.5-5.0 CHLORIDE 110 mmol/L 100-110 CO2 25 meq/L 20-30 CREATININE, Serum 1.12 mg/dL 0.50-1.40 eGFR(CKD-EPI 2020) 67 mL/min >60 Aug 06, 2024 10:32 AM [facility] TSH Specimen Type: SERUM No comment entered. Ordering Provider: GAIL VALDIVIA Report Released Date/Time: Jul 30, 2024 09:22 AM Reporting Lab: [address] [address] Performing Lab: [address] [address] TSH 2.61 u[IU]/mL 0.35-5.00 Aug 06, 2024 10:32 AM [facility] MICROALBUMIN CREATININE RATIO PANEL Specimen Type: URINE No comment entered. Ordering Provider: GAIL VALDIVIA Report Released Date/Time: Jul 30, 2024 09:22 AM Reporting Lab: [address] [address] Performing Lab: [address] [address] MICROALBUMIN/C REATININE RATIO 17.6 mg/g 0-29.9 MICROALBUMIN,Q UANTITATIVE 2.5 mg/dL RR UNAVAIL CREATININE URINE 141.74 mg/dL Aug 06, 2024 10:32 AM [facility] MICROSCOPIC AUTOMATED, URINE Specimen Type: URINE Comment: If Glucose = >500 and Ketones are positive, please alert the Physician. Ordering Provider: GAIL VALDIVIA Report Released Date/Time: Jul 30, 2024 09:22 AM Reporting Lab: [facility] [address] [facility] [address] Performing Lab: [facility] [address] [facility] [address] UA WBC 0-5 /[HPF] 0-5 UA RBC 3-5 /[HPF] 0-3 UA SQUAMOUS EPITH FEW /[HPF] Aug 06, 2024 10:32 AM [facility] CBC AND DIFF (AUTO) Specimen Type: BLOOD No comment entered. Ordering Provider: GAIL VALDIVIA Report Released Date/Time: Jul 30, 2024 09:22 AM Reporting Lab: [facility] [address] [facility] [address] Performing Lab: [facility] [address] [facility] [address] WBC 4.64 10*3/uL 4.50-11.00 RBC 3.86 10*6/uL [...] 10*3/uL 0.00-0.00 Aug 06, 2024 10:32 AM [facility] URINALYSIS Specimen Type: URINE Comment: If Glucose = >500 and Ketones are positive, please alert the Physician. Ordering Provider: GAIL VALDIVIA Report Released Date/Time: Jul 30, 2024 09:22 AM Reporting Lab: [facility] [address] [facility] [address] Performing Lab: [facility] [address] [facility] [address] UA COLOR Yellow Yellow UA APPEARANCE Clear Clear UA GLUCOSE Normal mg/dL Negative UA KETONES NEGATIVE mg/dL Negative UA BLOOD NEGATIVE mg/dL Negative UA PROTEIN NEGATIVE mg/dL Negative UA NITRITE NEGATIVE mg/dL Negative UA BILIRUBIN NEGATIVE mg/dL Negative UA SPECIFIC GRAVITY 1.024 H 1.016-1.02 2 UA pH 6.5 5.0-9.0 UA UROBILINOGEN 4 mg/dL <2.0 UA LEUKOCYTE TRACE Negative Aug 06, 2024 10:31 AM [facility] PT & INR (COUMADIN) Specimen Type: PLASMA No comment entered. Ordering Provider: REILLY JAIME Report Released Date/Time: Jul 02, 2024 04:04 PM Reporting Lab: [facility] [address] [facility] [address] Performing Lab: [address] [address] INR 1.9 PROTIME 20.1 s H 10.0-13.1 Advance Directives: All historical [...] Oct 03, 2017 ADVANCE DIRECTIVE MARILU MIRZA [facility] Dec 23, 2013 ADVANCE DIRECTIVE NIALL SALCEDO Encounter Notes: All associated encounter notes This section contains the clinical notes associated to the Encounter. Date/Time Encounter Note(s) Provider Source Aug 06, 2024 02:42 PM PHARMACY MEDICATION MGT NOTE: LOCAL TITLE: PHARMACY ANTICOAGULATION NOTE STANDARD TITLE: PHARMACY MEDICATION MGT NOTE DATE OF NOTE: AUG 06, 2024@14:42 ENTRY DATE: AUG 06, 2024@14:42:41 AUTHOR: REILLY JAIME EXP COSIGNER: URGENCY: STATUS: COMPLETED PRIMARY CARE PHYSICIAN: Avery FRENCH INFORMATION: OTHER CONTACT INFORMATION: PATIENT CONTACT: [phone] cell call after 10am CLINIC LOCATION: [facility] __ COUMADIN THERAPY INITIATED ON: pre-consult PLANNED DURATION OF THERAPY: indefinite ESTIMATED STOP DATE: N/A INDICATION FOR COUMADIN: [facility] Santos's valve, AVR (mechanical aortic) GOAL INR: 2-3, changed 07/29/13 per PCP RELEVANT HISTORY: lipids, GERD, DRUG INTERACTIONS: gemfibrozil, omeprazole __ last CBC: 08/06/24 last PCP appt: 02/09/24 __ RECENT DOSING HISTORY (dose in mg): Mon SAT INR 11/01/23 1 1 1 1 1 1 1 2 11/29/23 1 1 1 1 1 1 1 2 12/18/23 1 1 1 1 1 1 1 2.3 01/01/24 1 1 1 1 1 1 1 1.9 01/15/24 1 1 1 1 1 1 1 2.0 02/12/24 1 1 1 1 1 1 1 2.2 03/11/24 1 1 1 1 1 1 1 1.5 INCREASE to 7.5mg/week 03/18/24 1 1 1.5 1 1 1 1 1.8 03/29/24 1 1 1.5 1 1 1 1 2.0 04/26/24 1 1 1.5 1 1 1 1 2.4 05/21/24 1 1 1.5 1 1 1 1 1.8 06/04/24 1 1 1.5 1 1 1 1 2.2 07/02/24 1 1 1.5 1 1 1 1 2.3 08/06/24 1 1 1.5 1 1 1 1 1.9 __ *spoke w/ pt* CORRECT DOSE: yes, verified MISSED DOSES: none BLEEDING: none NEW EVENTS: none PROCEDURES: none MED CHANGES: none DIET CHANGES: consistent with 1 salad/day EtOH: denies TOBACCO: denies TABLETS: renewed x 90 days 08/06/24 OTHER: please review dosing carefully *pt is a slow responder* TABLET STRENGTH: 1MG __ ASSESSMENT: INR is subtherapeutic at 1.9 (goal 2-3) for unclear reasons. PLAN: Informed pt of his INR result from today. Pt instructed to CONTINUE his weekly warfarin dose of 7.5mg/wk taking 1mg daily except 1.5mg on Tuesdays. Informed pt of next PT/INR scheduled for 08/20/24. Return to clinic: Jul Time spent with patient: 10 minutes EDUCATION Provided with verbal instructions: Yes Provided with written instructions: No Barriers to learning: No Readiness to learn: Yes Specific dose directions reviewed: Yes Opportunity for questions/discussion: Yes Reports understanding of instructions: Yes Further learning needs: No Provided patient education on the following: None INR 1.80-1.99: Not Therapeutic Subtherapeutic. Patient was counseled on the signs and symptoms of clotting and instructed to present to the Emergency Department should any of these be noticed. /barbie/ Reilly Jaime PharmD Clinical Tool And Die Supervisor Signed: 08/06/2024 14:55 Receipt Acknowledged By: 08/06/2024 14:59 /barbie/ STEVE DEL CASTILLO CPHT Clinical Sanitation Manager REILLY JAIME [facility] [address] ([id number])
--- OUTSIDE RECORDS SUMMARY | 2024-08-08 13:28 | XMS_ITS | Continuity of Care Document ---
Author Name [facility] Organization [facility] Care Team Providers Care Engineering Teacher Name Role Phone [facility] Unavailable Unavailable Problems Combined list of problems from Department of Defense and Veterans Affairs facilities. It does not include entries that were removed or entered in error. 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, 2007 Entered By: GUY MCCORMACK Comment: EGD 04/29/2006 [facility] 2017 Entered By: LEANN MEJIA Comment: EGD 11/08/17 due 2017 Entered By: LEANN MEJIA Comment: [facility] 2017[facility] 2009 Entered By: TESS LOPEZ Comment: EGD 02/18/10, 11/20/13 see CPRS 12/16/13, repeat 3 yrsSep 27, 2023 Entered By: DEMETRI JOY Comment: [facility] EGD 02/24/2021 Barretts esophagus [facility] Amaro's Esophagus (ICD-9-CM 530.85) Active Condition [facility] Benign essential hypertension Active Condition [facility] Benign prostatic hypertrophy Active Condition Feb 09, 2024 Entered By: GAIL VALDIVIA Comment: sees urology [facility] CARDIAC DYSRHYTHMIAS NEC Active Condition [place] Cardiac pacemaker in situ (SNOMED CT 190865761) Active Condition Apr 17, 2006 Entered By: GUY MCCORMACK Comment: [address] Cardiomyopathy Active Condition [place] Cardiomyopathy (ICD-9-CM 425.4) Active Condition [place] Colonoscopy Screening Active Condition Apr 17, 2007 Entered By: GUY MCCORMACK Comment: Tubular adenomas 04/29/2006 [facility] 2020 Entered By: LEANN MEJIA Comment: 11/08/17 colon 02/24/21 Barrets esophagus and colonic polypsMay 24, 2021 Entered By: LEANN MEJIA Comment: repeat 02-25-2022pr 2023 Entered By: DEMETRI JOY Comment: [facility] 02/24/2021: 2 polyps <5mm scattered diverticulosis small internal hemorrhoids [facility] Dilated cardiomyopathy Active Condition May 24, 2021 Entered By: LEANN MEJIA Comment: 02/03/[address] Yañez note [facility] Erectile dysfunction Active Condition [place] Former smoker Active Condition Jan Entered By: GAIL VALDIVIA Comment: started age 17, smoked 1/2-1ppd x 60 years. Quit 2018 [facility] Gastroesophageal reflux disease with esophagitis (SNOMED CT 682123395) Active Condition [place] Gastroesophageal Reflux Disorder * (ICD-9-CM 530.81) Active Condition [facility] Gout Active Condition Feb 08 Entered By: GAIL VALDIVIA Comment: on maintenance Rx [facility] HEART VALVE REPLAC NEC Active Condition [facility] Heart valve replacement status (prosthetic or artificial device) (ICD-9-CM V43.3 Active Condition [facility] History of aortic valve replacement Active Condition [facility] [place] [facility] Hyperlipidemia (SNOMED CT 47775789) Active Condition Apr 17, 2006 Entered By: GUY MCCORMACK Comment: zocor myalgiaApr 2006 Entered By: GUY MCCORMACK Comment: FLUVASTATIN URTICARIA [place] Long-term current use of anticoagulant (SNOMED CT 564604086) Active Condition [facility] Moderate chronic obstructive pulmonary disease Active Condition Sep 06 Entered By: DOUG ARCHUELTA Comment: PFT 09/10 - severe reduced diffusing capacity [facility] [facility] Obstructive sleep apnea syndrome Active Condition Mar 30, 2019 Entered By: LEANN MEJIA Comment: moderate to severe [id number] Entered By: GAIL VALDIVIA Comment: wears cpap [facility] Osteopenia Active Condition Sep 13, 2 016 Entered By: LEANN MEJIA Comment: DEXA 06/09 [facility] Postsurgical Status of Cardiac Pacemaker in Situ (ICD-9-CM V45.01) Active Condition [facility] Ventricular tachycardia Active Condition [place] Acute bronchitis (ICD-9-CM 466.0) Inactive Condition 10/17/2006 [facility] Diagnosis: ICD-10-CM Z51.81 Encounter for therapeutic drug level monitoring Active Diagnosis [facility] (631[facility]) Diagnosis: ICD-10-CM Z23 Encounter for immunization Active Diagnosis [place] Diagnosis: ICD-10-CM R91.8 Other nonspecific abnormal finding of lung field Active Diagnosis [facility] Diagnosis: ICD-10-CM R91.1 Solitary pulmonary nodule Active Diagnosis [facility] Diagnosis: ICD-10-CM N40.1 Benign prostatic hyperplasia with lower urinary tract symp Active Diagnosis [place] Diagnosis: ICD-10-CM Z12.2 Encntr screen for malignant neoplasm of respiratory organs Active Diagnosis [facility] Diagnosis: ICD-10-CM I48.91 Unspecified atrial fibrillation Active Diagnosis [place] Diagnosis: ICD-10-CM G47.30 Sleep apnea, unspecified [facility] Diagnosis: ICD-10-CM I42.0 Dilated cardiomyopathy [facility] Diagnosis: ICD-10-CM I10 Essential (primary) hypertension Active Diagnosis [place] Medications Combined list of outpatient medications from Department of Defense and Veterans Affairs facilities.Medications provided include 1) outpatient medications from the last 15 months, and 2) patient-reported medications. Medication Details Route Status Patient Instructions Prescription Expires Prescription Number Last Dispense Date Ordering Provider Order Date Order Qty Source CICLESONIDE 160MCG/SPRA Y INHL,ORAL,6 .1GM INHALE 1 PUFF BY MOUTH TWICE DAILY (RINSE MOUTH AFTER USE) (REPLACE S MOMETASO NE [ASMANEX ]) RESPIR ATORY (INHAL ATION) DISCONT INUED 03/25/2024 [id number] Ankush ARMENTA 2023 3 [place] CICLESONIDE 160MCG/SPRA Y INHL,ORAL,6 .1GM INHALE 1 PUFF BY MOUTH TWICE DAILY (RINSE MOUTH AFTER USE) (REPLACE S MOMETASO NE [ASMANEX ]) RESPIR ATORY (INHAL ATION) DISCONT INUED 12/07/2023 [id number] GUCCI ARCHULETA SA 2023 3 [place] CICLESONIDE 160MCG/SPRA Y INHL,ORAL,6 .1GM INHALE 1 PUFF BY MOUTH TWICE DAILY (RINSE MOUTH AFTER USE) (REPLACE S MOMETASO NE [ASMANEX ]) RESPIR ATORY (INHAL ATION) 07/21/2024 [id number] Violeta VALDIVIA 2023 3 [place] DOFETILIDE 250MCG CAP TAKE ONE CAPSULE BY MOUTH TWICE DAILY FOR ATRIAL FIBRILLA TION ORAL ACTIVE 01/25/2025 [id number] KENDRA DIAS 2023 180 [place] DOFETILIDE 250MCG CAP TAKE ONE CAPSULE BY MOUTH TWICE DAILY TO PREVENT ATRIAL FIBRILLA TION ORAL DISCONT INUED 07/31/2024 [id number] LENNY MENDOZA 2023 180 [place] FEBUXOSTAT 40MG TAB TAKE ONE TABLET BY MOUTH ONCE DAILY TO PREVENT ACUTE GOUT ATTACK ORAL ACTIVE 02/22/2025 [id number] Violeta VLADIVIA 2023 90 [place] FEBUXOSTAT 40MG TAB TAKE ONE TABLET BY MOUTH ONCE DAILY TO PREVENT ACUTE GOUT ATTACK ORAL DISCONT INUED 02/17/2024 [id number] GUCCI ARCHULETA SA 2023 60 [place] FEBUXOSTAT 40MG TAB TAKE ONE TABLET BY MOUTH ONCE DAILY ORAL DISCONT INUED (EDIT) 12/21/2023 [id number] RAND FUNEZ 2022 90 [place] FINASTERIDE 5MG TAB TAKE ONE TABLET BY MOUTH ONCE DAILY FOR PROSTATE ORAL DISCONT INUED 02/04/2024 [id number] EKLOSHAN Aguillon LY LEROY 2022 90 [place] FINASTERIDE 5MG TAB TAKE ONE TABLET BY MOUTH ONCE DAILY FOR PROSTATE ORAL 08/04/2024 [id number] EKLOF,SHAN LY LEROY 2023 90 [place] GEMFIBROZIL 600MG TAB TAKE ONE TABLET BY MOUTH TWICE DAILY TO LOWER CHOLESTE ROL ORAL ACTIVE 03/08/2025 [id number] 5 Violeta VALDIVIA 2023 180 [place] GEMFIBROZIL 600MG TAB TAKE ONE TABLET BY MOUTH TWICE DAILY TO LOWER CHOLESTE ROL ORAL DISCONT INUED 12/07/2023 [id number] GUCCI ARCHULETA SA 2023 180 [place] LISINOPRIL 10MG TAB TAKE ONE TABLET BY MOUTH DAILY TO CONTROL BLOOD PRESSURE ORAL DISCONT INUED BY PROVIDE R 04/05/2025 [id number] 5 Violeta VALDIVIA 2023 90 [place] LISINOPRIL 10MG TAB TAKE ONE TABLET BY MOUTH DAILY TO CONTROL BLOOD PRESSURE ORAL DISCONT INUED 04/08/2024 [id number] GUCCI ARCHULETA SA 2023 60 [place] LISINOPRIL 10MG TAB TAKE ONE TABLET BY MOUTH DAILY TO CONTROL BLOOD PRESSURE ORAL DISCONT INUED 01/29/2024 [id number] GUCCI ARCHULETA SA 2023 60 [place] LISINOPRIL 10MG TAB TAKE ONE TABLET BY MOUTH DAILY TO CONTROL BLOOD PRESSURE ORAL DISCONT INUED 12/07/2023 [id number] GUCCI ARCHULETA SA 2023 90 [place] LISINOPRIL 10MG TAB TAKE ONE TABLET BY MOUTH DAILY TO CONTROL BLOOD PRESSURE ORAL DISCONT INUED 09/10/2023 [id number] RAND FUNEZ 2022 90 [place] METOPROLOL TARTRATE 100MG TAB TAKE ONE TABLET BY MOUTH TWICE DAILY DIRECTED BY PROVIDER FOR BLOOD PRESSURE /HEART ORAL SUSPEND ED 11/07/2024 [id number] KAIDEN,ZULEYMA AV 2023 180 [place] METOPROLOL TARTRATE 100MG TAB TAKE ONE TABLET BY MOUTH TWICE DAILY DIRECTED BY PROVIDER FOR BLOOD PRESSURE /HEART ORAL 08/27/2023 [id number] KAIDEN,ZULEYMA AV 2022 180 [place] OMEPRAZOLE 20MG CAP,EC TAKE TWO CAPSULES BY MOUTH EVERY MORNING 30 MINUTES BEFORE BREAKFAS T FOR HEARTBUR N ORAL ACTIVE 04/05/2025 [id number] 4 Violeta VALDIVIA 2023 180 [place] OMEPRAZOLE 20MG CAP,EC TAKE TWO CAPSULES BY MOUTH EVERY MORNING 30 MINUTES BEFORE BREAKFAS T FOR HEARTBUR N ORAL DISCONT INUED 01/29/2024 [id number] GUCCI ARCHULETA SA 2023 120 [place] OMEPRAZOLE 20MG CAP,EC TAKE TWO CAPSULES BY MOUTH ONCE A DAY 30 MINUTES BEFORE MORNING MEAL ORAL 06/23/2023 [id number] RAND FUNEZ S 2021 180 [place] TAMSULOSIN HCL 0.4MG CAP TAKE TWO CAPSULES BY MOUTH ONCE DAILY ORAL SUSPEND ED 01/25/2025 [id number] KENDRA DIAS 2023 180 [place] TAMSULOSIN HCL 0.4MG CAP TAKE TWO CAPSULES BY MOUTH ONCE DAILY ORAL DISCONT INUED 10/25/2023 [id number] RAND FUNEZ 2022 180 [place] TIOTROPIUM 1.25MCG/ACT UAT INHL,ORAL,6 0D,4GM INHALE 2 PUFFS BY MOUTH ONCE DAILY FOR BRONCHOS PASM PREVENTI ON WITH COPD RESPIR ATORY (INHAL ATION) SUSPEND ED 08/09/2025 [id number] 5 Violeta VALDIVIA 2024 3 [place] VALSARTAN 80MG TAB TAKE ONE TABLET BY MOUTH TWICE DAILY ORAL ACTIVE 06/26/2025 [id number] 5 KAIDENZULEYMA 2024 60 [place] WARFARIN NA (SU STATE) 1MG TAB TAKE ONE TABLET BY MOUTH WITH DIRECTIO NS PROVIDED FROM YOUR [place] PROVIDER ([facility] 3-1522 EXTENSIO N 2877) FOR THE PREVENTI ON OF BLOOD CLOTS ORAL ACTIVE 11/04/2024 [id number] DUSTIN JAIME 2024 95 [facility] (631) WARFARIN NA (SU STATE) 1MG TAB TAKE ONE TABLET BY MOUTH WITH DIRECTIO NS PROVIDED FROM YOUR [place] PROVIDER ([facility] [address] EXTENSIO N 2877) FOR THE PREVENTI ON OF BLOOD CLOTS ORAL DISCONT INUED 08/19/2024 [id number] 4 DUSTIN JAIME 2023 95 [facility] (631) WARFARIN NA (SU STATE) 1MG TAB TAKE ONE TABLET BY MOUTH WITH DIRECTIO NS PROVIDED FROM YOUR [place] PROVIDER ([facility] [address] EXTENSIO N 2877) FOR THE PREVENTI ON OF BLOOD CLOTS ORAL DISCONT INUED 05/12/2024 [id number] ANGY MARQUEZ 2023 95 [facility] WARFARIN NA (SU STATE) 1MG TAB TAKE ONE TABLET BY MOUTH WITH DIRECTIO NS PROVIDED FROM YOUR [place] PROVIDER ([facility] 3-1522 EXTENSIO N 2877) FOR THE PREVENTI ON OF BLOOD CLOTS ORAL DISCONT INUED 10/04/2023 [id number] SHAYLEE BOURNE 2023 105 [facility] WARFARIN NA (SU STATE) 1MG TAB TAKE ONE TABLET BY MOUTH WITH DIRECTIO NS PROVIDED FROM YOUR [place] PROVIDER ([facility] 3-1522 EXTENSIO N 2877) FOR THE PREVENTI ON OF BLOOD CLOTS ORAL 01/09/2024 [id number] DEMETRIUS SALSA 2023 105 [place] WARFARIN<DUNNE Z PURPLE> TAB TAKE 1.25MG BY MOUTH MONDAY, MONDAY AND MONDAY ORAL ACTIVE Maxwell BAUTISTA 2017 [facility] Allergies, Adverse Reactions, Alerts Combined list of allergies from Department of Defense and Veterans Affairs facilities. It does not include entries that were removed or entered in error. Substance Category Reaction Severity Reaction type Status Date Reported Comments Source ALLOPURINOL Propensity to adverse reactions to drug (finding) Diarrhea active 2 [facility] FLUVASTATIN Propensity to adverse reactions to drug (finding) Urticaria active 7 [facility] LOVASTATIN Propensity to adverse reactions to drug (finding) Muscle pain active 1 [facility] MEXILETINE Propensity to adverse reactions to drug (finding) Abdominal pain active 7 [facility] NIACIN Propensity to adverse reactions to drug (finding) Flushing active 1 [facility] OMEPRAZOLE Propensity to adverse reactions to drug (finding) active 8 [facility] PRILOSEC 20MG CAPSULE Propensity to adverse reactions to drug (finding) active 4 [facility] SIMVASTATIN Propensity to adverse reactions to drug (finding) Muscle pain active 1 [facility] ZOCOR Propensity to adverse reactions to drug (finding) Muscle pain active 6 [facility] Immunizations Combined list of available immunizations from the Department of Defense and Veterans Affairs facilities. 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3 ML DOSE 3 2020 208 complet ed [facility] TD (ADULT), 2 LF TETANUS TOXOID, PRESERVATIVE FREE, ADSORBED 2020 09 complet ed [place] ZOSTER RECOMBINANT 2 2020 187 complet ed [place] ZOSTER RECOMBINANT 1 2020 187 complet ed [place] COVID-19 (MODERNA), MRNA, LNP-S, PF, 100 MCG/0.5 ML DOSE 2 2020 207 complet ed MOD; [id number]; 1 [place] COVID-19 (MODERNA), MRNA, LNP-S, PF, 100 MCG/0.5 ML DOSE 1 2020 207 complet ed MOD; [id number]; 1 [place] INFLUENZA, INJECTABLE, QUADRIVALENT, PRESERVATIVE FREE 2019 150 complet ed [place] INFLUENZA, TRIVALENT, ADJUVANTED 2017 168 complet ed Site: Left Deltoid [place] INFLUENZA, SEASONAL, INJECTABLE 2016 141 complet ed [place] [facility] FLU,3 YRS (HISTORICAL) 2015 88 complet ed Site: Left Deltoid [place] FLU,3 YRS (HISTORICAL) 2014 88 complet ed Site: Left Deltoid [place] PNEUMOCOCCAL CONJUGATE PCV 13 2014 133 complet ed [place] FLU,3 YRS (HISTORICAL) 2013 88 complet ed [place] FLU,3 YRS (HISTORICAL) 2013 88 complet ed [place] [facility] [place] [facility] [facility] PNEUMOCOCCAL POLYSACCHARID E PPV23 2013 33 complet ed [facility] FLU,3 YRS (HISTORICAL) 2012 88 complet ed Site: Left Deltoid [place] FLU,3 YRS (HISTORICAL) 2012 88 complet ed [facility] FLU,3 YRS (HISTORICAL) 2011 88 complet ed Site: Left Deltoid [place] ZOSTER LIVE 2011 121 complet ed remote data [facility] FLU,3 YRS (HISTORICAL) 2010 88 complet ed Site: Left Deltoid [place] DTAP, UNSPECIFIED FORMULATION 2010 107 complet ed Site: Right Deltoid [place] TDAP 2010 115 complet ed [place] [facility] FLU,3 YRS (HISTORICAL) 2009 88 complet ed Site: Left Deltoid [place] NOVEL INFLUENZA-H1N 1-09, ALL FORMULATIONS 2009 128 complet ed [employer] [place] FLU,3 YRS (HISTORICAL) 2008 88 complet ed Site: Left Deltoid [place] FLU,3 YRS (HISTORICAL) 2007 88 complet ed Site: Right Deltoid [place] PNEUMOCOCCAL, UNSPECIFIED FORMULATION 2007 CYRUS LANDERS EN F 109 complet ed [place] FLU,3 YRS (HISTORICAL) 2006 88 complet ed Site: Left Deltoid [place] FLU,3 YRS (HISTORICAL) 2004 JONATHAN ASHRAF 88 complet ed [place] INFLUENZA, WHOLE 1998 KRISTINE ALMANZA 16 complet ed [facility] Results Combined list of recent chemistry, hematology and other laboratory results from Department of Defense and Veterans Affairs, ranging from 15 months to all on record, depending upon the facility. Order Name Results Value Reference Range Date Interpretation Specimen Comments Source LIPID PANEL FASTING CHOLESTERO L [MASS/VOLU ME] IN SERUM OR PLASMA 164 mg/dL 08/06 Specimen Type: SERUM No comment entered. Ordering Provider: JUNE VALDIVIA Report Released Date/Time: Jul 30, 2024 09:22 AM Reporting Lab: [facility] [place] [facility] [address] [facility] [address] Performing Lab: [facility] [place] [facility] [address] [facility] [address] [facility] LIPID PANEL FASTING TRIGLYCERI DE [MASS/VOLU ME] IN SERUM OR PLASMA 88 mg/dL 0 - 150 08/06 Specimen Type: SERUM No comment entered. Ordering Provider: JUNE VALDIVIA Report Released Date/Time: Jul 30, 2024 09:22 AM Reporting Lab: [facility] [place] [facility] [address] [facility] [address] Performing Lab: [facility] [place] [facility] [address] [facility] [address] [facility] LIPID PANEL FASTING CHOLESTERO L IN LDL [MASS/VOLU ME] IN SERUM OR PLASMA BY CALCULATIO N 106 mg/dL 0 - 129 08/06 Specimen Type: SERUM No comment entered. Ordering Provider: JUNE VALDIVIA Report Released Date/Time: Jul 30, 2024 09:22 AM Reporting Lab: [facility] [place] [facility] [address] [facility] [address] Performing Lab: [facility] [address] [facility] [address] [facility] LIPID PANEL FASTING CHOLESTERO L.TOTAL/CH OLESTEROL IN HDL [MASS RATIO] IN SERUM OR PLASMA 4.1 08/06 Specimen Type: SERUM No comment entered. Ordering Provider: JUNE VALDIVIA Report Released Date/Time: Jul 30, 2024 09:22 AM Reporting Lab: [facility] [place] [facility] [address] [facility] [address] Performing Lab: [facility] [place] [facility] [address] [facility] [address] [facility] LIPID PANEL FASTING CHOLESTERO L IN HDL [MASS/VOLU ME] IN SERUM OR PLASMA 40 mg/dL 40 - 60 08/06 Specimen Type: SERUM No comment entered. Ordering Provider: JUNE VALDIVIA Report Released Date/Time: Jul 30, 2024 09:22 AM Reporting Lab: [facility] [address] [address] Performing Lab: [facility] [address] [address] [facility] HEMOGLOBI N A1C PANEL HEMOGLOBIN A1C/HEMOGL OBIN.TOTAL IN BLOOD BY HPLC 5.2 4.0 - 5.6 08/06 Specimen Type: BLOOD Comment: Values obtained from A1C measurement s can vary. For atypical A1C assays, a reported value of 7.0 could actually be between 6.72 and 7.28 if measured by a reference method. A reported value of 9.0 could actually be between 8.73 and 9.27. Ref: http://www. ngsp.org/[place] Pdata.asp Ordering Provider: JUNE VALDIVIA Report Released Date/Time: Jul 30, 2024 09:22 AM Reporting Lab: [facility] [address] Performing Lab: [facility] [address] [facility] LIVER FUNCTION PROTEIN [MASS/VOLU ME] IN SERUM OR PLASMA 6.6 g/dL 6.0 - 8.3 08/06 Specimen Type: SERUM No comment entered. Ordering Provider: JUNE VALDIVIA Report Released Date/Time: Jul 30, 2024 09:22 AM Reporting Lab: [facility] [address] [facility] [address] Performing Lab: [facility] [address] [facility] [address] [facility] LIVER FUNCTION ALBUMIN [MASS/VOLU ME] IN SERUM OR PLASMA 3.6 g/dL 3.5 - 5.0 08/06 Specimen Type: SERUM No comment entered. Ordering Provider: JUNE VALDIVIA Report Released Date/Time: Jul 30, 2024 09:22 AM Reporting Lab: [facility] [place] [facility] [address] [facility] [address] Performing Lab: [facility] [place] [facility] [address] [facility] [address] [facility] [place] [facility] LIVER FUNCTION ALKALINE PHOSPHATAS E [ENZYMATIC ACTIVITY/V OLUME] IN SERUM OR PLASMA 81 U/L 40 - 150 08/06 Specimen Type: SERUM No comment entered. Ordering Provider: JUNE VALDIVIA Report Released Date/Time: Jul 30, 2024 09:22 AM Reporting Lab: [facility] [place] [facility] [address] [facility] [address] Performing Lab: [facility] [place] [facility] [address] [facility] [address] [facility] [place] [facility] LIVER FUNCTION ASPARTATE AMINOTRANS FERASE [ENZYMATIC ACTIVITY/V OLUME] IN SERUM OR PLASMA 13 U/L 5 - 34 08/06 Specimen Type: SERUM No comment entered. Ordering Provider: JUNE VALDIVIA Report Released Date/Time: Jul 30, 2024 09:22 AM Reporting Lab: [facility] [place] [facility] [address] [facility] [address] Performing Lab: [facility] [place] [facility] [address] [facility] [address] [facility] [place] [facility] LIVER FUNCTION ALANINE AMINOTRANS FERASE [ENZYMATIC ACTIVITY/V OLUME] IN SERUM OR PLASMA 10 U/L 08/06 Specimen Type: SERUM No comment entered. Ordering Provider: JUNE VALDIVIA Report Released Date/Time: Jul 30, 2024 09:22 AM Reporting Lab: [facility] [place] [facility] [address] [facility] [address] Performing Lab: [facility] [place] [facility] [address] [facility] [address] [facility] [place] [facility] LIVER FUNCTION BILIRUBIN. TOTAL [MASS/VOLU ME] IN SERUM OR PLASMA 0.7 mg/dL 0.2 - 1.2 08/06 Specimen Type: SERUM No comment entered. Ordering Provider: JUNE VALDIVIA Report Released Date/Time: Jul 30, 2024 09:22 AM Reporting Lab: [facility] [place] [facility] [address] [facility] [address] Performing Lab: [facility] [place] [facility] [address] [facility] [phone] [facility] [place] [facility] BASIC METABOLIC PANEL (fasting) UREA NITROGEN [MASS/VOLU ME] IN SERUM OR PLASMA 24 mg/dL 7 - 25 08/06 Specimen Type: SERUM No comment entered. Ordering Provider: JUNE VALDIVIA Report Released Date/Time: Jul 30, 2024 09:22 AM Reporting Lab: [facility] [place] [facility] [address] [facility] [phone] Performing Lab: [facility] [place] [facility] [address] [facility] [phone] [facility] [place] [facility] BASIC METABOLIC PANEL (fasting) GLUCOSE [MASS/VOLU ME] IN SERUM OR PLASMA 98 mg/dL 65 - 100 08/06 Specimen Type: SERUM No comment entered. Ordering Provider: JUNE VALDIVIA Report Released Date/Time: Jul 30, 2024 09:22 AM Reporting Lab: [facility] [place] [facility] [address] [facility] [address] Performing Lab: [facility] [place] [facility] [address] [facility] [address] [facility] [place] [facility] BASIC METABOLIC PANEL (fasting) SODIUM [MOLES/VOL UME] IN SERUM OR PLASMA 142 mmol/L 135 - 145 08/06 Specimen Type: SERUM No comment entered. Ordering Provider: JUNE VALDIVIA Report Released Date/Time: Jul 30, 2024 09:22 AM Reporting Lab: [facility] [place] [facility] [address] [facility] [address] Performing Lab: [facility] [place] [facility] [address] [facility] [address] [facility] [place] [facility] BASIC METABOLIC PANEL (fasting) POTASSIUM [MOLES/VOL UME] IN SERUM OR PLASMA 4.6 mmol/L 3.5 - 5.0 08/06 Specimen Type: SERUM No comment entered. Ordering Provider: JUNE VALDIVIA Report Released Date/Time: Jul 30, 2024 09:22 AM Reporting Lab: [facility] [place] [address] [address] Performing Lab: [facility] [address] [facility] BASIC METABOLIC PANEL (fasting) CHLORIDE [MOLES/VOL UME] IN SERUM OR PLASMA 110 mmol/L 100 - 110 08/06 Specimen Type: SERUM No comment entered. Ordering Provider: JUNE VALDIVIA Report Released Date/Time: Jul 30, 2024 09:22 AM Reporting Lab: [facility] [address] Performing Lab: [facility] [address] [facility] BASIC METABOLIC PANEL (fasting) CARBON DIOXIDE, TOTAL [MOLES/VOL UME] IN SERUM OR PLASMA 25 meq/L 20 - 30 08/06 Specimen Type: SERUM No comment entered. Ordering Provider: JUNE VALDIVIA Report Released Date/Time: Jul 30, 2024 09:22 AM Reporting Lab: [facility] [address] Performing Lab: [facility] [address] [address] [facility] BASIC METABOLIC PANEL (fasting) CREATININE [MASS/VOLU ME] IN SERUM OR PLASMA 1.12 mg/dL 0.50 - 1.40 08/06 Specimen Type: SERUM No comment entered. Ordering Provider: JUNE VALDIVIA Report Released Date/Time: Jul 30, 2024 09:22 AM Reporting Lab: [facility] [address] Performing Lab: [facility] [place] [facility] [address] [facility] [address] [facility] [place] [facility] BASIC METABOLIC PANEL (fasting) GLOMERULAR FILTRATION RATE/1.73 SQ M.PREDICTE D [VOLUME RATE/AREA] IN SERUM, PLASMA OR BLOOD BY CREATININE -BASED FORMULA (CKD-EPI 2020) 67 mL/min 60 08/06 Specimen Type: SERUM No comment entered. Ordering Provider: JUNE VALDIVIA Report Released Date/Time: Jul 30, 2024 09:22 AM Reporting Lab: [facility] [place] [facility] [address] [facility] [address] Performing Lab: [facility] [place] [address] [address] [facility] [place] [facility] TSH THYROTROPI N [UNITS/VOL UME] IN SERUM OR PLASMA 2.61 u[IU]/m L 0.35 - 5.00 08/06 Specimen Type: SERUM No comment entered. Ordering Provider: JUNE VALDIVIA Report Released Date/Time: Jul 30, 2024 09:22 AM Reporting Lab: [facility] [place] [facility] [address] [facility] [address] Performing Lab: [facility] [address] [address] [facility] MICROALBU MIN CREATININ E RATIO PANEL MICROALBUM IN/CREATIN INE [MASS RATIO] IN URINE 17.6 mg/g 0 - 29.9 08/06 Specimen Type: URINE No comment entered. Ordering Provider: JUNE VALDIVIA Report Released Date/Time: Jul 30, 2024 09:22 AM Reporting Lab: [facility] [place] [address] [address] Performing Lab: [facility] [place] [address] [address] [facility] [place] [facility] MICROALBU MIN CREATININ E RATIO PANEL MICROALBUM IN [MASS/VOLU ME] IN URINE 2.5 mg/dL 08/06 Specimen Type: URINE No comment entered. Ordering Provider: JUNE VALDIVIA Report Released Date/Time: Jul 30, 2024 09:22 AM Reporting Lab: [facility] [place] [facility] [address] [facility] [address] Performing Lab: [facility] [place] [facility] [address] [facility] [address] [facility] [place] [facility] MICROALBU MIN CREATININ E RATIO PANEL CREATININE [MASS/VOLU ME] IN URINE 141.74 mg/dL 08/06 Specimen Type: URINE No comment entered. Ordering Provider: UJNE VALDIVIA Report Released Date/Time: Jul 30, 2024 09:22 AM Reporting Lab: [facility] [place] [facility] [address] [facility] [address] Performing Lab: [facility] [address] [address] [facility] [place] [facility] MICROSCOP IC AUTOMATED , URINE LEUKOCYTES [#/AREA] IN URINE SEDIMENT BY MICROSCOPY HIGH POWER FIELD 0-5/[HP F] 0 - 5 08/06 Specimen Type: URINE Comment: If Glucose = >500 and Ketones are positive, please alert the Physician. Ordering Provider: JUNE VALDIVIA Report Released Date/Time: Jul 30, 2024 09:22 AM Reporting Lab: [facility] [place] [facility] [address] [facility] [address] Performing Lab: [facility] [address] [facility] [address] [facility] [place] [facility] MICROSCOP IC AUTOMATED , URINE ERYTHROCYT ES [#/AREA] IN URINE SEDIMENT BY MICROSCOPY HIGH POWER FIELD 3-5/[HP F] 0 - 3 08/06 Specimen Type: URINE Comment: If Glucose = >500 and Ketones are positive, please alert the Physician. Ordering Provider: JUNE VALDIVIA Report Released Date/Time: Jul 30, 2024 09:22 AM Reporting Lab: [facility] [place] [facility] [address] [facility] [address] Performing Lab: [facility] [address] [facility] [address] [facility] MICROSCOP IC AUTOMATED , URINE EPITHELIAL CELLS.SQUA MOUS [#/AREA] IN URINE SEDIMENT BY MICROSCOPY HIGH POWER FIELD FEW/[HP F] 08/06 Specimen Type: URINE Comment: If Glucose = >500 and Ketones are positive, please alert the Physician. Ordering Provider: JUNE VALDIVIA Report Released Date/Time: Jul 30, 2024 09:22 AM Reporting Lab: [facility] [address] [facility] [address] Performing Lab: [facility] [address] [address] [facility] CBC AND DIFF (AUTO) LEUKOCYTES [#/VOLUME] IN BLOOD BY AUTOMATED COUNT 4.64 10*3/uL 4.50 - 11.00 08/06 Specimen Type: BLOOD No comment entered. Ordering Provider: JUNE VALDIVIA Report Released Date/Time: Jul 30, 2024 09:22 AM Reporting Lab: [facility] [address] [facility] [address] Performing Lab: [facility] [address] [address] [facility] CBC AND DIFF (AUTO) ERYTHROCYT ES [#/VOLUME] IN BLOOD BY AUTOMATED COUNT 3.86 10*6/uL 4.23 - 5.66 08/06 L Specimen Type: BLOOD No comment entered. Ordering Provider: JUNE VALDIVIA Report Released Date/Time: Jul 30, 2024 09:22 AM Reporting Lab: [facility] [address] [facility] [address] Performing Lab: [address] [address] [facility] CBC AND DIFF (AUTO) HEMOGLOBIN [MASS/VOLU ME] IN BLOOD 12.3 g/dL 12.8 - 17 08/06 L Specimen Type: BLOOD No comment entered. Ordering Provider: JUNE VALDIVIA Report Released Date/Time: Jul 30, 2024 09:22 AM Reporting Lab: [facility] [place] [facility] [address] [facility] [address] Performing Lab: [facility] [place] [facility] [address] [facility] [address] [facility] [place] [facility] CBC AND DIFF (AUTO) HEMATOCRIT [VOLUME FRACTION] OF BLOOD BY AUTOMATED COUNT 37.2 39.2 - 50.4 08/06 L Specimen Type: BLOOD No comment entered. Ordering Provider: JUNE VALDIVIA Report Released Date/Time: Jul 30, 2024 09:22 AM Reporting Lab: [facility] [place] [facility] [address] [facility] [address] Performing Lab: [facility] [place] [facility] [address] [facility] [address] [facility] [place] [facility] CBC AND DIFF (AUTO) MCV [ENTITIC VOLUME] BY AUTOMATED COUNT 96.4 fL 82 - 99 08/06 Specimen Type: BLOOD No comment entered. Ordering Provider: JUNE VALDIVIA Report Released Date/Time: Jul 30, 2024 09:22 AM Reporting Lab: [facility] [place] [facility] [address] [facility] [address] Performing Lab: [facility] [place] [facility] [address] [facility] [address] [facility] [place] [facility] CBC AND DIFF (AUTO) MCHC [MASS/VOLU ME] BY AUTOMATED COUNT 33.1 g/dL 30.8 - 35.1 08/06 Specimen Type: BLOOD No comment entered. Ordering Provider: JUNE VALDIVIA Report Released Date/Time: Jul 30, 2024 09:22 AM Reporting Lab: [facility] [place] [facility] [address] [facility] [address] Performing Lab: [facility] [place] [address] [address] [facility] [place] [facility] CBC AND DIFF (AUTO) PLATELETS [#/VOLUME] IN BLOOD BY AUTOMATED COUNT 112 10*3/uL 140 - 360 08/06 L Specimen Type: BLOOD No comment entered. Ordering Provider: JUNE VALDIVIA Report Released Date/Time: Jul 30, 2024 09:22 AM Reporting Lab: [facility] [place] [address] [address] Performing Lab: [facility] [place] [address] [address] [facility] [place] [facility] CBC AND DIFF (AUTO) ERYTHROCYT E DISTRIBUTI ON WIDTH [RATIO] BY AUTOMATED COUNT 13.1 12.0 - 16.0 08/06 Specimen Type: BLOOD No comment entered. Ordering Provider: JUNE VALDIVIA Report Released Date/Time: Jul 30, 2024 09:22 AM Reporting Lab: [facility] [place] [address] [address] Performing Lab: [facility] [place] [address] [address] [facility] [place] [facility] CBC AND DIFF (AUTO) MONOCYTES [#/VOLUME] IN BLOOD BY AUTOMATED COUNT 0.27 10*3/uL 0.30 - 1.10 08/06 L Specimen Type: BLOOD No comment entered. Ordering Provider: JUNE VALDIVIA Report Released Date/Time: Jul 30, 2024 09:22 AM Reporting Lab: [facility] [place] [address] [address] Performing Lab: [facility] [place] [address] [address] [facility] [place] [facility] CBC AND DIFF (AUTO) MCH [ENTITIC MASS] BY AUTOMATED COUNT 31.9 pg 26.2 - 32.6 08/06 Specimen Type: BLOOD No comment entered. Ordering Provider: JUNE VALDIVIA Report Released Date/Time: Jul 30, 2024 09:22 AM Reporting Lab: [facility] [place] [address] [address] Performing Lab: [facility] [place] [facility] [address] [facility] [address] [facility] [place] [facility] CBC AND DIFF (AUTO) NEUTROPHIL S/100 LEUKOCYTES IN BLOOD BY AUTOMATED COUNT 68.3 43.7 - 75.8 08/06 Specimen Type: BLOOD No comment entered. Ordering Provider: JUNE VALDIVIA Report Released Date/Time: Jul 30, 2024 09:22 AM Reporting Lab: [facility] [place] [facility] [address] [facility] [address] Performing Lab: [facility] [place] [facility] [address] [facility] [address] [facility] [place] [facility] CBC AND DIFF (AUTO) LYMPHOCYTE S/100 LEUKOCYTES IN BLOOD BY AUTOMATED COUNT 24.4 14.0 - 42.3 08/06 Specimen Type: BLOOD No comment entered. Ordering Provider: JUNE VALDIVIA Report Released Date/Time: Jul 30, 2024 09:22 AM Reporting Lab: [facility] [place] [facility] [address] [facility] [address] Performing Lab: [facility] [place] [facility] [address] [facility] [address] [facility] [place] [facility] CBC AND DIFF (AUTO) MONOCYTES/ 100 LEUKOCYTES IN BLOOD BY AUTOMATED COUNT 5.8 5.1 - 13.7 08/06 Specimen Type: BLOOD No comment entered. Ordering Provider: JUNE VALDIVIA Report Released Date/Time: Jul 30, 2024 09:22 AM Reporting Lab: [facility] [place] [facility] [address] [facility] [address] Performing Lab: [facility] [place] [facility] [address] [facility] [address] [facility] [place] [facility] CBC AND DIFF (AUTO) EOSINOPHIL S/100 LEUKOCYTES IN BLOOD BY AUTOMATED COUNT 0.9 0.4 - 6.8 08/06 Specimen Type: BLOOD No comment entered. Ordering Provider: JUNE VALDIVIA Report Released Date/Time: Jul 30, 2024 09:22 AM Reporting Lab: [facility] [place] [facility] [address] [facility] [address] Performing Lab: [facility] [place] [facility] [address] [facility] [address] [facility] [place] [facility] CBC AND DIFF (AUTO) BASOPHILS/ 100 LEUKOCYTES IN BLOOD BY AUTOMATED COUNT 0.2 0.1 - 2.0 08/06 Specimen Type: BLOOD No comment entered. Ordering Provider: JUNE VALDIVIA Report Released Date/Time: Jul 30, 2024 09:22 AM Reporting Lab: [facility] [place] [facility] [address] [facility] [address] Performing Lab: [facility] [place] [facility] [address] [facility] [address] [facility] [place] [facility] CBC AND DIFF (AUTO) NEUTROPHIL S [#/VOLUME] IN BLOOD BY AUTOMATED COUNT 3.17 10*3/uL 2.20 - 7.60 08/06 Specimen Type: BLOOD No comment entered. Ordering Provider: JUNE VALDIVIA Report Released Date/Time: Jul 30, 2024 09:22 AM Reporting Lab: [facility] [place] [facility] [address] [facility] [address] Performing Lab: [facility] [place] [facility] [address] [facility] [address] [facility] [place] [facility] CBC AND DIFF (AUTO) LYMPHOCYTE S [#/VOLUME] IN BLOOD BY AUTOMATED COUNT 1.13 10*3/uL 1.00 - 3.20 08/06 Specimen Type: BLOOD No comment entered. Ordering Provider: JUNE VALDIVIA Report Released Date/Time: Jul 30, 2024 09:22 AM Reporting Lab: [facility] [place] [facility] [address] [facility] [address] Performing Lab: [facility] [place] [facility] [address] [facility] [address] [facility] [place] [facility] CBC AND DIFF (AUTO) EOSINOPHIL S [#/VOLUME] IN BLOOD BY AUTOMATED COUNT 0.04 10*3/uL 0.03 - 0.44 08/06 Specimen Type: BLOOD No comment entered. Ordering Provider: JUNE VALDIVIA Report Released Date/Time: Jul 30, 2024 09:22 AM Reporting Lab: [facility] [place] [facility] [address] [facility] [address] Performing Lab: [facility] [place] [address] [address] [facility] [place] [facility] CBC AND DIFF (AUTO) BASOPHILS [#/VOLUME] IN BLOOD BY AUTOMATED COUNT 0.01 10*3/uL 0.01 - 0.13 08/06 Specimen Type: BLOOD No comment entered. Ordering Provider: JUNE VALDIVIA Report Released Date/Time: Jul 30, 2024 09:22 AM Reporting Lab: [facility] [place] [address] [address] Performing Lab: [facility] [place] [address] [address] [facility] [place] [facility] CBC AND DIFF (AUTO) IMMATURE GRANULOCYT ES/100 LEUKOCYTES IN BLOOD BY AUTOMATED COUNT 0.4 0.0 - 0.7 08/06 Specimen Type: BLOOD No comment entered. Ordering Provider: JUNE VALDIVIA Report Released Date/Time: Jul 30, 2024 09:22 AM Reporting Lab: [facility] [place] [address] [address] Performing Lab: [facility] [place] [address] [address] [facility] [place] [facility] CBC AND DIFF (AUTO) IMMATURE GRANULOCYT ES [#/VOLUME] IN BLOOD 0.02 10*3/uL 0.00 - 0.06 08/06 Specimen Type: BLOOD No comment entered. Ordering Provider: JUNE VALDIVIA Report Released Date/Time: Jul 30, 2024 09:22 AM Reporting Lab: [facility] [place] [address] [address] Performing Lab: [facility] [place] [address] [address] [facility] [place] [facility] CBC AND DIFF (AUTO) NRBC % 0.0 0.0 - 0.0 08/06 Specimen Type: BLOOD No comment entered. Ordering Provider: JUNE VALDIVIA Report Released Date/Time: Jul 30, 2024 09:22 AM Reporting Lab: [facility] [place] [facility] [address] [place] [address] Performing Lab: [facility] [place] [facility] [address] [facility] [address] [facility] [place] [facility] CBC AND DIFF (AUTO) NRBC, ABS 0.00 10*3/uL 0.00 - 0.00 08/06 Specimen Type: BLOOD No comment entered. Ordering Provider: JUNE VALDIVIA Report Released Date/Time: Jul 30, 2024 09:22 AM Reporting Lab: [facility] [place] [address] [address] Performing Lab: [facility] [place] [facility] [address] [place] [address] [facility] [place] [facility] URINALYSI S COLOR OF URINE Yellow 08/06 Specimen Type: URINE Comment: If Glucose = >500 and Ketones are positive, please alert the Physician. Ordering Provider: JUNE VALDIVIA Report Released Date/Time: Jul 30, 2024 09:22 AM Reporting Lab: [facility] [place] [address] [address] Performing Lab: [facility] [place] [facility] [address] [place] [address] [facility] [place] [facility] URINALYSI S APPEARANCE OF URINE Clear 08/06 Specimen Type: URINE Comment: If Glucose = >500 and Ketones are positive, please alert the Physician. Ordering Provider: JUNE VALDIVIA Report Released Date/Time: Jul 30, 2024 09:22 AM Reporting Lab: [facility] [place] [address] [address] Performing Lab: [facility] [place] [facility] [address] [facility] [address] [facility] [place] [facility] URINALYSI S GLUCOSE [MASS/VOLU ME] IN URINE Normalm g/dL 08/06 Specimen Type: URINE Comment: If Glucose = >500 and Ketones are positive, please alert the Physician. Ordering Provider: JUNE VALDIVIA Report Released Date/Time: Jul 30, 2024 09:22 AM Reporting Lab: [facility] [place] [facility] [address] [facility] [address] Performing Lab: [facility]TR[facility] [address] [address] [facility]TRN [place] URINALYSI S KETONES [MASS/VOLU ME] IN URINE BY TEST STRIP NEGATIV Emg/dL 08/06 Specimen Type: URINE Comment: If Glucose = >500 and Ketones are positive, please alert the Physician. Ordering Provider: JUNE VALDIVIA Report Released Date/Time: Jul 30, 2024 09:22 AM Reporting Lab: [facility]TRN [place] [address] [address] Performing Lab: [facility]ENTERTRN [facility] [address] [address] [facility]N [facility] URINALYSI S ERYTHROCYT ES [PRESENCE] IN URINE SEDIMENT BY LIGHT MICROSCOPY NEGATIV Emg/dL 08/06 Specimen Type: URINE Comment: If Glucose = >500 and Ketones are positive, please alert the Physician. Ordering Provider: JUNE VALDIVIA Report Released Date/Time: Jul 30, 2024 09:22 AM Reporting Lab: [facility] [place] [address] [address] Performing Lab: [facility] [place] [address] [address] [facility] [place] [facility] URINALYSI S PROTEIN [MASS/VOLU ME] IN URINE BY TEST STRIP NEGATIV Emg/dL 08/06 Specimen Type: URINE Comment: If Glucose = >500 and Ketones are positive, please alert the Physician. Ordering Provider: JUNE VALDIVIA Report Released Date/Time: Jul 30, 2024 09:22 AM Reporting Lab: [facility] [place] [facility] [address] [facility] [address] Performing Lab: [facility] [place] [facility] [address] [facility] [address] [facility] [place] [facility] URINALYSI S NITRITE [PRESENCE] IN URINE NEGATIV Emg/dL 08/06 Specimen Type: URINE Comment: If Glucose = >500 and Ketones are positive, please alert the Physician. Ordering Provider: JUNE VALDIVIA Report Released Date/Time: Jul 30, 2024 09:22 AM Reporting Lab: [facility] [place] [facility] [address] [facility] [address] Performing Lab: [facility] [place] [address] [address] [facility] [place] [facility] URINALYSI S BILIRUBIN. TOTAL [PRESENCE] IN URINE NEGATIV Emg/dL 08/06 Specimen Type: URINE Comment: If Glucose = >500 and Ketones are positive, please alert the Physician. Ordering Provider: JUNE VALDIVIA Report Released Date/Time: Jul 30, 2024 09:22 AM Reporting Lab: [facility] [place] [address] [address] Performing Lab: [facility] [place] [facility] [address] [facility] [address] [facility] [place] [facility] URINALYSI S SPECIFIC GRAVITY OF URINE BY REFRACTOME TRY 1.024 1.016 - 1.022 08/06 H Specimen Type: URINE Comment: If Glucose = >500 and Ketones are positive, please alert the Physician. Ordering Provider: JUNE VALDIVIA Report Released Date/Time: Jul 30, 2024 09:22 AM Reporting Lab: [facility] [place] [address] [address] Performing Lab: [facility] [place] [address] [address] [facility] [facility] URINALYSI S PH OF URINE BY TEST STRIP 6.5 5.0 - 9.0 08/06 Specimen Type: URINE Comment: If Glucose = >500 and Ketones are positive, please alert the Physician. Ordering Provider: JUNE VALDIVIA Report Released Date/Time: Jul 30, 2024 09:22 AM Reporting [facility]: [facility] [place] [facility] [address] [facility] [address] Performing Lab: [facility] [place] [facility] [address] [facility] [address] [facility] [facility] URINALYSI S UROBILINOG EN [MASS/VOLU ME] IN URINE BY TEST STRIP 4 mg/dL <2.0 - 2.0 08/06 Specimen Type: URINE Comment: If Glucose = >500 and Ketones are positive, please alert the Physician. Ordering Provider: JUNE VALDIVIA Report Released Date/Time: Jul 30, 2024 09:22 AM Reporting [facility]: [facility] [place] [facility] [address] [facility] [address] Performing [facility]: [facility] [place] [facility] [address] [facility] [address] [facility] [place] [facility] URINALYSI S LEUKOCYTE ESTERASE [PRESENCE] IN URINE BY TEST STRIP TRACE 08/06 Specimen Type: URINE Comment: If Glucose = >500 and Ketones are positive, please alert the Physician. Ordering Provider: JUNE VALDIVIA Report Released Date/Time: Jul 30, 2024 09:22 AM Reporting [facility]: [facility] [place] [facility] [address] [facility] [address] Performing [facility]: [facility] [place] [address] [address] [facility] [place] [facility] PT & INR (COUMADIN ) INR IN PLATELET POOR PLASMA BY COAGULATIO N ASSAY 1.9 08/06 Specimen Type: PLASMA No comment entered. Ordering Provider: JAMAL JAIME Report Released Date/Time: Jul 02, 2024 04:04 PM Reporting Lab: [facility] [address] [facility] [address] Performing Lab: [facility] [address] [facility] [address] [facility] PT & INR (COUMADIN ) PROTHROMBI N TIME (PT) 20.1 s 10.0 - 13.1 08/06 H Specimen Type: PLASMA No comment entered. Ordering Provider: JAMAL JAIME Report Released Date/Time: Jul 02, 2024 04:04 PM Reporting Lab: [facility] [address] [facility] [address] Performing Lab: [facility] [address] [facility] [address] [facility] Vital Signs Combined list of inpatient and outpatient Vital Signs from Department of Defense and Veterans Affairs, ranging from 12 months to all on record, depending upon the facility. Vital Sign Value Date Comments Source SYSTOLIC BLOOD PRESSURE 123 08/08/19 25 09:38:51 [place] DIASTOLIC BLOOD PRESSURE 77 025 09:38:51 [place] PULSE OXIMETRY 95 08/08/2024 09:38:51 [place] WEIGHT 174 08/08/2024 09:38:51 [place] BMI 31 kg/m2 08/08/2024 09:38:51 [place] HEIGHT 63 08/08/2024 09:38:51 [place] TEMPERATURE 97.9 08/08/2024 09:38:51 [place] PULSE 89 08/08/2024 09:38:51 [place] RESPIRATION 19 08/08/2024 09:38:51 [place] SYSTOLIC BLOOD PRESSURE 124 02/09/20 24 13:06:28 [place] DIASTOLIC BLOOD PRESSURE 81 024 13:06:28 [place] PULSE OXIMETRY 96 02/09/2024 13:06:28 [place] WEIGHT 178 02/09/2024 13:06:28 [place] BMI 32 kg/m2 02/09/2024 13:06:28 [place] HEIGHT 63 02/09/2024 13:06:28 [place] TEMPERATURE 97.7 02/09/2024 13:06:28 [place] PULSE 93 02/09/2024 13:06:28 [place] RESPIRATION 20 02/09/2024 13:06:28 [place] SYSTOLIC BLOOD PRESSURE 121 11/01/19 24 10:33:21 [facility] DIASTOLIC BLOOD PRESSURE 76 024 10:33:21 [facility] PULSE OXIMETRY 96 11/01/2023 10:33:21 [facility] WEIGHT 182.6 11/01/2023 10:33:21 [facility] BMI 32 kg/m2 11/01/2023 10:33:21 [facility] PAIN 0 11/01/2023 10:33:21 [facility] HEIGHT 63 11/01/2023 10:33:21 [facility] TEMPERATURE 98.7 11/01/2023 10:33:21 [facility] PULSE 94 11/01/2023 10:33:21 [facility] RESPIRATION 16 11/01/2023 10:33:21 [facility] SYSTOLIC BLOOD PRESSURE 119 09/27/19 24 10:36:33 [facility] DIASTOLIC BLOOD PRESSURE 78 024 10:36:33 [facility] PULSE OXIMETRY 96 09/27/2023 10:36:33 [facility] WEIGHT 182.5 09/27/2023 10:36:33 [facility] BMI 32 kg/m2 09/27/2023 10:36:33 [facility] PAIN 0 09/27/2023 10:36:33 [facility] HEIGHT 63 09/27/2023 10:36:33 [facility] TEMPERATURE 97.1 09/27/2023 10:36:33 [facility] PULSE 82 09/27/2023 10[facility]36:33 [facility] RESPIRATION 16 09/27/2023 10:36:33 [facility] Encounters Combined list of: 1) Encounters from Department of Veterans Affairs facilities going backup to the last 18 months, not all VA inpatient encounters are included; 2) Encounters from the Department of [facility] facilities going backup to 280 months. Location Location Details Encounter Type Encounter Number Reason For Visit Attending Provider ADM Date DC Date Status Disposition Source [place] [facility] PRO PHONE CALL 5-10 MIN [id number] Diagnos is: ICD-10- CM Z51.81 Encount er for therape utic drug level monitor lisa PILO MARQUEZ 02/22 [facility] [place] [place] OFF/OP EST OCTOBER X REQ PHY/QHP [id number] Diagnos is: ICD-10- CM Z23 Encount er for immuniz ation CODYHILL R 04/05 [facility] [place] PRO PHONE CALL 5-10 MIN [id number] Diagnos is: ICD-10- CM Z51.81 Encount er for therape utic drug level monitor JUDY Jacob 04/05 [facility] (6[facility]GE) HC PRO PHONE CALL 5-10 MIN [id number] Diagnos is: ICD-10- CM Z51.81 Encount er for therape utic drug level monitor ing MARY PALAFOX [facility] En[facility] [id number] 05/22 [facility] Encounter [id number] 05/23 [facility] [place] PRO PHONE CALL 5-10 MIN [id number] [id number] Diagnos is: ICD-10- CM Z51.81 Encount er for therape utic drug level monitor JUDY Jacob 06/21 [facility] MTMS BY PHARM EST 15 MIN [id number] Diagnos is: ICD-10- CM Z51.81 Encount er for therape utic drug level monitor WANDA Cm 07/06 [facility] [facility] Outpatient Encounter [id number] 07/17 [facility] [place] [place] [facility] (6[facility] MTMS BY PHARM EST 15 MIN [id number] [id number] Diagnos is: ICD-10- CM Z51.81 Encount er for therape utic drug level monitor lisa JAIMELAYLA 07/26 [facility] (6[facility]GE) [place] [facility] [place] [facility] Outpatient Encounter [id number] 07/27 [facility] 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 EKLOF,KEYON Y LEROY 08/04 [place] [facility] En[facility] [id number] 08/08 [place] [facility] MTMS BY PHARM [employer] 15 MIN [id number] [id number] Diagnos is: ICD-10- CM Z51.81 Encount er for therape utic drug level monitor JUDY Jacob 08/16 [facility] (631GE) MTMS BY PHARM [employer] 15 MIN [id number] [id number] Diagnos is: ICD-10- CM Z51.81 Encount er for therape utic drug level monitor MARY Lawrence [facility] (6[facility]GE) [facility] MTMS BY PHARM EST 15 MIN [id number] Diagnos is: ICD-10- CM Z51.81 Encount er for therape utic drug level monitor lisa BOURNEWANDA BRI 08/29 [facility] En[facility] [id number] 08/30 [facility] Encounter [id number] 08/30 [facility] Encounter [id number] 08/30 [facility] Encounter [id number] 09/03 [facility] Encounter [id number] 09/05 [facility] Encounter [id number] 09/05 [facility] Encounter [id number] 09/06 [facility] Encounter [id number] 09/06 [facility] MTMS BY PHARM EST 15 MIN [id number] Diagnos is: ICD-10- CM Z51.81 Encount er for therape utic drug level monitor WANDA Cm BRI 09/12 [facility] Outpatient Encounter [id number] 09/26 [facility] [place] OFF[place] O/P EST MOD 30 MIN [id number] [id number] Diagnos is: ICD-10- CM I10 Essenti al (primar y) hyperte LIZET Parisi LEROY 09/26 [place] MTMS BY PHARM [employer] 15 MIN [id number] [id number] Diagnos is: ICD-10- CM Z51.81 Encount er for therape utic drug level monitor JUDY Jacob IE 09/26 [place] [facility] Outpatient Encounter [id number] 09/30 [facility] [place] MTMS BY PHARM [employer] 15 MIN [id number] [id number] Diagnos is: ICD-10- CM Z51.81 Encount er for therape utic drug level monitor JUDY Jacob IE 10/10 [place] OFF[place] O/P EST LOW 20 MIN [id number] [id number] Diagnos is: ICD-10- CM I10 Essenti al (primar y) hyperte LIZET Parisi LEROY 10/31 [place] MTMS BY PHARM [employer] 15 MIN [id number] [id number] Diagnos is: ICD-10- CM Z51.81 Encount er for therape utic drug level monitor JUDY Jacob IE 10/31 [place] [facility] Encounter [id number] 11/01 [facility] En[facility] [id number] 11/01 [facility] Out[facility] Encounter [id number] 11/14 [facility] Out[facility] Encounter [id number] 11/14 [facility] Encounter [id number] 11/15 [facility] HC PRO PHONE CALL 5-10 MIN [id number] Diagnos is: ICD-10- CM 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 JENI LAU IE 11/15 [facility] MTMS BY PHARM [employer]ER 15 MIN [id number] [id number] 15 Diagnos is: ICD-10- CM Z51.81 Encount er for therape utic drug level monitor JUDY Jacob IE 11/28 [place] [facility] Encounter [id number] 11/29 [facility] En[facility] [id number] 11/29 [facility] Encounter [id number] 11/29 [facility] Encounter [id number] 11/30 [facility] Encounter [id number] NATE VEGA 12/03 [facility] POS AIRWAY PRESSURE FILTER [id number] Diagnos is: ICD-10- CM G47.30 Sleep apnea, unspeci fied ST JUDY MEAD E P 12/05 [facility] En[facility] [id number] 12/06 [facility]counter [id number] 12/06 [facility] Encounter [id number] 12/14 [facility] Encounter [id number] CHENG SALAZAR 12/14 [facility] MTMS BY PHARM EST 15 MIN [id number] Diagnos is: ICD-10- CM Z51.81 Encount er for therape utic drug level monitor WANDA Cm 12/17 [facility] En[facility] [id number] 12/18 [facility] Encounter [id number] 12/18 [facility] Encounter [id number] 12/18 [facility] Encounter [id number] 12/24 [facility] Encounter [id number] 12/24 [facility] MTMS BY PHARM EST 15 MIN [id number] Diagnos is: ICD-10- CM Z51.81 Encount er for therape utic drug level monitor MEDHAT Dean 12/31 [facility] MTMS BY PHARM EST 15 MIN [id number] Diagnos is: ICD-10- CM Z51.81 Encount er for therape utic drug level monitor MEDHAT Dean 01/14 [facility] En[facility] [id number] 01/23 [facility] Encounter [id number] 01/24 [facility] Encounter [id number] 01/24 [facility] Encounter [id number] 01/29 [facility] Encounter [id number] 1.02/07 [facility] Encounter [id number] 1.02/07 [facility]counter [id number] 1.02/08 [facility] [place] [place] [facility] OFFICE O/P EST MOD 30 MIN [id number] Diagnos is: ICD-10- CM I48.91 Unspeci fied atrial fibrill atjocy EFRA VALDIVIA 02/08 [facility] [place] [facility] Encounter [id number] 02/08 [facility] [place] [place] [facility] QNHP OL DIG ASSMT&MGMT 21+ [id number] Diagnos is: ICD-10- CM Z12.2 Encntr screen for maligna nt neoplas m of respira tory organs NU BREAUX 02/11 [facility] [place] [place] [facility] OFFICE O/P EST MOD 30 MIN [id number] Diagnos is: ICD-10- CM N40.1 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 EKLOF,KEYON Y LEROY 02/11 [place] [facility] MTMS BY PHARM EST 15 MIN [id number] Diagnos is: ICD-10- CM Z51.81 Encount er for therape utic drug level monitor PILO Andrade 02/11 [facility] [place] [place] [facility] Out[facility] Encounter [id number] 02/21 [facility] Outpatient Encounter [id number] 03/07 [facility] [place] [place] [facility] (6[facility]GE[facility] MTMS BY PHARM EST 15 MIN [id number] Diagnos is: ICD-10- CM Z51.81 Encount er for therape utic drug level monitor lisa KRAUSARNS,PERCY ISTINE F 03/12 [facility] [facility] (6[facility]GE) [facility] MTMS BY PHARM EST 15 MIN [id number] Diagnos is: ICD-10- CM Z51.81 Encount er for therape utic drug level monitor lisa RUDYMEDHAT Karie 03/18 [facility] [place] [facility] MTMS BY PHARM EST 15 MIN [id number] Diagnos is: ICD-10- CM Z51.81 Encount er for therape utic drug level monitor lisa WANDA BOURNE 03/29 [facility] [place] [facility] Outpatient Encounter [id number]/04 [facility] [place] [facility] Outpatient Encounter [id number]/09 [facility] [place] [facility] QNHP OL DIG ASSMT&MGMT 11-20 [id number] Diagnos is: ICD-10- CM R91.1 Solitar y pulmona ry nodule PUCHALSKKyle, KEL L 04/09 [facility] [place] [place] [facility] Outpatient Encounter [id number] Diagnos is: ICD-10- CM R91.8 Other nonspec ific abnorma l finding of lung field VÍCTOR MUNOZ 04/09 [place] [facility] LD OFF/OP EST OCTOBER X REQ PHY/QHP [id number] [id number] Diagnos is: ICD-10- CM Z23 Encount er for immuniz HILL Woods 04/24 [place] [facility] (631GE) 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 Outpatient Encounter [id number] 1.05/08 [place] [facility] [place] [facility] (631GE) MTMS BY PHARM EST 15 MIN 55041-5.63 1GE. Diagnos is: ICD-10- CM Z51.81 Encount er for therape utic drug level monitor ing LAYLA JAIME 05/21 [facility]631GE[facility] [place] [facility] [facility] [place] [facility] Outpatient Encounter [id number] 1.05/30 [place] [place] [facility] (631GE) MTMS BY PHARM EST 15 MIN 80195-8.63 1GE. 04 Diagnos is: ICD-10- CM Z51.81 Encount er for therape utic drug level monitor ing LAYLA JAIME 06/04 [facility] (631GE) [facility] (631GE) MTMS BY PHARM EST 15 MIN [id number] [id number] 04 Diagnos is: ICD-10- CM Z51.81 Encount er for therape utic drug level monitor ing LAYLA JAIME 07/02 [facility] (631GE[facility] [place] [facility] [facility] Outpatient Encounter [id number] 07/30 [place] [facility] (631GE) MTMS BY PHARM EST 15 MIN [id number] [id number] 62 Diagnos is: ICD-10- CM Z51.81 Encount er for therape utic drug level monitor LAYLA Plaza 08/06 [facility] (631GE) [place] Outpatient Encounter [id number] 08/08 [place] [facility] [facility] [place] [facility] Outpatient Encounter [id number] 08/08 [facility] Social History Combined list of available smoking, tobacco, and other social history from Department of Defense and Veterans Affairs facilities. Social History Type Response Date Comment Source Tobacco smoking status [facility]-TOBACCO FORMER USER 09/27/2023 [place] [facility]/27[facility]2023 [place] History of tobacco use [place]-TOBACCO NEVER USED 06/09/2022 [place] [facility] 05[facility]24[facility]2021 [place] [facility]2020 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 [place] History of tobacco use CURRENT SMOKER 03/05/2018 [place] History of tobacco use CURRENT SMOKER 09/04/2017 [place] History of tobacco use QUIT TOBACCO USE IN PAST YEAR 09/09/2016 04/26/16 quit [place] History of tobacco use QUIT TOBACCO USE IN PAST YEAR 09/14/2015 [place] History of tobacco use QUIT TOBACCO USE IN PAST YEAR 02/13/2015 [place] History of tobacco use V1-PT NOT INTERESTED IN QUIT TOBACCO USE 08/18/2014 [place] History of tobacco use CURRENT SMOKER 12/16/2013 1/2 ppd [place] History of tobacco use QUIT TOBACCO USE IN PAST YEAR 09/25/2012 [place] History of tobacco use CURRENT SMOKER 12/23/2011 Pt states he smokes a half a pack of cigaretts a day. [place] History of tobacco use V1-PT DECLINES TOBACCO CESSATION MEDS 12/30/2010 [place] History of tobacco use CURRENT SMOKER 06/02/2010 smoker for 50 yrs...1 ppd [place] History of tobacco use CURRENT SMOKER 05/19/2009 10-12 cigaretts daily...smoking 50 years [place] History of tobacco use CURRENT SMOKER 04/08/2008 Patient reports smoking a pack of ciggs a day. [place] History of tobacco use V1-PT READY TO QUIT TOBACCO USE 12/18/2007 [place] History of tobacco use QUIT TOBACCO USE IN PAST YEAR 04/17/2007 [place] History of tobacco use V1-PT READY TO QUIT TOBACCO USE 10/16/2006 [place] History of tobacco use CURRENT SMOKER 01/13/2006 Vet continues to smoke 1 pkg of cigarettes daily. He said he does not want quit tobacco. [place] History of tobacco use CURRENT SMOKER 11/30/2004 1 pack a day [place] History of tobacco use TOBACCO CURRENT USER 05/28/2004 [facility] Plan of Care List of future care activities from [facility] facilities. Additional future care activities may be listed in the Assessment and Plan section. Date/Time Care Activity Care Activity Detail Facili ty 08/08/2024 AMBULATORY - MEDICINE AMBULATORY - MEDICI [facility] 08/19/2024 AMBULATORY - MEDICINE AMBULATORY - MEDICI [facility] 10/08/2024 AMBULATORY - NONE AMBULATORY - NONE [facility] 11/04/2024 AMBULATORY - MEDICINE AMBULATORY - MEDICI [place] 08/20/2024 Laboratory - [facility] Order PT and INR (COUMADIN) BLOOD (BLUE-PLASMA) SP ONCE [facility] Advance Directives List of completed, amended, or rescinded Advance Directives on record at [facility] facilities. An actual copy of the Directive is not included. Date Advance Directive Provider Source 10/03/2017 ADVANCE DIRECTIVE MARILU MIRZA [facility] 12/23/2013 ADVANCE DIRECTIVE NIALL SALCEDO
--- OUTSIDE RECORDS SUMMARY | 2024-08-08 13:29 | XMS_ITS | Encounter Summary ---
Author Name [facility] Organization [facility] [place] Address [address] [place] [address] Care Team Providers Care Construction Administrative Assistant Name Role Phone DOUG ARCHULETA Primary Care [...] PART A Jun 26, 2006 PART A [id number] DIMITRIS HENSLEY PATIENT MEDICARE (WNR) MEDICARE (M) PART A Jun 26, 2006 PART A [id number] DIMITRIS HENSLEY PATIENT Selected Encounter This section includes the information on record at [place] for the Encounter. Date/Time Encounter Type Encounter Description Reason Pro vider Source Aug 08, 2024 09:30 AM Outpatient Encounter PRIMARY CARE/MEDICINE IHE Encounter Template Text not used by [place] Plan of Treatment: Future Appointments (+ 6 [...] 20 appointments. The data comes from all [facility]. Appointment Date/Time Appointment Type Appointme nt Facility Name Aug 19, 2024 08:00 AM AMBULATORY - MEDICINE [facility] Oct 08, 2024 01:00 PM AMBULATORY - NONE [facility] November 04, 2024 03:00 PM [facility] Active, Pending, and Scheduled Orders This section includes a listing of several types of active, pending, and scheduled orders, including clinic medications orders, diagnostic test orders, procedure orders and consult orders; where the start date of the order is 45 days before the date of the Encounter or 45 days after the date of theEncounter. The data comes from all [facility] facilities. Test Date/Time Test Type Test Details Facility Name Aug 20, 2024 12:00 AM Laboratory - Chemi stry Order PT & INR (COUMADIN) BLOOD (BLUE-PLASMA) SP ONCE [facility] Lab Results: +/- 30 days of the encounter This section includes the Chemistry and Hematology Lab Results on record with [place] for the patient. Radiology Reports and Pathology [...] 09:22 AM Reporting Lab: [facility] [address] [address] Performing Lab: [facility] [address] [address] CHOLESTEROL 164 mg/dL TRIGLYCERIDE 88 mg/dL 0-150 [...] Jul 30, 2024 09:22 AM Reporting Lab: [address] [address] Performing Lab: [place] [phone] HEMOGLOBIN A1C 5.2 4.0-5.6 Aug 06, 2024 10:32 AM [facility] LIVER FUNCTION Specimen Type: SERUM No comment entered. Ordering Provider: GAIL VALDIVIA Report Released Date/Time: Jul 30, 2024 09:22 AM Reporting Lab: [address] [address] Performing Lab: [address] [address] PROTEIN,TOTAL 6.6 g/dL 6.0-8.3 ALBUMIN 3.6 g/dL 3.5-5.0 ALKALINE PHOSPHATASE 81 U/L 40-150 AST 13 U/L 5-34 ALT 10 U/L BILIRUBIN, TOTAL 0.7 mg/dL 0.2-1.2 Aug 06, 2024 10:32 AM [facility] BASIC METABOLIC PANEL (fasting) Specimen Type: SERUM No comment entered. Ordering Provider: GAIL VALDIVIA Report Released Date/Time: Jul 30, 2024 09:22 AM Reporting Lab: [address] [address] Performing Lab: [address] [address] UREA NITROGEN 24 mg/dL 7-25 GLUCOSE 98 [...] 09:22 AM Reporting Lab: [facility] [address] [address] Performing Lab: [facility] [address] [address] TSH 2.61 u[IU]/mL 0.35-5.00 Aug 06, 2024 10:32 AM [facility] MICROALBUMIN CREATININE RATIO PANEL Specimen Type: URINE No comment entered. Ordering Provider: GAIL VALDIVIA Report Released Date/Time: Jul 30, 2024 09:22 AM Reporting Lab: [facility] [address] [address] Performing Lab: [facility] [address] [address] MICROALBUMIN/C REATININE RATIO 17.6 mg/g 0-29.9 MICROALBUMIN,Q UANTITATIVE 2.5 mg/dL RR UNAVAIL CREATININE URINE 141.74 mg/dL Aug 06, 2024 10:32 AM [facility] MICROSCOPIC AUTOMATED, URINE Specimen Type: URINE Comment: If Glucose = >500 and Ketones are positive, please alert the Physician. Ordering Provider: GAIL VALDIVIA Report Released Date/Time: Jul 30, 2024 09:22 AM Reporting Lab: [facility] [address] [address] Performing Lab: [address] [address] UA WBC 0-5 /[HPF] 0-5 UA RBC 3-5 /[HPF] 0-3 UA SQUAMOUS EPITH FEW /[HPF] Aug 06, 2024 10:32 AM [facility] CBC AND DIFF (AUTO) Specimen Type: BLOOD No comment entered. Ordering Provider: GAIL VALDIVIA Report Released Date/Time: Jul 30, 2024 09:22 AM Reporting Lab: [facility] [address] [address] Performing Lab: [facility] [address] [address] WBC 4.64 10*3/uL 4.50-11.00 RBC 3.86 10*6/uL [...] 30, 2024 09:22 AM Reporting Lab: [facility] [address] Performing Lab: [address] [address] UA COLOR Yellow Yellow UA APPEARANCE Clear [...] Jul 02, 2024 04:04 PM Reporting Lab: [address] [address] Performing Lab: [address] [address] INR 1.9 PROTIME 20.1 s H 10.0-13.1 Vital Signs: All taken on the encounter date This section contains inpatient and outpatient Vital Signs collected on the date of the Encounter. Date/Time Temperature Pulse Blood Pressure Respiratory Rate SP02 Pain Height Weight Body Mass Index Source Aug 08, 2024 09:38 AM 97.9 89 123/77 19 95 63 174 31 [facility] Social History: Smoking Status (Most current) and Tobacco Use (All prior to encounter date) This section includes the most current, and the historical, smoking and tobacco- related health factors from the [place] facility where the Encounter took place. Current Smoking Status This section includes the most current smoking, or tobacco-related health factor, from the [place] facility where the Encounter took place. Date/Time Current Smoking Status Comment Dwight ity Sep 27, 2023 10:30 AM VA-TOBACCO FORMER USER [facility] Tobacco Use History This section includes a history of the smoking, or tobacco-related health factors, that were collected on or before the date of the Encounter. The data comes from the [place] facility where the Encounter took place. 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 [facility] Dec 20, 2018 09:40 AM VA-TOBACCO USE MED NOTIFY PROVIDER [facility] Dec 20, 2018 09:40 AM VA-TOBACCO USE WI 30 MIN OF WAKEUP [facility] Dec 20, 2018 09:40 AM VA-TOBACCO USER EVERY DAY [facility] Mar 05, 2018 01:38 PM CURRENT SMOKER [facility] Sep 04, 2017 01:34 PM CURRENT SMOKER [facility] Sep 09, 2016 01:00 PM QUIT TOBACCO USE I N PAST YEAR 04/26/16 quit [facility] Sep 14, 2015 08:27 AM QUIT TOBACCO USE I N PAST YEAR [facility] Feb 13, 2015 05:11 PM QUIT TOBACCO USE I N PAST YEAR [facility] Aug 18, 2014 04:22 PM V1-PT NOT INTEREST ED IN QUIT TOBACCO USE [facility] Dec 16, 2013 10:23 AM CURRENT SMOKER 1/2 ppd [facility] Dec 16, 2013 10:23 AM V1-PT DECLINES REF TO TOBACCO CESS [facility] Dec 16, 2013 10:23 AM V1-PT DECLINES TOB ACCO CESSATION [facility] Dec 16, 2013 10:23 AM V1-PT NOT INTEREST ED IN QUIT TOBACCO USE [facility] Sep 25, 2012 01:54 PM QUIT TOBACCO USE I N PAST YEAR [facility] Dec 23, 2011 09:43 AM CURRENT SMOKER Pt states he smokes a half a pack of cigaretts a day. [facility] Dec 23, 2011 09:43 AM V1-PT DECLINES REF TO TOBACCO CESS [facility] Dec 23, 2011 09:43 AM V1-PT DECLINES TOB ACCO CESSATION [facility] Dec 23, 2011 09:43 AM V1-PT NOT INTEREST ED IN QUIT TOBACCO USE [facility] Dec 30, 2010 01:14 PM V1-PT DECLINES REF TO TOBACCO CESS [facility] Dec 30, 2010 01:14 PM V1-PT DECLINES TOB ACCO CESSATION [facility] Dec 30, 2010 01:14 PM V1-PT NOT INTEREST ED IN QUIT TOBACCO USE [facility] Jun 02, 2010 09:23 AM CURRENT SMOKER smoker for 50 yrs...1 ppd [facility] Jun 02, 2010 09:23 AM V1-PT DECLINES REF TO TOBACCO CESS [facility] Jun 02, 2010 09:23 AM V1-PT THINKING ABO UT QUIT TOBACCO USE [facility] May 19, 2009 11:23 AM CURRENT SMOKER 10-12 cigaretts daily...smoking 50 years [facility] Apr 08, 2008 01:51 PM CURRENT SMOKER Patient reports smoking a pack of ciggs a day. [facility] Dec 18, 2007 10:09 AM V1-PT DECLINES REF TO TOBACCO CESS [facility] Dec 18, 2007 10:09 AM V1-PT READY TO MARCIANO T TOBACCO USE [facility] Apr 17, 2007 01:58 PM QUIT TOBACCO USE I N PAST YEAR [facility] Oct 16, 2006 02:20 PM V1-PT DECLINES REF TO TOBACCO CESS [facility] Oct 16, 2006 02:20 PM V1-PT READY TO MARCIANO T TOBACCO USE [facility] Jan 13, 2006 01:11 PM CURRENT SMOKER Rocío continues to smoke 1 pkg of cigarettes daily. He said he does not want quit tobacco. [facility] Nov 30, 2004 12:31 PM CURRENT SMOKER 1 pack a day [facility] Advance Directives: All historical and current Section Date Range: From patient's date of to the date document was created. This section includes ALL of a patient's completed or amended [place] Advance and Rescinded Directives. The entries below indicate that a directive exists for the patient, but an actual copy is not included with this document. The data comes from all [place] facilities. Date Advance Directives Provider Source Oct 03, 2017 ADVANCE DIRECTIVE MARILU MIRZA [facility] Dec 23, 2013 ADVANCE DIRECTIVE NIALL SALCEDO
== END 2024-08-08 13:48 | disposition home or self-care (01) ==
PROVIDERS: PCP Family Medicine; Visit Provider Internal Medicine Cardiovascular Disease
DX: I47.20 Ventricular tachycardia, unspecified (principal); I48.0 Paroxysmal atrial fibrillation; I42.9 Cardiomyopathy, unspecified; Z95.810 Presence of automatic (implantable) cardiac defibrillator; Z95.2 Presence of prosthetic heart valve
CPT/HCPCS: 93010; 93284; 99214

== ENCOUNTER → 2024-08-08 13:18 | Outpatient (BNVA) | payer OTHER, SELFPAY | PROVIDERS: PCP Family Medicine; Visit Provider Internal Medicine Cardiovascular Disease | DX: Z45.02 Encounter for adjustment and management of automatic implantable cardiac defibrillator (principal); I47.20 Ventricular tachycardia, unspecified; I48.0 Paroxysmal atrial fibrillation; I42.9 Cardiomyopathy, unspecified; R94.31 Abnormal electrocardiogram [ECG] [EKG]; Z95.2 Presence of prosthetic heart valve | CPT/HCPCS: 93005; 99212 ==

== ENCOUNTER 2024-08-19 08:51 | Outpatient (AMB) | payer OTHER, SELFPAY ==
--- NOTE | 2024-08-18 19:16 | MHC.OFFVIS ---
Vital Signs 08/19/24 09:28 Height 5 ft 3 in Weight 176 lb 5.917 oz BMI 31.2 BP 128/68 Blood Pressure Location Lt brachial Position Sitting Pulse 96 Pulse Source Pulse Oximeter Pulse Oximetry (%) 96 Oxygen Delivery Method Room Air Intake Visit Reasons: Shortness of breath Body Work Auto Trimmer Required: No Parts Sales Advisor: Parts Sales Advisor offered & declined Accompanied by: Self / Same As Patient Allergies Hosjjtp-GWW-GmW Reductase Inhibitor [Jzhuhst-Otj-Djq Reductase Inhibitor] Allergy (Intermediate, Verified 08/19/24 09:33) muscle cramping in ribcage Medication List - Last Reconciled 08/19/24 by Elida Lagunas LPN albuterol sulfate 90 mcg/actuation (Ventolin HFA) 2 puffs inhalation Q6H PRN dofetilide 250 mcg PO BID febuxostat 40 mg PO DAILY gemfibrozil 600 mg PO BID metoprolol tartrate 100 mg PO BID 90 days omeprazole 20 mg PO DAILY@0630 omeprazole 40 mg PO DAILY@0630 tamsulosin 0.4 mg PO BEDTIME valsartan 80 mg PO BID warfarin (Jantoven) 1.25 mg (1.25 x 1 mg) PO DAILY@1800 warfarin 1 mg PO DAILY HPI HPI Shortness of breath: Details: Everette is a pleasant 78 year old male, former smoker, with 60pyh with underlying severe ELENI on CPAP, cardiomyopathy s/p ICD LVEF 15-20%, h/o aortic valve replacement, and paroxsymal atrial fibrillation on coumadin. He was referred by cardiology for pulmonary evaluation. He recently underwent PFT which revealed combined moderate obstructive and restrictive ventilatory defects with bronchodilator response present in small to medium airways only. Decreased diffusion capacity, 47% suggestive of emphysema. Chest CT performed at [facility] 03/2024, RADS3, revealed mild to moderate emphysema with new 5.4 mm solid pulmonary nodule of PHILL with interval resolution of prior small scattered pulmonary nodules. Recommendation made for 6 month follow up chest CT which will be performed in September 2024 through the [facility]. He is currently on Spiriva and Alvesco QD with suboptimal effect. He continues to report dyspnea on exertion with occasional dry cough and wheezing. He also has albuterol MDI which he uses infrequently. He reports h/o asthma, diagnosed as an adult, never requiring intubation. He reports asbestos exposures while in the [place] x 5 years, otherwise denies occupational exposures. He denies any pertinent family history. Prior PSG revealed severe ELENI and he has been reportedly compliant with CPAP therapy 5-15 cm H20, [facility] by [facility] Medical History (Updated 08/19/24 @ 11:04 by Ena Hinson NP) Biventricular ICD (implantable cardioverter-defibrillator) in place COVID-19 vaccine series completed Collapsed lung Myocardial infarction GERD (gastroesophageal reflux disease) History of placement of internal cardiac defibrillator History of paroxysmal atrial tachycardia Asthma Dilated cardiomyopathy Osteopenia Arthritis Elevated cholesterol Sleep apnea COPD (chronic obstructive pulmonary disease) HTN (hypertension) Barretts esophagus Surgical History (Updated 08/08/24 @ 13:56 by Donnell Ledesma MD) Aortic valve replaced History of repair of hiatal hernia Hx of aortic valve replacement History of esophagogastroduodenoscopy (EGD) H/O colonoscopy Social History (Updated 08/19/24 @ 09:35 by Elida Lagunas LPN) Household Members: Spouse Housing: House Are you a primary primary care nurse practitioner to a significant other at home: No Do you presently have visiting nurse or other home services: No Alcohol intake: never Patient Tobacco Use Status: Former Tobacco user Tobacco use type: Cigarette Cigarette Packs Per Day: 1 Years Smoked: 60 service: Yes Review of Systems Const Denies chills, Denies excessive sweating, Denies fever(s), Denies headache(s) and Denies night sweats Eyes Denies dry eyes, Denies irritation and Denies itchy eyes ENT Reports Normal hearing present, Denies headache(s), Denies nasal congestion, Denies nasal discharge, Denies post nasal drip and Denies sore throat Card Denies chest pain, Denies chest pain at rest, Denies chest pain with activity, Denies claudication, Denies leg edema, Denies orthopnea and Denies paroxysmal nocturnal dyspnea Resp Denies chest congestion, Denies excessive phlegm production, Denies pain on inspiration, Denies pain with cough and Denies stridor Musc Denies myalgias Neuro Reports Normal hearing present and Denies headache(s) Endo Denies excessive sweating Alejandro/Lymph Denies lymphadenopathy Aller/Immun Denies itchy eyes and Denies seasonal rhinorrhea Physical Exam Vital Signs: Last Vital Signs Pulse 96 08/19/24 09:28 BP 128/68 08/19/24 09:28 Pulse Ox 96 08/19/24 09:28 Oxygen Delivery Method Room Air 08/19/24 09:28 BMI result Body Mass Index 31.2 Const General: cooperative, healthy appearing, comfortable, no acute distress, well developed and alert Nutritional Appearance: obese Orientation/consciousness: patient oriented x3 Limitations: no limitations HEENT Head: Yes normal to inspection, Yes normocephalic and Yes atraumatic Ears: hearing grossly normal bilaterally and external ears normal Eyes General: appearance normal, both eyes and all related structures Eyelids: Yes eyelids normal Sclerae: sclerae normal EOM: EOMs intact bilaterally Neck Neck: Yes normal visual inspection and Yes no lymphadenopathy Lymphatic: no lymphadenopathy noted Chest Chest palpation & inspection: normal inspection of the chest Resp Effort & Inspection: normal respiratory effort, able to speak in complete sentences, no audible wheezes, no cough, no stridor, not tachypneic, no tripod positioning and no use of accessory muscles Auscultation: diminished lung sounds Cardio Jugular venous distension: no JVD Rate: regular rate Rhythm: regular rhythm Skin Other: warm, dry General skin exam: no rashes or lesions noted Neuro General: patient oriented x3 Cranial nerves: Yes Normal hearing present Cognition (Neuro): normal cognition Gait exam (Neuro): Normal gait present Extrem General: Yes normal to inspection, Yes capillary refill normal, Yes no clubbing, cyanosis or edema and Yes no pedal edema Psych Appearance: grossly normal and well kempt Speech and movement: Normal speech and movement present and Clear speech present Affect: normal affect Attitude: cooperative Thought process: Normal thought process present Thought content: Normal thought content present Insight: Good insight present (Psych) Judgement: Good judgement present (Psych) Assessment & Plan Assessment & Plan (1) COPD (chronic obstructive pulmonary disease): Code(s): J44.9 - Chronic obstructive pulmonary disease, unspecified Category: Medical (2) Personal history of tobacco use: Code(s): Z87.891 - Personal history of nicotine dependence Category: Social Hx (3) Multiple pulmonary nodules: Code(s): R91.8 - Other nonspecific abnormal finding of lung field Category: Medical (4) ELENI on CPAP: Code(s): G47.33 - Obstructive sleep apnea (adult) (pediatric) Category: Medical Plan Everette presents for pulmonary evaluation for ongoing dyspnea, likely multifactorial with pulmonary and cardiac contribution. He is suboptimally controlled on Spiriva and Alvesco, advised to increase Alvesco to 2 puffs BID and will send in Levalbuterol to use PRN in place of albuterol as patient with significant cardiac history. Discussed pulmonary rehabilitation however would like to defer at this time. Reviewed chest CT from 04/18 which revealed new 5.4 mm solid pulmonary nodule of PHILL. Patient states repeat chest CT will be performed in September. If this is not scheduled, will enter order. All questions were answered and patient is in agreement of plan. Will follow up after chest CT or sooner if needed. Medications: New levalbuterol tartrate 45 mcg/actuation 1 puff inhalation Q4-6H PRN 15 grams 6RF shortness of breath Coding Level of Care Code New Pt Level 4 (91483) Diagnoses COPD (chronic obstructive pulmonary disease) J44.9 Personal history of tobacco use Z87.891 Multiple pulmonary nodules R91.8 ELENI on CPAP G47.33
--- OUTSIDE RECORDS SUMMARY | 2024-08-19 09:22 | XMS_ITS ---
Author Organization [facility] Address [address] [place] [address] Care Team Providers Care Gold Leaf Printer Name Role Phone KATHE Arriaga, DOUG Primary Care Provider Konstantin Muñoz Jr Unavailable ALLERGIES Allergen (clinical drug ingredient) Drug/Non Drug Allergy documented on EMR Reaction Allergy Type Onset Date Status Substance with 6-msevxjr-9-methylgluta ryl-coenzyme A reductase inhibitor mechanism of action (substance) Statins Unknown Drug Allergy Active 12 Hour Nasal [facility] Unknown Drug Allergy Active REASON FOR VISIT [...] No Points 0 Interpretation Negative VITAL SIGNS Temperature 97.1 degrees Fahrenheit 01/24/20 24 Blood pressure systolic 000 mm Hg 01/24/20 24 Blood pressure diastolic 00 mm Hg 024 Height 63 in 01/24/2024 Weight 178 lb 6 oz lbs 01/24/2024 BMI 31.59 kg/m2 01/24/2024 Encounters Encounter Location Date Provider Diagnosis [facility] [address] [place] [address] 01/24/2024 Konstantin Mccullough Jr Aamro's esophagus without dysplasia K22.70 and Colon cancer [...] Name:Konstantin escalera Jr, 01/23/2025 01:15:00 PM, [address], [address], [place], [address],
--- OUTSIDE RECORDS SUMMARY | 2024-08-19 09:22 | XMS_ITS | Patient Health Record ---
Author Organization [facility] Address [address] [place] [address] Care Team Providers Care Youth Development Specialist Name Role Phone KATHE Arriaga, DOUG Primary Care Provider Konstantin Muñoz Jr Unavailable [phone] ALLERGIES Allergen (clinical drug ingredient) Drug/Non Drug Allergy documented on EMR Reaction Allergy Type Onset Date Status Substance with 1-wfzkmxw-1-methylgluta ryl-coenzyme A reductase inhibitor mechanism of action (substance) Statins Unknown Drug Allergy Active 12 Hour Nasal [place] Unknown Drug Allergy Active REASON FOR REFERRAL Referring Provider First Name DOUG Referring Provider Last Name KATHE Referred Organization [facility] Referred Provider Konstantin Mccullough Jr Referred Address [address],[place], [place],[address], Referred Provider Specialty Gastroentero logy Referral Priority [...] W/U Status Risk SNOMED Code Notes Problem Colon cancer screening (Z12.11) Active confirmed 077927710 Problem ocean transportation intermediary (current) use of anticoagulants (Z79.01) Active confirmed 449635100 Problem 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) Active confirmed [id number] Problem Amaro esophagus (K22.70) Active confirmed Amaro esophagus (787921784) VITAL SIGNS Temperature 97.1 degrees Fahrenheit 01/24/2024 Blood pressure diastolic 00 mm Hg 01/24/2024 Height 63 in 01/24/2024 Blood pressure systolic 000 mm Hg 01/24/2024 Weight 178 lb 6 oz lbs 01/24/2024 BMI 31.59 kg/m2 01/24/2024 Encounters Encounter Location Date Provider Diagnosis [facility] [address] [place] [address] 01/24/2024 Konstantin Mccullough Jr Amaro's esophagus without [...] 01:15:00 PM, [address], [address], [place], [address], Insurance Providers Payer Name Payer Address Payer Phone Subscriber Number Group Number Insured Name Patient Relationship to Insured Coverage Start Date Coverage End Date [facility] [employer] [address] [place] [address] [id number] ERIC HENSLEY Self - patient is the [...]
[2024-08-19 09:28] VITALS: BP 128/68; PULSE 96; O2SAT 96; BMI 31.2
== END 2024-08-19 09:57 | disposition home or self-care (01) ==
PROVIDERS: PCP Family Medicine; Referring Provider Internal Medicine Cardiovascular Disease; Visit Provider Nurse Practitioner Family
DX: J44.9 Chronic obstructive pulmonary disease, unspecified (principal); Z87.891 Personal history of nicotine dependence; R91.8 Other nonspecific abnormal finding of lung field; G47.33 Obstructive sleep apnea (adult) (pediatric)
CPT/HCPCS: 99204

== ENCOUNTER → 2024-08-19 08:51 | Outpatient (BNVA) | payer OTHER, SELFPAY | PROVIDERS: PCP Family Medicine; Referring Provider Internal Medicine Cardiovascular Disease; Visit Provider Nurse Practitioner Family | DX: J44.9 Chronic obstructive pulmonary disease, unspecified (principal); G47.33 Obstructive sleep apnea (adult) (pediatric); R91.8 Other nonspecific abnormal finding of lung field; Z87.891 Personal history of nicotine dependence | CPT/HCPCS: 99202 ==

== ENCOUNTER → 2024-09-03 23:59 | Outpatient (BNV) | payer OTHER, SELFPAY ==
--- NOTE | 2024-09-04 15:10 | A.OFFVIS_ITS ---
Intake Visit Reasons: Remote HF monitoring- [employer] Allergies Zfndbgg-MBH-KqZ Reductase Inhibitor [Iyxlccn-Fvd-Nsv Reductase Inhibitor] Allergy (Intermediate, Verified 08/19/24 09:33) muscle cramping in ribcage [facility] Medical History (Updated 08/19/24 @ 11:04 by Ena Hinson NP) Biventricular ICD (implantable cardioverter-defibrillator) in place COVID-19 vaccine series completed Collapsed lung Myocardial infarction GERD (gastroesophageal reflux disease) History of placement of internal cardiac defibrillator History of paroxysmal atrial tachycardia Asthma Dilated cardiomyopathy Osteopenia Arthritis Elevated cholesterol Sleep apnea COPD (chronic obstructive pulmonary disease) HTN (hypertension) Barretts esophagus Surgical History (Updated 08/08/24 @ 13:56 by Donnell Ledesma MD) Aortic valve replaced History of repair of hiatal hernia Hx of aortic valve replacement History of esophagogastroduodenoscopy (EGD) H/O colonoscopy Social History (Updated 08/19/24 @ 09:35 by Elida Lagunas LPN) Household Members: Spouse Housing: House Are you a primary customer care assistant to a significant other at home: No Do you presently have visiting nurse or other home services: No Alcohol intake: never Patient Tobacco Use Status: Former Tobacco user Tobacco use type: Cigarette Cigarette Packs Per Day: 1 Years Smoked: 60 service: Yes Office Procedures Cardiac Device Check Cardiac Device Check Details: Remote heart failure report generated 09/03/2024. Heart failure parameters are within normal limits [id number] Cardiac Device Interrogation, cardio physiologic monitor Procedure code (CPT) selection complete Assessment & Plan Assessment & Plan (1) Biventricular ICD (implantable cardioverter-defibrillator) in place: Code(s): Z95.810 - Presence of automatic (implantable) cardiac defibrillator Category: Medical Plan: See above Coding Level of Care Code Procedure Only Diagnoses Biventricular ICD (implantable cardioverter-defibrillator) in place Z95.810 CPT Codes Cardiac Device Check - Cardiac Device 15: [id number] Cardiac Device Interrogation, cardio physiologic monitor ([id number])
== END ==
PROVIDERS: PCP Family Medicine; Visit Provider Internal Medicine Cardiovascular Disease
DX: Z45.02 Encounter for adjustment and management of automatic implantable cardiac defibrillator (principal)
CPT/HCPCS: 93297

== ENCOUNTER → 2024-10-04 23:59 | Outpatient (BNV) | payer OTHER, SELFPAY ==
--- NOTE | 2024-10-16 13:50 | MHC.OFFVIS ---
Intake Visit Reasons: Remote ICD check- [employer] Allergies Xoxsxmj-FQU-TyC Reductase Inhibitor [Bvraqhb-Gfq-Abw Reductase Inhibitor] Allergy (Intermediate, Verified 08/19/24 09:33) muscle cramping in ribcage [facility] Medical History (Updated 08/19/24 @ 11:04 by Ena Hinson NP) Biventricular ICD (implantable cardioverter-defibrillator) in place COVID-19 vaccine series completed Collapsed lung Myocardial infarction GERD (gastroesophageal reflux disease) History of placement of internal cardiac defibrillator History of paroxysmal atrial tachycardia Asthma Dilated cardiomyopathy Osteopenia Arthritis Elevated cholesterol Sleep apnea COPD (chronic obstructive pulmonary disease) HTN (hypertension) Barretts esophagus Surgical History (Updated 08/08/24 @ 13:56 by Donnell Ledesma MD) Aortic valve replaced History of repair of hiatal hernia Hx of aortic valve replacement History of esophagogastroduodenoscopy (EGD) H/O colonoscopy Social History (Updated 08/19/24 @ 09:35 by Elida Lagunas LPN) Household Members: Spouse Housing: House Are you a primary client care representative to a significant other at home: No Do you presently have visiting nurse or other home services: No Alcohol intake: never Patient Tobacco Use Status: Former Tobacco user Tobacco use type: Cigarette Cigarette Packs Per Day: 1 Years Smoked: 60 service: Yes Office Procedures Cardiac Device Check Cardiac Device Check Details: Remote ICD report generated 10/04/2024. ICD function is adequate. Total burden of atrial fibrillation 6.2% [id number] Cardiac Interrogation, implant defibrillator w/interim Procedure code (CPT) selection complete Assessment & Plan Assessment & Plan (1) Biventricular ICD (implantable cardioverter-defibrillator) in place: Code(s): Z95.810 - Presence of automatic (implantable) cardiac defibrillator Category: Medical Plan: See above Coding Level of Care Code Procedure Only Diagnoses Biventricular ICD (implantable cardioverter-defibrillator) in place Z95.810 CPT Codes Cardiac Device Check - Cardiac Device 13: [id number] Cardiac Interrogation, implant defibrillator w/interim ([id number])
== END ==
PROVIDERS: PCP Family Medicine; Visit Provider Internal Medicine Cardiovascular Disease
DX: I48.91 Unspecified atrial fibrillation (principal); Z95.810 Presence of automatic (implantable) cardiac defibrillator
CPT/HCPCS: 93295

== ENCOUNTER → 2024-10-04 23:59 | Outpatient (BNV) | payer OTHER, SELFPAY ==
--- NOTE | 2024-10-16 13:49 | A.OFFVIS_ITS ---
Intake Visit Reasons: Remote HF monitoring- [employer] Allergies Lotjzdf-NGH-IoJ Reductase Inhibitor [Laoavwj-Phi-Lxh Reductase Inhibitor] Allergy (Intermediate, Verified 08/19/24 09:33) muscle cramping in ribcage [facility] Medical History (Updated 08/19/24 @ 11:04 by Ena Hinson NP) Biventricular ICD (implantable cardioverter-defibrillator) in place COVID-19 vaccine series completed Collapsed lung Myocardial infarction GERD (gastroesophageal reflux disease) History of placement of internal cardiac defibrillator History of paroxysmal atrial tachycardia Asthma Dilated cardiomyopathy Osteopenia Arthritis Elevated cholesterol Sleep apnea COPD (chronic obstructive pulmonary disease) HTN (hypertension) Barretts esophagus Surgical History (Updated 08/08/24 @ 13:56 by Donnell Ledesma MD) Aortic valve replaced History of repair of hiatal hernia Hx of aortic valve replacement History of esophagogastroduodenoscopy (EGD) H/O colonoscopy Social History (Updated 08/19/24 @ 09:35 by Elida Lagunas LPN) Household Members: Spouse Housing: House Are you a primary patient care nursing assistant to a significant other at home: No Do you presently have visiting nurse or other home services: No Alcohol intake: never Patient Tobacco Use Status: Former Tobacco user Tobacco use type: Cigarette Cigarette Packs Per Day: 1 Years Smoked: 60 service: Yes Office Procedures Cardiac Device Check Cardiac Device Check Details: Remote heart failure report generated 10/04/2024. Heart failure parameters are stable [id number] Cardiac Device Interrogation, cardio physiologic monitor Procedure code (CPT) selection complete Assessment & Plan Assessment & Plan (1) Biventricular ICD (implantable cardioverter-defibrillator) in place: Code(s): Z95.810 - Presence of automatic (implantable) cardiac defibrillator Category: Medical Plan: See above Coding Level of Care Code Procedure Only Diagnoses Biventricular ICD (implantable cardioverter-defibrillator) in place Z95.810 CPT Codes Cardiac Device Check - Cardiac Device 15: [id number] Cardiac Device Interrogation, cardio physiologic monitor ([id number])
== END ==
PROVIDERS: PCP Family Medicine; Visit Provider Internal Medicine Cardiovascular Disease
DX: Z45.02 Encounter for adjustment and management of automatic implantable cardiac defibrillator (principal)
CPT/HCPCS: 93297

== ENCOUNTER 2024-10-21 13:43 | Outpatient (AMB) | payer OTHER, SELFPAY ==
--- NOTE | 2024-10-21 08:43 | A.OFFVIS_ITS ---
Vital Signs 10/21/24 14:30 Height 5 ft 3 in Weight 177 lb 7.554 oz BMI 31.4 Intake Visit Reasons: shortness of breath Intake Note: Of note patient takes spiriva and alvesco as well as levalbuterol. Cash Processing Specialist: Cash Processing Specialist offered & declined Accompanied by: Self / Same As Patient Allergies Dceubri-SSY-DiB Reductase Inhibitor [Zsslwaq-Lkp-Wvb Reductase Inhibitor] Allergy (Intermediate, Verified 10/21/24 14:35) muscle cramping in ribcage Medication List - Last Reconciled 10/21/24 by Elida Lagunas LPN albuterol sulfate 90 mcg/actuation (Ventolin HFA) 2 puffs inhalation Q6H PRN dofetilide 250 mcg PO BID febuxostat 40 mg PO DAILY gemfibrozil 600 mg PO BID levalbuterol tartrate 45 mcg/actuation 1 puff inhalation Q4-6H PRN metoprolol tartrate 100 mg PO BID 90 days omeprazole 20 mg PO DAILY@0630 omeprazole 40 mg PO DAILY@0630 tamsulosin 0.4 mg PO BEDTIME valsartan 80 mg PO BID warfarin (Jantoven) 1.25 mg (1.25 x 1 mg) PO DAILY@1800 warfarin 1 mg PO DAILY HPI HPI shortness of breath: Details: Everette is a pleasant 78 year old male, former smoker, with 60pyh with underlying moderate COPD, severe ELENI on CPAP managed by [facility], cardiomyopathy s/p ICD LVEF 15-20%, h/o aortic valve replacement, and paroxsymal atrial fibrillation on coumadin. Chest CT performed at [facility] 03/2024, RADS3, revealed mild to moderate emphysema with new 5.4 mm solid pulmonary nodule of PHILL with interval resolution of prior small scattered pulmonary nodules. Recommendation made for 6 month follow up chest [address] which was performed in September 2024 through the [facility], report revealed stable nodule. At the last visit, he reported suboptimal control on Spiriva and Alvesco, he was advised to increase Alvesco to 2 puffs BID however continues to use 1 inhalation once daily. Levalbuterol was also added to regimen however he continues to report dyspnea on exertion with occasional wheezing. He denies cough. He does endorse intermittent BLE edema, orthopnea and PND. Encouraged to follow up with cardiology for further evaluation. He denies any visits to urgent care or hospitalizations related to respiratory distress. COUNT INCLUDES [facility] Medical History (Updated 08/19/24 @ 11:04 by Ena Hinson NP) Biventricular ICD (implantable cardioverter-defibrillator) in place COVID-19 vaccine series completed Collapsed lung Myocardial infarction GERD (gastroesophageal reflux disease) History of placement of internal cardiac defibrillator History of paroxysmal atrial tachycardia Asthma Dilated cardiomyopathy Osteopenia Arthritis Elevated cholesterol Sleep apnea COPD (chronic obstructive pulmonary disease) HTN (hypertension) Barretts esophagus Surgical History (Updated 08/08/24 @ 13:56 by Donnell Ledesma MD) Aortic valve replaced History of repair of hiatal hernia Hx of aortic valve replacement History of esophagogastroduodenoscopy (EGD) H/O colonoscopy Social History Household Members: Spouse Housing: House Are you a primary health care legal assistant to a significant other at home: No Do you presently have visiting nurse or other home services: No Alcohol intake: never Patient Tobacco Use Status: Former Tobacco user Tobacco use type: Cigarette Cigarette Packs Per Day: 1 Years Smoked: 60 service: Yes Review of Systems Const Denies chills, Denies excessive sweating, Denies fever(s), Denies headache(s) and Denies night sweats Eyes Denies dry eyes, Denies irritation and Denies itchy eyes ENT Reports Normal hearing present, Denies headache(s), Denies nasal congestion, Denies nasal discharge, Denies post nasal drip and Denies sore throat Card Denies chest pain, Denies chest pain at rest, Denies chest pain with activity, Denies claudication, Denies leg edema, Reports dyspnea on exertion, Reports orthopnea and Reports paroxysmal nocturnal dyspnea Resp Denies chest congestion, Denies cough, Denies excessive phlegm production, Denies pain on inspiration, Denies pain with cough, Reports dyspnea on exertion, Denies stridor and Reports wheezing Musc Denies myalgias Neuro Reports Normal hearing present and Denies headache(s) Endo Denies excessive sweating Alejandro/Lymph Denies lymphadenopathy Aller/Immun Denies itchy eyes, Denies seasonal rhinorrhea and Reports wheezing Physical Exam Vital Signs: BMI result Body Mass Index 31.4 Const General: cooperative, healthy appearing, comfortable, no acute distress, well developed and alert Nutritional Appearance: obese Orientation/consciousness: patient oriented x3 Limitations: no limitations HEENT Head: Yes normal to inspection, Yes normocephalic and Yes atraumatic Ears: hearing grossly normal bilaterally and external ears normal Eyes General: appearance normal, both eyes and all related structures Eyelids: Yes eyelids normal Sclerae: sclerae normal EOM: EOMs intact bilaterally Neck Neck: Yes normal visual inspection and Yes no lymphadenopathy Lymphatic: no lymphadenopathy noted Chest Chest palpation & inspection: normal inspection of the chest Resp Effort & Inspection: normal respiratory effort, able to speak in complete sentences, no audible wheezes, no cough, no stridor, not tachypneic, no tripod positioning and no use of accessory muscles Auscultation: diminished lung sounds Cardio Jugular venous distension: no JVD Rate: regular rate Rhythm: regular rhythm Skin Other: warm, dry General skin exam: no rashes or lesions noted Neuro General: patient oriented x3 Cranial nerves: Yes Normal hearing present Cognition (Neuro): normal cognition Gait exam (Neuro): Normal gait present Extrem Other: trace pedal edema Psych Appearance: grossly normal and well kempt Speech and movement: Normal speech and movement present and Clear speech present Affect: normal affect Attitude: cooperative Thought process: Normal thought process present Thought content: Normal thought content present Insight: Good insight present (Psych) Judgement: Good judgement present (Psych) Assessment & Plan Assessment & Plan (1) COPD (chronic obstructive pulmonary disease): Code(s): J44.9 - Chronic obstructive pulmonary disease, unspecified Category: Medical (2) Personal history of tobacco use: Code(s): Z87.891 - Personal history of nicotine dependence Category: Social Hx (3) Multiple pulmonary nodules: Code(s): R91.8 - Other nonspecific abnormal finding of lung field Category: Medical (4) ELENI on CPAP: Code(s): G47.33 - Obstructive sleep apnea (adult) (pediatric) Category: Medical Plan Prior chest CT from 04/18 revealed new 5.4 mm solid pulmonary nodule of PHILL [facility] with no significant changes and will have repeat CT scheduled in 6 months. Encouraged patient to increase Alvesco to 2 inhalations BID in addition to Spiriva and Levalbuterol. Recommended patient reach out to cardiology regarding symptoms suggestive of fluid overload. All questions were answered and patient is in agreement of plan. Will follow up in 3 months or sooner if needed. Medications: New ciclesonide 160 mcg/actuation (Alvesco) 2 puffs inhalation BID 6.1 grams 6RF Coding Level of Care Code Est Pt Level 4 (42260) Diagnoses COPD (chronic obstructive pulmonary disease) J44.9 Personal history of tobacco use Z87.891 Multiple pulmonary nodules R91.8 ELENI on CPAP G47.33
[2024-10-21 14:30] VITALS: BMI 31.4
--- OUTSIDE RECORDS SUMMARY | 2024-10-21 16:26 | XMS_ITS | Encounter Summary ---
Author Name [facility] Organization [facility] [place] Address [address] [place] [id number] Care Team Providers Care Automotive Glass Mechanic Name Role Phone KATHE DOUG Primary Care [...] PART A Jun 26, 2006 PART A [id number] DIMITRIS HENSLEY PATIENT MEDICARE (WNR) MEDICARE (M) PART A Jun 26, 2006 PART A [id number] DIMITRIS HENSLEY PATIENT MEDICARE (WNR) MEDICARE (M) PART A Jun 26, 2006 PART A [id number] [phone] DIMITRIS HENSLEY PATIENT MEDICARE (WNR) MEDICARE (M) PART A Jun 26, 2006 PART A [id number] DIMITRIS HENSLEY PATIENT Selected Encounter This section includes the information on record at [place] for the Encounter. Date/Time Encounter Type Encounter Description Reason Provider Source Oct 09, 2024 04:56 PM NQHP OL DIG ASSMT&MGMT 21+ PULMONARY/CHEST ICD-10-CM Z12.2 Encntr screen for malignant neoplasm of respiratory organs ROMAN BREAUX IHE Encounter Template Text not used by [place] Assessments - Encounter Diagnoses This section includes the primary and secondary diagnoses documented for the Encounter. Date/Time Primary/Secondary Diagnosis Diagnosis Name Provider Source Oct 10, 2024 09:33 AM PRIMARY Encntr screen for malignant neoplasm of respiratory organs ROMAN BREAUX [facility] Plan of Treatment: Future Appointments (+ 6 months) and Future Tests (+/- 45 days) The Plan of Treatment section includes future care activities for the [facility] [place] [facility] This section includes future appointments and future orders which are active, pending or scheduled. Future Appointments This section includes appointments that were scheduled to occur 6 months from the date of the Encounter, up to a maximum of 20 appointments. The data comes from all [place] treatment facilities. Appointment Date/Time Appointment Type Appointme nt Facility Name November 12, 2024 01:30 PM AMBULATORY - MEDICINE [facility] Active, Pending, and Scheduled Orders This section includes a listing of several types of active, pending, and scheduled orders, including clinic medications orders, diagnostic test orders, procedure orders and consult orders; where the start date of the order is 45 days before the date of the Encounter or 45 days after the date of theEncounter. The data comes from all [place] treatment facilities. Test Date/Time Test Type Test Details Facility Name November 12, 2024 12:00 AM Laboratory - Chemi stry Order PT & INR (COUMADIN) BLOOD (BLUE-PLASMA) SP ONCE [facility] Lab Results: +/- 30 days of the encounter This section includes the Chemistry and Hematology Lab Results on record with [place] for the patient. Radiology Reports and Pathology Reports are provided separately, in subsequent sections. Lab Results This section contains the Chemistry/Hematology Results that were resulted 30 days before or 30 daysafter the date of the Encounter. Date/Time Source Result Type Result - Unit Interpretation Reference Range Specimen Type Comment Oct 08, 2024 01:07 PM [facility] PT & INR (COUMADIN) PLASMA Specimen Type: PLASMA No comment entered. Ordering Provider: REILLY JAIME Report Released Date/Time: Sep 17, 2024 02:13 PM Reporting [facility] [place] [facility] [address] [id number] Performing Lab: [place] [facility] [place] [facility] [address] [phone] INR 2.1 PROTIME 22.4 s H 10.0-13.1 Sep 17, 2024 10:42 AM [facility] PT & INR (COUMADIN) PLASMA Specimen Type: PLAS MA No comment entered. Ordering Provider: REILLY JAIME Report Released Date/Time: Aug 20, 2024 01:53 PM Reporting Lab[facility] [address] [address] Performing Lab: [place] [facility] [facility] [address] [id number] INR 2.7 PROTIME 28.6 s H 10.0-13.1 Social History: Smoking Status (Most current) and Tobacco Use (All prior to encounter date) This section includes the most current, and the historical, smoking and tobacco- related health factors from the [place] facility where the Encounter took place. Current Smoking Status This section includes the most current smoking, or tobacco-related health factor, from the [place] facility where the Encounter took place. Date/Time Current Smoking Status Comment Dwight ity May 24, 2021 08:53 AM VA-TOBACCO NEVER USED [facility] [place] [facility] Tobacco Use History This section includes a history of the smoking, or tobacco-related health factors, that were collected on or before the date of the Encounter. The data comes from the [place] facility where the Encounter took place. Date/Time Smoking Status/Tobacco Use Comment F acility May 24, 2021 08:53 AM VA-TOBACCO NEVER USED [place] [facility] [place] [facility] May 24, 2021 08:53 AM VA-TOBACCO QUIT 1 TO < 5 YRS [facility] [place] [facility] Apr 27, 2020 11:42 AM VA-TOBACCO NEVER USED [place] [facility] [place] [facility] Advance Directives: All historical and current Section Date Range: From patient's date of to the date document was created. This section includes ALL of a patient's completed or amended [place] Advance and Rescinded Directives. The entries below indicate that a directive exists for the patient, but an actual copy is not included with this document. The data comes from all [place] facilities. Date Advance Directives Provider Source Oct 03, 2017 ADVANCE DIRECTIVE MARILU MIRZA T [facility] Dec 23, 2013 ADVANCE DIRECTIVE DENISSENIALLSHANA Radiology Reports: +/- 30 days of the [...] the Encounter. The data comes from all [place] treatment facilities. Date/Time Radiology Report Provider Source Oct 08, 2024 12:56 PM LDCT [facility] 1, 3 OR 6 MONTH FOLLOW UP: ERIC HENSLEY [id number] -1945 [facility] Date: OCT 08, 2024@12:56 Req Phys: ALEJANDRA ARMENTA Loc: [facility] LCS CHART CONSULT (Req'g L Img Loc: [facility]/CT Service: [place] [address] (Case [id number] COMPLETE) LDCT LCS 1, 3 OR 6 MONTH FOLLOW U(CT Detailed) CPT:61178 Reason for Study: 6 MONTH LCS LDCT Clinical History: 61 TPY-Quit smoking 2018 COPD, ELENI, GERD, Barretts Esophagus, cardiomyopathy-pace maker, hx of spontaneous right pneumothorax 1975 Asbestos exposure Prior imaging: CT scan of the chest from April 29, 2022, April 29, 2021 and April 29, 2020. LCS LDCT done on 04/09/2024: LR 3 New PHILL 5.4mm irregular pulmonary nodule on image 8-103 Report Status: Verified Date Reported: OCT 08, 2024 Date Verified: OCT 08, 2024 Professor Of Mechanical Engineering E-Sig:/ES/SIDNEY MARTINEZ Report: EXAM: CT THORAX DX C- ADDITIONAL HISTORY: Reason for Study: 6 MONTH LCS LDCT 61 TPY-Quit smoking 2018 COPD, ELENI, GERD, Barretts Esophagus, cardiomyopathy-pace maker, hx of spontaneous right pneumothorax 1976 Asbestos exposure Prior imaging: CT scan of the chest from April 29, 2022, April 29, 2021 and April 29, 2020. LCS LDCT done on 04/09/2024: LR 3 New PHILL 5.4mm irregular pulmonary nodule on image 8-103 , 6 MONTH LCS LDCT PROTOCOL: Screening protocol, low dose, non-ECG gated, non-contrast CT chest. Additional coronal and sagittal reconstructions. MIP reconstructions were reviewed. Secondary computer-aided detection post-processing used. COMPARISON: CT thorax April 09, 2024 and April 29, 2022 INDEX LUNG NODULE: Location: Left upper lobe Series/Image: Not confidently identified on today's exam. Density: Previously described as part solid Solid diameter axial plane: Not applicable Non-solid total axial diameter plane: No significant. Other characteristics: Not applicable Change: Not confidently identified. Comments: No additional. OTHER NODULES: No significant change in 3.7 mm solid left upper lobe nodule 8/96. No significant change in 2.8 mm right middle lobe nodule 8/216. Calcified granulomas. Several other scattered sub-3 mm nodules not significantly changed. No other significant 4 mm or greater pulmonary nodule. OTHER LUNG FINDINGS: No significant acute airspace disease. Scattered reticular opacities. EMPHYSEMA: Confluent to advanced. PLEURA: Small right pleural effusion. MEDIASTINUM (limited): No significant enlarged mediastinal lymph nodes greater than 15mm in short axis . Aortic atherosclerosis. Multi lead cardiac device. Surgical clips at the gastroesophageal junction. Cardiomegaly. CORONARY ARTERY CALCIFIED PLAQUE: Present. UPPER ABDOMEN (limited, nondiagnostic): No acute findings. Atherosclerosis. BONES AND SOFT TISSUES (limited): No acute findings. Degenerative changes of the visualized shoulders and spine. Osteopenia. OTHER FINDINGS: No other significant findings. Impression: LUNG-RADS [v1.1]: 2, benign nodule findings. Previous left upper lobe part solid nodule is not confidently identified on today's exam. RECOMMENDATION: 12 month follow-up screening exam. OTHER SIGNIFICANT FINDINGS: Coronary atherosclerosis. Small right pleural effusion. LUNG-RADS MODIFIER: S *This is a low dose screening exam for the detection of pulmonary nodules and not a substitute for diagnostic CT exams in evaluation of other lower neck, superficial, abdominal, mediastinal, and hilar soft tissues.* Primary Diagnostic Code: No immediate attention required Primary Interpreting Staff: SIDNEY MARTINEZ, Staff Physician (Professor Of Mechanical Engineering) /SIDNEY [facility] Encounter Notes: All associated encounter notes This section contains the clinical notes associated to the Encounter. Date/Time Encounter Note(s) Provider Source Oct 09, 2024 04:56 PM PREVENTIVE MEDICINE RISK ASSESSMENT SCREENING NOTE: LOCAL TITLE: LUNG CANCER SCREENING DOCUMENTATION STANDARD TITLE: PREVENTIVE MEDICINE RISK ASSESSMENT SCREENING NO DATE OF NOTE: OCT 09, 2024@16:56 ENTRY DATE: OCT 09, 2024@16:56:45 AUTHOR: NU BREAUX EXP COSIGNER: URGENCY: STATUS: COMPLETED Date of most recent follow-up image: Date: October 08, 2024 The diagnostic evaluation determined: PNB recommended 6 month f/u LDCT Procedures completed during evaluation: Multidisciplinary Conference 10/09/24 Pulmonary nodule board review copied below: REMOTE RESULTS MILLY Document from: [facility] Associated on: Oct 09, 2024@15:33:47 LOCAL TITLE: LUNG NODULE-MULTIDISCIPLINARY TUMOR BOARD NOTE STANDARD TITLE: TUMOR BOARD NOTE DATE OF NOTE: OCT 09, 2024@15:22 ENTRY DATE: OCT 09, 2024@15:22:40 AUTHOR: LUIZ MORILLO EXP COSIGNER: URGENCY: STATUS: COMPLETED National Comprehensive Cancer Network Guidelines will be used in discussion and treatment decisions unless otherwise specified Pt is enrolled in [facility] program Case and imaging reviewed with Dr. Willams (pulmonary) and Dr. Adams (radiology). Reviewed ct scans from 2021, 03/2024, and 09/2024. On the 03/2024 ct scan there is a new 4mm average diameter nodule in the PHILL that was not present on 2021 ct scan. On the 09/2024 ct scan the PHILL nodule remains 4 mm on avg diameter. Small Right Pleural effusion is new, likely related to heart disease. PCP can defer to [place]'s outside Cardiology provider for recommendations. Suggest f/up CXR if clinically indicated. Recommend a 6 month f/up ct scan of PHILL nodule to ensure stability. Recommendations to be completed by [facility] LCS team: 1.) Repeat LDCT in 6 months to ensure stability of PHILL nodule. Recommendations to be completed by PCP: 2.) F/up of small right pleural effusion with CXR if clinically warranted by cardiology provider /barbie/ LUIZ MORILLO APRN [employer] HAMMER SETTER UP Signed: 10/09/2024 15:33 Receipt Acknowledged By: 10/09/2024 22:47 /es/ AARTI WILLAMS MD Attending, Pulmonary & Critical Care * END OF REMOTE RESULTS Plan: Next LDCT in 6 months Comment: Per PNB 10/09/24. Communicated to Primary Care Provider and PACT nurse via Patient Notification of results: Results letter sent to patient. Patient contacted by telephone. Call placed to [place], Discussed PNB review recommendations above. Advised they were able to identify the PHILL index nodule on 09/2024 scan, it is stable in size from 03/2024 scan, average 4mm, they recommend a 6 month f/u scan to ensure stability. [place] agrees with this plan. Advised regarding the small pleural effusion PNB said likely it is related to his heart disease and recommended PCP to defer to his outside [employer] Repr[employer]. states he sees [employer] Rep[employer] Dr. Donnell Ledesma at [facility], his next appt is not until January. Advised LCS nurse will request his LDCT scan images/CD and report be sent to his [employer] Repr[employer] Operator. 6 month f/u LDCT order placed, held for PCP signature CD/Image request emailed. /barbie/ ANATOLY LAURA,RN. LUNG CANCER SCREENING NURSE Signed: 10/10/2024 09:33 Receipt Acknowledged By: 10/10/2024 12:26 /es/ OLVIN HENSLEY REGISTERED NURSE 10/21/2024 09:09 /es/ ALEJANDRA ARMENTA NP NURSE PRACTITIONER NU BREAUX [facility]
--- OUTSIDE RECORDS SUMMARY | 2024-10-21 16:26 | XMS_ITS | Continuity of Care Document ---
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 It does not include entries that were removed or entered in error. 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, 2007 Entered By: GUY MCCORMACK Comment: EGD 04/29/2006 [facility] 2017 Entered By: LEANN MEJIA Comment: EGD 11/08/17 due 2017 Entered By: LEANN MEJIA Comment: EGD 2017[facility] 2009 Entered By: TESS LOPEZ Comment: EGD 02/18/10, 11/20/13 see CPRS 12/16/13, repeat 3 yrsSep 27, 2023 Entered By: DEMETRI JOY Comment: [facility] EGD 02/24/2021 Barretts esophagus [facility] Amaro's Esophagus (ICD-9-CM 530.85) Active Condition [facility] Benign essential hypertension Active Condition [facility] Benign prostatic hypertrophy Active Condition Feb 09, 2024 Entered By: GAIL VALDIVIA Comment: sees urology [facility] CARDIAC DYSRHYTHMIAS NEC Active Condition [place] Cardiac pacemaker in situ (SNOMED CT 962591629) Active Condition Apr 17, 2006 Entered By: GUY MCCORMACK Comment: [address] Cardiomyopathy Active Condition [place] Cardiomyopathy [...] small internal hemorrhoids [facility] [place] [facility] Dilated cardiomyopathy Active Condition May 24, 2021 Entered By: LEANN MEJIA Comment: 02/03/[address] Yañez 2024 Entered By: GAIL VALDIVIA Comment: 08/08/[address] RicheySep 14, 2024 Entered By: GAIL VALDIVIA Comment: 06/21/24 Echo [facility] [place] [facility] Erectile dysfunction Active Condition [place] Former smoker Active Condition Jan Entered By: GAIL VALDIVIA Comment: started age 17, smoked 1/2-1ppd x 60 years. Quit 2024 Entered By: GAIL VALDIVIA Comment: LDCT 04/09/24 - irregular nodule PHILL, RADS3, to repeat 6 months [facility] [place] [facility] Gastroesophageal reflux disease with esophagitis (SNOMED CT 107698076) Active Condition [place] Gastroesophageal Reflux Disorder * (ICD-9-CM 530.81) Active Condition [facility] Gout Active Condition Feb 08 Entered By: GAIL VALDIVIA Comment: on maintenance Rx [facility] [place] [facility] HEART VALVE REPLAC NEC Active Condition [facility] Heart valve replacement status (prosthetic or artificial device) (ICD-9-CM V43.3 Active Condition [facility] History of aortic valve replacement Active Condition [facility] [place] [facility] Hyperlipidemia (SNOMED CT 76178806) Active Condition Apr 17, 2006 Entered By: GUY MCCORMACK Comment: zocor myalgiaApr 2006 Entered By: GUY MCCORMACK Comment: FLUVASTATIN URTICARIA [place] Long-term current use of anticoagulant (SNOMED CT 161082990) Active Condition Sep 14, 2024 Entered By: GAIL VALDIVIA Comment: [facility]farin [facility] Moderate chronic obstructive pulmonary disease Active Condition Sep 06 Entered By: DOUG ARCHULETA Comment: PFT 09/10 - severe reduced diffusing capacitySep 14, 2024 Entered By: GAIL VALDIVIA Comment: PFT 05/08/24 - mod obstruction [facility] Obesity Active Condition Sep 14 Entered By: GAIL VALDIVIA Comment: 08/08/24 BMI 32 [facility] Obstructive sleep apnea syndrome Active Condition Mar 30, 2019 Entered By: LEANN MEJIA Comment: moderate to severe 2008Aug 2023 Entered By: GAIL VALDIVIA Comment: wears cpap [facility] Osteopenia Active Condition Sep 13 016 Entered By: LEANN MEJIA Comment: DEXA 06/09 [facility] Postsurgical Status of Cardiac Pacemaker in Situ (ICD-9-CM V45.01) Active Condition [facility] Ventricular tachycardia Active Condition [place] Acute bronchitis (ICD-9-CM 466.0) Inactive Condition 10/17/2006 [facility] Diagnosis: ICD-10-CM Z12.2 Encntr screen for malignant neoplasm of respiratory organs Active [facility] [facility] Diagnosis: ICD-10-CM R91.8 Other nonspecific abnormal finding of lung field Active Diagnosis [facility] Diagnosis: ICD-10-CM Z51.81 Encounter for therapeutic drug level monitoring Active Diagnosis [facility] (631GE) Diagnosis: ICD-10-CM J44.9 Chronic obstructive pulmonary disease, unspecified [facility] Diagnosis [facility] [place] [facility] Diagnosis: ICD-10-CM I48.91 Unspecified atrial fibrillation Active Diagnosis [place] Diagnosis: ICD-10-CM Z23 Encounter for immunization Active Diagnosis [place] Diagnosis: ICD-10-CM R91.1 Solitary pulmonary nodule [facility] Diagnosis: ICD-10-CM N40.1 Benign prostatic hyperplasia with lower urinary tract symp Active Diagnosis [place] Diagnosis: ICD-10-CM G47.30 Sleep apnea, unspecified Active Diagnosis [facility] Diagnosis: ICD-10-CM I42.0 Dilated cardiomyopathy Active Diagnosis [facility] Diagnosis: ICD-10-CM I10 Essential (primary) hypertension Active Diagnosis [place] Medications [facility] list of outpatient medications from Department of Defense and [facility] facilities.Medications provided include 1) outpatient medications from [...] RESPIR ATORY (INHAL ATION) DISCONT INUED 03/25/2024 [id number] Ankush ARMENTA 2023 3 [place] CICLESONIDE 160MCG/SPRA Y INHL,ORAL,6 .1GM INHALE 1 PUFF BY MOUTH TWICE DAILY (RINSE MOUTH AFTER USE) (REPLACE S MOMETASO NE [ASMANEX ]) RESPIR ATORY (INHAL ATION) DISCONT INUED 12/07/2023 [id number] 4 GUCCI ARCHULETA SA 2023 3 [place] CICLESONIDE 160MCG/SPRA Y INHL,ORAL,6 .1GM INHALE 1 PUFF BY MOUTH TWICE DAILY (RINSE MOUTH AFTER USE) (REPLACE S MOMETASO NE [ASMANEX ]) RESPIR ATORY (INHAL ATION) 07/21/2024 [id number] Violeta VALDIVIA 2023 3 [place] DOFETILIDE 250MCG CAP TAKE ONE CAPSULE BY MOUTH TWICE DAILY FOR ATRIAL FIBRILLA TION ORAL ACTIVE 01/25/2025 [id number] KENDRA DIAS 2023 180 [place] DOFETILIDE 250MCG CAP TAKE ONE CAPSULE BY MOUTH TWICE DAILY TO PREVENT ATRIAL FIBRILLA TION ORAL DISCONT INUED 07/31/2024 [id number] LENNY MENDOZA 2023 180 [place] FEBUXOSTAT 40MG TAB TAKE ONE TABLET BY MOUTH ONCE DAILY TO PREVENT ACUTE GOUT ATTACK ORAL ACTIVE 08/09/2025 [id number] 5 Violeta VALDIVIA 2024 90 [place] FEBUXOSTAT 40MG TAB TAKE ONE TABLET BY MOUTH ONCE DAILY TO PREVENT ACUTE GOUT ATTACK ORAL DISCONT INUED 02/22/2025 [id number] 4 Violeta VALDIVIA 2023 90 [place] FEBUXOSTAT 40MG TAB TAKE ONE TABLET BY MOUTH ONCE DAILY TO PREVENT ACUTE GOUT ATTACK ORAL DISCONT INUED 02/17/2024 [id number] GUCCI ARCHULETA SA LEROY 2023 60 [place] FEBUXOSTAT 40MG TAB TAKE ONE TABLET BY MOUTH ONCE DAILY ORAL DISCONT INUED (EDIT) 12/21/2023 [id number] RAND FUNEZ 2022 90 [place] FINASTERIDE 5MG TAB TAKE ONE TABLET BY MOUTH ONCE DAILY FOR PROSTATE ORAL DISCONT INUED 02/04/2024 [id number] EKLOF,SHAN LY LEROY 2022 90 [place] FINASTERIDE 5MG TAB TAKE ONE TABLET BY MOUTH ONCE DAILY FOR PROSTATE ORAL 08/04/2024 [id number] 5 EKLOF,SHAN LY LEROY 2023 90 [place] GEMFIBROZIL 600MG TAB TAKE ONE TABLET BY MOUTH TWICE DAILY TO LOWER CHOLESTE ROL ORAL ACTIVE 10/08/2025 [id number] 5 Ankush ARMENTA 2024 180 [place] GEMFIBROZIL 600MG TAB TAKE ONE TABLET BY MOUTH TWICE DAILY TO LOWER CHOLESTE ROL ORAL DISCONT INUED 03/08/2025 [id number] 5 Violeta VALDIVIA 2023 180 [place] GEMFIBROZIL 600MG TAB TAKE ONE TABLET BY MOUTH TWICE DAILY TO LOWER CHOLESTE ROL ORAL DISCONT INUED 12/07/2023 [id number] GUCCI ARCHULETA SA 2023 180 [place] LEVALBUTERO L 45MCG/SPRAY INHL,ORAL,1 5GM INHALE 1 PUFF BY MOUTH EVERY 4-6 HOURS NEEDED FOR SHORTNES S OF BREATH RESPIR ATORY (INHAL ATION) ACTIVE 08/20/2025 [id number] MADELIN BELTRE 2024 1 [place] LISINOPRIL 10MG TAB TAKE ONE TABLET BY MOUTH DAILY TO CONTROL BLOOD PRESSURE ORAL DISCONT INUED BY NIMESH R 04/05/2025 [id number] 5 Violeta VALDIVIA 2023 90 [facility] IELD LISINOPRIL 10MG TAB TAKE ONE TABLET BY MOUTH DAILY TO CONTROL BLOOD PRESSURE ORAL DISCONT INUED 04/08/2024 [id number] 4 GUCCI ARCHULETA SA 2023 60 [facility] IELD LISINOPRIL 10MG TAB TAKE ONE TABLET BY MOUTH DAILY TO CONTROL BLOOD PRESSURE ORAL DISCONT INUED 01/29/2024 [id number] 4 GUCCI ARCHULETA SA 2023 60 [facility] IELD LISINOPRIL 10MG TAB TAKE ONE TABLET BY MOUTH DAILY TO CONTROL BLOOD PRESSURE ORAL DISCONT INUED 12/07/2023 [id number] 4 GUCCI ARCHULETA SA 2023 90 [facility] IELD METOPROLOL TARTRATE 100MG TAB TAKE ONE TABLET BY MOUTH TWICE DAILY DIRECTED BY PROVIDER FOR BLOOD PRESSURE /HEART ORAL ACTIVE 11/07/2024 [id number] ZULEYMA RICHEY AV 2023 180 [facility] IELD METOPROLOL TARTRATE 100MG TAB TAKE ONE TABLET BY MOUTH TWICE DAILY DIRECTED BY PROVIDER FOR BLOOD PRESSURE /HEART ORAL 08/27/2023 [id number] KAIDEN,ZULEYMA AV 2022 180 [place] OMEPRAZOLE 20MG CAP,EC TAKE TWO CAPSULES BY MOUTH EVERY MORNING 30 MINUTES BEFORE BREAKFAS T FOR HEARTBUR N ORAL ACTIVE 04/05/2025 [id number] 5 Violeta VALDIVIA 2023 180 [place] OMEPRAZOLE 20MG CAP,EC TAKE TWO CAPSULES BY MOUTH EVERY MORNING 30 MINUTES BEFORE BREAKFAS T FOR HEARTBUR N ORAL DISCONT INUED 01/29/2024 [id number] GUCCI ARCHULETA SA 2023 120 [place] TAMSULOSIN HCL 0.4MG CAP TAKE TWO CAPSULES BY MOUTH ONCE DAILY ORAL SUSPEND ED 01/19/2025 [id number] 5 Violeta VALDIVIA 2024 180 [place] TAMSULOSIN HCL 0.4MG CAP TAKE TWO CAPSULES BY MOUTH ONCE DAILY ORAL DISCONT INUED 01/25/2025 [id number] 5 KENDRA DIAS 2023 180 [place] TIOTROPIUM 1.25MCG/ACT UAT INHL,ORAL,6 0D,4GM INHALE 2 PUFFS BY MOUTH ONCE DAILY FOR BRONCHOS PASM PREVENTI ON WITH COPD RESPIR ATORY (INHAL ATION) ACTIVE 08/09/2025 [id number] Violeta VALDIVIA 2024 3 [place] VALSARTAN 80MG TAB TAKE ONE TABLET BY MOUTH TWICE DAILY ORAL ACTIVE 09/20/2025 [id number] KAIDEN,ZULEYMA AV 2024 180 [place] VALSARTAN 80MG TAB TAKE ONE TABLET BY MOUTH TWICE DAILY ORAL DISCONT INUED 06/26/2025 [id number] 5 KAIDEN,ZULEYMA AV 2024 60 [place] WARFARIN NA (SU STATE) 1MG TAB TAKE ONE TABLET BY MOUTH WITH DIRECTIO NS PROVIDED FROM YOUR NE PROVIDER ([facility] [phone] EXTENSIO N 7629) FOR THE PREVENTI ON OF BLOOD CLOTS ORAL ACTIVE 11/04/2024 [id number] 5 DUSTIN JAIME 2024 95 [facility] (631GE) WARFARIN NA (SU STATE) 1MG TAB TAKE ONE TABLET BY MOUTH WITH DIRECTIO NS PROVIDED FROM YOUR NE PROVIDER ([facility] [phone] EXTENSIO N 2877) FOR THE PREVENTI ON OF BLOOD CLOTS ORAL DISCONT INUED 08/19/2024 [id number] DUSTIN JAIME 2023 95 [facility] (631GE) WARFARIN NA (SU STATE) 1MG TAB TAKE ONE TABLET BY MOUTH WITH DIRECTIO NS PROVIDED FROM YOUR NE PROVIDER ([facility] [phone] EXTENSIO N 2877) FOR THE PREVENTI ON OF BLOOD CLOTS ORAL DISCONT INUED 05/12/2024 [id number] ANGY MARQUEZ 2023 95 [facility] WARFARIN NA (SU STATE) 1MG TAB TAKE ONE TABLET BY MOUTH WITH DIRECTIO NS PROVIDED FROM YOUR NE PROVIDER ([facility] [phone] EXTENSIO N 2877) FOR THE PREVENTI ON OF BLOOD CLOTS ORAL 01/09/2024 [id number] DEMETRIUS SALAS 2023 105 [place] WARFARIN<DUNNE Z PURPLE> TAB TAKE 1.25MG BY MOUTH MONDAY, MONDAY AND MONDAY ORAL ACTIVE Maxwell BAUTISTA 2017 [facility] Allergies, Adverse Reactions, Alerts Combined list of allergies from Department of Defense and Veterans Affairs facilities. It does not include entries that were removed or entered in error. Substance Category Reaction Severity Reaction type Status Date Reported Comments Source ALLOPURINOL Propensity to adverse reactions to drug (finding) Diarrhea active 2 [facility] FLUVASTATIN Propensity to adverse reactions to drug (finding) Urticaria active 7 [facility] LOVASTATIN Propensity to adverse reactions to drug (finding) Muscle pain active 1 [facility] MEXILETINE Propensity to adverse reactions to drug (finding) Abdominal pain active 7 [facility] NIACIN Propensity to adverse reactions to drug (finding) Flushing active 1 [facility] OMEPRAZOLE Propensity to adverse reactions to drug (finding) active 8 [facility] PRILOSEC 20MG CAPSULE Propensity to adverse reactions to drug (finding) active 4 [facility] SIMVASTATIN Propensity to adverse reactions to drug (finding) Muscle pain active 1 [facility] ZOCOR Propensity to adverse reactions to drug (finding) Muscle pain active 6 [facility] Immunizations Combined list of available immunizations from the Department of Defense and [facility] Affairs facilities. Immunization Series Date Given Administered By Site Reaction Lot Number CVX Code Drug Manager Country Status Comments Source INFLUENZA, HIGH-DOSE, TRIVALENT, PF 2023 FAIZA ROSS R LEFT DELTO ID [id number] 135 complet ed [facility] IELD INFLUENZA, HIGH-DOSE, QUADRIVALENT 2022 FAIZA ROSS R RIGHT DELTO ID [id number] 197 complet ed [facility] IELD INFLUENZA VACCINE, QUADRIVALENT, ADJUVANTED 2021 VETNURA ARCHULETA LEFT DELTO ID [id number] 205 complet ed [facility] IELD COVID-19 (MODERNA), MRNA, LNP-S, PF, 100 MCG/0.5ML DOSE OR 50 MCG/0.25ML DOSE 4 2021 207 complet ed MOD; [id number]; 2 [facility] IELD INFLUENZA VACCINE, QUADRIVALENT, ADJUVANTED 2020 205 complet ed [facility] COVID-19 (PFIZER), MRNA, LNP-S, PF, 30 MCG/0.3 ML DOSE 3 2020 208 complet ed [facility] TD (ADULT), 2 LF TETANUS TOXOID, PRESERVATIVE FREE, ADSORBED 2020 09 complet ed [facility] IELD ZOSTER RECOMBINANT 2 2020 187 complet ed [facility] IELD ZOSTER RECOMBINANT 1 2020 187 complet ed [facility] IELD COVID-19 (MODERNA), MRNA, LNP-S, PF, 100 MCG/0.5 ML DOSE 2 2020 207 complet ed MOD; [id number]; 1 [place] COVID-19 (MODERNA), MRNA, LNP-S, PF, 100 MCG/0.5 ML DOSE 1 2020 207 complet ed MOD; [id number]; 1 [place] INFLUENZA, INJECTABLE, QUADRIVALENT, PRESERVATIVE [...] FLU,3 YRS (HISTORICAL) 2013 88 complet ed ar [facility] PNEUMOCOCCAL POLYSACCHARID E PPV23 2013 33 complet ed [facility] FLU,3 YRS (HISTORICAL) 2012 88 complet ed Site: Left Deltoid [place] FLU,3 YRS (HISTORICAL) 2012 88 complet ed [facility] FLU,3 YRS (HISTORICAL) 2011 88 complet ed Site: Left Deltoid [place] ZOSTER LIVE 2011 121 complet ed remote data [facility] FLU,3 YRS (HISTORICAL) 2010 88 complet ed [...] IELD PNEUMOCOCCAL, UNSPECIFIED FORMULATION 2007 CYRUS LANDERS 109 complet ed [place] FLU,3 YRS (HISTORICAL) 2006 88 complet ed Site: Left Deltoid [place] FLU,3 YRS (HISTORICAL) 2004 JONATHAN ASHRAF 88 complet ed [place] INFLUENZA, WHOLE 1998 KRISTINE ALMANZA 16 complet ed [place] ELENI Results Combined list of recent chemistry, hematology and other laboratory results from Department of Defense and Veterans Affairs, ranging from 15 months to all on record, depending upon the facility. Order Name Results Value Reference Range Date Interpretation Specimen Comments Source PT & INR (COUMADIN ) INR IN PLATELET POOR PLASMA BY COAGULATION ASSAY 2.1 10/08 Specimen Type: PLASMA No comment entered. Ordering Provider: JAMAL JAIME Report Released Date/Time: Sep 17, 2024 02:13 PM Reporting Lab: [facility] [place] [facility] [address] [address] Performing Lab: [facility] [address] [address] [facility] [facility] PT & INR (COUMADIN ) PROTHROMBIN TIME (PT) 22.4 s 10.0 - 13.1 10/08 H Specimen Type: PLASMA No comment entered. Ordering Provider: JAMAL JAIME Report Released Date/Time: Sep 17, 2024 02:13 PM Reporting Lab: [facility] [place] [facility] [address] [address] Performing Lab: [facility] [address] [address] [facility] [place] [facility] PT & INR (COUMADIN ) INR IN PLATELET POOR PLASMA BY COAGULATION ASSAY 2.7 09/17 Specimen Type: PLASMA No comment entered. Ordering Provider: JAMAL JAIME Report Released Date/Time: Aug 20, 2024 01:53 PM Reporting Lab: [facility] [place] [facility] [address] [address] Performing Lab: [facility] [place] [facility] [address] [address] [facility] [place] [facility] PT & INR (COUMADIN ) PROTHROMBIN TIME (PT) 28.6 s 10.0 - 13.1 09/17 H Specimen Type: PLASMA No comment entered. Ordering Provider: JAMAL JAIME Report Released Date/Time: Aug 20, 2024 01:53 PM Reporting Lab: [facility] [place] [facility] [address] [address] Performing Lab: [facility] [place] [facility] [address] [address] [facility] [place] [facility] PT & INR (COUMADIN ) INR IN PLATELET POOR PLASMA BY COAGULATION ASSAY 2.6 08/20 Specimen Type: PLASMA No comment entered. Ordering Provider: JAMAL JAIME Report Released Date/Time: Aug 06, 2024 02:56 PM Reporting Lab: [facility] [place] [facility] [address] [address] Performing Lab: [facility] [place] [facility] [address] [address] [facility] [place] [facility] PT & INR (COUMADIN ) PROTHROMBIN TIME (PT) 27.8 s 10.0 - 13.1 08/20 H Specimen Type: PLASMA No comment entered. Ordering Provider: JAMAL JAIME Report Released Date/Time: Aug 06, 2024 02:56 PM Reporting Lab: [facility] [place] [facility] [address] [address] Performing Lab: [facility] [place] [address] [address] [facility] [place] [facility] BASIC METABOLIC PANEL (fasting) UREA NITROGEN [MASS/VOLUM E] IN SERUM OR PLASMA 24 mg/dL 7 - 08/06 Specimen Type: SERUM No comment entered. Ordering Provider: JUNE VALDIVIA Report Released Date/Time: Jul 30, 2024 09:22 AM Reporting Lab: [facility] [place] [facility] [address] [address] Performing Lab: [facility] W[facility]N [facility] [address] [address] [facility] BASIC METABOLIC PANEL (fasting) GLUCOSE [MASS/VOLUM E] IN SERUM OR PLASMA 98 mg/dL 65 - 100 08/06 Specimen Type: SERUM No comment entered. Ordering Provider: JUNE VALDIVIA Report Released Date/Time: Jul 30, 2024 09:22 AM Reporting Lab: [facility] TRN [facility] [address] [address] Performing Lab: [facility] W[facility] [address] [facility] BASIC METABOLIC PANEL (fasting) SODIUM [MOLES/VOLU ME] IN SERUM OR PLASMA 142 mmol/L 135 - 145 08/06 Specimen Type: SERUM No comment entered. Ordering Provider: JUNE VALDIVIA Report Released Date/Time: Jul 30, 2024 09:22 AM Reporting Lab: [facility]ITALRBAYPOINTE [facility]OSPITALTRN [facility] [address] [address] Performing Lab: [facility] W[facility]N [facility] [address] [address] [facility]ITALRFLORALA [facility]ORIAL [facility]OSPITALN [facility] BASIC METABOLIC PANEL (fasting) POTASSIUM [MOLES/VOLU ME] IN SERUM OR PLASMA 4.6 mmol/L 3.5 - 5.0 08/06 Specimen Type: SERUM No comment entered. Ordering Provider: JUNE VALDIVIA Report Released Date/Time: Jul 30, 2024 09:22 AM Reporting Lab: [facility] [address] [address] Performing Lab: [facility] [address] [address] [facility] BASIC METABOLIC PANEL (fasting) CHLORIDE [MOLES/VOLU ME] IN SERUM OR PLASMA 110 mmol/L 100 - 110 08/06 Specimen Type: SERUM No comment entered. Ordering Provider: JUNE VALDIVIA Report Released Date/Time: Jul 30, 2024 09:22 AM Reporting Lab: [facility] [place] [facility] [address] [address] Performing Lab: [facility] WSTRN [facility] [address] [address] [facility] W[facility] BASIC METABOLIC PANEL (fasting) CARBON DIOXIDE, TOTAL [MOLES/VOLU ME] IN SERUM OR PLASMA 25 meq/L 20 - 30 08/06 Specimen Type: SERUM No comment entered. Ordering Provider: JUNE VALDIVIA Report Released Date/Time: Jul 30, 2024 09:22 AM Reporting Lab: [place] [facility] [place] [address] [address] Performing Lab: [facility] [address] [facility] BASIC METABOLIC PANEL (fasting) CREATININE [MASS/VOLUM E] IN SERUM OR PLASMA 1.12 mg/dL 0.50 - 1.40 08/06 Specimen Type: SERUM No comment entered. Ordering Provider: JUNE VALDIVIA Report Released Date/Time: Jul 30, 2024 09:22 AM Reporting Lab: [place] [facility] [address] [address] Performing Lab: [facility] [address] [address] [facility] BASIC METABOLIC PANEL (fasting) GLOMERULAR FILTRATION RATE/1.73 SQ M.PREDICTED [VOLUME RATE/AREA] IN SERUM, PLASMA OR BLOOD BY CREATININE- BASED FORMULA (CKD-EPI 2020) 67 mL/min 60 08/06 Specimen Type: SERUM No comment entered. Ordering Provider: JUNE VALDIVIA Report Released Date/Time: Jul 30, 2024 09:22 AM Reporting Lab: [facility] [address] [address] Performing Lab: [facility] [address] [facility]ITALN [facility] HEMOGLOBI N A1C PANEL HEMOGLOBIN A1C/HEMOGLO BIN.TOTAL IN BLOOD BY HPLC 5.2 4.0 - [...] Jul 30, 2024 09:22 AM Reporting Lab: [facility] [address] Performing Lab: [facility] [address] [address] [facility] TSH THYROTROPIN [UNITS/VOLU ME] IN SERUM OR PLASMA 2.61 u[IU]/ mL 0.35 - 5.00 08/06 Specimen Type: SERUM No comment entered. Ordering Provider: JUNE VALDIVIA Report Released Date/Time: Jul 30, 2024 09:22 AM Reporting Lab: [facility] [address] Performing Lab: [facility] [address] [facility]ITALRFLORALA [facility] LIVER FUNCTION PROTEIN [MASS/VOLUM E] IN SERUM OR PLASMA 6.6 g/dL 6.0 - 8.3 08/06 Specimen Type: SERUM No comment entered. Ordering Provider: JUNE VALDIVIA Report Released Date/Time: Jul 30, 2024 09:22 AM Reporting Lab: [facility] [address] Performing Lab: [facility] TRN [facility] [address] [facility] [place] [facility] LIVER FUNCTION ALBUMIN [MASS/VOLUM E] IN SERUM OR PLASMA 3.6 g/dL 3.5 - 5.0 08/06 Specimen Type: SERUM No comment entered. Ordering Provider: JUNE VALDIVIA Report Released Date/Time: Jul 30, 2024 09:22 AM Reporting Lab: [place] [facility] [place] [facility] [address] [address] Performing Lab: [facility] [facility] [address] [address] [facility] [place] [facility] LIVER FUNCTION ALKALINE PHOSPHATASE [ENZYMATIC ACTIVITY/VO LUME] IN SERUM OR PLASMA 81 U/L 40 - 150 08/06 Specimen Type: SERUM No comment entered. Ordering Provider: JUNE VALDIVIA Report Released Date/Time: Jul 30, 2024 09:22 AM Reporting Lab: [place] [facility] [place] [address] [address] Performing Lab: [facility] [facility] [address] [facility] [address] [facility] [place] [facility] LIVER FUNCTION ASPARTATE AMINOTRANSF ERASE [ENZYMATIC ACTIVITY/VO LUME] IN SERUM OR PLASMA 13 U/L 5 - 34 08/06 Specimen Type: SERUM No comment entered. Ordering Provider: JUNE VALDIVIA Report Released Date/Time: Jul 30, 2024 09:22 AM Reporting Lab: [facility] [place] [address] [address] Performing Lab: [facility] [place] [facility] [address] [facility] [address] [facility] [place] [facility] LIVER FUNCTION ALANINE AMINOTRANSF ERASE [ENZYMATIC ACTIVITY/VO LUME] IN SERUM OR PLASMA 10 U/L 08/06 Specimen Type: SERUM No comment entered. Ordering Provider: JUNE VALDIVIA Report Released Date/Time: Jul 30, 2024 09:22 AM Reporting Lab: [place] [facility] [facility] [address] [facility] [address] Performing Lab: [facility] [place] [facility] [address] [facility] [address] [facility] [place] [facility] LIVER FUNCTION BILIRUBIN.T OTAL [MASS/VOLUM E] IN SERUM OR PLASMA 0.7 mg/dL 0.2 - 1.2 08/06 Specimen Type: SERUM No comment entered. Ordering Provider: JUNE VALDIVIA Report Released Date/Time: Jul 30, 2024 09:22 AM Reporting Lab: [facility] [place] [facility] [address] [facility] [address] Performing Lab: [facility] [place] [facility] [address] [facility] [address] [facility] [place] [facility] MICROALBU MIN CREATININ E RATIO PANEL MICROALBUMI N/CREATININ E [MASS RATIO] IN URINE 17.6 mg/g 0 - 29.9 08/06 Specimen Type: URINE No comment entered. Ordering Provider: JUNE VALDIVIA Report Released Date/Time: Jul 30, 2024 09:22 AM Reporting Lab: [facility] [place] [address] [address] Performing Lab: [facility] [place] [facility] [address] [facility] [address] [facility] [place] [facility] MICROALBU MIN CREATININ E RATIO PANEL MICROALBUMI N [MASS/VOLUM E] IN URINE 2.5 mg/dL 08/06 Specimen Type: URINE No comment entered. Ordering Provider: JUNE VALDIVIA Report Released Date/Time: Jul 30, 2024 09:22 AM Reporting Lab: [facility] [place] [facility] [address] [facility] [address] Performing Lab: [facility] [place] [facility] [address] [facility] [address] [facility] [place] [facility] MICROALBU MIN CREATININ E RATIO PANEL CREATININE [MASS/VOLUM E] IN URINE 141.74 mg/dL 08/06 Specimen Type: URINE No comment entered. Ordering Provider: JUNE VALDIVIA Report Released Date/Time: Jul 30, 2024 09:22 AM Reporting Lab: [facility] [place] [facility] [address] [facility] [address] Performing Lab: [facility] [place] [facility] [address] [facility] [address] [place] [facility] [facility] MICROSCOP IC AUTOMATED , URINE LEUKOCYTES [#/AREA] IN URINE SEDIMENT BY MICROSCOPY HIGH POWER FIELD 0-5/[H PF] 0 - 5 08/06 Specimen Type: URINE Comment: If Glucose = >500 and Ketones are positive, please alert the Physician. Ordering Provider: JUNE VALDIVIA Report Released Date/Time: Jul 30, 2024 09:22 AM Reporting Lab: [facility] [place] [facility] [address] [facility] [address] Performing Lab: [facility] [address] [address] [facility] MICROSCOP IC AUTOMATED , URINE ERYTHROCYTE S [#/AREA] IN URINE SEDIMENT BY MICROSCOPY HIGH POWER FIELD 3-5/[H PF] 0 - 3 08/06 Specimen Type: URINE Comment: If Glucose = >500 and Ketones are positive, please alert the Physician. Ordering Provider: JUNE VALDIVIA Report Released Date/Time: Jul 30, 2024 09:22 AM Reporting Lab: [facility] [place] [facility] [address] [facility] [address] Performing Lab: [facility] [address] [address] [facility] MICROSCOP IC AUTOMATED , URINE EPITHELIAL CELLS.SQUAM OUS [#/AREA] IN URINE SEDIMENT BY MICROSCOPY HIGH POWER FIELD FEW/[H PF] 08/06 Specimen Type: URINE Comment: If Glucose = >500 and Ketones are positive, please alert the Physician. Ordering Provider: JUNE VALDIVIA Report Released Date/Time: Jul 30, 2024 09:22 AM Reporting Lab: [facility] [address] [address] Performing Lab: [facility] [address] [address] [place] [place] [facility] LIPID PANEL FASTING CHOLESTEROL [MASS/VOLUM E] IN SERUM OR PLASMA 164 mg/dL 08/06 Specimen Type: SERUM No comment entered. Ordering Provider: JUNE VALDIVIA Report Released Date/Time: Jul 30, 2024 09:22 AM Reporting Lab: [facility] [facility] [address] [facility] [address] Performing Lab: [facility] [place] [facility] [address] [address] [facility] [place] [facility] LIPID PANEL FASTING TRIGLYCERID E [MASS/VOLUM E] IN SERUM OR PLASMA 88 mg/dL 0 - 150 08/06 Specimen Type: SERUM No comment entered. Ordering Provider: JUNE VALDIVIA Report Released Date/Time: Jul 30, 2024 09:22 AM Reporting Lab: [facility] [place] [address] [address] Performing Lab: [facility] [place] [place] [address] [address] [facility] [place] [facility] LIPID PANEL FASTING CHOLESTEROL IN LDL [MASS/VOLUM E] IN SERUM OR PLASMA BY CALCULATION 106 mg/dL 0 - 129 08/06 Specimen Type: SERUM No comment entered. Ordering Provider: JUNE VALDIVIA Report Released Date/Time: Jul 30, 2024 09:22 AM Reporting Lab: [facility] [place] [address] [address] Performing Lab: [facility] [place] [place] [address] [address] [place] [facility] [facility] LIPID PANEL FASTING CHOLESTEROL .TOTAL/CHOL ESTEROL IN HDL [MASS RATIO] IN SERUM OR PLASMA 4.1 08/06 Specimen Type: SERUM No comment entered. Ordering Provider: JUNE VALDIVIA Report Released Date/Time: Jul 30, 2024 09:22 AM Reporting Lab: [facility] [place] [place] [address] [address] Performing Lab: [facility] [place] [facility] [address] [address] [facility] [place] [facility] LIPID PANEL FASTING CHOLESTEROL IN HDL [MASS/VOLUM E] IN SERUM OR PLASMA 40 mg/dL 40 - 60 08/06 Specimen Type: SERUM No comment entered. Ordering Provider: JUNE VALDIVIA Report Released Date/Time: Jul 30, 2024 09:22 AM Reporting Lab: [facility]ITALR[facility]TR[facility] [place] [facility] [address] [facility] [address] Performing Lab: [place] [facility] [place] [facility] [address] [address] [facility] [facility] Vital Signs Combined list of inpatient and outpatient Vital Signs from Department of Defense and Veterans Affairs, ranging from 12 months to all on record, depending upon the facility. Vital Sign Value Date Comments Source SYSTOLIC BLOOD PRESSURE 123 08/08/19 25 09:38:51 [place] DIASTOLIC BLOOD PRESSURE 77 025 09:38:51 [place] PULSE OXIMETRY 95 08/08/2024 09:38:51 [place] WEIGHT 174 08/08/2024 09:38:51 [place] BMI 31 kg/m2 08/08/2024 09:38:51 [place] HEIGHT 63 08/08/2024 09:38:51 [place] TEMPERATURE 97.9 08/08/2024 09:38:51 [place] PULSE 89 08/08/2024 09:38:51 [place] RESPIRATION 19 08/08/2024 09:38:51 [place] SYSTOLIC BLOOD PRESSURE 124 02/09/20 24 13:06:28 [place] DIASTOLIC BLOOD PRESSURE 81 024 13:06:28 [place] PULSE OXIMETRY 96 02/09/2024 13:06:28 [place] WEIGHT 178 02/09/2024 13:06:28 [place] BMI 32 kg/m2 02/09/2024 13:06:28 [place] HEIGHT 63 02/09/2024 13:06:28 [place] TEMPERATURE 97.7 02/09/2024 13:06:28 [place] PULSE 93 02/09/2024 13:06:28 [place] RESPIRATION 20 02/09/2024 13:06:28 [place] SYSTOLIC BLOOD PRESSURE 121 11/01/19 24 10:33:21 [facility] [place] [facility] DIASTOLIC BLOOD PRESSURE 76 024 10:33:21 [facility] [place] [facility] PULSE OXIMETRY 96 11/01/2023 10:33:21 [facility] [...] 11/01/2023 10:33:21 [facility] [place] [facility] Encounters Combined list of: 1) Encounters from Department of Veterans Affairs facilities going backup to the last 18 months, not all VA inpatient encounters are included; 2) Encounters from the Department of Defense facilities going backup to 280 months. Location Location Details Encounter Type Encounter Number Reason For Visit Attending Provider ADM Date DC Date Status Disposition Source [facility] (6[facility] HC PRO PHONE CALL 5-10 MIN [id number] Diagnos is: ICD-10- CM Z51.81 Encount er for therape utic drug level monitor MARY Lawrence 05/11 [facility] [place] [facility] Encounter [id number] 05/22 [facility] [place] [facility] [facility] [place] [facility] Encounter [id number] 05/23 [facility] [place] [facility] [facility] [place] [facility] PRO PHONE CALL 5-10 MIN [id number] Diagnos is: ICD-10- CM Z51.81 Encount er for therape utic drug level monitor JUDY Jacob 06/21 [facility] [place] [facility] MTMS BY PHARM EST 15 MIN [id number] Diagnos is: ICD-10- CM Z51.81 Encount er for therape utic drug level monitor WANDA Cm 07/06 [place] [facility] [place] [place] [facility] [place] [facility] Outpatient Encounter [id number] 07/17 [place] [facility] (6[facility] MTMS BY PHARM EST 15 MIN [id number] Diagnos is: ICD-10- CM Z51.81 Encount er for therape utic drug level monitor LAYLA Plaza 07/26 [facility] (6[facility]GE[facility] [place] [facility] [place] [facility] Outpatient Encounter [id number] 07/27 [place] [facility] [place] [facility] [place] 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 EKLOF,KEYON Y LEROY 08/04 [place] [facility] Outpatient Encounter [id number] 08/08 [place] [facility] MTMS BY PHARM IT APPLICATION ARCHITECT 15 MIN [id number] Diagnos is: ICD-10- CM Z51.81 Encount er for therape utic drug level monitor JUDY Jacob 08/16 [place] [facility] (6[facility]) MTMS BY PHARM IT APPLICATION ARCHITECT 15 MIN [id number] Diagnos is: ICD-10- CM Z51.81 Encount er for therape utic drug level monitor lisa MARY [place] [facility] (6[facility] [place] [facility] MTMS BY PHARM EST 15 MIN [id number] Diagnos is: ICD-10- CM Z51.81 Encount er for therape utic drug level monitor WANDA Cm 08/29 [facility] [place] [place] En[facility] [id number] 08/30 [facility] [place] [facility] [facility] [place] [facility] Encounter [id number] 08/30 [facility] [place] [facility] [facility] [place] [facility] En[facility] [id number] 08/30 [facility] [place] [facility] [place] [facility] Encounter [id number] 09/03 [facility] [place] [facility] [facility] [place] [facility] En[facility] [id number] 09/05 [facility] [place] [place] En[facility] [id number] 09/05 [facility] [place] [facility] [facility] [place] Encounter [id number] 09/06 [facility] [place] [facility] [facility] [place] Encounter [id number] 09/06 [facility] [place] [place] [facility] MTMS BY PHARM EST 15 MIN [id number] Diagnos is: ICD-10- CM Z51.81 Encount er for therape utic drug level monitor WANDA Cm BRI 09/12 [facility] [place] [facility] [place] [facility] Outpatient Encounter [id number] 09/26 [facility] [place] [facility] [facility] [place] OFF[facility] O/P EST MOD 30 MIN [id number] Diagnos is: ICD-10- CM I10 Essenti al (primar y) hyperte LIZET Parisi LEROY 09/26 [place] MTMS BY PHARM IT APPLICATION ARCHITECT 15 MIN [id number] Diagnos is: ICD-10- CM Z51.81 Encount er for therape utic drug level monitor JUDY Jacob IE 09/26 [place] [facility] [place] [facility] Outpatient Encounter [id number] 09/30 [facility] [place] [facility] [place] MTMS BY PHARM IT APPLICATION ARCHITECT 15 MIN [id number] Diagnos is: ICD-10- CM Z51.81 Encount er for therape utic drug level monitor JUDY Jacob IE 10/10 [place] O/P EST LOW 20 MIN [id number] Diagnos is: ICD-10- CM I10 Essenti al (primar y) hyperte LIZET Parisi LEROY 10/31 [place] MTMS BY PHARM IT APPLICATION ARCHITECT 15 MIN [id number] Diagnos is: ICD-10- CM Z51.81 Encount er for therape utic drug level monitor JUDY Jacob IE 10/31 [place] [facility] En[facility] [id number] 11/01 [facility] [place] [facility] [facility] [place] En[facility] [id number] 11/01 [facility] [place] [place] Encounter [id number] 11/14 [facility] [place] [place] En[facility] [id number] 11/14 [facility] [place] [place] En[facility] [id number] 11/15 [facility] [place] [place] PRO PHONE CALL 5-10 MIN [id number] Diagnos is: ICD-10- CM I42.0 Dilated cardiom yopathJENI Palafox IE 11/15 [facility] [place] [place] [facility] MTMS BY PHARM IT APPLICATION ARCHITECT 15 MIN [id number] Diagnos is: ICD-10- CM Z51.81 Encount er for therape utic drug level monitor JUDY Jacob IE 11/28 [place] [facility] En[facility] [id number] 11/29 [facility] [place] En[facility] [id number] 11/29 [facility] [place] En[facility] [id number] 11/29 [facility] [place] En[facility] [id number] 11/30 [facility] [place] En[facility] [id number] NATE VEGA 12/03 [facility] POS AIRWAY PRESSURE FILTER [id number] Diagnos is: ICD-10- CM G47.30 Sleep apnea, unspeci fied ST JUDY MEAD E P 12/05 [facility] En[facility] [id number] 12/06 [facility] [place] En[facility] [id number] 12/06 [facility] [place] En[facility] [id number] 12/14 [facility] [place] En[facility] [id number] CHENG SALAZAR 12/14 [facility] MTMS BY PHARM EST 15 MIN [id number] Diagnos is: ICD-10- CM Z51.81 Encount er for therape utic drug level monitor WANDA Cm 12/17 [facility] En[facility] [id number] 12/18 [facility] [place] En[facility] [id number] 12/18 [facility] [place] En[facility] [id number] 12/18 [facility] [place] En[facility] [id number] 12/24 [facility] [place] En[facility] [id number] 12/24 [facility] [place] MTMS BY PHARM EST 15 MIN [id number] Diagnos is: ICD-10- CM Z51.81 Encount er for therape utic drug level monitor MEDHAT Dean 12/31 [facility] [place] MTMS BY PHARM EST 15 MIN [id number] Diagnos is: ICD-10- CM Z51.81 Encount er for therape utic drug level monitor MEDHAT Dean 01/14 [facility] [place] En[facility] [id number] 01/23 [facility] [place] En[facility] [id number] 01/24 [facility] [place] En[facility] [id number] 01/24 [facility] [place] Encounter [id number] 01/29 [facility] [place] Encounter [id number] 1.02/07 [facility] [place] Encounter [id number] 1[facility]02/07 [facility] [place] En[facility] [id number] 1.02/08 [facility] [place] [facility] OFFICE O/P EST MOD 30 MIN [id number] Diagnos is: ICD-10- CM I48.91 Unspeci fied atrial fibrill atjocy VALDIVIAEFRA C 02/08 [facility] En[facility] [id number] 02/08 [facility] [place] [place] 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 Outpatient Encounter [id number] 03/07 [facility] [place] [facility] ([facility] MTMS BY PHARM EST 15 MIN [id number] Diagnos is: ICD-10- CM Z51.81 Encount er for therape utic drug level monitor lisa KRAUSARNS,CHR ISTINE F 03/12 [place] [facility]GE[facility] [place] [facility] MTMS BY PHARM EST 15 MIN [id number] Diagnos is: ICD-10- CM Z51.81 Encount er for therape utic drug level monitor MEDHAT Dean 03/18 [facility] [place] [facility] [place] [facility] MTMS BY PHARM EST 15 MIN [id number] Diagnos is: ICD-10- CM Z51.81 Encount er for therape utic drug level monitor lisa WANDA BOURNE 03/29 [facility] [place] [facility] [place] [facility] Outpatient [facility]counter [id number] [facility] [place] Outpatient Encounter [id number]/09 [facility] [place] QNHP OL DIG ASSMT&MGMT 11-20 [id number] Diagnos is: ICD-10- CM R91.1 Solitar y pulmona ry nodule KEL CELAYA L 04/09 [facility] [place] [place] [facility] Outpatient Encounter [id number] Diagnos is: ICD-10- CM R91.8 Other nonspec ific abnorma l finding of lung field VÍCTOR MUNOZ 04/09 [facility] EST OCTOBER X REQ PHY/QHP [id number] Diagnos is: ICD-10- CM Z23 Encount er for immuniz atHILL Scott 04/24 [facility] IT APPLICATION ARCHITECT 15 MIN [id number] 29 Diagnos is: ICD-10- CM Z51.81 Encount er for therape utic drug level monitor lisa DOOLEYGAIL 04/26 [facility] (631GE) [facility] [place] [facility] Outpatient Encounter [id number] 1.05/02 [facility] [place] [facility] [place] [facility] Outpatient Encounter [id number] 1.05/08 [place] [facility] [place] [facility] (631GE) MTMS BY PHARM EST 15 MIN [id number] 1GE. Diagnos is: ICD-10- CM Z51.81 Encount er for therape utic drug level monitor lisa LAYLA JAIME 05/21 [facility] (631GE) [facility] [place] [facility] Outpatient Encounter [id number] 1.05/30 [place] [facility] [place] [facility] (631GE) MTMS BY PHARM EST 15 MIN [id number] 1GE. 04 Diagnos is: ICD-10- CM Z51.81 Encount er for therape utic drug level monitor LAYLA Plaza 06/04 [facility] (631GE) [facility] (631GE) MTMS BY PHARM EST 15 MIN [id number] Diagnos is: ICD-10- CM Z51.81 Encount er for therape utic drug level monitor LAYLA Plaza 07/02 [facility] (631GE) [place] [facility] [place] [facility] Outpatient Encounter [id number] 07/30 [place] [facility] [place] [facility] (631GE) MTMS BY PHARM EST 15 MIN [id number] Diagnos is: ICD-10- CM Z51.81 Encount er for therape utic drug level monitor ing LAYLA JAIME 08/06 [facility] (631GE) [facility] OFFICE O/P EST MOD 30 MIN [id number] [id number] 92 Diagnos is: ICD-10- CM I48.91 Unspeci fied atrial fibrill atjocy BELTRANEFRA GOTTI 08/08 [facility] Outpatient Encounter [id number] 08/08 [place] [facility] [place] [place] [facility] [place] [facility] Outpatient Encounter [id number] 08/19 [facility] [place] [facility] (631GE) MTMS BY PHARM EST 15 MIN [id number] Diagnos is: ICD-10- CM Z51.81 Encount er for therape utic drug level monitor ing LAYLA JAIME 08/20 [facility] (631GE) [place] [facility] [facility] N[facility] OL DIG ASSMT&MGMT 11-20 [id number] Diagnos is: ICD-10- CM J44.9 Chronic obstruc tive pulmona ry disease , unspeci fied SOVEROW,CH RISTY A 08/21 [place] [facility] (631GE) MTMS BY PHARM EST 15 MIN [id number] Diagnos is: ICD-10- CM Z51.81 Encount er for therape utic drug level monitor ing LAYLA JAIME ERT BILL 09/17 [facility] (6[facility]GE[facility] [place] [facility] Outpatient Encounter [id number] 10/03 [place] [facility] [place] [place] [facility] Outpatient Encounter [id number]/[id number] [place] [facility] (631GE) MTMS BY PHARM EST 15 MIN [id number] Diagnos is: ICD-10- CM Z51.81 Encount er for therape utic drug level monitor LAYLA Plaza 10/08 [facility] (631GE) [place] [facility] NQHP OL DIG ASSMT&MGMT 21+ [id number] Diagnos is: ICD-10- CM Z12.2 Encntr screen for maligna nt neoplas m of respira tory organs NU BREAUX 10/08 [place] [facility] Outpatient Encounter [id number] Diagnos is: ICD-10- CM R91.8 Other nonspec ific abnorma l finding of lung field LUIZ MORILLO 10/09 [facility] [place] [facility] NQHP OL DIG ASSMT&MGMT 21+ [id number] Diagnos is: ICD-10- CM Z12.2 Encntr screen for maligna nt neoplas m of respira tory organs NU BREAUX 10/09 [place] [facility] [place] [place] [facility] Outpatient Encounter [id number] DULCE WALSH 10/17 [place] [facility] Social History Combined list of available smoking, tobacco, and other social history from Department of Defense and Veterans Affairs facilities. Social History Type Response Date Comment Source Tobacco smoking status NHIS VA-TOBACCO NEVER USED OTHER TYPE 08/08/2024 [place] History of tobacco use VA-TOBACCO USE FORMER CIGARETTES 08/08/2024 [place] History of tobacco use VA-TOBACCO FORMER USER 09/27/2023 [place] History of tobacco use NE-TOBACCO NEVER USED 06/09/2022 [place] History of tobacco use NE-TOBACCO NEVER USED 05/24/2021 [facility] [place] [facility] History of tobacco use NE-TOBACCO NEVER USED 04/27/2020 [facility] [facility] History of tobacco use VA-TOBACCO USE PROCESS COORDINATOR YES 12/20/2018 [place] History of tobacco use CURRENT SMOKER 03/05/2018 [place] History of tobacco use CURRENT SMOKER 09/04/2017 [place] History of tobacco use QUIT TOBACCO USE IN PAST YEAR 09/09/2016 04/26/16 quit [place] History of tobacco use QUIT TOBACCO USE IN PAST YEAR 09/14/2015 [place] History of tobacco use QUIT TOBACCO USE IN PAST YEAR 02/13/2015 [place] History of tobacco use V1-PT NOT INTERESTED IN QUIT TOBACCO USE 08/18/2014 [place] History of tobacco use CURRENT SMOKER 12/16/2013 1/2 ppd [place] History of tobacco use QUIT TOBACCO USE IN PAST YEAR 09/25/2012 [place] History of tobacco use CURRENT SMOKER 12/23/2011 Pt states he smokes a half a pack of cigaretts a day. [place] History of tobacco use V1-PT DECLINES TOBACCO CESSATION MEDS 12/30/2010 [place] History of tobacco use CURRENT SMOKER 06/02/2010 smoker for 50 yrs...1 ppd [place] History of tobacco use CURRENT SMOKER 05/19/2009 10-12 cigaretts daily...smoking 50 years [place] History of tobacco use CURRENT SMOKER 04/08/2008 Patient reports smoking a pack of ciggs a day. [place] History of tobacco use V1-PT READY TO QUIT TOBACCO USE 12/18/2007 [place] History of tobacco use QUIT TOBACCO USE IN PAST YEAR 04/17/2007 [place] History of tobacco use V1-PT READY TO QUIT TOBACCO USE 10/16/2006 [place] History of tobacco use CURRENT SMOKER 01/13/2006 Vet continues to smoke 1 pkg of cigarettes daily. He said he does not want quit tobacco. [place] History of tobacco use CURRENT SMOKER 11/30/2004 1 pack a day [place] History of tobacco use TOBACCO CURRENT USER 05/28/2004 [facility] Plan of Care List of future care activities from Department of Veterans Affairs facilities. Additional future care activities may be listed in the Assessment and Plan section. Date/Time Care Activity Care Activity Detail Facili ty 11/12/2024 AMBULATORY - MEDICINE AMBULATORY - MEDICI [facility] Advance Directives List of completed, amended, or rescinded Advance Directives on record at Department of Veterans [facility] facilities. An actual copy of the Directive is not included. Date Advance Directive Provider Source 10/03/2017 ADVANCE DIRECTIVE MARILU MIRZA [facility] 12/23/2013 ADVANCE DIRECTIVE NIALL SALCEDO LD
--- OUTSIDE RECORDS SUMMARY | 2024-10-21 16:27 | XMS_ITS ---
Author Name [facility] [place] [facility] [place] Address [address] [place] [id number] Care Team Providers Care H[employer]icultural Specialty [employer]er Field Name Role Phone KATHE DOUG Primary Care [...] PART A Jun 26, 2006 PART A [id number] [phone] DIMITRIS HENSLEY PATIENT MEDICARE (WNR) MEDICARE (M) PART A Jun 26, 2006 PART A [id number] DIMITRIS HENSLEY PATIENT MEDICARE (WNR) MEDICARE (M) PART A Jun 26, 2006 PART A [id number] DIMITRIS HENSLEY PATIENT MEDICARE (WNR) MEDICARE (M) PART A Jun 26, 2006 PART A [id number] [phone] DIMITRIS HENSLEY PATIENT Selected Encounter This section includes the information on record at CT for the Encounter. Date/Time Encounter Type Encounter Description Reason Provider Source Aug 21, 2024 11:21 AM [facility] OL DIG ASSMT&MGMT 11-20 CLINICAL PHARMACY ICD-10-CM J44.9 Chronic obstructive pulmonary disease, unspecified SOVERJOAQUIN,ANTONETTE Y A E Encounter Template Text not used by CT Assessments - Encounter Diagnoses This section includes the primary and secondary diagnoses documented for the Encounter. Date/Time Primary/Secondary Diagnosis Diagnosis Name Provider Source Aug 21, 2024 11:29 AM PRIMARY Chronic obstructive pulmonary disease, unspecified SOVERJOAQUIN,ANTONETTE Y A [facility] Plan of Treatment: Future Appointments (+ 6 months) and Future Tests (+/- 45 days) The Plan of Treatment section includes future care activities for the patient from all CT treatmentfacilities. This section includes future appointments and future orders which are active, pending or scheduled. Future Appointments This section includes appointments that were scheduled to occur 6 months from the date of the Encounter, up to a maximum of 20 appointments. The data comes from all CT treatment facilities. Appointment Date/Time Appointment Type Appointme nt Facility Name Oct 08, 2024 01:00 PM AMBULATORY - NONE [facility] November 12, 2024 01:30 PM AMBULATORY - MEDICINE [facility] Lab Results: +/- 30 days of [...] Unit Interpretation Reference Range Specimen Type Comment Sep 17, 2024 10:42 AM [facility] PT & INR (COUMADIN) PLASMA Specimen Type: PLASMA No comment entered. Ordering Provider: REILLY JAIME Report Released Date/Time: Aug 20, 2024 01:53 PM Reporting Lab: [facility] [address] [facility] [address] Performing Lab: [facility] [address] [facility] [address] INR 2.7 PROTIME 28.6 s H 10.0-13.1 Aug 20, 2024 09:23 AM [facility] PT & INR (COUMADIN) PLASMA Specimen Type: PLAS MA No comment entered. Ordering Provider: REILLY JAIME Report Released Date/Time: Aug 06, 2024 02:56 PM Reporting Lab: [facility] [address] [facility] [address] Performing Lab: [address] [address] INR 2.6 PROTIME 27.8 s H 10.0-13.1 Aug 06, 2024 10:32 AM [facility] BASIC METABOLIC PANEL (fasting) SERUM Specime n Type: SERUM No comment entered. Ordering Provider: GAIL VALDIVIA Report Released Date/Time: Jul 30, 2024 09:22 AM Reporting Lab: [address] [address] Performing Lab: [address] [address] UREA NITROGEN 24 mg/dL 7-25 GLUCOSE 98 mg/dL 65-100 SODIUM 142 mmol/L 135-145 POTASSIUM 4.6 mmol/L 3.5-5.0 CHLORIDE 110 mmol/L 100-110 CO2 25 meq/L 20-30 CREATININE, Serum 1.12 mg/dL 0.50-1.40 eGFR(CKD-EPI 2020) 67 mL/min >60 Aug 06, 2024 10:32 AM [facility] LIPID PANEL FASTING SERUM Specimen Type: SERU M No comment entered. Ordering Provider: GAIL VALDIVIA Report Released Date/Time: Jul 30, 2024 09:22 AM Reporting Lab: [address] [address] Performing Lab: [address] [address] CHOLESTEROL 164 mg/dL TRIGLYCERIDE 88 mg/dL 0-150 LDL calculated 106 mg/dL 0-129 CHOL/HDL 4.1 HDL CHOLESTEROL 40 mg/dL 40-60 Aug 06, 2024 10:32 AM [facility] HEMOGLOBIN A1C PANEL BLOOD Specimen Type: BLO OD Comment: Values obtained from A1C measurements can vary. For atypical A1C assays, a reported value of 7.0 could actually be between 6.72 and 7.28 if measured by a reference method. A reported value of 9.0 could actually be between 8.73 and 9.27. Ref: http://www.ngsp.org/CAPdata.asp Ordering Provider: GAIL VALDIVIA Report Released Date/Time: Jul 30, 2024 09:22 AM Reporting Lab: [facility] [address] [facility] [address] [facility]forming Lab: [facility] [address] HEMOGLOBIN A1C 5.2 4.0-5.6 Aug 06, 2024 10:32 AM [facility] TSH SERUM Specimen Type: SERUM No comment entered. Ordering Provider: GAIL VALDIVIA Report Released Date/Time: Jul 30, 2024 09:22 AM Reporting Lab: [facility] [address] [facility] [address] Performing Lab: [facility] [address] [facility] [address] TSH 2.61 u[IU]/mL 0.35-5.00 Aug 06, 2024 10:32 AM [facility] LIVER FUNCTION SERUM Specimen Type: SERUM No comment entered. Ordering Provider: GAIL VALDIVIA Report Released Date/Time: Jul 30, 2024 09:22 AM Reporting Lab: [address] [address] Performing Lab: [address] [address] PROTEIN,TOTAL 6.6 g/dL 6.0-8.3 ALBUMIN 3.6 g/dL 3.5-5.0 ALKALINE PHOSPHATASE 81 U/L 40-150 AST 13 U/L 5-34 ALT 10 U/L BILIRUBIN, TOTAL 0.7 mg/dL 0.2-1.2 Aug 06, 2024 10:32 AM [facility] MICROALBUMIN CREATININE RATIO PANEL URINE Spe cimen Type: URINE No comment entered. Ordering Provider: GAIL VALDIVIA Report Released Date/Time: Jul 30, 2024 09:22 AM Reporting Lab: [address] [address] Performing Lab: [address] [address] MICROALBUMIN/CREATININE RATIO 17.6 mg/g 0-29.9 MICROALBUMIN,QUANTITATIVE 2.5 mg/dL RR U NAVAIL CREATININE URINE 141.74 mg/dL Aug 06, 2024 10:32 AM [facility] MICROSCOPIC AUTOMATED, URINE URINE Specimen T ype: URINE Comment: If Glucose = >500 and Ketones are positive, please alert the Physician. Ordering Provider: GAIL VALDIVIA Report Released Date/Time: Jul 30, 2024 09:22 AM Reporting Lab: [address] [address] Performing Lab: [address] [address] UA WBC 0-5 /[HPF] 0-5 UA RBC 3-5 /[HPF] 0-3 UA SQUAMOUS EPITH FEW /[HPF] Aug 06, 2024 10:32 AM [facility] URINALYSIS URINE Specimen Type: URINE Comment: If Glucose = >500 and Ketones are positive, please alert the Physician. Ordering Provider: GAIL VALDIVIA Report Released Date/Time: Jul 30, 2024 09:22 AM Reporting Lab: [address] [address] Performing Lab: [address] [address] UA COLOR Yellow Yellow UA APPEARANCE Clear Clear UA GLUCOSE Normal mg/dL Negative UA KETONES NEGATIVE mg/dL Negative UA BLOOD NEGATIVE mg/dL Negative UA PROTEIN NEGATIVE mg/dL Negative UA NITRITE NEGATIVE mg/dL Negative UA BILIRUBIN NEGATIVE mg/dL Negative UA SPECIFIC GRAVITY 1.024 H 1.016-1.022 UA pH 6.5 5.0-9.0 UA UROBILINOGEN 4 mg/dL <2.0 UA LEUKOCYTE TRACE Negative Aug 06, 2024 10:32 AM [facility] CBC AND DIFF (AUTO) BLOOD Specimen Type: BLOO D No comment entered. Ordering Provider: GAIL VALDIVIA Report Released Date/Time: Jul 30, 2024 09:22 AM Reporting Lab: [facility] [address] [facility] [address] Performing Lab: [facility] [address] [facility] [address] WBC 4.64 10*3/uL 4.50-11.00 RBC 3.86 10*6/uL [...] 0.4 0.0-0.7 IMMATURE GRAN, ABS 0.02 10*3/uL 0.00-0.0 6 NRBC % 0.0 0.0-0.0 NRBC, ABS 0.00 10*3/uL 0.00-0.00 Aug 06, 2024 10:31 AM [facility] PT & INR (COUMADIN) PLASMA Specimen Type: PLAS MA No comment entered. Ordering Provider: REILLY JAIME Report Released Date/Time: Jul 02, 2024 04:04 PM Reporting [facility] [place] [place] [facility] [address] [facility] [address] Performing Lab: [place] [facility] [address] [facility] [address] INR 1.9 PROTIME 20.1 s H 10.0-13.1 [...] 24, 2021 08:53 AM VA-TOBACCO NEVER USED [facility] Tobacco Use History This section includes a history of the smoking, or tobacco-related health factors, that were collected on or before the date of the Encounter. The data comes from the CT facility where the Encounter took place. Date/Time Smoking Status/Tobacco Use Comment F acility May 24, 2021 08:53 AM [facility]CO [facility] May 24, 2021 08:53 AM VA-TOBACCO QUIT 1 TO < [address] [facility] Apr 27, 2020 11:42 AM VA-TOBACCO NEVER USED [facility] Advance Directives: All historical and current [...] Oct 03, 2017 ADVANCE DIRECTIVE MARILU MIRZA [facility] Dec 23, 2013 ADVANCE DIRECTIVE NIALL SALCEDO Encounter Notes: All associated encounter notes This section contains the clinical notes associated to the Encounter. Date/Time Encounter Note(s) Provider Source Aug 21, 2024 11:21 AM MEDICATION MGT CONSULT: LOCAL TITLE: CONSULT REPORT/NON FORMULARY PADR STANDARD TITLE: MEDICATION MGT CONSULT DATE OF NOTE: AUG 21, 2024@11:21 ENTRY DATE: AUG 21, 2024@11:21:35 AUTHOR: SANDRA GONZÁLES COSIGNER: URGENCY: STATUS: COMPLETED The medical record has been reviewed with regard to this restricted drug request. This prior authorization drug request originated with a [facility] provider. Medication requested: LEVALBUTEROL 45MCG 200D ORAL INHL Medication indication: Emphysema Medical history relevant to this request: 78 y/o male followed by [facility] cardiology and pulmonology. PMH of severe ELENI on CPAP, cardiomyopathy s/p ICD LVEF 15-20%, aortic valve replacement, and a-fib on coumadin. Recent PFT revealed mild to moderate emphysema with new 5.4mm solid pulmonary nodule. Currently on Spiriva and Alvesco and albuterol PRN (uses infrequently) currently has ongoing dyspnea, believed to be multifactorial with pulmonary and cardiac contribution. Levalbuterol required to use PRN instead of albuterol due to 's significant cardiac history The request is approved - A documented contraindication exists to the preferred formulary alternative(s) Time Spent: 15 minutes /barbie/ SANDRA GONZÁLES PHARMD. [facility] Care Clinical Pharmacist Signed: 08/21/2024 11:29 Receipt Acknowledged By: 08/21/2024 11:45 /barbie/ CORRINA GUTIERREZ Tax Assessor SANDRA GONZÁLES CT [facility]
--- OUTSIDE RECORDS SUMMARY | 2024-10-21 16:27 | XMS_ITS | Encounter Summary ---
Author Name [facility] [place] [facility] [place] [facility] [place] [place] Address [address] [place] [id number] Care Team Providers Care Home Restoration Service Supervisor Name Role Phone DOUG ARCHULETA Primary Care [...] PART A Jun 26, 2006 PART A [id number] DIMITRIS HENSLEY PATIENT MEDICARE (WNR) MEDICARE (M) PART A Jun 26, 2006 PART A [id number] DIMITRIS HENSLEY PATIENT MEDICARE (WNR) MEDICARE (M) PART A Jun 26, 2006 PART A [id number] DIMITRIS HENSLEY PATIENT MEDICARE (WNR) MEDICARE (M) PART A Jun 26, 2006 PART A [id number] DIMITRIS HENSLEY PATIENT Selected Encounter This section includes the information on record at [place] for the Encounter. Date/Time Encounter Type Encounter Description Reason Provider Source November 01, 2023 10:30 AM OFFICE O/P EST LOW 20 MIN PRIMARY CARE/MEDICINE ICD-10-CM I10 Essential (primary) hypertension DOUG ARCHULETA Rashid Encounter Template Text not used by [place] Assessments - Encounter Diagnoses This section includes the primary and secondary diagnoses documented for the Encounter. Date/Time Primary/Secondary Diagnosis Diagnosis Name Provider Source November 01, 2023 11:39 AM PRIMARY Essential (primary) hypertension DOUG ARCHULETA November 01, 2023 11:39 AM SECONDARY Hyperlipidemia, unspecified DOUG ARCHULETA MANUELITO November 01, 2023 11:39 AM SECONDARY Tobacco use DOUG ARCHULETA [place] Plan of Treatment: Future Appointments (+ 6 months) and Future Tests (+/- 45 days) The Plan of Treatment section includes future care activities for the patient from all [place] treatmentfacilities. This section includes future appointments and future orders which are active, pending or scheduled. Future Appointments This section includes appointments that were scheduled to occur 6 months from the date of the Encounter, up to a maximum of 20 appointments. The data comes from all [place] treatment facilities. Appointment Date/Time Appointment Type Appointme nt Facility Name November 15, 2023 08:00 AM [facility] [place] [facility] November 15, 2023 01:45 PM [place]IC[place] [facility] [place] [facility] Jan 24, 2024 10:00 AM AMBUL[place]ORY [place]ICINE [place] [facility] [place] [facility] Feb 09, 2024 01:00 PM [facility] Feb 12, 2024 12:30 PM AMBUL[place]ORY [place] SURG[place] [facility] Apr 09, 2024 01:00 PM [facility]BUL[facility]ORY - NONE [facility] Lab Results: +/- 30 days of the encounter This section includes the Chemistry and Hematology Lab Results on record with [place] for the patient. Radiology Reports and Pathology Reports are provided separately, in subsequent sections. Lab Results This section contains the Chemistry/Hematology Results that were resulted 30 days before or 30 daysafter the date of the Encounter. Date/Time Source Result Type Result - Unit Interpretation Reference Range Specimen Type Comment Nov 29, 2023 09:04 AM [facility] PT & INR (COUMADIN) PLASMA Specimen Type: PLASMA No comment entered. Ordering Provider: TG SALAS Report Released Date/Time: November 01, 2023 01:31 PM Reporting Lab: [facility] [address] [facility] [address] Performing Lab: [facility] [place] [facility] [address] [facility] [address] INR 2.0 PROTIME 21.6 s H 10.0-13.1 November 01, 2023 09:59 AM [place] [facility] [place] [facility] PT & INR (COUMADIN) PLASMA Specimen Type: ELICEO NORTON No comment entered. Ordering Provider: TG SALAS Report Released Date/Time: Oct 11, 2023 01:49 PM Reporting Lab: [place] [facility] [place] [facility] [address] [facility] [address] Performing Lab: [facility] [place] [address] [address] INR 2.0 PROTIME 22.3 s H 10.0-13.1 Oct 11, 2023 11:05 AM [facility] [place] [facility] PT & INR (COUMADIN) PLASMA Specimen Type: ELICEO NORTON No comment entered. Ordering Provider: TG SALAS Report Released Date/Time: Sep 27, 2023 01:26 PM Reporting Lab: [facility] [place] [facility] [address] [facility] [address] Performing Lab: [facility] [place] [address] [address] INR 2.4 PROTIME 25.9 s H 10.0-13.1 Social History: Smoking Status (Most current) and Tobacco Use (All prior to encounter date) This section includes the most current, and the historical, smoking and tobacco- related health factors from the [place] facility where the Encounter took place. Current Smoking Status This section includes the most current smoking, or tobacco-related health factor, from the [place] facility where the Encounter took place. Date/Time Current Smoking Status Comment Dwight rosas Sep 27, 2023 10:30 AM [place]-TOBACCO FORMER USER [place] Tobacco Use History This section includes a history of the smoking, or tobacco-related health factors, that were collected on or before the date of the Encounter. The data comes from the [place] facility where the Encounter took place. 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 [facility] Dec 20, 2018 09:40 AM VA-TOBACCO USE MED NOTIFY PROVIDER [facility] Dec 20, 2018 09:40 AM VA-TOBACCO USE WI 30 MIN OF WAKEUP [facility] Dec 20, 2018 09:40 AM VA-TOBACCO USER EVERY DAY [facility] Mar 05, 2018 01:38 PM CURRENT SMOKER SPRI [facility] Sep 04, 2017 01:34 PM [facility] Sep 09, 2016 01:00 PM QUIT TOBACCO USE I N PAST YEAR 04/26/16 quit [facility] Sep 14, 2015 08:27 AM QUIT TOBACCO USE I N PAST YEAR [facility] Feb 13, 2015 05:11 PM QUIT TOBACCO USE I N PAST YEAR [facility] Aug 18, 2014 04:22 PM V1-PT NOT INTEREST ED IN QUIT TOBACCO USE [facility] Dec 16, 2013 10:23 AM CURRENT SMOKER 1/2 ppd [facility] Dec 16, 2013 10:23 AM V1-PT DECLINES REF TO TOBACCO CESS [facility] Dec 16, 2013 10:23 AM V1-PT DECLINES TOB ACCO CESSATION [facility] Dec 16, 2013 10:23 AM V1-PT NOT INTEREST ED IN QUIT TOBACCO USE [facility] Sep 25, 2012 01:54 PM QUIT TOBACCO USE I N PAST YEAR [facility] Dec 23, 2011 09:43 AM CURRENT SMOKER Pt states he smokes a half a pack of cigaretts a day. [facility] Dec 23, 2011 09:43 AM V1-PT DECLINES REF TO TOBACCO CESS [facility] Dec 23, 2011 09:43 AM V1-PT DECLINES TOB ACCO CESSATION [facility] Dec 23, 2011 09:43 AM V1-PT NOT INTEREST ED IN QUIT TOBACCO USE [facility] Dec 30, 2010 01:14 PM V1-PT DECLINES REF TO TOBACCO CESS [facility] Dec 30, 2010 01:14 PM V1-PT DECLINES TOB ACCO CESSATION [facility] Dec 30, 2010 01:14 PM V1-PT NOT INTEREST ED IN QUIT TOBACCO USE [facility] Jun 02, 2010 09:23 AM CURRENT SMOKER smoker for 50 yrs...1 ppd [facility] Jun 02, 2010 09:23 AM V1-PT DECLINES REF TO TOBACCO CESS [facility] Jun 02, 2010 09:23 AM V1-PT THINKING ABO UT QUIT TOBACCO USE [facility] May 19, 2009 11:23 AM CURRENT SMOKER 10-12 cigaretts daily...smoking 50 years [facility] Apr 08, 2008 01:51 PM CURRENT SMOKER Patient reports smoking a pack of ciggs a day. [facility] Dec 18, 2007 10:09 AM V1-PT [facility] Dec 18, 2007 10:09 AM V1-PT READY TO MARCIANO T TOBACCO USE [facility] Apr 17, 2007 01:58 PM QUIT TOBACCO USE I N PAST YEAR [facility] Oct 16, 2006 02:20 PM V1-PT [facility] Oct 16, 2006 02:20 PM V1-PT READY TO MARCIANO T TOBACCO USE [facility] Jan 13, 2006 01:11 PM CURRENT SMOKER Rocío continues to smoke 1 pkg of cigarettes daily. He said he does not want quit tobacco. [facility] Nov 30, 2004 12:31 PM CURRENT SMOKER 1 pack a day [facility] Advance Directives: All historical and current Section Date Range: From patient's date of to the date document was created. This section includes ALL of a patient's completed or amended [place] Advance and Rescinded Directives. The entries below indicate that a directive exists for the patient, but an actual copy is not included with this document. The data comes from all [place] facilities. Date Advance Directives Provider Source Oct 03, 2017 ADVANCE DIRECTIVE MARILU MIRZA [facility] Dec 23, 2013 ADVANCE DIRECTIVE NIALL [...] GAN LPN PACT 10 Signed: 11/01/2023 10:39 RUFINOCATHY BARBER November 01, 2023 05:59 AM PHYSICIAN NOTE: LOCAL TITLE: MD NOTE STANDARD TITLE: PHYSICIAN NOTE DATE OF NOTE: NOVEMBER 01, 2023@05:59 ENTRY DATE: NOVEMBER 01, 2023@05:59:58 AUTHOR: DOUG ARCHULETA COSIGNER: URGENCY: STATUS: COMPLETED HISTORY OF PRESENT ILLNESS: ERIC CHAN HENSLEY, is a 77 yo MALE , who presents at the [facility] for his annual wellness exam. Labs completed. He recently transferred from Dr Hodgson's panel on 09/27/23. [facility]. started off our conversation complaining about and berating Dr Ledesma citing his inadequacies and mistakes and poor practice qualities. He cited details that Dr Ledesma paid no attention to me and is considering switching to [facility] cardiology. Advised him to let me [...] out. NonVA Providers: Cardiology: Dr Ledesma - [facility] Cardio Gastroenterology: Dr Mccullough - [facility] GI Active problems - Computerized [...] MOUTH WITH DIRECTIONS PROVIDED FROM Expr:01-09-24 YOUR [place] PROVIDER ([facility]INIC extension [phone]) FOR THE [...] SERUM 1.58 HISTORY: PERIOD OF SERVICE - [facility] FROM Jun TO Sep COMBAT [...] 1. Atrial Fibrillation: on coumadin managed by [place] [facility], on dofetilide 250mg BID, managed by [...] - appt for EGD scheduled for 01/24/24 /[facility] GI 11. Gout: on febuxostat 40mg/day 12. BPH: on tamsulosin 0.8mg/day 13. Colonoscopy Screening: last screen 02/24/21 - 2 polyps - repeat ?, per vet aged out, will confirm however with GI FOLLOW UP: 6 mths - HTN/Lipids/WT - FBW prior ========= (Unlikely he will return to this Pact team due to his poor behavior today.) UPCOMING APPOINTMENTS: 01/24/2024 10:00 [facility] CARE-EGD No barriers; Patient understands and agrees to current treatment plan. If pt has any questions, concerns, or changes in current health status he/she will call or come in to the [facility]. EGD F/U: EGD F/U procedure already scheduled outside of local [facility]. Home Telehealth (CCHT) Referral: Patient not a [...] of active outpatient prescriptions dispensed from this [place] (local) and dispensed from another [place] or [facility] facility (remote) as well as inpatient orders [...] JLV. Allergies/ADRs (Tool #5) FACILITY ALLERGY/ADR -------- [facility] NO KNOWN ALLERGIES [facility] [place] [facility] ALLOPURINOL [facility] [place] [facility] FLUVASTATIN [facility] [place] [facility] MEXILETINE [facility] [place] [facility] PRILOSEC 20MG CAPSULE [facility] [place] [facility] ZOCOR [facility] FLUVASTATIN [facility] LOVASTATIN [facility] NIACIN [facility] OMEPRAZOLE [facility] SIMVASTATIN Med Recon NoGlossary (Tool #1) INCLUDED IN THIS LIST: Alphabetical list of active outpatient prescriptions dispensed from this [place] (local) and dispensed from another [place] or [facility] facility (remote) as well as inpatient orders (local pending and active), local clinic medications, locally documented non-VA medications, and local prescriptions that have or been discontinued in the past 90 days. Non-VA Meds Last Documented On: Dec 09, 2021 NOTE The display of VA prescriptions dispensed from another [place] or [facility] facility (remote) is limited to active outpatient prescription entries matched to National Drug File at the originating site and may not include some items such as investigational drugs, compounds, etc. NOT INCLUDED IN THIS LIST: Medications self-entered by the patient into personal health records (i.e. [employer]) are NOT included in this list. Non-VA medications documented outside this [place], remote inpatient orders (regardless of status) and remote clinic medications are NOT included in this list. The patient and provider must always discuss medications the patient is taking, regardless of where the medication was dispensed or obtained. ------ OUTPT ALBUTEROL 90MCG (CFC-F) 200D ORAL INHL (Status = Active) INHALE 2 PUFFS BY MOUTH EVERY 6 HOURS NEEDED [facility] Rx# [id number] Last Released: 12/23/22 Qty/Days Supply: 07/25 Rx Expiration Date: 12/21/23 Refills Remainin Remote ALPROSTADIL 40MCG/CARTRIDGE INJ,SYSTEM INJECT 40 MCG(CARTRIDGE) INTO CAVERNOSAL CAVITY 1 HOUR BEFORE SEXUAL RELATIONS. FOR SEXUAL RELATIONS Last Filled: 02/06/23 (Active at [facility]) Rx Expiration Date: 02/04/24 Days Supply: 30 OUTPT CICLESONIDE 160MCG 60D ORAL INHL (Status = Active) INHALE 1 PUFF BY MOUTH TWICE DAILY (RINSE MOUTH AFTER USE) (REPLACES MOMETASONE [ASMANEX]) Rx# [id number] Last Released: 09/12/23 Qty/Days Supply: Rx Expiration Date: 12/07/23 Refills Remainin OUTPT DOFETILIDE 250MCG CAP (Status = Active) TAKE ONE CAPSULE BY MOUTH TWICE DAILY TO PREVENT ATRIAL FIBRILLATION Rx# [id number] Last Released: 08/07/23 Qty/Days Supply: Rx Expiration Date: 07/31/24 Refills Remainin Indication: TO PREVENT ATRIAL FIBRILLATION OUTPT FEBUXOSTAT 40MG TAB (Status = Active) TAKE ONE TABLET BY MOUTH ONCE DAILY Rx# [id number] Last Released: 09/22/23 Qty/Days Supply: Rx Expiration Date: 12/21/23 Refills Remainin Remote FINASTERIDE 5MG TAB TAKE ONE TABLET BY MOUTH ONCE DAILY FOR PROSTATE Last Filled: 10/24/23 (Active at [facility]) Rx Expiration Date: 08/04/24 Days Supply: 90 OUTPT GEMFIBROZIL 600MG TAB (Status = Active) TAKE ONE TABLET BY MOUTH TWICE DAILY TO LOWER CHOLESTEROL Rx# [id number] Last Released: 09/11/23 Qty/Days Supply: Rx Expiration Date: 12/07/23 Refills Remainin OUTPT LISINOPRIL 10MG TAB (Status = Discontinued) TAKE ONE TABLET BY MOUTH DAILY TO CONTROL BLOOD PRESSURE Rx# [id number] Last Released: 06/13/23 Qty/Days Supply: Rx Expiration Date: 09/10/23 Refills Remainin OUTPT LISINOPRIL 10MG TAB (Status = Active) TAKE ONE TABLET BY MOUTH DAILY TO CONTROL BLOOD PRESSURE Rx# [id number] Last Released: 09/11/23 Qty/Days Supply: Rx Expiration Date: 12/07/23 Refills Remainin OUTPT METOPROLOL TARTRATE 100MG TAB (Status = ) TAKE ONE TABLET BY MOUTH TWICE DAILY DIRECTED BY PROVIDER FOR BLOOD PRESSURE/HEART Rx# [id number] Last Released: 08/16/23 Qty/Days Supply: 180 Rx Expiration Date: 08/27/23 Refills Remainin OUTPT TAMSULOSIN HCL 0.4MG CAP (Status = ) TAKE TWO CAPSULES BY MOUTH ONCE DAILY Rx# [id number] Last Released: 05/10/23 Qty/Days Supply: 180 Rx Expiration Date: 10/25/23 Refills Remainin Indication: FOR ENLARGED PROSTATE OUTPT WARFARIN NA ([place]) 1MG TAB (Status = Discontinued) TAKE ONE TABLET BY MOUTH WITH DIRECTIONS PROVIDED FROM YOUR [place] PROVIDER ([facility]ATION CLINIC EXTENSION [id number]) FOR THE PREVENTION OF BLOOD CLOTS Rx# [id number] Last Released: 07/12/23 Qty/Days Supply: 105 Rx Expiration Date: 10/04/23 Refills Remainin Indication: TO PREVENT BLOOD CLOTS OUTPT WARFARIN NA ([place]) 1MG TAB (Status = Active) TAKE ONE TABLET BY MOUTH WITH DIRECTIONS PROVIDED FROM YOUR [place] PROVIDER (ANTICOAGULATION CLINIC EXTENSION [id number]) FOR THE PREVENTION OF BLOOD CLOTS Rx# [id number] Last Released: 10/12/23 Qty/Days Supply: 105 Rx Expiration Date: 01/09/24 Refills Remainin Indication: TO PREVENT BLOOD CLOTS ------ SUPPLIES ------ /barbie/ DOUG ARCHULETA MD Primary Care Physician Signed: 11/01/2023 11:45 DOUG ARCHULETA [facility]
--- OUTSIDE RECORDS SUMMARY | 2024-10-21 16:27 | XMS_ITS ---
Author Name Department of Vetera Affairs ([place]) Organization [facility] of Veter[facility] ([place]) Address [address] [place] [id number] Care Team Providers Care Energy Sales Consultant Name Role Phone LIZET ARCHULETAA Primary Care [...] PART A Jun 26, 2006 PART A [id number] DIMITRIS HENSLEY PATIENT MEDICARE (WNR) MEDICARE (M) PART A Jun 26, 2006 PART A [id number] [phone] DIMITRIS HENSLEY PATIENT MEDICARE (WNR) MEDICARE (M) PART A Jun 26, 2006 PART A [id number] [id number] DIMITRIS HENSLEY PATIENT MEDICARE (WNR) MEDICARE (M) PART A Jun 26, 2006 PART A [id number] DIMITRIS HENSLEY PATIENT Selected Encounter This section includes the information on record at ME for the Encounter. Date/Time Encounter Type Encounter Description Reason Provider Source Feb 12, 2024 10:33 AM QNHP OL DIG ASSMT&MGMT 21+ PULMONARY/CHEST ICD-10-CM Z12.2 Encntr screen for malignant neoplasm of respiratory organs ROMAN BREAUX IHE Encounter Template Text not used by ME Assessments - Encounter Diagnoses This section includes the primary and secondary diagnoses documented for the Encounter. Date/Time Primary/Secondary Diagnosis Diagnosis Name Provider Source Feb 12, 2024 10:45 AM PRIMARY Encntr screen for malignant neoplasm of respiratory organs ROMAN BREAUX [facility] Plan of Treatment: Future Appointments (+ 6 months) and Future Tests (+/- 45 days) The Plan of Treatment section includes future care activities for the patient from all ME treatmentfacilities. This section includes future appointments and future orders which are active, pending or scheduled. Future Appointments This section includes appointments that were scheduled to occur 6 months from the date of the Encounter, up to a maximum of 20 appointments. The data comes from all ME treatment facilities. Appointment Date/Time Appointment Type Appointme nt Facility Name Apr 09, 2024 01:00 PM [facility] Jun 21, 2024 01:00 PM [facility] Aug 08, 2024 09:30 AM [facility] MEDICINE [facility] Lab Results: +/- 30 days of the encounter This section includes the Chemistry and Hematology Lab Results on record with ME for the patient. Radiology Reports and Pathology Reports are provided separately, in subsequent sections. Lab Results This section contains the Chemistry/Hematology Results that were resulted 30 days before or 30 daysafter the date of the Encounter. Date/Time Source Result Type Result - Unit Interpretation Reference Range Specimen Type Comment Mar 11, 2024 01:17 PM [facility] PT & INR (COUMADIN) PLASMA Specimen Type: PLASMA No comment entered. Ordering Provider: JA MARQUEZ Report Released Date/Time: Feb 12, 2024 02:50 PM Reporting Lab: [address] [address] Performing Lab: [address] [address] INR 1.5 PROTIME 16.8 s H 10.0-13.1 Feb 12, 2024 11:18 AM [facility] [place] [facility] PT & INR (COUMADIN) PLASMA Specimen Type: ELICEO NORTON No comment entered. Ordering Provider: KATINA GRANT Report Released Date/Time: Jan 15, 2024 04:23 PM Reporting Lab: [facility] [place] [facility] [address] [facility] [address] Performing Lab: [facility] [place] [facility] [address] [facility] [address] INR 2.2 PROTIME 24.1 s H 10.0-13.1 Jan 15, 2024 12:58 PM [facility] [place] [facility] PT & INR (COUMADIN) PLASMA Specimen Type: ELICEO NORTON No comment entered. Ordering Provider: KATINA GRANT Report Released Date/Time: Jan 01, 2024 02:52 PM Reporting Lab: [facility] [place] [facility] [address] [facility] [address] Performing Lab: [facility] [place] [facility] [address] [facility] [address] INR 2.0 PROTIME 22.5 s H 10.0-13.1 Social History: Smoking Status (Most current) and Tobacco Use (All prior to encounter date) This section includes the most current, and the historical, smoking and tobacco- related health factors from the ME facility where the Encounter took place. Current Smoking Status This section includes the most current smoking, or tobacco-related health factor, from the ME facility where the Encounter took place. Date/Time Current Smoking Status Comment Dwight rosas May 24, 2021 08:53 AM VA-TOBACCO NEVER USED [facility] [place] [facility] Tobacco Use History This section includes a history of the smoking, or tobacco-related health factors, that were collected on or before the date of the Encounter. The data comes from the ME facility where the Encounter took place. Date/Time Smoking Status/Tobacco Use Comment Henna acadam May 24, 2021 08:53 AM VA-TOBACCO NEVER USED [facility] [place] [facility] May 24, 2021 08:53 AM VA-TOBACCO QUIT 1 TO < 5 YRS [facility] [place] [facility] Apr 27, 2020 11:42 AM VA-TOBACCO NEVER USED [facility] [place] [facility] Advance Directives: All historical and current Section Date Range: From patient's date of to the date document was created. This section includes ALL of a patient's completed or amended VA Advance and Rescinded Directives. The entries below indicate that a directive exists for the patient, but an actual copy is not included with this document. The data comes from all ME facilities. Date Advance Directives Provider Source Oct 03, 2017 ADVANCE DIRECTIVE MIRZAMARILULICO Torres [facility] Dec 23, 2013 ADVANCE DIRECTIVE NIALL [...] URGENCY: STATUS: COMPLETED LUNG CANCER SCREENING PROGRAM [facility] Chart review completed by [facility] LCS Program. Information provided in this documentation is obtained from source documents within the [facility] personal electronic health record and directly from the through LCS Coorinator outreach in an effort to confirm eligibility for Lung Cancer Screening. LCS Coordinator outreach attempt, successful. PCP: Gail Valdivia BOOKKEEPING CLERKS SUPERVISOR. 78 year old seen in clinic by Samuel OLEARY on 02/09/24. Lung Cancer Screening provider clinical reminder completed, patient meets USPSTF criteria for Lung Cancer Screening: Age 50-80, minimum 20 pack year history of smoking cigarettes, currently smoking or quit within the past 15 years. Provider engaged in a shared decision making conversation with the Bowman discussing rationale, risks and benefits for Lung Cancer Screening. At the conclusion of the visit, with the Veterans permission, an order for LCS LDCT was placed. scheduled for 04/09/2024 Cigarette Smoking Hx: 60 TPY (1 pack/day for 60 years) Smoking Status: Quit 2019 Referral to Tobacco Cessation Program: N/A Clinically Relevant: COPD, ELENI, GERD, Amaro's esophagus, A-fib, HTN, HLD, cardiomyopathy, hx valve replacement, has pacemaker/defib replaced 11/2023. hx of spontaneous Right pneumothorax 1976 unknown etiology. Active Problem Gout M10.9 02/09/2024 GAIL VALDIVIA Benign prostatic hypertrophy N40.0 02/09/2024 GAIL VALDIVIA Atrial fibrillation I48.91 09/07/2023 DOUG ARCHULETA Obstructive sleep apnea syndrome G4 02/09/2024 SIDBREANNA Karie Moderate chronic obstructive pulmon 09/07/2023 DOUG ARCHULETA Osteopenia R69. 09/14/2015 TRES THAYER History of aortic valve replacement 04/02/2015 TG SALAS Benign essential hypertension I10. 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 09/27/2023 DOUG ARCHULETA Former smoker Z87.891 02/11/2024 GAIL VALDIVIA Cardiac pacemaker in situ (SNOMED C 02/11/2024 GAIL VALDIVIA Hyperlipidemia (SNOMED CT [id number]) 09/27/2023 DOUG ARCHULETA Gastroesophageal reflux disease wit [...] 04/29/2022 CT THORAX W/O CONT CPT Code: 95402 Interpreting Staff: RADIOLOGY,OUTSIDE Exam Case Number: [id number] Exam Status: COMPLETE Rpt Status: VERIFIED Technologist: RUFUS RANGEL Reason for Study: 12 month nodule follow up Report: CT THORAX W/O CONT [PRINTSET] HISTORY: 12 month nodule follow-up COMPARISON: April 29, 2021 and April 29, 2020 TECHNIQUE: Images were obtained at the local ME, and then submitted to the National Teleradiology Program for interpretation. [address] Serial transverse CT images of the chest without contrast. Additional coronal and sagittal reconstructed images were obtained. Additional vessel suppression images obtained. Total DLP (mGy*cm): 103 IV Contrast: None FINDINGS: Poultry Picker images demonstrate left subclavian approach AICD device [...] generating device. READING PHYSICIAN: Eric Gregory M.D. -[id number] 04/30/2022 11:32 EDT [facility] National Teleradiology Program [phone] (For Medical Practitioner Use Only) Attention Patients / Veterans: If you have questions or concerns about these test results, please contact your ordering provider or primary care team. DX Codes: POSSIBLE MALIGNANCY 04/29/2021 CT THORAX W/O CONT CPT Code: 86259 Interpreting Staff: RADIOLOGY,OUTSIDE Exam Case Number: [id number] Exam Status: COMPLETE Rpt Status: VERIFIED Technologist: SAVANNA FERRER Reason for Study: low dose chect CT nodule monitoring Report: CT THORAX W/O CONT [PRINTSET] HISTORY: low dose chect CT nodule monitoring COMPARISON: 04/27/2020 TECHNIQUE: Helical CT of the chest, with multiplanar reformats was performed at the local ME facility with maximum intensity projection (MIP) reconstructions and vessel suppression imaging. 1136 images were received by the ME National Teleradiology Program (NTP) for interpretation. RADIATION [...] ascending aorta. READING PHYSICIAN: Zachary Figueroa M.D. -[id number] 04/30/2021 13:56 EDT [facility] [employer] Teleradiology Program [phone] (For Medical Practitioner Use Only) [address] [place] [address], [address] [place] [id number] Attention Patients / Veterans: If you have questions or concerns about these test results, please contact your ordering provider or primary care team. DX Codes: SIGNIFICANT ABNORMALITY, ATTN NEEDED 04/29/2020 CT THORAX W/O CONT CPT Code: 58426 Interpreting Staff: ZACHARY FROST Exam Case Number: [id number] Exam Status: COMPLETE Rpt Status: VERIFIED Technologist: KYM LUU Reason for Study: smoker-screening Report: EXAM: CT chest without contrast HISTORY: Look for cancer COMPARISON: Chest x-ray 07/09/2015 TECHNIQUE: Helical CT thorax from the thoracic inlet to the upper abdomen. Multiplanar reformats and the Tomogram were reviewed. DOSE: Information is available in the PACS system. FINDINGS: Poultry Picker: There is a left anterior chest multilead [...] 07/09/2015 CHEST 2 VIEWS PA&LAT CPT Code: 83328 Interpreting Staff: LOI LOAIZA Exam Case Number: [id number] Exam Status: COMPLETE Rpt Status: VERIFIED Technologist: RODDY HERNANDEZ Reason for Study: COUGH, GREEN SPUTUM History: Covering resident, fellow, BOOKKEEPING CLERKS SUPERVISOR or attending: FERNANDO Thayer [place] Pager: [phone] Backup pager: History: COUGH X'S 3 WEEKS, [...] immediate attention required Pulmonary Medicine Provider: Per , saw [facility] for sleep apnea testing/evaluation 2007, hasn't seen pulmonary since. PFTS: 09/01/2017 Pulmonary Function Test INTERPRETATION FVC =Forced Vital Capacity FEV1=Forced Expiratory Volume at 1 second ERV =Expiratory Mosier Volume FRC =Functional Residual Capacity RV =Residual [...] findings are stable when compared to prior ME echocardiogram report from [place] dated 01/22/2019. Pathology: No prior relevant pathology per chart review. Personal History of Malignancy: No personal hx malignancy per report. Family History of Malignancy: No family hx malignancy per report. 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 LCS welcome letter and educational materials will be mailed to Veterans address on file. Chart review for administrative purposes only. This documentation serves to update TPY reminder based on Bowman's reported smoking history during LCS outreach call. Bowman reports smoked for 60 years, no more [...] low dose CT will be ordered. /barbie/ MARY LAURAN,RN. LUNG CANCER SCREENING NURSE Signed: 02/12/2024 10:45 NU BREAUX [facility]
--- OUTSIDE RECORDS SUMMARY | 2024-10-21 16:27 | XMS_ITS ---
Author Name Department of [place] Organization [place] Address [address] [place] [id number] Care Team Providers Care General Production Laborer Name Role Phone DOUG ARCHULETA Primary Care [...] PART A Jun 26, 2006 PART A [id number] [phone] DIMITRIS HENSLEY PATIENT MEDICARE (WNR) MEDICARE (M) PART A Jun 26, 2006 PART A [id number] [phone] DIMITRIS HENSLEY PATIENT MEDICARE (WNR) MEDICARE (M) PART A Jun 26, 2006 PART A [id number] [id number] DIMITRIS HENSLEY PATIENT MEDICARE (WNR) MEDICARE (M) PART A Jun 26, 2006 PART A [id number] [phone] DIMITRIS HENSLEY PATIENT Selected Encounter This section includes the information on record at PA for the Encounter. Date/Time Encounter Type Encounter Description Reason Provider Source Apr 09, 2024 02:44 PM QNHP OL DIG ASSMT&MGMT 11-20 PULMONARY/CHEST ICD-10-CM R91.1 Solitary pulmonary nodule CARLA CELAYA CCA L E Encounter Template Text not used by VA Assessments - Encounter Diagnoses This section includes the primary and secondary diagnoses documented for the Encounter. Date/Time Primary/Secondary Diagnosis Diagnosis Name Provider Source Apr 09, 2024 04:16 PM PRIMARY Solitary pulmonary nodule CARLA CELAYA CCA L [facility] Plan of Treatment: Future Appointments (+ 6 months) and Future Tests (+/- 45 days) The Plan of Treatment section includes future care activities for the patient from all PA treatmentfacilities. This section includes future appointments and future orders which are active, pending or scheduled. Future Appointments This section includes appointments that were scheduled to occur 6 months from the date of the Encounter, up to a maximum of 20 appointments. The data comes from all PA treatment facilities. Appointment Date/Time Appointment Type Appointme nt Facility Name Jun 21, 2024 01:00 PM [facility] Aug 08, 2024 09:30 AM AMBULATORY - MEDICINE [facility] Aug 19, 2024 08:00 AM [facility] Oct 08, 2024 01:00 PM AMBULATORY - NONE [facility] Lab Results: +/- 30 days of the encounter This section includes the Chemistry and Hematology Lab Results on record with PA for the patient. Radiology Reports and Pathology Reports are provided separately, in subsequent sections. Lab Results This section contains the Chemistry/Hematology Results that were resulted 30 days before or 30 daysafter the date of the Encounter. Date/Time Source Result Type Result - Unit Interpretation Reference Range Specimen Type Comment Apr 26, 2024 10:32 AM [facility] PT & INR (COUMADIN) PLASMA Specimen Type: PLASMA No comment entered. Ordering Provider: FERNY BOURNE Report Released Date/Time: Mar 29, 2024 02:19 PM Reporting Lab: [facility] [address] [facility] [address] Performing Lab: [address] [address] INR 2.4 PROTIME 25.5 s H 10.0-13.1 Apr 26, 2024 10:32 AM [facility] LIVER FUNCTION SERUM Specimen Type: SERUM No comment entered. Ordering Provider: DOUG ARCHULETA Report Released Date/Time: November 01, 2023 06:13 AM Reporting Lab: [facility] [address] [facility] [address] Performing Lab: [address] [address] PROTEIN,TOTAL 6.1 g/dL 6.0-8.3 ALBUMIN 3.3 g/dL L 3.5-5.0 ALKALINE PHOSPHATASE 88 U/L 40-150 AST 12 U/L 5-34 ALT 12 U/L BILIRUBIN, TOTAL 0.6 mg/dL 0.2-1.2 Apr 26, 2024 10:32 AM [facility] LIPID PANEL FASTING SERUM Specimen Type: SERU M No comment entered. Ordering Provider: DOUG ARCHULETA Report Released Date/Time: November 01, 2023 06:13 AM Reporting Lab: [address] [address] Performing Lab: [address] [address] CHOLESTEROL 156 mg/dL TRIGLYCERIDE 94 mg/dL 0-150 LDL calculated 102 mg/dL 0-129 CHOL/HDL 4.5 HDL CHOLESTEROL 35 mg/dL L 40-60 Apr 26, 2024 10:32 AM [facility] BASIC METABOLIC PANEL (fasting) SERUM Specime n Type: SERUM No comment entered. Ordering Provider: DOUG ARCHULETA Report Released Date/Time: November 01, 2023 06:13 AM Reporting Lab: [address] [address] Performing Lab: [address] [address] UREA NITROGEN 23 mg/dL 7-25 GLUCOSE 96 mg/dL 65-100 SODIUM 140 mmol/L 135-145 POTASSIUM 4.3 mmol/L 3.5-5.0 CHLORIDE 111 mmol/L H 100-110 CO2 23 meq/L 20-30 CREATININE, Serum 1.18 mg/dL 0.50-1.40 eGFR(CKD-EPI 2020) 64 mL/min >60 Mar 29, 2024 10:09 AM [facility] [place] [facility] PT & INR (COUMADIN) PLASMA Specimen Type: ELICEO NORTON No comment entered. Ordering Provider: KATINA GRANT Report Released Date/Time: Mar 18, 2024 03:54 PM Reporting Lab: [facility] [place] [facility] [address] [facility] [address] Performing Lab: [facility] [place] [facility] [address] [facility] [address] INR 2.0 PROTIME 22.3 s H 10.0-13.1 Mar 18, 2024 10:11 AM [facility] [place] [facility] PT & INR (COUMADIN) PLASMA Specimen Type: ELICEO NORTON No comment entered. Ordering Provider: PATRICE AGUILLON Report Released Date/Time: Mar 12, 2024 10:30 AM Reporting Lab: [facility] [place] [facility] [address] [facility] [address] Performing Lab: [facility] [place] [facility] [address] [facility] [address] INR 1.8 PROTIME 19.8 s H 10.0-13.1 Mar 11, 2024 01:17 PM [facility] [place] [facility] PT & INR (COUMADIN) PLASMA Specimen Type: ELICEO NORTON No comment entered. Ordering Provider: JA MARQUEZ Report Released Date/Time: Feb 12, 2024 02:50 PM Reporting Lab: [facility] [place] [facility] [address] [facility] [address] Performing Lab: [facility] [place] [address] [address] INR 1.5 PROTIME 16.8 s H 10.0-13.1 Social History: Smoking Status (Most current) and Tobacco Use (All prior to encounter date) This section includes the most current, and the historical, smoking and tobacco- related health factors from the [place] facility where the Encounter took place. Current Smoking Status This section includes the most current smoking, or tobacco-related health factor, from the [place] facility where the Encounter took place. Date/Time Current Smoking Status Comment Facil ity May 24, 2021 08:53 AM VA-TOBACCO NEVER USED [facility] Tobacco Use History This section includes a history of the smoking, or tobacco-related health factors, that were collected on or before the date of the Encounter. The data comes from the [place] facility where the Encounter took place. Date/Time Smoking Status/Tobacco Use Comment F acility May 24, 2021 08:53 AM VA-TOBACCO NEVER USED [facility] May 24, 2021 08:53 AM VA-TOBACCO QUIT 1 TO < 5 YRS [facility] Apr 27, 2020 11:42 AM VA-TOBACCO NEVER USED [facility] Advance Directives: All historical and current Section Date Range: From patient's date of to the date document was created. This section includes ALL of a patient's completed or amended PA Advance and Rescinded Directives. The entries below indicate that a directive exists for the patient, but an actual copy is not included with this document. The data comes from all [place] facilities. Date Advance Directives Provider Source Oct 03, 2017 ADVANCE DIRECTIVE MARILU MIRZA [facility] Dec 23, 2013 ADVANCE DIRECTIVE NIALL [...] the Encounter. The data comes from all [place] treatment facilities. Date/Time Radiology Report Provider Source Apr 09, 2024 12:51 PM LDCT LUNG CANCER SCREENING: SHELLIEERIC [id number] -[id number] M Exm Date: APR 09, 2024@12:51 Req Phys: GAIL VALDIVIA Loc: CWM/SO/PACT 7 (Req'g Loc) Img Loc: NHM/CT Service: Unknown [facility] [place]AQUIN [id number] (Case 42 COMPLETE) LDCT LUNG CANCER SCREENING (CT Detailed) CPT:70603 Reason for Study: lung cancer screening Clinical [...] 09, 2024 Date Verified: APR 09, 2024 Dermatology Physician E-Sig:/ES/ORION ORTIZ JR Report: Study: Lung cancer [...] reviewed. Secondary computer-aided detection with post-processing from [employer] is used. The lack of intravenous contrast [...] Primary Interpreting Staff: ORION ORTIZ JR, Radiologist (Dermatology Physician) /[facility] GRUBER JR [facility] Encounter Notes: All associated encounter notes This section contains the clinical notes associated to the Encounter. Date/Time Encounter Note(s) Provider Source Apr 09, 2024 02:44 PM PREVENTIVE MEDICINE RISK ASSESSMENT SCREENING NOTE: LOCAL TITLE: LUNG CANCER SCREENING DOCUMENTATION STANDARD TITLE: PREVENTIVE MEDICINE RISK ASSESSMENT SCREENING NO DATE OF NOTE: APR 09, 2024@14:44 ENTRY DATE: APR 09, 2024@14:44:57 AUTHOR: KEL CELAYA EXP COSIGNER: URGENCY: STATUS: COMPLETED LUNG CANCER SCREENING [...] incidental findings, if indicated. Comment: Alejandra Wills ROUTE RIDER via TEAMs message and second signer in CPRS, PACT team via second signer in CPRS Plan: Interval until next LDCT scan is due: 6 months Comment: Pending recommendations via image review for all LR 3/0 through established clinical pathway with [place] Patient Notification of results: Patient contacted by telephone. Comment: Call placed to the [facility]. Results of LCS LDCT reviewed in detail, specifically the interval resolution of previously described small nodules and new 5.4mm nodule in the [facility]. Education provided. Discussed the process for image review through [place]. aware that the radiology recommendations are for a 6 month LCS LDCT, however the recommendation from [facility] may align with this recommendation or vary. [facility] aware that LCS Coordinator will follow up with him by phone with recommendations. expressed understanding of this plan and agreement. /barbie/ KEL LEDBETTER,RN,OCN LUNG CANCER SCREENING NURSE NAVIGATOR Signed: 04/09/2024 15:01 Receipt Acknowledged By: 04/18/2024 04:59 /es/ ALEJANDRA WILLS NP NURSE PRACTITIONER 04/09/2024 16:24 /barbie/ ANATOLY MONAHAN RN-BC REGISTERED NURSE for CHENG SALAZAR 04/09/2024 ADDENDUM STATUS: COMPLETED Recommendations from [facility] [place] on 04/09/2024: [facility] Associated on: Apr 09, 2024@15:56:34 LOCAL TITLE: LUNG CANCER SCREENING E-CONSULT STANDARD TITLE: PULMONARY CONSULT DATE OF NOTE: APR 09, 2024@15:52 ENTRY DATE: APR 09, 2024@15:52:48 AUTHOR: VICENTE MUNOZ EXP COSIGNER: URGENCY: STATUS: COMPLETED 78 year old male, part of [facility] LCS Program. He just underwent a new [...] 6months- this to be coordinated by the [facility] LCS team. /barbie/ VICENTE MUNOZ APRN, [facility] PRACTICE REGISTERED NURSE Signed: 04/09/2024 15:56 LCS Coordinator placed call to [facility] concurrence of 6 month LCS LDCT reviewed with [facility]. verbalized good understanding and agreement with this plan. /barbie/ KEL HERNANDEZN,RN,OCN LUNG CANCER SCREENING NURSE NAVIGATOR Signed: 04/09/2024 16:16 KEL CELAYA [facility]
--- OUTSIDE RECORDS SUMMARY | 2024-10-21 16:27 | XMS_ITS | Encounter Summary ---
Author Name [facility] [place] Organization [facility] [place] Address [address] [place] [address] Care Team Providers Care Training Coordinator Name Role Phone KATHE DOUG Primary Care [...] PART A Jun 26, 2006 PART A [id number] DIMITRIS HENSLEY PATIENT MEDICARE (WNR) MEDICARE (M) PART A Jun 26, 2006 PART A [id number] DIMITRIS HENSLEY PATIENT MEDICARE (WNR) MEDICARE (M) PART A Jun 26, 2006 PART A [id number] [phone] DIMITRIS HENSLEY PATIENT MEDICARE (WNR) MEDICARE (M) PART A Jun 26, 2006 PART A [id number] DIMITRIS HENSLEY PATIENT Selected Encounter This section includes the information on record at [place] for the Encounter. Date/Time Encounter Type Encounter Description Reason Provider Source Oct 09, 2024 03:22 PM Outpatient Encounter PULMONARY/CHEST ICD-10-CM R91.8 Other nonspecific abnormal finding of lung field KARINA MORILLON S IHE Encounter Template Text not used by [place] Assessments - Encounter Diagnoses This section includes the primary and secondary diagnoses documented for the Encounter. Date/Time Primary/Secondary Diagnosis Diagnosis Name Provider Source Oct 09, 2024 03:33 PM PRIMARY Other nonspecific abnormal finding of lung JESSE iJang [facility] Plan of Treatment: Future Appointments (+ 6 months) and Future Tests (+/- 45 days) The Plan of Treatment section includes future care activities for the [facility] [place] [facility] This section includes future appointments and future orders which are active, pending or scheduled. Future Appointments This section includes appointments that were scheduled to occur 6 months from the date of the Encounter, up to a maximum of 20 appointments. The data comes from all [place] treatment facilities. Appointment Date/Time Appointment Type Appointme nt Facility Name November 12, 2024 01:30 PM [facility] Active, Pending, and Scheduled Orders This section includes a listing of several types of active, pending, and scheduled orders, including clinic medications orders, diagnostic test orders, procedure orders and consult orders; where the start date of the order is 45 days before the date of the Encounter or 45 days after the date of theEncounter. The data comes from all [place] treatment facilities. Test Date/Time Test Type Test Details Facility Name November 12, 2024 12:00 AM Laboratory - Chemi malachi Order PT & INR (COUMADIN) BLOOD (BLUE-PLASMA) SP ONCE [facility] Lab Results: +/- 30 days of the encounter This section includes the Chemistry and Hematology Lab Results on record with [place] for the patient. Radiology Reports and Pathology Reports are provided separately, in subsequent sections. Lab Results This section contains the Chemistry/Hematology Results that were resulted 30 days before or 30 daysafter the date of the Encounter. Date/Time Source Result Type Result - Unit Interpretation Reference Range Specimen Type Comment Oct 08, 2024 01:07 PM [facility] PT & INR (COUMADIN) PLASMA Specimen Type: PLASMA No comment entered. Ordering Provider: REILLY JAIME Report Released Date/Time: Sep 17, 2024 02:13 PM Reporting Lab: [address] [address] Performing Lab: [facility] [address] [facility] [address] INR 2.1 PROTIME 22.4 s H 10.0-13.1 Sep 17, 2024 10:42 AM [facility] PT & INR (COUMADIN) PLASMA Specimen Type: PLAS MA No comment entered. Ordering Provider: REILLY JAIME Report Released Date/Time: Aug 20, 2024 01:53 PM Reporting Lab: [facility] [address] [facility] [address] Performing Lab: [facility] [address] [facility] [address] INR 2.7 PROTIME 28.6 s H 10.0-13.1 Advance Directives: All historical and current Section Date Range: From patient's date of to the date document was created. This section includes ALL of a patient's completed or amended [place] Advance and Rescinded Directives. The entries below indicate that a directive exists for the patient, but an actual copy is not included with this document. The data comes from all [place] facilities. Date Advance Directives Provider Source Oct 03, 2017 ADVANCE DIRECTIVE HERMESMARILUVIPIN [facility] Dec 23, 2013 ADVANCE [...] the Encounter. The data comes from all [place] treatment facilities. Date/Time Radiology Report Provider Source Oct 08, 2024 12:56 PM LDCT LCS 1, 3 OR 6 MONTH FOLLOW UP: ERIC HENSLEY [id number] -[id number] M Ex Date: OCT 08, 2024@12:56 Req Phys: ALEJANDRA ARMENTA Loc: [facility] LCS CHART CONSULT (Req'g L Img Loc: [facility]/CT Service: [place] [address] (Case 105 COMPLETE) LDCT LCS 1, 3 OR 6 MONTH FOLLOW U(CT Detailed) CPT:58022 Reason for Study: 6 MONTH LCS LDCT Clinical History: 61 TPY-Quit smoking 2019 COPD, ELENI, GERD, Barretts Esophagus, cardiomyopathy-pace maker, hx of spontaneous right pneumothorax 1975 Asbestos exposure Prior imaging: CT scan of the chest from April 29, 2022, April 29, 2021 and April 29, 2020. LCS LDCT done on 04/09/2024: LR 3 New PHILL 5.4mm irregular pulmonary nodule on image [id number] Report Status: Verified Date Reported: OCT 08, 2024 Date Verified: OCT 08, 2024 Fiberglass Insulation Installer E-Sig:/ES/SIDNEY MARTINEZ Report: EXAM: CT THORAX DX C- ADDITIONAL HISTORY: Reason for Study: 6 MONTH LCS LDCT 61 TPY-Quit smoking 2019 COPD, ELENI, GERD, Barretts Esophagus, cardiomyopathy-pace maker, [...] 3.7 mm solid left upper lobe nodule 96. No significant change in 2.8 mm right middle lobe nodule . Calcified granulomas. Several other scattered sub-3 mm [...] Primary Interpreting Staff: SIDNEY MARTINEZ, Staff Physician (Fiberglass Insulation Installer) /SIDNEY GRAHAM [facility] Encounter Notes: All associated encounter notes This section contains the clinical notes associated to the Encounter. Date/Time Encounter Note(s) Provider Source Oct 09, 2024 03:22 PM TUMOR BOARD NOTE: LOCAL TITLE: LUNG NODULE-MULTIDISCIPLINARY TUMOR BOARD NOTE STANDARD TITLE: TUMOR BOARD NOTE DATE OF NOTE: OCT 09, 2024@15:22 ENTRY DATE: OCT 09, 2024@15:22:40 AUTHOR: LUIZ MORILLO COSIGNER: URGENCY: STATUS: COMPLETED National Comprehensive Cancer Network Guidelines will be used in discussion and treatment decisions unless otherwise specified Pt is enrolled in [facility] LCS program Case and imaging reviewed with Dr. Moreno (pulmonary) and Dr. Adams (radiology). Reviewed ct [...] to heart disease. PCP can defer to [facility]'s outside Cardiology provider for recommendations. Suggest f/up CXR if clinically indicated. Recommend a 6 month f/up ct scan of PHILL nodule to ensure stability. Recommendations to be completed by [facility] LCS team: 1.) Repeat LDCT in 6 months to ensure stability of PHILL nodule. Recommendations to be completed by PCP: 2.) F/up of small right pleural effusion with CXR if clinically warranted by cardiology provider /barbie/ LUIZ MORILLO APRN SENIOR PROCESS ANALYST Signed: 10/09/2024 15:33 Receipt Acknowledged By: 10/09/2024 22:47 /es/ AARTI MORENO MD Attending, Pulmonary & Critical Care LUIZ MORILLO [facility]
--- OUTSIDE RECORDS SUMMARY | 2024-10-21 16:27 | XMS_ITS | Encounter Summary ---
Author Name [facility] [place] Organization [place] Address [address] [place] [address] Care Team Providers Care Salon Receptionist Name Role Phone DOUG ARCHULETA Primary Care [...] PART A Jun 26, 2006 PART A [id number] [phone] DIMITRIS WATKINS PATIENT MEDICARE (WNR) MEDICARE (M) PART A Jun 26, 2006 PART A [id number] SHELLIE,DIMITRIS ARANA PATIENT MEDICARE (WNR) MEDICARE (M) PART A Jun 26, 2006 PART A [id number] 65A [phone] DIMITRIS WATKINS PATIENT MEDICARE (WNR) MEDICARE (M) PART A Jun 26, 2006 PART A [id number] DIMITRIS WATKINS PATIENT Selected Encounter This section includes the information on record at [place] for the Encounter. Date/Time Encounter Type Encounter Description Reason Provider Source Feb 12, 2024 12:30 PM OFFICE O/P EST MOD 30 MIN UROLOGY CLINIC ICD-10-CM N40.1 Benign prostatic hyperplasia with lower urinary tract symp ANNFGARRETT Rashid Encounter Template Text not used by [place] Assessments - Encounter Diagnoses This section includes the primary and secondary diagnoses documented for the Encounter. Date/Time Primary/Secondary Diagnosis Diagnosis Name Provider Source Feb 12, 2024 12:58 PM PRIMARY Benign prostatic hyperplasia with lower urinary tract symp ERIKALOF,GARRETT [facility] Plan of Treatment: Future Appointments (+ 6 months) and Future Tests (+/- 45 days) The Plan of Treatment section includes future care activities for the patient from all [place] treatmentfacilities. This section includes future appointments and future orders which are active, pending or scheduled. Future Appointments This section includes appointments that were scheduled to occur 6 months from the date of the Encounter, up to a maximum of 20 appointments. The data comes from all [place] treatment facilities. Appointment Date/Time Appointment Type Appointme nt Facility Name Apr 09, 2024 01:00 PM [facility] NONE [facility] Jun 21, 2024 01:00 PM AMBULATORY - MEDICINE [facility] Aug 08, 2024 09:30 AM AMBULATORY - MEDICINE [facility] Lab Results: +/- 30 days of the encounter This section includes the Chemistry and Hematology Lab Results on record with [place] for the patient. Radiology Reports and Pathology Reports are provided separately, in subsequent sections. Lab Results This section contains the Chemistry/Hematology Results that were resulted 30 days before or 30 daysafter the date of the Encounter. Date/Time Source Result Type Result - Unit Interpretation Reference Range Specimen Type Comment Mar 11, 2024 01:17 PM [facility] PT & INR (COUMADIN) PLASMA Specimen Type: PLASMA No comment entered. Ordering Provider: JA MARQUEZ Report Released Date/Time: Feb 12, 2024 02:50 PM Reporting Lab: [facility] [address] [facility] [address] Performing Lab: [facility] [address] [facility] [address] INR 1.5 PROTIME 16.8 s H 10.0-13.1 Feb 12, 2024 11:18 AM [facility] PT & INR (COUMADIN) PLASMA Specimen Type: PLAS MA No comment entered. Ordering Provider: KATINA GRANT Report Released Date/Time: Jan 15, 2024 04:23 PM Reporting Lab: [facility] [address] [facility] [address] Performing Lab: [facility] [address] [facility] [address] INR 2.2 PROTIME 24.1 s H 10.0-13.1 Jan 15, 2024 12:58 PM [facility] PT & INR (COUMADIN) PLASMA Specimen Type: ELICEO NORTON No comment entered. Ordering Provider: KATINA GRANT Report Released Date/Time: Jan 01, 2024 02:52 PM Reporting Lab: [facility] [address] [facility] [address] Performing Lab: [facility] [address] [facility] [address] INR 2.0 PROTIME 22.5 s H 10.0-13.1 Advance Directives: All historical and current Section Date Range: From patient's date of to the date document was created. This section includes ALL of a patient's completed or amended [place] Advance and Rescinded Directives. The entries below indicate that a directive exists for the patient, but an actual copy is not included with this document. The data comes from all [place] facilities. Date Advance Directives Provider Source Oct 03, 2017 ADVANCE DIRECTIVE MARILU MIRZA [facility] Dec 23, 2013 ADVANCE DIRECTIVE [...] 09/2021, taking Flomax 0.4mg from PCP in [place] and doing well, PVR = 21 mL [...] -Nonischemic CM-?related to long standing -Ef 40% 2008 echo 3. Amaro's Esophagus 4. Colonic Polyps [...] Non-VA WARFARIN<HAZ PURPLE> TAB 2.5MG MOUTH ACTIVE MIRZA- medications reconciled - Flomax per PCP in [facility] Labs: Sep 27, 2023 CREATININE, Serum 1.28 [...]
--- OUTSIDE RECORDS SUMMARY | 2024-10-21 16:27 | XMS_ITS ---
Author Name [facility] [place] Organization [place] Address [address] [place] [address] Care Team Providers Care Crude Oil Driver Name Role Phone KATHE DOUG Primary Care [...] PART A Jun 26, 2006 PART A [id number] [phone] DIMITRIS HENSLEY PATIENT MEDICARE (WNR) MEDICARE (M) PART A Jun 26, 2006 PART A [id number] [phone] DIMITRIS HENSLEY PATIENT MEDICARE (WNR) MEDICARE (M) PART A Jun 26, 2006 PART A [id number] DIMITRIS HENSLEY PATIENT MEDICARE (WNR) MEDICARE (M) PART A Jun 26, 2006 PART A [id number] DIMITRIS HENSLEY PATIENT Selected Encounter This section includes the information on record at [place] for the Encounter. Date/Time Encounter Type Encounter Description Reason Provider Source Oct 08, 2024 03:50 PM NQHP OL DIG ASSMT&MGMT 21+ PULMONARY/CHEST ICD-10-CM Z12.2 Encntr screen for malignant neoplasm of respiratory organs ROMAN BREAUX IHE Encounter Template Text not used by [place] Assessments - Encounter Diagnoses This section includes the primary and secondary diagnoses documented for the Encounter. Date/Time Primary/Secondary Diagnosis Diagnosis Name Provider Source Oct 08, 2024 04:28 PM PRIMARY Encntr screen for malignant neoplasm of respiratory organs ROMAN BREAUX [facility] Plan of Treatment: Future Appointments (+ 6 months) and Future Tests (+/- 45 days) The Plan of Treatment section includes future care activities for the [facility] [place] [facility] This section includes future appointments and [...] 12, 2024 01:30 PM AMBULATORY - MEDICINE [facility] Active, Pending, and Scheduled Orders This section includes a listing of several types of active, pending, and scheduled orders, including clinic medications orders, diagnostic test orders, procedure orders and consult orders; where the start date of the order is 45 days before the date of the Encounter or 45 days after the date of theEncounter. The data comes from all [place] treatment facilities. Test Date/Time Test Type Test Details Facility Name November 12, 2024 12:00 AM Laboratory - Chemi stry Order PT & INR (COUMADIN) BLOOD (BLUE-PLASMA) SP ONCE [facility] Lab Results: +/- 30 days [...] Type Comment Oct 08, 2024 01:07 PM [facility] PT & INR (COUMADIN) PLASMA Specimen Type: PLASMA No comment entered. Ordering Provider: REILLY JAIME Report Released Date/Time: Sep 17, 2024 02:13 PM Reporting Lab: [facility] [place] [facility] [address] [facility] [address] Performing Lab: [place] [facility] [place] [facility] [address] [facility] [address] INR 2.1 PROTIME 22.4 s H 10.0-13.1 Sep 17, 2024 10:42 AM [facility] PT & INR (COUMADIN) PLASMA Specimen Type: PLAS MA No comment entered. Ordering Provider: REILLY JAIME Report Released Date/Time: Aug 20, 2024 01:53 PM Reporting Lab: [facility] [address] [facility] [address] Performing Lab: [place] [facility] [place] [facility] [address] [facility] [address] INR 2.7 PROTIME 28.6 s H 10.0-13.1 [...] 24, 2021 08:53 AM VA-TOBACCO NEVER USED [facility] [place] [facility] Tobacco Use History This section includes a history of the smoking, or tobacco-related health factors, that were collected on or before the date of the Encounter. The data comes from the [place] facility where the Encounter took place. Date/Time Smoking Status/Tobacco Use Comment F acility May 24, 2021 08:53 AM VA-TOBACCO NEVER USED [place] [facility] [place] [facility] May 24, 2021 08:53 AM VA-TOBACCO QUIT 1 TO < 5 YRS [facility] [place] [facility] Apr 27, 2020 11:42 AM VA-TOBACCO NEVER USED [place] [facility] [place] [facility] Advance Directives: All historical and current [...] 03, 2017 ADVANCE DIRECTIVE MARILU MIRZA T [facility] Dec 23, 2013 ADVANCE DIRECTIVE DENISSENIALLSHANA [...] OR 6 MONTH FOLLOW UP: ERIC HENSLEY [id number] -1945 M [facility] Date: OCT 08, 2024@12:56 Req Phys: ALEJANDRA ARMENTA Loc: [facility] LCS CHART CONSULT (Req'g L Img Loc: [facility]/CT Service: [place] [address] (Case 105 COMPLETE) LDCT LCS 1, 3 OR 6 MONTH FOLLOW U(CT Detailed) CPT:93813 Reason for Study: 6 MONTH LCS LDCT [...] 08, 2024 Date Verified: OCT 08, 2024 Corrugator Helper E-Sig:/ES/SIDNEY MARTINEZ Report: EXAM: CT THORAX DX [...] Primary Interpreting Staff: SIDNEY MARTINEZ, Staff Physician (Corrugator Helper) /SIDNEY [facility] Encounter Notes: All associated encounter notes This section contains the clinical notes associated to the Encounter. Date/Time Encounter Note(s) Provider Source Oct 08, 2024 03:56 PM PREVENTIVE MEDICINE RISK ASSESSMENT SCREENING NOTE: LOCAL TITLE: LUNG CANCER SCREENING DOCUMENTATION STANDARD TITLE: PREVENTIVE MEDICINE RISK ASSESSMENT SCREENING NO DATE OF NOTE: OCT 08, 2024@15:56 ENTRY DATE: OCT 08, 2024@15:56:15 AUTHOR: NU BREAUX COSIGNER: URGENCY: STATUS: COMPLETED DIAGNOSTIC EVALUATION needed for suspicious or large lung nodule. Date of image: Date: October 08, 2024 Most Recent Lung RADS Score: 2 LUNG-RADS [v1.1]: 2, benign nodule findings. Previous left upper lobe part solid nodule is not confidently identified on today's exam. PENDING Multi Disciplinary Pulmonary Nodule Board Review with VACT INDEX LUNG NODULE: Location: Left upper lobe [...] significant 4 mm or greater pulmonary nodule. INCIDENTAL FINDINGS WILL BE MANAGED DEEMED APPROPRIATE BY PCP Incidental Findings: The following *INCIDENTAL FINDINGS* were noted: S CODE ALERTS PCP TO SIGNIFICANT INCIDENTAL FINDING NOT RELATED TO LUNG CANCER: S CODE FINDING FOR THIS SCAN: Small right pleural effusion. Coronary atherosclerosis. Other: EMPHYSEMA: Confluent to advanced. MEDIASTINUM (limited): Aortic atherosclerosis. Multi lead cardiac device. Surgical clips at the gastroesophageal junction. Cardiomegaly. I am notifying the Primary Care Provider for information, and for follow- up of incidental findings, if indicated. Comment: PCP and PACT nurse via TEAMs and CPRS. Plan: Evaluation for possible cancer needed or in progress. PENDING Multi Disciplinary Pulmonary Nodule Board Review with VACT Communicated to Primary Care Provider. Patient Notification of results: Patient contacted by telephone. Call Placed to Donnell, reviewed today's scan results specific to lung nodules/masses. Hancock aware the previously seen PHILL nodule was not confidently identified in todays scan, reviewed other small unchanged lung nodules. Reviewed small right pleural effusion identified on today's scan. reports no change in his chronic cough, he has noticed over the last 6 months worsening dyspnea, when he lays down he gets short of breath for a couple minutes, then it resolves, he denies chest pain, no fever, no current SOB/dyspnea, advised Hancock to go to the ED with any chest pain, or increased dyspnea/SOB. Hancock agrees. Advised will alert PCP to his symptoms as well. (updated PCP/PACT nurse via TEAMS). 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 aware LCS nurse will reach out to once recommendations are available from PNB review. /barbie/ UN BREAUX,BSN,RN. LUNG CANCER SCREENING NURSE Signed: 10/08/2024 16:28 Receipt Acknowledged By: 10/09/2024 09:22 /barbie/ OLVIN HENSLEY REGISTERED NURSE * AWAITING SIGNATURE * ALEJANDRA ARMENTA SARAH D [place] [facility] [place] [facility]
--- OUTSIDE RECORDS SUMMARY | 2024-10-21 16:28 | XMS_ITS | Encounter Summary ---
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 Date/Time Encounter Type Encounter Description Reason Provider Source Oct 17, 2024 08:20 AM Outpatient Encounter PRIMARY CARE/MEDICINE JUANITO WALSH [facility] Encounter Template Text not used by [place] Plan of Treatment: Future Appointments (+ 6 months) and Future Tests (+/- 45 days) The Plan of Treatment section includes future care activities for the [facility] [place] [facility] This section includes future appointments and future orders which are active, pending or scheduled. Future Appointments This section includes appointments that were scheduled to occur 6 months from the date of the Encounter, up to a maximum of 20 appointments. The data comes from all [place] treatment facilities. Appointment Date/Time Appointment Type Appointme nt Facility Name November 12, 2024 01:30 PM AMBULATORY - MEDICINE [facility] Active, Pending, and Scheduled Orders This section includes a listing of several types of active, pending, and scheduled orders, including clinic medications orders, diagnostic test orders, procedure orders and consult orders; where the start date of the order is 45 days before the date of the Encounter or 45 days after the date of theEncounter. The data comes from all [facility] facilities. Test Date/Time Test Type Test Details Facility Name November 12, 2024 12:00 AM Laboratory - Chemi malachi Order PT & INR (COUMADIN) BLOOD (BLUE-PLASMA) SP ONCE [facility] Lab Results: +/- 30 days of the encounter This section includes the Chemistry and Hematology Lab Results on record with [place] for the patient. Radiology Reports and Pathology Reports are provided separately, in subsequent sections. Lab Results This section contains the Chemistry/Hematology Results that were resulted 30 days before or 30 daysafter the date of the Encounter. Date/Time Source Result Type Result - Unit Interpretation Reference Range Specimen Type Comment Oct 08, 2024 01:07 PM [facility] PT & INR (COUMADIN) PLASMA Specimen Type: PLASMA No comment entered. Ordering Provider: REILLY JAIME Report Released Date/Time: Sep 17, 2024 02:13 PM Reporting Lab: [facility] [address] [facility] [id number] Performing Lab: [facility] [address] [facility] [id number] INR 2.1 PROTIME 22.4 s H 10.0-13.1 Social History: Smoking Status (Most current) and Tobacco Use (All prior to encounter date) This section includes the most current, and the historical, smoking and tobacco- related health factors from the [place] facility where the Encounter took place. Current Smoking Status This section includes the most current smoking, or tobacco-related health factor, from the [place] facility where the Encounter took place. Date/Time Current Smoking Status Comment Dwight ity May 24, 2021 08:53 AM VA-TOBACCO NEVER USED [facility] Tobacco Use History This section includes a history of the smoking, or tobacco-related health factors, that were collected on or before the date of the Encounter. The data comes from the [place] facility where the Encounter took place. Date/Time Smoking Status/Tobacco Use Comment F acility May 24, 2021 08:53 AM VA-TOBACCO NEVER USED [place] [facility] [place] [facility] May 24, 2021 08:53 AM VA-TOBACCO QUIT 1 TO < 5 YRS [place] [facility] [place] [facility] Apr 27, 2020 11:42 AM [facility]BACCO [facility] Advance Directives: All historical and current Section Date Range: From patient's date of to the date document was created. This section includes ALL of a patient's completed or amended [place] Advance and Rescinded Directives. The entries below indicate that a directive exists for the patient, but an actual copy is not included with this document. The data comes from all [place] facilities. Date Advance Directives Provider Source Oct 03, 2017 ADVANCE DIRECTIVE [address]U [address] [facility] Dec 23, 2013 ADVANCE DIRECTIVE [...] the Encounter. The data comes from all [place] treatment facilities. Date/Time Radiology Report Provider Source Oct 08, 2024 12:56 PM LDCT LCS 1, 3 OR 6 MONTH FOLLOW UP: REIC HENSLEY [id number] M Exm Date: OCT 08, 2024@12:56 Req Phys: ALEJANDRA ARMENTA Loc: [facility] LCS CHART CONSULT ([employer] [facility] Loc: [facility]/CT Service: Unknown [facility] [place] [address] (Case [id number] COMPLETE) LDCT LCS 1, 3 OR 6 MONTH FOLLOW U(CT Detailed) CPT:36743 Reason for Study: 6 MONTH LCS LDCT [...] 08, 2024 Date Verified: OCT 08, 2024 Boat Patcher Plastic E-Sig:/ES/SIDNEY MARTINEZ Report: EXAM: CT THORAX DX [...] 3.7 mm solid left upper lobe nodule . No significant change in 2.8 mm right [...] Primary Interpreting Staff: SIDNEY MARTINEZ, Staff Physician (Boat Patcher Plastic) /SIDNEY GRAHAM [facility] Encounter Notes: All associated encounter notes This section contains the clinical notes associated to the Encounter. Date/Time Encounter Note(s) Provider Source Oct 17, 2024 08:20 AM ADDENDUM: LOCAL TITLE: Addendum STANDARD TITLE: ADDENDUM DATE OF NOTE: OCT 17, 2024@08:20:14 ENTRY DATE: OCT 17, 2024@08:20:15 AUTHOR: NAN WALSH EXP COSIGNER: URGENCY: STATUS: COMPLETED Adding pcp for review and advise. /barbie/ OLIVE WALSH LPN LPN Signed: 10/17/2024 08:20 Receipt Acknowledged By: 10/21/2024 09:46 /barbie/ STORM STERN CERTIFIED NURSE PRACTITIONER ========= --- Original Document --- 10/17/24 PRIMARY CARE SECURE MESSAGING: ------Original Message -------- Sent: 10/16/2024 04:58 PM ET From: ERIC HENSLEY To: Maria [facility] Subject: Medication:New prescription I need a new prescription for Finasteride. Thank you. /jayce WALSH LPN LPN Signed: 10/17/2024 08:20 NAN WALSH [facility] Oct 17, 2024 08:20 AM PRIMARY CARE SECUR E MESSAGING: LOCAL TITLE: PRIMARY CARE SECURE MESSAGING STANDARD TITLE: PRIMARY CARE SECURE MESSAGING DATE OF NOTE: OCT 17, 2024@08:20 ENTRY DATE: OCT 17, 2024@08:20:04 AUTHOR: NAN WALSH EXP COSIGNER: URGENCY: STATUS: COMPLETED PRIMARY CARE SECURE MESSAGING Has ADDENDA ------Original Message -------- Sent: 10/16/2024 04:58 PM ET From: ERIC HENSLEY To: Maria Teresa [facility] Subject: Medication:New prescription I need a new prescription for Finasteride. Thank you. /jayce WALSH LPN LPN Signed: 10/17/2024 08:20 10/17/2024 ADDENDUM STATUS: COMPLETED Adding pcp for review and advise. /jayce WALSH LPN LPN Signed: 10/17/2024 08:20 Receipt Acknowledged By: * AWAITING SIGNATURE * GAIL VALDIVIA MARIANGE LYS [facility]
--- OUTSIDE RECORDS SUMMARY | 2024-10-21 16:28 | XMS_ITS | Encounter Summary ---
Author Name [facility] Organization [facility] Address [address] [place] [id number] Care Team Providers Care Supervisor Mapping Name Role Phone DOUG ARCHULETA Primary Care [...] PART A Jun 26, 2006 PART A [id number] DIMITRIS HENSLEY PATIENT MEDICARE (WNR) MEDICARE (M) PART A Jun 26, 2006 PART A [id number] DIMITRIS HENSLEY PATIENT MEDICARE (WNR) MEDICARE (M) PART A Jun 26, 2006 PART A [id number] DIMITRIS HENSLEY PATIENT MEDICARE (WNR) MEDICARE (M) PART A Jun 26, 2006 PART A [id number] DIMITRIS HENSLEY PATIENT Selected Encounter This section includes the information on record at NH for the Encounter. Date/Time Encounter Type Encounter Description Reason Provider Source Aug 08, 2024 09:30 AM OFFICE O/P EST MOD 30 MIN PRIMARY CARE/MEDICINE ICD-10-CM I48.91 Unspecified atrial fibrillation BARBARA VALDIVIA Toña [facility] Encounter Template Text not used by NH Assessments - Encounter Diagnoses This section includes the primary and secondary diagnoses documented for the Encounter. Date/Time Primary/Secondary Diagnosis Diagnosis Name Provider Source Sep 14, 2024 07:26 PM PRIMARY Unspecified atrial fibrillation GAIL VALDIVIA [place] Sep 14, 2024 07:26 PM SECONDARY Chronic obstructive pulmonary disease, unspecified GAIL VALDIVIA [place] Sep 14, 2024 07:26 PM SECONDARY Dilated cardiomyopathy GAIL VALDIVIA [place] Sep 14, 2024 07:26 PM SECONDARY Essential (primary) hypertension GAIL VALDIVIA [place] Sep 14, 2024 07:26 PM SECONDARY Hyperlipidemia, unspecified GAIL VALDIVIA [place] Sep 14, 2024 07:26 PM SECONDARY long term care administrator (current) use of anticoagulants GAIL VALDIVIA [place] Sep 14, 2024 07:26 PM SECONDARY Personal history of nicotine dependence GAIL VALDIVIA [place] Sep 14, 2024 07:26 PM SECONDARY Presence of cardiac pacemaker GAIL VALDIVIA [place] Sep 14, 2024 07:26 PM SECONDARY Sleep apnea, unspecified GAIL VALDIVIA [place] Plan of Treatment: Future Appointments (+ 6 months) and Future Tests (+/- 45 days) The Plan of Treatment section includes future care activities for the patient from all NH treatmentfacilities. This section includes future appointments and future orders which are active, pending or scheduled. Future Appointments This section includes appointments that were scheduled to occur 6 months from the date of the Encounter, up to a maximum of 20 appointments. The data comes from all NH treatment facilities. Appointment Date/Time Appointment Type Appointme nt Facility Name Aug 19, 2024 08:00 AM AMBULATORY - MEDICINE [facility] Oct 08, 2024 01:00 PM AMBULATORY - NONE [facility] November 12, 2024 01:30 PM AMBULATORY - MEDICINE [facility] Lab Results: +/- 30 days of the encounter This section includes the Chemistry and Hematology Lab Results on record with NH for the patient. Radiology Reports and Pathology Reports are provided separately, in subsequent sections. Lab Results This section contains the Chemistry/Hematology Results that were resulted 30 days before or 30 daysafter the date of the Encounter. Date/Time Source Result Type Result - Unit Interpretation Reference Range Specimen Type Comment Aug 20, 2024 09:23 AM [facility] PT & INR (COUMADIN) PLASMA Specimen Type: PLASMA No comment entered. Ordering Provider: REILLY JAIME Report Released Date/Time: Aug 06, 2024 02:56 PM Reporting Lab: [address] [address] Performing Lab: [address] [address] INR 2.6 PROTIME 27.8 s H 10.0-13.1 Aug 06, 2024 10:32 AM [facility] BASIC METABOLIC PANEL (fasting) SERUM Specime n Type: SERUM No comment entered. Ordering Provider: GAIL VALDIVIA Report Released Date/Time: Jul 30, 2024 09:22 AM Reporting Lab: [address] [address] Performing Lab: [address] [address] UREA NITROGEN 24 mg/dL 7-25 GLUCOSE 98 mg/dL 65-100 SODIUM 142 mmol/L 135-145 POTASSIUM 4.6 mmol/L 3.5-5.0 CHLORIDE 110 mmol/L 100-110 CO2 25 meq/L 20-30 CREATININE, Serum 1.12 mg/dL 0.50-1.40 eGFR(CKD-EPI 2020) 67 mL/min >60 Aug 06, 2024 10:32 AM [facility] LIPID PANEL FASTING SERUM Specimen Type: SERU M No comment entered. Ordering Provider: GAIL VALDIVIA Report Released Date/Time: Jul 30, 2024 09:22 AM Reporting Lab: [address] [address] Performing Lab: [address] [address] CHOLESTEROL 164 mg/dL TRIGLYCERIDE 88 mg/dL 0-150 LDL calculated 106 mg/dL 0-129 CHOL/HDL 4.1 HDL CHOLESTEROL 40 mg/dL 40-60 Aug 06, 2024 10:32 AM [facility] HEMOGLOBIN A1C PANEL BLOOD Specimen Type: [...] Jul 30, 2024 09:22 AM Reporting Lab: [facility] [address] [facility] [address] Performing Lab: [address] [address] HEMOGLOBIN A1C 5.2 4.0-5.6 Aug 06, 2024 10:32 AM [facility] TSH SERUM Specimen Type: SERUM No comment entered. Ordering Provider: GAIL VALDIVIA Report Released Date/Time: Jul 30, 2024 09:22 AM Reporting Lab: [facility] [address] [facility] [address] Performing Lab: [facility] [address] [facility] [address] TSH 2.61 u[IU]/mL 0.35-5.00 Aug 06, 2024 10:32 AM [facility] LIVER FUNCTION SERUM Specimen Type: SERUM No comment entered. Ordering Provider: GAIL VALDIVIA Report Released Date/Time: Jul 30, 2024 09:22 AM Reporting Lab: [facility] [address] [facility] [address] Performing Lab: [address] [address] PROTEIN,TOTAL 6.6 g/dL 6.0-8.3 ALBUMIN 3.6 g/dL 3.5-5.0 ALKALINE PHOSPHATASE 81 U/L 40-150 AST 13 U/L 5-34 ALT 10 U/L BILIRUBIN, TOTAL 0.7 mg/dL 0.2-1.2 Aug 06, 2024 10:32 AM [facility] MICROALBUMIN CREATININE RATIO PANEL URINE Spe cimen Type: URINE No comment entered. Ordering Provider: GAIL VALDIVIA Report Released Date/Time: Jul 30, 2024 09:22 AM Reporting Lab: [facility] [address] [facility] [address] Performing Lab: [address] [address] MICROALBUMIN/CREATININE RATIO 17.6 mg/g 0-29.9 MICROALBUMIN,QUANTITATIVE 2.5 mg/dL RR U NAVAIL CREATININE URINE 141.74 mg/dL Aug 06, 2024 10:32 AM [facility] MICROSCOPIC AUTOMATED, URINE URINE Specimen T ype: URINE Comment: If Glucose = >500 and Ketones are positive, please alert the Physician. Ordering Provider: GAIL VALDIVIA Report Released Date/Time: Jul 30, 2024 09:22 AM Reporting Lab: [facility] [address] [facility] [address] Performing Lab: [address] [address] UA WBC 0-5 /[HPF] 0-5 UA RBC 3-5 /[HPF] 0-3 UA SQUAMOUS EPITH FEW /[HPF] Aug 06, 2024 10:32 AM [facility] URINALYSIS URINE Specimen Type: URINE Comment: If Glucose = >500 and Ketones are positive, please alert the Physician. Ordering Provider: GAIL VALDIVIA Report Released Date/Time: Jul 30, 2024 09:22 AM Reporting Lab: [address] [address] Performing Lab: [address] [address] UA COLOR Yellow Yellow UA APPEARANCE Clear Clear UA GLUCOSE Normal mg/dL Negative UA KETONES NEGATIVE mg/dL Negative UA BLOOD NEGATIVE mg/dL Negative UA PROTEIN NEGATIVE mg/dL Negative UA NITRITE NEGATIVE mg/dL Negative UA BILIRUBIN NEGATIVE mg/dL Negative UA SPECIFIC GRAVITY 1.024 H 1.016-1.022 UA pH 6.5 5.0-9.0 UA UROBILINOGEN 4 mg/dL <2.0 UA LEUKOCYTE TRACE Negative Aug 06, 2024 10:32 AM [facility] CBC AND DIFF (AUTO) BLOOD Specimen Type: JOAQUÍNO D No comment entered. Ordering Provider: GAIL VALDIVIA Report Released Date/Time: Jul 30, 2024 09:22 AM Reporting Lab: [facility] [address] [facility] [address] Performing Lab: [facility] [address] [facility] [address] WBC 4.64 10*3/uL 4.50-11.00 RBC 3.86 10*6/uL [...] 10*3/uL 0.00-0.00 Aug 06, 2024 10:31 AM [facility] PT & INR (COUMADIN) PLASMA Specimen Type: PLAS MA No comment entered. Ordering Provider: REILLY JAIME Report Released Date/Time: Jul 02, 2024 04:04 PM Reporting Lab: [facility] [address] [facility] [address] Performing Lab: [facility] [address] [facility] [address] INR 1.9 PROTIME 20.1 s H 10.0-13.1 Vital Signs: All taken on the encounter date This section contains inpatient and outpatient Vital Signs collected on the date of the Encounter. Date/Time Temperature Pulse Blood Pressure Respiratory Rate SP02 Pain Height Weight Body Mass Index Source Aug 08, 2024 09:38 AM 97.9 89 123/77 19 95 63 174 31 [facility] Social History: Smoking Status (Most current) and Tobacco Use (All prior to encounter date) This section includes the most current, and the historical, smoking and tobacco- related health factors from the NH facility where the Encounter took place. Current Smoking Status This section includes the most current smoking, or tobacco-related health factor, from the NH facility where the Encounter took place. Date/Time Current Smoking Status Comment Dwight ity Aug 08, 2024 09:30 AM VA-TOBACCO USE FORMER CIGARETTES [place] Tobacco Use History This section includes a history of the smoking, or tobacco-related health factors, that were collected on or before the date of the Encounter. The data comes from the NH facility where the Encounter took place. Date/Time Smoking Status/Tobacco Use Comment F acility Aug 08, 2024 09:30 AM VA-TOBACCO USE FOR OLIVIA CIGARETTES [place] Sep 27, 2023 10:30 AM VA-TOBACCO FORMER USER [place] Sep 27, 2023 10:30 AM VA-TOBACCO QUIT 5 TO < 15 YRS [place] Jun 09, 2022 01:00 PM VA-TOBACCO NEVER USED [place] Dec 20, 2018 09:40 AM VA-TOBACCO USE 30 YEARS OR MORE [place] Dec 20, 2018 09:40 AM VA-TOBACCO USE ADVICE [place] Dec 20, 2018 09:40 AM VA-TOBACCO USE SERVICE DELIVERY ANALYST YES [place] Dec 20, 2018 09:40 AM VA-TOBACCO USE MED NOTIFY PROVIDER [place] Dec 20, 2018 09:40 AM VA-TOBACCO USE WI 30 MIN OF WAKEUP [place] Dec 20, 2018 09:40 AM VA-TOBACCO USER EVERY DAY [place] Mar 05, 2018 01:38 PM [facility] Sep 04, 2017 01:34 PM [facility] Sep 09, 2016 01:00 PM QUIT TOBACCO USE I N PAST YEAR 04/26/16 quit [place] Sep 14, 2015 08:27 AM QUIT TOBACCO USE I N PAST YEAR [place] Feb 13, 2015 05:11 PM QUIT TOBACCO USE I N PAST YEAR [place] Aug 18, 2014 04:22 PM V1-PT NOT INTEREST ED IN QUIT TOBACCO USE [place] Dec 16, 2013 10:23 AM CURRENT SMOKER 1/2 ppd [place] Dec 16, 2013 10:23 AM V1-PT DECLINES REF TO TOBACCO CESS [facility] Dec 16, 2013 10:23 AM V1-PT DECLINES TOB ACCO CESSATION [facility] Dec 16, 2013 10:23 AM V1-PT NOT INTEREST ED IN QUIT TOBACCO USE [place] Sep 25, 2012 01:54 PM QUIT TOBACCO USE I N PAST YEAR [place] Dec 23, 2011 09:43 AM CURRENT SMOKER Pt states he smokes a half a pack of cigaretts a day. [place] Dec 23, 2011 09:43 AM V1-PT DECLINES REF TO TOBACCO CESS [facility] Dec 23, 2011 09:43 AM V1-PT DECLINES TOB ACCO CESSATION [facility] Dec 23, 2011 09:43 AM V1-PT NOT INTEREST ED IN QUIT TOBACCO USE [place] Dec 30, 2010 01:14 PM V1-PT DECLINES REF TO TOBACCO CESS [facility] Dec 30, 2010 01:14 PM V1-PT DECLINES TOB ACCO CESSATION [facility] Dec 30, 2010 01:14 PM V1-PT NOT INTEREST ED IN QUIT TOBACCO USE [place] Jun 02, 2010 09:23 AM CURRENT SMOKER smoker for 50 yrs...1 ppd [place] Jun 02, 2010 09:23 AM V1-PT DECLINES REF TO TOBACCO CESS [facility] Jun 02, 2010 09:23 AM V1-PT THINKING ABO UT QUIT TOBACCO USE [place] May 19, 2009 11:23 AM CURRENT SMOKER 10-12 cigaretts daily...smoking 50 years [place] Apr 08, 2008 01:51 PM CURRENT SMOKER Patient reports smoking a pack of ciggs a day. [place] Dec 18, 2007 10:09 AM V1-PT DECLINES REF TO TOBACCO CESS [facility] Dec 18, 2007 10:09 AM V1-PT READY TO MARCIANO T TOBACCO USE [place] Apr 17, 2007 01:58 PM QUIT TOBACCO USE I N PAST YEAR [place] Oct 16, 2006 02:20 PM V1-PT DECLINES REF TO TOBACCO CESS [facility] Oct 16, 2006 02:20 PM V1-PT READY TO MARCIANO T TOBACCO USE [place] Jan 13, 2006 01:11 PM CURRENT SMOKER Rocío continues to smoke 1 pkg of cigarettes daily. He said he does not want quit tobacco. [place] Nov 30, 2004 12:31 PM CURRENT SMOKER 1 pack a day [place] Advance Directives: All historical and current Section Date Range: From patient's date of to the date document was created. This section includes ALL of a patient's completed or amended NH Advance and Rescinded Directives. The entries below indicate that a directive exists for the patient, but an actual copy is not included with this document. The data comes from all NH facilities. Date Advance Directives Provider Source Oct 03, 2017 ADVANCE DIRECTIVE MARILU MIRZA [facility] Dec 23, 2013 ADVANCE DIRECTIVE NIALL SALCEDO Encounter Notes: All associated encounter notes This section contains the clinical notes associated to the Encounter. Date/Time Encounter Note(s) Provider Source Aug 08, 2024 09:37 AM PRIMARY CARE NURSE PRACTITIONER OUTPATIENT NOTE: LOCAL TITLE: NURSE PRACTITIONER OUTPATIENT NOTE STANDARD TITLE: PRIMARY CARE NURSE PRACTITIONER OUTPATIENT NOTE DATE OF NOTE: AUG 08, 2024@09:37 ENTRY DATE: AUG 08, 2024@09:37:43 AUTHOR: GAIL VALDIVIA EXP COSIGNER: URGENCY: STATUS: COMPLETED PRIMARY CARE VISIT ERIC HENSLEY, is a 78 y/o WHITE MALE who presents today at the [facility]. TYPE OF VISIT: Face to face HPI: COPD, former smoker - quit 2018. SOB with activity, rare cough. PFT 05/08/24 showed moderate obstruction/restriction. LDCT 04/09/24 - irregular nodule PHILL, RADS3 - to repeat 6 months. Now on Spiriva. Has upcoming appt with pulmonology ELENI - has cpap AFib, cardiomyopathy - has a pacemaker. Recently saw cardiology. Had Echo 06/21/24 - unable to locate result, however. On warfarin - INR usually stable. Also on dofetilide. On Rx x 2 for HTN, BP stable. HLD - lipids wnl, on statin. Denies CP, palpitations, peripheral edema. Recent labs reviewed and all medications were reconciled during this visit. HISTORY: PERIOD OF SERVICE - [place] FROM Jun TO Sep COMBAT SERVICE INDICATED: No VITAL SIGNS: Blood Pressure: 123/77 (08/08/2024 09:38) Pain: 0 (11/01/2023 10:33) Patient Height: 63 in [160.0 cm] (08/08/2024 09:38) Patient Weight: 174 lb [78.93 kg] (08/08/2024 09:38) Pulse: 89 (08/08/2024 09:38) Respiration: 19 (08/08/2024 09:38) Temperature: 97.9 F [36.6 C] (08/08/2024 09:38) REVIEW OF SYSTEMS: see HPI PHYSICAL EXAMINATION: General: Chronically ill-appearing [place] in no obvious distress. Mental Status: Alert and oriented x4. Neck: Supple. No JVD. No lymphadenopathy. No bruit. Thyroid unremarkable. Lungs: CTAB, diminished in bases. Normal chest excursion. Eupneic respirations. CV: Heart tones S1, S2. HR irregularly irregular. No M/G/R. Pacemaker palpated left upper chest. No peripheral edema. GI: Abdomen is soft and nontender. No palpable mass or organomegaly. Psych: Normal mood and affect. Normal judgment. Cooperative with exam, follows commands. ALLERGIES: PRILOSEC 20MG CAPSULE, ZOCOR, FLUVASTATIN, MEXILETINE, ALLOPURINOL HEALTH MAINTENANCE - see end of note PREVENTIVE MEDICINE GOALS Info Only: [employer] Movement Capture Video Connect Capable DUE NOW EGD F/U Jan 31 Home Telehealth ([facility]) Referral October 31 Primary Care Provider Search DUE NOW Medication Reconciliation DUE NOW COVID-19 Immunization DUE NOW RSV Immunization DUE NOW Eye Care At-Risk Screen DUE NOW (Optional) Whole Health Documentation DUE NOW ASSESSMENT/PLAN: Active problems - Computerized Problem List is the source for the followin. Atrial fibrillation - sx stable, has a pacemaker. Continues on warfarin per cardiology. INR stable. Recently had Echo, unable to locate report. Continue Rx. 2. Dilated cardiomyopathy - see above. 3. Benign essential hypertension - stable, continue Rx. 4. Long-term current use of anticoagulant (SNOMED CT 226482313) - at risk for bleeding complications, monitor closely. Coag clinic monitoring INR 5. Cardiac pacemaker in situ (SNOMED CT 257861379) - see above. Followed by cardiology. 6. Hyperlipidemia (SNOMED CT 51178601) - lipids wnl. Continue statin therapy. 7. Moderate chronic obstructive pulmonary disease - has upcoming appt [facility] pulmonology. Recent PFT showed moderatate restriction. Continue maintenance Rx. 8. Former smoker - see above. LDCT showed irregular nodule, to f/u 6 months. 9. Obstructive sleep apnea syndrome - continue cpap at HS FOLLOW UP: Return to clinic as noted below and/or sooner PRN UPCOMING APPOINTMENTS: 08/19/2024 08:00 [facility] 10/08/2024 13:00 CWM/NO/CAT SCAN No barriers noted; patient understands and agrees to current treatment plan. If patient has any questions, concerns or changes in current health status he/she will call or come in to the NH. HM: Info Only: [employer] Connect Capable: Tobacco Use Screening: The patient is a former cigarette smoker. The patient has never used other types of tobacco. Medication Reconciliation: Outpatient: Has the patient been taking medications as documented in the EMLR? No: Discrepencies were identified. See below. Essential Medication List for Review used to complete this medication reconciliation. INCLUDED IN THIS LIST: Alphabetical list of active outpatient prescriptions dispensed from this [facility] (local) and dispensed from another NH or DoD facility (remote) as well as inpatient orders (local, pending and active), local clinic medications, locally documented non-VA medications, and local prescriptions that have or been discontinued in the past 90 days. - Discrepancies were identified, addressed, and discussed with the patient/caregiver at this encounter. Discrepancies: med changes noted - All changes in medications, including all non-VA/Herbal/OTC medications were entered into CPRS. - If there were any medications the patient should no longer take, they were discontinued. - The patient/caregiver was instructed to update this list, discard old lists, and take this list to the next appointment, whether with a VA or non-VA provider. /barbie/ STORM STERN CERTIFIED NURSE PRACTITIONER Signed: 09/14/2024 19:24 GAIL VALDIVIA [place]
--- OUTSIDE RECORDS SUMMARY | 2024-10-21 16:28 | XMS_ITS | Encounter Summary ---
Author Name [facility] [place] Organization [facility] [place] Address [address] [place] [id number] Care Team Providers Care Microfilm Clerk Name Role Phone DOUG ARCHULETA Primary Care [...] PART A Jun 26, 2006 PART A [id number] DIMITRIS HENSLEY PATIENT MEDICARE (WNR) MEDICARE (M) PART A Jun 26, 2006 PART A [id number] DIMITRIS HENSLEY PATIENT MEDICARE (WNR) MEDICARE (M) PART A Jun 26, 2006 PART A [id number] [phone] DIMITRIS HENSLEY PATIENT MEDICARE (WNR) MEDICARE (M) PART A Jun 26, 2006 PART A [id number] [phone] DIMITRIS HENSLEY PATIENT Selected Encounter This section includes the information on record at [place] for the Encounter. Date/Time Encounter Type Encounter Description Reason Provider Source Feb 09, 2024 01:00 PM OFFICE O/P EST MOD 30 MIN PRIMARY CARE/MEDICINE ICD-10-CM I48.91 Unspecified atrial fibrillation SKIP,KENDR A C [facility] Encounter Template Text not used by [place] Assessments - Encounter Diagnoses This section includes the primary and secondary diagnoses documented for the Encounter. 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 This section includes future appointments and [...] 12, 2024 12:30 PM AMBULATORY - SURGERY [facility] Apr 09, 2024 01:00 PM [facility] Jun 21, 2024 01:00 PM [facility]UL[facility] - MEDICINE [facility] Aug 08, 2024 09:30 AM AMBULATORY - MEDICINE [facility] Lab Results: +/- 30 days of the encounter This section includes the Chemistry and Hematology Lab Results on record with [place] for the patient. Radiology Reports and Pathology Reports are provided separately, in subsequent sections. Lab Results This section contains the Chemistry/Hematology Results that were resulted 30 days before or 30 daysafter the date of the Encounter. Date/Time Source Result Type Result - Unit Interpretation Reference Range Specimen Type Comment Feb 12, 2024 11:18 AM [facility] [place] [facility] PT & INR (COUMADIN) PLASMA Specimen Type: PLASMA No comment entered. Ordering Provider: KATINA GRANT Report Released Date/Time: Jan 15, 2024 04:23 PM Reporting Lab: [facility] [place] [facility] [address] [facility] [address] Performing Lab: [facility] [address] [facility] [address] INR 2.2 PROTIME 24.1 s H 10.0-13.1 Jan 15, 2024 12:58 PM [place] [facility] [place] [facility] PT & INR (COUMADIN) PLASMA Specimen Type: PLAS MA No comment entered. Ordering Provider: KATINA GRANT Report Released Date/Time: Jan 01, 2024 02:52 PM Reporting Lab: [facility] [address] [facility] [id number] Performing Lab: [facility] [place] [facility] [address] [facility] [address] INR 2.0 PROTIME 22.5 s H 10.0-13.1 Vital Signs: All taken on the encounter date This section contains inpatient and outpatient Vital Signs collected on the date of the Encounter. Date/Time Temperature Pulse Blood Pressure Respiratory Rate SP02 Pain Height Weight Body Mass Index Source Feb 09, 2024 01:06 PM 97.7 93 124/81 20 96 63 178 32 [facility] Social History: Smoking Status (Most current) and Tobacco Use (All prior to encounter date) This section includes the most current, and the historical, smoking and tobacco- related health factors from the [place] facility where the Encounter took place. Current Smoking Status This section includes the most current smoking, or tobacco-related health factor, from the [place] facility where the Encounter took place. Date/Time Current Smoking Status Comment Dwigth rosas Sep 27, 2023 10:30 AM [place]-TOBACCO FORMER USER [facility] Tobacco Use History This section includes a history of the smoking, or tobacco-related health factors, that were collected on or before the date of the Encounter. The data comes from the [place] facility where the Encounter took place. 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 Sep 04, 2017 01:34 PM CURRENT SMOKER [facility] Sep 09, 2016 01:00 PM QUIT TOBACCO USE I N PAST YEAR 04/26/16 quit [facility] Sep 14, 2015 08:27 AM QUIT TOBACCO USE I N PAST YEAR [facility] Feb 13, 2015 05:11 PM QUIT TOBACCO USE I N PAST YEAR [facility] Aug 18, 2014 04:22 PM V1-PT NOT INTEREST ED IN QUIT TOBACCO USE [facility] Dec 16, 2013 10:23 AM CURRENT SMOKER 1/2 ppd [facility] Dec 16, 2013 10:23 AM V1-PT DECLINES REF TO TOBACCO CESS [facility] Dec 16, 2013 10:23 AM V1-PT DECLINES TOB ACCO CESSATION [facility] Dec 16, 2013 10:23 AM V1-PT NOT INTEREST ED IN QUIT TOBACCO USE [facility] Sep 25, 2012 01:54 PM QUIT TOBACCO USE I N PAST YEAR [facility] Dec 23, 2011 09:43 AM CURRENT SMOKER Pt states he smokes a half a pack of cigaretts a day. [facility] Dec 23, 2011 09:43 AM V1-PT DECLINES REF TO TOBACCO CESS [facility] Dec 23, 2011 09:43 AM V1-PT DECLINES TOB ACCO CESSATION [facility] Dec 23, 2011 09:43 AM V1-PT NOT INTEREST ED IN QUIT TOBACCO USE [facility] Dec 30, 2010 01:14 PM V1-PT DECLINES REF TO TOBACCO CESS [facility] Dec 30, 2010 01:14 PM V1-PT DECLINES TOB ACCO CESSATION [facility] Dec 30, 2010 01:14 PM V1-PT NOT INTEREST ED IN QUIT TOBACCO USE [facility] Jun 02, 2010 09:23 AM CURRENT SMOKER smoker for 50 yrs...1 ppd [facility] Jun 02, 2010 09:23 AM V1-PT DECLINES REF TO TOBACCO CESS [facility] Jun 02, 2010 09:23 AM V1-PT THINKING ABO UT QUIT TOBACCO USE [facility] May 19, 2009 11:23 AM CURRENT SMOKER 10-12 cigaretts daily...smoking 50 years [facility] Apr 08, 2008 01:51 PM CURRENT SMOKER Patient reports smoking a pack of ciggs a day. [facility] Dec 18, 2007 10:09 AM V1-PT DECLINES REF TO TOBACCO CESS [facility] Dec 18, 2007 10:09 AM V1-PT READY TO MARCIANO T TOBACCO USE [facility] Apr 17, 2007 01:58 PM QUIT TOBACCO USE I N PAST YEAR [facility] Oct 16, 2006 02:20 PM V1-PT [facility]CLINES [facility] Oct 16, 2006 02:20 PM V1-PT READY TO MARCIANO T TOBACCO USE [facility] Jan 13, 2006 01:11 PM CURRENT SMOKER Rocío continues to smoke 1 pkg of cigarettes daily. He said he does not want quit tobacco. [facility] Nov 30, 2004 12:31 PM CURRENT SMOKER 1 pack a day [facility] Advance Directives: All historical and current Section [...] Oct 03, 2017 ADVANCE DIRECTIVE MARILU MIRZA [facility] Dec 23, 2013 ADVANCE DIRECTIVE NIALL SALCEDO [...] 10:10 /barbie/ ANATOLY MONAHAN RN-REY REGISTERED NURSE --- Original Document --- 02/09/24 NURSE PRACTITIONER OUTPATIENT NOTE: PRIMARY CARE VISIT ERIC HENSLEY, is a 78 y/o WHITE MALE who [facility] the [place] [facility]. TYPE OF VISIT: Face to face HPI: AFib, HTN, cardiomyopathy. Hx valve replacement. Has pacemaker/defib, replaced November 2023. On Warfarin. INR has been stable. HLD - on gemfibrozil. Would like to go to [facility] for cardiology f/u. COPD - hs smoker, quit 5 years ago. Last LDCT shsowed multiple small nodules 04/29/22. On maintenance and rescue Rx. Recent labs reviewed and all medications were reconciled during this visit. HEALTHCARE PROVIDERS: cardiolgy GI HISTORY: PERIOD OF SERVICE - [facility] Jun TO Sep COMBAT SERVICE INDICATED: [...] INR stable. Has pacer. Referral made to [facility] cardiology for f/u 2. Benign essential hypertension - stable, continue Rx 3. Dilated cardiomyopathy - see POC #1 4. Postsurgical Status of Cardiac Pacemaker in Situ - replaced 11/2023 5. Hyperlipidemia (SNOMED CT 73809671) - labs stable, continue Rx 6. History of aortic valve replacement - 7. Long-term current use of anticoagulant (SNOMED CT 229757182) - at high risk for bleeding complications. [...] Search: Patient desires Primary Care at this [facility] - already established. Medication Reconciliation: Outpatient: Has the patient been taking medications as documented in the EMLR? YES: The patient has been taking medications as documented in the EMLR. Essential Medication List for Review used to complete this medication reconciliation. INCLUDED IN THIS LIST: Alphabetical list of active outpatient prescriptions dispensed from this [place] (local) and dispensed from another [place] or [place] facility (remote) as well as [...] NURSE PRACTITIONER Signed: 02/11/2024 08:45 GAIL VALDIVIA [facility] Feb 09, 2024 01:02 PM PRIMARY CARE NURSE PRACTITIONER OUTPATIENT NOTE: LOCAL TITLE: NURSE PRACTITIONER OUTPATIENT NOTE STANDARD TITLE: PRIMARY CARE NURSE PRACTITIONER OUTPATIENT NOTE DATE OF NOTE: FEB 09, 2024@13:02 ENTRY DATE: FEB 09, 2024@13:02:56 AUTHOR: GAIL VALDIVIA EXP COSIGNER: URGENCY: STATUS: COMPLETED NURSE PRACTITIONER OUTPATIENT NOTE Has ADDENDA PRIMARY CARE VISIT ERIC HENSLEY, is a 78 y/o WHITE MALE [place] who [facility] the [place] [facility]. TYPE OF VISIT: Face to face HPI: AFib, HTN, cardiomyopathy. Hx valve replacement. Has pacemaker/defib, replaced November 2023. On Warfarin. INR has been stable. HLD - on gemfibrozil. Would like to go to [facility] for cardiology f/u. COPD - hs smoker, quit 5 years ago. Last LDCT shsowed multiple small nodules 04/29/22. On maintenance and rescue Rx. Recent labs reviewed and all medications were reconciled during this visit. HEALTHCARE PROVIDERS: cardiolgy GI HISTORY: PERIOD OF SERVICE [facility] Jun [facility] Sep COMBAT SERVICE INDICATED: [...] INR stable. Has pacer. Referral made to [facility] cardiology for f/u 2. Benign essential hypertension - stable, continue Rx 3. Dilated cardiomyopathy - see POC #1 4. Postsurgical Status of Cardiac Pacemaker in Situ - replaced 11/2023 5. Hyperlipidemia (SNOMED CT 59344051) - labs stable, continue Rx 6. History of aortic valve replacement - 7. Long-term current use of anticoagulant (SNOMED CT 411980302) - at high risk for bleeding complications. [...] Search: Patient desires Primary Care at this [facility] - already established. Medication Reconciliation: Outpatient: Has the patient been taking medications as documented in the EMLR? YES: The patient has been taking medications as documented in the EMLR. Essential Medication List for Review used to complete this medication reconciliation. INCLUDED IN THIS LIST: Alphabetical list of active outpatient prescriptions dispensed from this [place] (local) and dispensed from another [place] or [place] facility (remote) as well as [...] 10:10 /barbie/ ANATOLY MONAHAN RN-BC REGISTERED NURSE 04/16/2024 ADDENDUM STATUS: COMPLETED [facility] staff [facility] spoke with regarding lung cancer screening results and recommendation to recheck in 6 months. no further action needed. /es/ ANATOLY MONAHAN RN-BC REGISTERED NURSE Signed: 04/16/2024 10:12 GAIL VALDIVIA
== END 2024-10-21 15:02 | disposition home or self-care (01) ==
LOC: HO.HPS 13:43
PROVIDERS: PCP Family Medicine; Visit Provider Nurse Practitioner Family
DX: J44.9 Chronic obstructive pulmonary disease, unspecified (principal); Z87.891 Personal history of nicotine dependence; R91.8 Other nonspecific abnormal finding of lung field; G47.33 Obstructive sleep apnea (adult) (pediatric)
CPT/HCPCS: 99214

== ENCOUNTER → 2024-10-21 13:43 | Outpatient (BNVA) | payer OTHER, SELFPAY | PROVIDERS: PCP Family Medicine; Visit Provider Nurse Practitioner Family | DX: J44.9 Chronic obstructive pulmonary disease, unspecified (principal); G47.33 Obstructive sleep apnea (adult) (pediatric); R91.8 Other nonspecific abnormal finding of lung field; Z87.891 Personal history of nicotine dependence; Z99.89 Dependence on other enabling machines and devices | CPT/HCPCS: 99212 ==

== ENCOUNTER → 2024-11-04 23:59 | Outpatient (BNV) | payer OTHER, SELFPAY ==
--- NOTE | 2024-11-06 17:22 | A.OFFVIS_ITS ---
Intake Visit Reasons: Remote HF monitoring- [employer] Allergies Meqrfcg-LYH-BnB Reductase Inhibitor [Oyhxkky-Jby-Tfl Reductase Inhibitor] Allergy (Intermediate, Verified 10/21/24 14:35) muscle cramping in ribcage [facility] Medical History (Updated 08/19/24 @ 11:04 by Ena Hinson NP) Biventricular ICD (implantable cardioverter-defibrillator) in place COVID-19 vaccine series completed Collapsed lung Myocardial infarction GERD (gastroesophageal reflux disease) History of placement of internal cardiac defibrillator History of paroxysmal atrial tachycardia Asthma Dilated cardiomyopathy Osteopenia Arthritis Elevated cholesterol Sleep apnea COPD (chronic obstructive pulmonary disease) HTN (hypertension) Barretts esophagus Surgical History (Updated 08/08/24 @ 13:56 by Donnell Ledesma MD) Aortic valve replaced History of repair of hiatal hernia Hx of aortic valve replacement History of esophagogastroduodenoscopy (EGD) H/O colonoscopy Social History Household Members: Spouse Housing: House Are you a primary home health care provider to a significant other at home: No Do you presently have visiting nurse or other home services: No Alcohol intake: never Patient Tobacco Use Status: Former Tobacco user Tobacco use type: Cigarette Cigarette Packs Per Day: 1 Years Smoked: 60 service: Yes Office Procedures Cardiac Device Check Cardiac Device Check Details: Remote heart failure report generated 11/04/2024. Heart failure parameters are within normal limits [id number] Cardiac Device Interrogation, cardio physiologic monitor Procedure code (CPT) selection complete Assessment & Plan Assessment & Plan (1) Biventricular ICD (implantable cardioverter-defibrillator) in place: Code(s): Z95.810 - Presence of automatic (implantable) cardiac defibrillator Category: Medical Plan: See above Coding Level of Care Code Procedure Only Diagnoses Biventricular ICD (implantable cardioverter-defibrillator) in place Z95.810 CPT Codes Cardiac Device Check - Cardiac Device 15: [id number] Cardiac Device Interrogation, cardio physiologic monitor ([id number])
== END ==
PROVIDERS: PCP Family Medicine; Visit Provider Internal Medicine Cardiovascular Disease
DX: Z45.02 Encounter for adjustment and management of automatic implantable cardiac defibrillator (principal)
CPT/HCPCS: 93297

== ENCOUNTER → 2024-12-05 23:59 | Outpatient (BNV) | payer OTHER, SELFPAY ==
--- NOTE | 2024-12-06 16:17 | A.OFFVIS_ITS ---
Intake Visit Reasons: Remote HF monitoring- [employer] Allergies Eioswls-PXR-HfT Reductase Inhibitor [Gzuoxch-Bcl-Xfw Reductase Inhibitor] Allergy (Intermediate, Verified 10/21/24 14:35) muscle cramping in ribcage [facility] Medical History (Updated 08/19/24 @ 11:04 by Ena Hinson NP) Biventricular ICD (implantable cardioverter-defibrillator) in place COVID-19 vaccine series completed Collapsed lung Myocardial infarction GERD (gastroesophageal reflux disease) History of placement of internal cardiac defibrillator History of paroxysmal atrial tachycardia Asthma Dilated cardiomyopathy Osteopenia Arthritis Elevated cholesterol Sleep apnea COPD (chronic obstructive pulmonary disease) HTN (hypertension) Barretts esophagus Surgical History (Updated 08/08/24 @ 13:56 by Donnell Ledesma MD) Aortic valve replaced History of repair of hiatal hernia Hx of aortic valve replacement History of esophagogastroduodenoscopy (EGD) H/O colonoscopy Social History Household Members: Spouse Housing: House Are you a primary clinical care coordinator to a significant other at home: No Do you presently have visiting nurse or other home services: No Alcohol intake: never Patient Tobacco Use Status: Former Tobacco user Tobacco use type: Cigarette Cigarette Packs Per Day: 1 Years Smoked: 60 service: Yes Office Procedures Cardiac Device Check Cardiac Device Check Details: Remote heart failure report generated 12/05/2024. Heart failure parameters are slightly elevated. Will follow up with the patient [id number] Cardiac Device Interrogation, cardio physiologic monitor Procedure code (CPT) selection complete Assessment & Plan Assessment & Plan (1) Biventricular ICD (implantable cardioverter-defibrillator) in place: Code(s): Z95.810 - Presence of automatic (implantable) cardiac defibrillator Category: Medical Plan: See above Coding Level of Care Code Procedure Only Diagnoses Biventricular ICD (implantable cardioverter-defibrillator) in place Z95.810 CPT Codes Cardiac Device Check - Cardiac Device 15: [id number] Cardiac Device Interrogation, cardio physiologic monitor ([id number])
== END ==
PROVIDERS: PCP Family Medicine; Visit Provider Internal Medicine Cardiovascular Disease
DX: I50.9 Heart failure, unspecified (principal); Z95.810 Presence of automatic (implantable) cardiac defibrillator
CPT/HCPCS: 93297

== ENCOUNTER → 2025-01-05 23:59 | Outpatient (BNV) | payer OTHER, SELFPAY ==
--- NOTE | 2025-01-09 11:59 | MHC.OFFVIS ---
Intake Visit Reasons: Remote HF monitoring- [employer] Allergies Dqgkrgy-GAT-IjS Reductase Inhibitor (Ubvrzjk-Yux-Rbq Reductase Inhibitor) Allergy (Intermediate, Verified 10/21/24 14:35) muscle cramping in ribcage [facility] Medical History (Updated 08/19/24 @ 11:04 by Ena Hinson NP) Biventricular ICD (implantable cardioverter-defibrillator) in place COVID-19 vaccine series completed Collapsed lung Myocardial infarction GERD (gastroesophageal reflux disease) History of placement of internal cardiac defibrillator History of paroxysmal atrial tachycardia Asthma Dilated cardiomyopathy Osteopenia Arthritis Elevated cholesterol Sleep apnea COPD (chronic obstructive pulmonary disease) HTN (hypertension) Barretts esophagus Surgical History (Updated 08/08/24 @ 13:56 by Donnell Ledesma MD) Aortic valve replaced History of repair of hiatal hernia Hx of aortic valve replacement History of esophagogastroduodenoscopy (EGD) H/O colonoscopy Social History Household Members: Spouse Housing: House Are you a primary child care centre manager to a significant other at home: No Do you presently have visiting nurse or other home services: No Alcohol intake: never Patient Tobacco Use Status: Former Tobacco user Tobacco use type: Cigarette Cigarette Packs Per Day: 1 Years Smoked: 60 service: Yes Office Procedures Cardiac Device Check Cardiac Device Check Details: Remote heart failure report generated 01/05/2025. Heart failure parameters are within normal limits [id number] Cardiac Device Interrogation, cardio physiologic monitor Procedure code (CPT) selection complete Assessment & Plan Assessment & Plan (1) Biventricular ICD (implantable cardioverter-defibrillator) in place: Code(s): Z95.810 - Presence of automatic (implantable) cardiac defibrillator Category: Medical Plan: See above Coding Level of Care Code Procedure Only Diagnoses Biventricular ICD (implantable cardioverter-defibrillator) in place Z95.810 CPT Codes Cardiac Device Check - Cardiac Device 15: [id number] Cardiac Device Interrogation, cardio physiologic monitor ([id number])
== END ==
PROVIDERS: PCP Family Medicine; Visit Provider Internal Medicine Cardiovascular Disease
DX: Z45.02 Encounter for adjustment and management of automatic implantable cardiac defibrillator (principal)
CPT/HCPCS: 93297

== ENCOUNTER → 2025-01-05 23:59 | Outpatient (BNV) | payer OTHER, SELFPAY ==
--- NOTE | 2025-01-09 11:58 | MHC.OFFVIS ---
Intake Visit Reasons: Remote ICD check- [employer] Allergies Csjnudo-OCG-OjQ Reductase Inhibitor (Ihourjq-Kzt-Ydb Reductase Inhibitor) Allergy (Intermediate, Verified 10/21/24 14:35) muscle cramping in ribcage [facility] Medical History (Updated 08/19/24 @ 11:04 by Ena Hinson NP) Biventricular ICD (implantable cardioverter-defibrillator) in place COVID-19 vaccine series completed Collapsed lung Myocardial infarction GERD (gastroesophageal reflux disease) History of placement of internal cardiac defibrillator History of paroxysmal atrial tachycardia Asthma Dilated cardiomyopathy Osteopenia Arthritis Elevated cholesterol Sleep apnea COPD (chronic obstructive pulmonary disease) HTN (hypertension) Barretts esophagus Surgical History (Updated 08/08/24 @ 13:56 by Donnell Ledesma MD) Aortic valve replaced History of repair of hiatal hernia Hx of aortic valve replacement History of esophagogastroduodenoscopy (EGD) H/O colonoscopy Social History Household Members: Spouse Housing: House Are you a primary health care consultant to a significant other at home: No Do you presently have visiting nurse or other home services: No Alcohol intake: never Patient Tobacco Use Status: Former Tobacco user Tobacco use type: Cigarette Cigarette Packs Per Day: 1 Years Smoked: 60 service: Yes Office Procedures Cardiac Device Check Cardiac Device Check Details: Remote ICD report generated 01/03/2025. ICD function is adequate. Bi V pacing 98.9% of time [id number] Cardiac Interrogation, implant defibrillator w/interim Procedure code (CPT) selection complete Assessment & Plan Assessment & Plan (1) Biventricular ICD (implantable cardioverter-defibrillator) in place: Code(s): Z95.810 - Presence of automatic (implantable) cardiac defibrillator Category: Medical Plan: See above Coding Level of Care Code Procedure Only Diagnoses Biventricular ICD (implantable cardioverter-defibrillator) in place Z95.810 CPT Codes Cardiac Device Check - Cardiac Device 13: [id number] Cardiac Interrogation, implant defibrillator w/interim ([id number])
== END ==
PROVIDERS: PCP Family Medicine; Visit Provider Internal Medicine Cardiovascular Disease
DX: Z45.02 Encounter for adjustment and management of automatic implantable cardiac defibrillator (principal)
CPT/HCPCS: 93295

== ENCOUNTER 2025-01-20 13:59 | Outpatient (AMB) | payer OTHER, SELFPAY ==
--- NOTE | 2025-01-20 14:01 | MHC.OFFVIS ---
Vital Signs 01/20/25 14:02 Height 5 ft 3 in Weight 170 lb 13.732 oz BMI 30.3 BP 104/62 Blood Pressure Location Rt brachial Position Sitting Pulse 90 Pulse Source Pulse Oximeter Pulse Oximetry (%) 96 Oxygen Delivery Method Room Air Intake Visit Reasons: Shortness of breath Allergies Hfzjudy-ITK-RtV Reductase Inhibitor (Oqyfawr-Neg-Qpn Reductase Inhibitor) Allergy (Intermediate, Verified 01/20/25 14:04) muscle cramping in ribcage HPI HPI Shortness of breath: Details: Everette is a pleasant 79 year old male, former 60 pack year smoker, with underlying moderate COPD, severe ELENI on CPAP managed by [facility], cardiomyopathy s/p ICD LVEF 15-20%, h/o aortic valve replacement, and paroxsymal atrial fibrillation on coumadin. Chest CT performed at [facility] 03/2024, RADS3, revealed mild to moderate emphysema with new 5.4 mm solid pulmonary nodule of PHILL with interval resolution of prior small scattered pulmonary nodules. Recommendation made for 6 month follow up chest CT which was performed in September 2024 through the [facility], report revealed stable nodule and will have repeat chest CT scheduled through the [facility] in March. At the last visit, he reported suboptimal control on Spiriva and Alvesco, he was advised to increase Alvesco to 2 puffs BID which he has been using with notable improvement. He continues to report dyspnea on exertion with occasional wheezing which he uses levalbuterol QD with good effect. Since the last visit, he has been started on lasix by cardiology with resolution of BLE edema and improvements in dyspnea. He denies any visits to urgent care or hospitalizations related to respiratory distress. [facility] Medical History (Updated 08/19/24 @ 11:04 by Ena Hinson NP) Biventricular ICD (implantable cardioverter-defibrillator) in place COVID-19 vaccine series completed Collapsed lung Myocardial infarction GERD (gastroesophageal reflux disease) History of placement of internal cardiac defibrillator History of paroxysmal atrial tachycardia Asthma Dilated cardiomyopathy Osteopenia Arthritis Elevated cholesterol Sleep apnea COPD (chronic obstructive pulmonary disease) HTN (hypertension) Barretts esophagus Surgical History (Updated 08/08/24 @ 13:56 by Donnell Ledesma MD) Aortic valve replaced History of repair of hiatal hernia Hx of aortic valve replacement History of esophagogastroduodenoscopy (EGD) H/O colonoscopy Social History Household Members: Spouse Housing: House Are you a primary care transport nurse to a significant other at home: No Do you presently have visiting nurse or other home services: No Alcohol intake: never Patient Tobacco Use Status: Former Tobacco user Tobacco use type: Cigarette Cigarette Packs Per Day: 1 Years Smoked: 60 service: Yes Review of Systems Const Denies chills, Denies excessive sweating, Denies fever(s), Denies headache(s) and Denies night sweats Eyes Denies dry eyes, Denies irritation and Denies itchy eyes ENT Reports Normal hearing present, Denies headache(s), Denies nasal congestion, Denies nasal discharge, Denies post nasal drip and Denies sore throat Card Denies chest pain, Denies chest pain at rest, Denies chest pain with activity, Denies claudication, Denies leg edema and Reports dyspnea on exertion Resp Denies chest congestion, Denies cough, Denies excessive phlegm production, Denies pain on inspiration, Denies pain with cough, Reports dyspnea on exertion, Denies stridor and Reports wheezing Musc Denies myalgias Neuro Reports Normal hearing present and Denies headache(s) Endo Denies excessive sweating Alejandro/Lymph Denies lymphadenopathy Aller/Immun Denies itchy eyes, Denies seasonal rhinorrhea and Reports wheezing Physical Exam Vital Signs: Last Vital Signs Pulse 90 01/20/25 14:02 BP 104/62 01/20/25 14:02 Pulse Ox 96 01/20/25 14:02 Oxygen Delivery Method Room Air 01/20/25 14:02 BMI result Body Mass Index 30.3 Const General: cooperative, healthy appearing, comfortable, no acute distress, well developed and alert Nutritional Appearance: obese Orientation/consciousness: patient oriented x3 Limitations: no limitations HEENT Head: Yes normal to inspection, Yes normocephalic and Yes atraumatic Ears: hearing grossly normal bilaterally and external ears normal Eyes General: appearance normal, both eyes and all related structures Eyelids: Yes eyelids normal Sclerae: sclerae normal EOM: EOMs intact bilaterally Neck Neck: Yes normal visual inspection and Yes no lymphadenopathy Lymphatic: no lymphadenopathy noted Chest Chest palpation & inspection: normal inspection of the chest Resp Effort & Inspection: normal respiratory effort, able to speak in complete sentences, no audible wheezes, no cough, no stridor, not tachypneic, no tripod positioning and no use of accessory muscles Auscultation: clear to auscultation bilaterally Cardio Jugular venous distension: no JVD Rate: regular rate Rhythm: regular rhythm Skin Other: warm, dry General skin exam: no rashes or lesions noted Neuro General: patient oriented x3 Cranial nerves: Yes Normal hearing present Cognition (Neuro): normal cognition Gait exam (Neuro): Normal gait present Extrem Other: trace pedal edema Psych Appearance: grossly normal and well kempt Speech and movement: Normal speech and movement present and Clear speech present Affect: normal affect Attitude: cooperative Thought process: Normal thought process present Thought content: Normal thought content present Insight: Good insight present (Psych) Judgement: Good judgement present (Psych) Assessment & Plan Assessment & Plan (1) COPD (chronic obstructive pulmonary disease): Code(s): J44.9 - Chronic obstructive pulmonary disease, unspecified Category: Medical (2) Personal history of tobacco use: Code(s): Z87.891 - Personal history of nicotine dependence Category: Social Hx (3) Multiple pulmonary nodules: Code(s): R91.8 - Other nonspecific abnormal finding of lung field Category: Medical (4) ELENI on CPAP: Code(s): G47.33 - Obstructive sleep apnea (adult) (pediatric) Category: Medical Plan Prior chest CT from 04/18 revealed new 5.4 mm solid pulmonary nodule of PHILL with chest CT performed 09/2024 through the [facility] with no significant changes and will have repeat CT scheduled in 6 months. At this time, patient reports good control of respiratory symptoms on current regimen of Alvesco, Spiriva and Levalbuterol, advised to continue. All questions were answered and patient is in agreement of plan. Will follow up in 3-6 months or sooner if needed. Coding Level of Care Code Est Pt Level 4 (03398) Diagnoses COPD (chronic obstructive pulmonary disease) J44.9 Personal history of tobacco use Z87.891 Multiple pulmonary nodules R91.8 ELENI on CPAP G47.33
[2025-01-20 14:02] VITALS: BP 104/62; PULSE 90; O2SAT 96; BMI 30.3
--- OUTSIDE RECORDS SUMMARY | 2025-01-20 14:42 | XMS_ITS | Patient Health Record ---
Author Organization [facility] Address [address] [place] [address] Care Team Providers Care Portuguese Tutor Name Role Phone KATHE Arriaga, DOUG Primary Care Provider Konstantin Muñoz Jr Unavailable Allergies Allergen (clinical drug ingredient) Drug/Non Drug Allergy documented on EMR Reaction Allergy Type Onset Date Status Substance with 8-hetjygj-7-methylgluta ryl-coenzyme A reductase inhibitor mechanism of action (substance) Statins Unknown Drug Allergy Active 12 Hour Nasal Nazlini Unknown Drug Allergy Active Reason For Referral Reason OFFICE VISIT Referring Provider First Name DOUG Referring Provider Last Name KATHE Referred Organization [facility] Referred Provider Konstantin Anderson Jr Referred Address [address],[place], [place],[address], Referred Provider Specialty Gastroentero logy General Notes Dayna Watt 2024 11:58:59 AM >[facility]. ANDERSON ON 01-23-25 Referral Priority Routine Medications Medication SIG (Take, Route, Frequency, Duration) Notes [...] evening meals Orally Twice a day Active Immunizations Vaccine Route Administration Date Status Comme nts Influenza Unknown 03/26/2020 Administered Influenza Unknown 05/16/2023 Administered Social History Tobacco Use: Social History Observation Description Date Details (start date - stop date) Former Smoker NA - NA Tobacco Use/Smoking Question Answer Notes Patient is a former smoker How long has it been since you last smoked? 1-5 years Alcohol Screen Question Answer Notes Did you have a drink containing alcohol in the p ast year? 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) Active confirmed Vital Signs Temperature 97.1 degrees Fahrenheit 01/24/2024 Blood pressure diastolic 00 mm Hg 01/24/2024 Height 63 in 01/24/2024 Blood pressure systolic 000 mm Hg 01/24/2024 Weight 178 lb 6 oz lbs 01/24/2024 BMI 31.59 kg/m2 01/24/2024 Encounters Encounter Location Date Provider Diagnosis [facility] [address] [place] [address] 01/24/2024 Konstantin Anderson Jr Amaro's esophagus without dysplasia K22.70 and Colon cancer screening Z12.11 Assessments Encounter Date Diagnosis (ICD Code) Assessment Notes Treatment Notes Treatment Clinical Notes Section Notes 01/24/2024 Colon cancer screening (ICD-10 - Z12.11) We discussed Amaro's esophagus today. We discussed gastroesophageal reflux disease in detail. We recommended she continue omeprazole. We discussed that further screening is optional based on his age. He wishes to defer this for the time being. We can see him in followup in one year. He'll call if he has problems before then. 01/24/2024 Amaro's esophagus without dysplasia (ICD-10 - K22.70) Genetic testing and your cancer risk material was printed We discussed Amaro's esophagus today. We discussed gastroesophageal reflux disease in detail. We recommended she continue omeprazole. We discussed that further screening is optional based on his age. He wishes to defer this for the time being. We can see him in followup in one year. He'll call if he has problems before then. Plan Of Treatment Future Test Test Name Order Date UPPER GI ENDOSCOPY 01/27/2021 COLONOSCOPY 01/27/2021 Next Appt Details Provider Name:Konstantin Lechuga Alexandergilbert pappasd , 01/23/2025 01:15:00 PM, [address] [place] [address], [address], [place], [address], Insurance Providers Payer Name Payer Address Payer Phone Subscriber Number Group Number Insured Name Patient Relationship to Insured Coverage Start Date Coverage End Date [facility] [employer] [address] [place] [id number] [phone] [id number] ERIC HENSLEY Self - patient is the insured Medical (General) History Medical History History ICD Code AVR, St. [...]
== END 2025-01-20 14:20 | disposition home or self-care (01) ==
LOC: HO.HPS 13:59
PROVIDERS: PCP Family Medicine; Visit Provider Nurse Practitioner Family
DX: J44.9 Chronic obstructive pulmonary disease, unspecified (principal); Z87.891 Personal history of nicotine dependence; R91.8 Other nonspecific abnormal finding of lung field; G47.33 Obstructive sleep apnea (adult) (pediatric)
CPT/HCPCS: 99214

== ENCOUNTER → 2025-01-20 13:59 | Outpatient (BNVA) | payer OTHER, SELFPAY | PROVIDERS: PCP Family Medicine; Visit Provider Nurse Practitioner Family | DX: R91.8 Other nonspecific abnormal finding of lung field (principal); G47.33 Obstructive sleep apnea (adult) (pediatric); J44.9 Chronic obstructive pulmonary disease, unspecified; Z87.891 Personal history of nicotine dependence | CPT/HCPCS: 99212 ==

== ENCOUNTER → 2025-02-05 23:59 | Outpatient (BNV) | payer OTHER, SELFPAY ==
--- NOTE | 2025-02-11 12:25 | MHC.OFFVIS ---
Intake Visit Reasons: Remote HF monitoring- Medtronic Allergies Leqkeqv-DXV-QgI Reductase Inhibitor (Iahvevf-Ezq-Zdc Reductase Inhibitor) Allergy (Intermediate, Verified 01/20/25 14:04) muscle cramping in ribcage [facility] Medical History Biventricular ICD (implantable cardioverter-defibrillator) in place COVID-19 vaccine series completed Collapsed lung Myocardial infarction GERD (gastroesophageal reflux disease) History of placement of internal cardiac defibrillator History of paroxysmal atrial tachycardia Asthma Dilated cardiomyopathy Osteopenia Arthritis Elevated cholesterol Sleep apnea COPD (chronic obstructive pulmonary disease) HTN (hypertension) Barretts esophagus Surgical History Aortic valve replaced History of repair of hiatal hernia Hx of aortic valve replacement History of esophagogastroduodenoscopy (EGD) H/O colonoscopy Social History Household Members: Spouse Housing: House Are you a primary senior care assistant to a significant other at home: No Do you presently have visiting nurse or other home services: No Alcohol intake: never Patient Tobacco Use Status: Former Tobacco user Tobacco use type: Cigarette Cigarette Packs Per Day: 1 Years Smoked: 60 service: Yes Office Procedures Cardiac Device Check Cardiac Device Check Details: Remote heart failure report generated 02/05/2025. OptiVol is suggestive of increased filling pressures [id number] Cardiac Device Interrogation, cardio physiologic monitor Procedure code (CPT) selection complete Assessment & Plan Assessment & Plan (1) Biventricular ICD (implantable cardioverter-defibrillator) in place: Code(s): Z95.810 - Presence of automatic (implantable) cardiac defibrillator Category: Medical Plan: See above Coding Level of Care Code Procedure Only Diagnoses Biventricular ICD (implantable cardioverter-defibrillator) in place Z95.810 CPT Codes Cardiac Device Check - Cardiac Device 15: [id number] Cardiac Device Interrogation, cardio physiologic monitor ([id number])
== END ==
PROVIDERS: PCP General Practice; Visit Provider Internal Medicine Cardiovascular Disease
DX: Z45.02 Encounter for adjustment and management of automatic implantable cardiac defibrillator (principal)
CPT/HCPCS: 93297

== ENCOUNTER 2025-02-06 14:30 | Outpatient (AMB) | payer OTHER, SELFPAY ==
[2025-02-06 14:40] VITALS: BP 108/62; PULSE 105; BMI 30.8
--- NOTE | 2025-02-06 14:40 | MHC.OFFVIS ---
Vital Signs 02/06/25 14:40 Height 5 ft 3 in Weight 174 lb 2.643 oz BMI 30.8 BP 108/62 Blood Pressure Location Lt brachial Position Sitting Pulse 105 H Intake Visit Reasons: 6m follow up w device ck Intake Note: 6 month follow-up with [employer] Required: No Allergies Ctcvilb-PTO-XmO Reductase Inhibitor (Qivdvmj-Ljj-Jms Reductase Inhibitor) Allergy (Intermediate, Verified 01/20/25 14:04) muscle cramping in ribcage Medication List - Last Reconciled 02/06/25 by Donnell Ledesma MD albuterol sulfate 90 mcg/actuation (Ventolin HFA) 2 puffs inhalation Q6H PRN ciclesonide 160 mcg/actuation (Alvesco) 2 puffs inhalation BID dofetilide 250 mcg PO BID febuxostat 40 mg PO DAILY furosemide 20 mg PO DAILY gemfibrozil 600 mg PO BID levalbuterol tartrate 45 mcg/actuation 1 puff inhalation Q4-6H PRN metoprolol tartrate 100 mg PO BID 90 days omeprazole 20 mg PO DAILY@0630 omeprazole 40 mg PO DAILY@0630 tamsulosin 0.4 mg PO BEDTIME valsartan 80 mg PO BID warfarin (Jantoven) 1.25 mg (1.25 x 1 mg) PO DAILY@1800 warfarin 1 mg PO DAILY HPI Comments Details: Everette comes for follow up in his noted to be in atrial fibrillation flutter. This appears to be over the last week or so. He had another long spell in December very had episodes of persistent atrial fibrillation. He has increasing shortness of breath although he tries to undergo blade. He was started on Lasix recently and has been taking at nighttime. He said he stays up all night urinating. He has not noticed worsening leg swelling but definitely notice decreased exercise capacity and shortness of breath. [facility] Medical History Biventricular ICD (implantable cardioverter-defibrillator) in place COVID-19 vaccine series completed Collapsed lung Myocardial infarction GERD (gastroesophageal reflux disease) History of placement of internal cardiac defibrillator History of paroxysmal atrial tachycardia Asthma Dilated cardiomyopathy Osteopenia Arthritis Elevated cholesterol Sleep apnea COPD (chronic obstructive pulmonary disease) HTN (hypertension) Barretts esophagus Surgical History Aortic valve replaced History of repair of hiatal hernia Hx of aortic valve replacement History of esophagogastroduodenoscopy (EGD) H/O colonoscopy Social History Household Members: Spouse Housing: House Are you a primary health care facility administrator to a significant other at home: No Do you presently have visiting nurse or other home services: No Alcohol intake: never Patient Tobacco Use Status: Former Tobacco user Tobacco use type: Cigarette Cigarette Packs Per Day: 1 Years Smoked: 60 service: Yes Review of Systems Const Denies chills, Denies fatigue, Denies fever(s), Denies frequent falls, Denies weakness, Denies weight gain and Denies weight loss ENT Denies dizziness Card Denies chest pain, Denies leg edema, Denies lightheadedness, Denies palpitations, Denies dyspnea, Denies dyspnea on exertion, Denies orthopnea and Denies other (loss of consciousness) Resp Denies cough, Denies dyspnea and Denies dyspnea on exertion GI Denies hematochezia and Denies change in stool character Musc Denies abnormal gait, Denies muscle weakness, Denies numbness, Denies radiating pain into limb and Denies tingling Neuro Denies Abnormal speech present, Denies abnormal gait, Denies dizziness, Denies frequent falls, Denies numbness, Denies tingling and Denies weakness Endo Denies fatigue and Denies palpitations Physical Exam Vital Signs: Last Vital Signs Pulse 105 H 02/06/25 14:40 BP 108/62 02/06/25 14:40 BMI result Body Mass Index 30.8 Const General: cooperative, comfortable, no acute distress, alert and awake Nutritional Appearance: obese Orientation/consciousness: patient oriented x3 Limitations: no limitations Neck Neck: Yes trachea midline, Yes supple and Yes JVD Chest Chest palpation & inspection: normal inspection of the chest and other (Well-healed sternotomy scar) Resp Effort & Inspection: normal respiratory effort Auscultation: no rales, no wheezes and diminished lung sounds Cardio Jugular venous distension: no JVD Palpation: normal PMI Rate: tachycardic Rhythm: regular rhythm and abnormal rhythm with ectopic beats Heart sounds: S1 normal heart sound present, Clicking heart sound present (Tyrrell closing click of [place] aortic valve), no gallops and no murmurs Peripheral pulses: Peripheral pulses 2+ throughout GI Inspection: Yes obesity Auscultation: normal bowel sounds Skin General skin exam: no rashes or lesions noted Neuro General: patient oriented x3 and no focal motor deficits Speech: No Abnormal speech present Extrem General: No clubbing, No cyanosis and Yes edema Psych Appearance: grossly normal Office Procedures Cardiac Device Check Cardiac Device Check Details: Biventricular Medtronic ICD in place. Biventricular pacing 98.4% of time. Underlying atrial rhythm appears to be atrial fibrillation. Device was reprogrammed to DDIR. RV and LV pacing thresholds excellent and reprogrammed to provide adequate safety and enhance battery life. Pacing and shock lead with stable. Battery life is excellent 51733-ZH Cardiac Device Check, multi lead implantable defibrillator Procedure code (CPT) selection complete EKG Details: EKG shows biventricular pacing with intermittent PVCs. Undetermined atrial rhythm 55571-[id number], Complete Assessment & Plan Assessment & Plan (1) Persistent atrial fibrillation: Code(s): I48.19 - Other persistent atrial fibrillation Category: Medical Plan: Recent onset persistent atrial fibrillation with signs of heart failure with worsening symptoms. At this point time we discussed about management details. I think he will benefit from rhythm control approach given his severely reduced LV ejection fraction. Will increase his Tikosyn to 375 mcg twice daily. Will repeat INR today and will follow up another INR next week. Will schedule him for ZIA guided cardioversion next week given his prosthetic aortic valve as well as INR checks which have not been every 4 weeks although there has been therapeutic as per him. Discussed in details about ZIA and the need for IZA including risks, benefits, alternatives. Also discussed the cardioversion process and will probably have device reps to help with device use for cardioversion. (2) Chronic HFrEF (heart failure with reduced ejection fraction): Code(s): I50.22 - Chronic systolic (congestive) heart failure Category: Medical Plan: Heart failure with markedly reduced LV ejection fraction now recent heart failure syndrome with recent persistent atrial fibrillation. Most likely cause for his heart failure decompensation. Will increase Lasix to 40 mg daily. Daily weight monitoring avoidance salt loading was discussed advised to seek emergency care for sudden worsening of his symptoms. Will pursue rhythm control approach as above. Continue valsartan as well as metoprolol dose for neurohormonal modulation. Greater than 40 minutes spent in coordinating his care and discussing with him about management. Thank you for allowing me to partake in his care Orders: Orders Cardioversion 2 Weeks I48.19 - Other persistent atrial fibrillation CA echo transesophageal Today I48.19 - Other persistent atrial fibrillation Basic Metabolic Panel Today I50.22 - Chronic systolic (congestive) heart failure B Type Natriuretic Peptide Today I50.22 - Chronic systolic (congestive) heart failure Prothrombin Time INR Today I48.19 - Other persistent atrial fibrillation Medications: New dofetilide 375 mcg (3 x 125 mcg) PO BID 180 caps 5RF I48.19 - Other persistent atrial fibrillation Coding Level of Care Code Est Pt Level 5 (86426) Complex EM visit Add On G2211 Diagnoses Persistent atrial fibrillation I48.19 Chronic HFrEF (heart failure with reduced ejection fraction) I50.22 CPT Codes Cardiac Device Check - Cardiac Device 6: [id number]-[id number] Cardiac Device Check, multi lead implantable defibrillator ([id number]) EKG - CPT: 07116-[id number], Complete ([id number])
--- OUTSIDE RECORDS SUMMARY | 2025-02-06 15:13 | XMS_ITS | Patient Health Record ---
Author Organization [facility] Address [address] [place] [address] Care Team Providers Care Embroidery Designer Name Role Phone KATHE Arriaga, DOUG Primary Care Provider Konstantin Muñoz Jr Unavailable Allergies Allergen (clinical drug ingredient) Drug/Non Drug Allergy documented on EMR Reaction Allergy Type Onset Date Status Substance with 6-qzrcsle-0-methylgluta ryl-coenzyme A reductase inhibitor mechanism of action (substance) Statins Unknown Drug Allergy Active 12 Hour Nasal Andrews Unknown Drug Allergy Active Reason For Referral Reason OFFICE VISIT Referring Provider First Name DOUG Referring Provider Last Name KATHE Referred Organization [facility] Referred Provider Konstantin Anderson Jr Referred Address [address],[place], [place],[address], Referred Provider Specialty Gastroentero logy General Notes Dayna Watt 2024 11:58:59 AM >[facility] FOR VISIT WITH DR. ANDERSON ON 01-23-25 Referral Priority Routine Medications Medication SIG (Take, Route, Frequency, Duration) Notes Start Date End Date Status Gemfibrozil 600 MG 1 tablet 30 minutes before morning and evening meals Orally Twice a day Active Metoprolol Tartrate 75 MG 1 tablet with food Orally Twice a day for 30 day(s) Active Calcium Active Dofetilide 250 MCG 1 capsule Orally Twi ce a day for 30 day(s) Active Lisinopril 10 MG 1 tablet Orally Once a day for 30 day(s) Active Coumadin Active Omeprazole 40 MG 1 capsule 30 minutes before morning meal Orally Once a day for 30 day(s) 01/27/2021 Active Asmanex HFA 200 MCG/ACT 2 puffs Inhalati on Twice a day Active Immunizations Vaccine Route Administration Date Status Comme nts Influenza Unknown 03/26/2020 Administered Influenza Unknown 05/16/2023 Administered Influenza Unknown 03/12/2024 Administered Social History Tobacco Use: Social History [...] 0 Interpretation Negative Section Notes: etoh quit 2005 etoh quit 2004 etoh quit 2004 Problems Problem Type SNOMED Code ICD Code Onset Dates Problem Status W/U Status Risk Notes Problem 496670034 Colon cancer screening (Z12.11) Active confirmed Problem 197494721 jail (current) use of anticoagulants (Z79.01) Active confirmed Problem 397663532 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) Active confirmed Problem Amaro esophagus (552669132) Amaro esophagus (K22.70) Active confirmed Vital Signs Temperature 97.7 degrees Fahrenheit 01/23/2025 Blood pressure diastolic 01 mm Hg 01/23/2025 Height 63 in 01/23/2025 Blood pressure systolic 001 mm Hg 01/23/2025 Weight 171.8 lbs 01/23/2025 BMI 30.43 kg/m2 01/23/2025 Encounters Encounter Location Date Provider Diagnosis [facility] [address] [place] [address] 01/23/2025 Konstantin Anderson Jr Plan Of Treatment Future Test Test Name Order Date UPPER GI ENDOSCOPY 01/27/2021 COLONOSCOPY 01/27/2021 Insurance Providers Payer Name Payer Address Payer Phone Subscriber Number Group Number Insured Name Patient Relationship to Insured Coverage Start Date Coverage End Date [facility] [employer] [address] [place] [phone] [id number] ERIC HENSLEY Self - patient is the [...] cardio logist Asthma Surgical History Surgery Date(Month/Year) Pacemaker/defibrillator placement AVR, [facility] valve 1983 hiatel hernia 1975 collapsed lung 1977
== END 2025-02-06 15:10 | disposition home or self-care (01) ==
LOC: HO.HCS 14:31
PROVIDERS: PCP Family Medicine; Visit Provider Internal Medicine Cardiovascular Disease
DX: I50.22 Chronic systolic (congestive) heart failure (principal); I48.19 Other persistent atrial fibrillation; Z95.810 Presence of automatic (implantable) cardiac defibrillator; R94.31 Abnormal electrocardiogram [ECG] [EKG]; I49.3 Ventricular premature depolarization
CPT/HCPCS: 93010; 93284; 99215; G2211

== ENCOUNTER 2025-02-06 14:30 | Outpatient (REF) | payer OTHER, SELFPAY ==
[2025-02-06 17:32] LABS: Anion Gap 14 (12-20); Blood Urea Nitrogen 34 mg/dL (9-16); Calcium 9.0 mg/dL (8.4-10.2); Carbon Dioxide 26 mmol/L (22-29); Chloride 107 mmol/L (96-108); Estimated Glomerular Filt Rate 45; Potassium 4.5 mmol/L (3.3-5.1); Sodium 142 mmol/L (135-145)
[2025-02-06 17:40] LABS: B Type Natriuretic Peptide 422 pg/mL (<100)
[2025-02-06 17:41] LABS: INTERNATIONAL NORM RATIO 2.1 (0.9-1.1); Prothrombin Time 24.4 SEC (10.9-12.4)
== END 2025-02-06 14:31 | disposition home or self-care (01) ==
LOC: HO.LAB 14:30
PROVIDERS: PCP General Practice; Visit Provider Internal Medicine Cardiovascular Disease
DX: I48.19 Other persistent atrial fibrillation (principal); I50.22 Chronic systolic (congestive) heart failure; Z79.899 Other long term (current) drug therapy
CPT/HCPCS: 36415; 80048; 83880; 85610; 93005; 99212

== ENCOUNTER → 2025-02-12 11:54 | Day surgery (SDC) | payer OTHER, SELFPAY ==
--- NOTE | 2025-02-11 09:44 | HO.ANESPROP2 ---
HPI - Anesthesia Eval Consult details Narrative: 79yo M for?Transesophageal Echocardiogram, Cardioversion Warfarin for afib ICD in situ s/p AVR Cardiomyopathy EF 15-20% [facility] Active Problems Active Problems: All Active Problems Persistent atrial fibrillation (Acute) Chronic HFrEF (heart failure with reduced ejection fraction) (Acute) ELENI on CPAP (Acute) Multiple pulmonary nodules (Acute) Personal history of tobacco use (Acute) COPD (chronic obstructive pulmonary disease) (Acute) Biventricular ICD (implantable cardioverter-defibrillator) in place (Acute) Hx of aortic valve replacement (Acute) Visit for wound check (Acute) COVID-19 virus infection (Acute) SOB (shortness of breath) on exertion (Acute) COVID-19 (Acute) Ventricular tachycardia (Acute) Cardiomyopathy (Acute) Paroxysmal atrial fibrillation (Acute) Past Medical History Medical History Biventricular ICD (implantable cardioverter-defibrillator) in place COVID-19 vaccine series completed Collapsed lung Myocardial infarction GERD (gastroesophageal reflux disease) History of placement of internal cardiac defibrillator History of paroxysmal atrial tachycardia Asthma Dilated cardiomyopathy Osteopenia Arthritis Elevated cholesterol Sleep apnea COPD (chronic obstructive pulmonary disease) HTN (hypertension) Barretts esophagus Family History Family history of problems with anesthesia: No Surgical History Surgical History Aortic valve replaced History of repair of hiatal hernia Hx of aortic valve replacement History of esophagogastroduodenoscopy (EGD) H/O colonoscopy History of Problems with Anesthesia: No Social History Social History Household Members: Spouse Housing: House Are you a primary critical care nurse specialist to a significant other at home: No Do you presently have visiting nurse or other home services: No Alcohol intake: never Patient Tobacco Use Status: Former Tobacco user Tobacco use type: Cigarette Cigarette Packs Per Day: 1 Years Smoked: 60 Use of substances other than those prescribed or required for medical reasons: No Advance Directives: No Advance Directives Information Provided: Yes service: Yes Meds Allergies Allergy/AdvReac Type Severity Reaction Status Date / Time Krmvdcq-NPK-KdN Reductase Allergy Intermediate muscle Verified 01/20/25 14:04 Inhibitor (Nfzronk-Yxu-Zlo cramping Reductase Inhibitor) in ribcage Home Medications ?Medication ?Instructions ?Recorded ?Confirmed ?Last Taken ?Type albuterol sulfate 90 mcg/actuation 2 puff inhalation Q6H PRN Wheezing 02/18/21 02/06/25 Unknown History aerosol inhaler (Ventolin HFA) gemfibrozil 600 mg tablet 600 mg PO BID 02/18/21 02/06/25 12/18/23 History febuxostat 40 mg tablet 40 mg PO DAILY 09/09/21 02/06/25 12/18/23 History tamsulosin 0.4 mg capsule 0.4 mg PO BEDTIME 09/09/21 02/06/25 12/18/23 History omeprazole 20 mg capsule,delayed 20 mg PO DAILY@0630 12/19/23 02/06/25 12/18/23 History release warfarin 1 mg tablet 1 mg PO DAILY 12/19/23 02/06/25 12/17/23 20:00 History Exam Narrative Narrative: Cardiac Device Check 01/2025 Details: Biventricular Medtronic ICD in place. Biventricular pacing 98.4% of time. Underlying atrial rhythm appears to be atrial fibrillation. Device was reprogrammed to DDIR. RV and LV pacing thresholds excellent and reprogrammed to provide adequate safety and enhance battery life. Pacing and shock lead with stable. Battery life is excellent [id number]-[id number] Cardiac Device Check, multi lead implantable defibrillator Procedure code (CPT) selection complete EKG 01/2025 Details: EKG shows biventricular pacing with intermittent PVCs. Undetermined atrial rhythm ECHO 05/2024 Conclusions: - Normal left ventricular cavity size. There is severely increased left ventricular wall thickness. The left ventricular systolic function is severely decreased. The visually estimated ejection fraction is between 15-20%. - The apical lateral, apical septum, mid anterolateral, mid inferoseptal, mid anteroseptal, and mid inferolateral segments are akinetic. - The apex, apical anterior, and mid anterior segments are dyskinetic. - Normal right ventricular cavity size. There is mildly decreased right ventricular systolic function. There is a pacemaker wire seen in the right ventricle. - A mechanical prosthetic aortic valve is present. The prosthetic aortic valve appears to be functioning normally. - Normal right atrial pressure. Mild pulmonary hypertension is present. - There is mild dilatation of the ascending aorta measuring 3.80 cm. Assessment and Plan Assessment Anesthesia Assessment: Chart Reviewed Final Anesthetic Review Family History of Problems with Anesthesia: No History of Problems with Anesthesia: No
--- NOTE | 2025-02-12 11:56 | HO.ANESPROP2 ---
[facility] Active Problems Active Problems: All Active Problems (Updated 02/06/25 @ 15:03 by Donnell Ledesma MD) Persistent atrial fibrillation (Acute) Chronic HFrEF (heart failure with reduced ejection fraction) (Acute) ELENI on CPAP (Acute) Multiple pulmonary nodules (Acute) Personal history of tobacco use (Acute) COPD (chronic obstructive pulmonary disease) (Acute) Biventricular ICD (implantable cardioverter-defibrillator) in place (Acute) Hx of aortic valve replacement (Acute) Visit for wound check (Acute) COVID-19 virus infection (Acute) SOB (shortness of breath) on exertion (Acute) COVID-19 (Acute) Ventricular tachycardia (Acute) Cardiomyopathy (Acute) Paroxysmal atrial fibrillation (Acute) Past Medical History Medical History Biventricular ICD (implantable cardioverter-defibrillator) in place COVID-19 vaccine series completed Collapsed lung Myocardial infarction GERD (gastroesophageal reflux disease) History of placement of internal cardiac defibrillator History of paroxysmal atrial tachycardia Asthma Dilated cardiomyopathy Osteopenia Arthritis Elevated cholesterol Sleep apnea COPD (chronic obstructive pulmonary disease) HTN (hypertension) Barretts esophagus Family History Family history of problems with anesthesia: No Surgical History Surgical History Aortic valve replaced History of repair of hiatal hernia Hx of aortic valve replacement History of esophagogastroduodenoscopy (EGD) H/O colonoscopy History of Problems with Anesthesia: No Social History Social History Household Members: Spouse Housing: House Are you a primary rn managed care to a significant other at home: No Do you presently have visiting nurse or other home services: No Alcohol intake: never Patient Tobacco Use Status: Former Tobacco user Tobacco use type: Cigarette Cigarette Packs Per Day: 1 Years Smoked: 60 service: Yes Meds Allergies Allergy/AdvReac Type Severity Reaction Status Date / Time Gdiczaw-PTO-WhF Reductase Allergy Intermediate muscle Verified 01/20/25 14:04 Inhibitor (Vrbncxd-Lcc-Evw cramping Reductase Inhibitor) in ribcage Home Medications ?Medication ?Instructions ?Recorded ?Confirmed ?Last Taken ?Type albuterol sulfate 90 mcg/actuation 2 puff inhalation Q6H PRN Wheezing 08/26/21 08/14/25 Unknown History aerosol inhaler (Ventolin HFA) gemfibrozil 600 mg tablet 600 mg PO BID 02/18/21 02/06/25 12/18/23 History febuxostat 40 mg tablet 40 mg PO DAILY 09/09/21 02/06/25 12/18/23 History tamsulosin 0.4 mg capsule 0.4 mg PO BEDTIME 09/09/21 02/06/25 12/18/23 History omeprazole 20 mg capsule,delayed 20 mg PO DAILY@0630 12/19/23 02/06/25 12/18/23 History release warfarin 1 mg tablet 1 mg PO DAILY 12/19/23 02/06/25 12/17/23 20:00 History Exam Airway Mallampati Class: III TM Dist: >3cm Neck ROM: Full Denture: Upper and Lower Heart: Paced Lungs: CTA Assessment and Plan Assessment Anesthesia Assessment: Anesthesia Plan Discussed and Chart Reviewed Final Anesthetic Review Family History of Problems with Anesthesia: No History of Problems with Anesthesia: No NPO: Yes ASA Class: III Final Preanesthetic Review: Meds/Allgs Chart Reviewed, Consent Obtained/Reviewed and Anes Risks/Benef Reviewed Patient Risk: Intermediate Procedure Risk: Intermediate Anesthetic Plan Anesthetic Plan: MAC: Disposition: Standard PACU
[2025-02-12 12:03] VITALS: BMI 30.8
[2025-02-12 12:16] VITALS: BP 137/71; PULSE 83; RESP 16; TEMP 36.2; O2SAT 95
[2025-02-12] MEDS: Lactated Ringers 1,000 ML 50 ML IVCONT (12:22)
--- NOTE | 2025-02-12 12:38 | MHC.SHP ---
Pre-Procedural Eval Section A - 24 Hr Update-Section A only Date of Service: 02/12/25 The patient is an INPATIENT: No Changes since office visit: Yes Changes in Medication and Yes Patient answered all questions; No Cold of Flu in the past 2 weeks and No New Medical Problems The patient has been examined within 24 hours of the surgical procedure. The History & Physical has been completed within 30 days and I have reviewed it.: Yes Section B - Complete if H&P > 30 days Chief Complaint: Paroxysmal atrial fibrillation Allergies: Allergies Allergy/AdvReac Type Severity Reaction Status Date / Time Uhcfghy-XLY-WwY Reductase Allergy Intermediate muscle Verified 01/20/25 14:04 Inhibitor (Mvrfcza-Krv-Pcc cramping Reductase Inhibitor) in ribcage Plan I have reviewed the history and physical and performed a pertinent physical examination on my patient. No changes have occurred unless specified. Time Spent With Patient Time: Total time managing care of this patient today ____ minutes.
[2025-02-12 12:53] LABS: INTERNATIONAL NORM RATIO 2.2 (0.9-1.1); Prothrombin Time 25.6 SEC (10.9-12.4)
--- NOTE | 2025-02-12 13:24 | PM.EVENT ---
Event Note Date of Service: 02/12/25 Event Note: Patient came for outpatient ZIA and cardioversion given his recent persistent atrial fibrillation. Patient was brought to the OR room and we checked his Medtronic device and found him to be in atrially paced and ventricularly paced rhythm. Therefore the procedure was aborted. Patient's pacemaker was reprogrammed to DDDR at 70 beats per minute. Will increase his Tikosyn to 500 mcg daily and reduce his Lasix to 20 mg daily. Follow up in the clinic in 2 weeks Time Spent With Patient Time: Total time managing care of this patient today ____ minutes.
[2025-02-12 13:31] VITALS: BP 116/68; PULSE 71; RESP 16; TEMP 36.1; O2SAT 98
== END ==
PROVIDERS: Nurse Practitioner; PCP General Practice; Visit Provider Internal Medicine Cardiovascular Disease
PROC: (CPT 93312; principal; 2025-02-12 12:50)
DX: I48.0 Paroxysmal atrial fibrillation (principal); Z53.8 Procedure and treatment not carried out for other reasons
CPT/HCPCS: 93312; 36415; 85610; 99499; J2250; J2704; J3010; Q9957

== ENCOUNTER 2025-03-06 13:31 | Outpatient (AMB) | payer OTHER, SELFPAY ==
[2025-03-06 14:08] VITALS: BP 90/62; PULSE 81; BMI 31.1
--- NOTE | 2025-03-06 14:08 | A.OFFVIS_ITS ---
Vital Signs 03/06/25 14:08 Height 5 ft 3 in Weight 175 lb 7.807 oz BMI 31.1 BP 90/62 Blood Pressure Location Lt brachial Position Sitting Pulse 81 Pulse Source Monitor Intake Visit Reasons: 2 wk follow up s/p CV [employer] Required: No Allergies Piqwyhu-FRY-FoI Reductase Inhibitor (Shtiiuh-Jpu-Wfr Reductase Inhibitor) Allergy (Intermediate, Verified 03/06/25 14:11) muscle cramping in ribcage Medication List - Last Reconciled 03/07/25 by LANDEN Moya albuterol sulfate 90 mcg/actuation (Ventolin HFA) 2 puffs inhalation Q6H PRN ciclesonide 160 mcg/actuation (Alvesco) 2 puffs inhalation BID dofetilide 500 mcg PO Q12H febuxostat 40 mg PO DAILY furosemide 20 mg PO DAILY gemfibrozil 600 mg PO BID levalbuterol tartrate 45 mcg/actuation 1 puff inhalation Q4-6H PRN metoprolol tartrate 100 mg PO BID 90 days omeprazole 20 mg PO DAILY@0630 omeprazole 40 mg PO DAILY@0630 tamsulosin 0.4 mg PO BEDTIME valsartan 80 mg PO BID warfarin (Jantoven) 1.25 mg (1.25 x 1 mg) PO DAILY@1800 warfarin 1 mg PO DAILY HPI HPI 2 wk follow up s/p CV: Details: Everette is a 79-year-old male with past medical history of nonischemic cardiomyopathy, paroxysmal atrial fibrillation, mechanical aortic valve replacement, ventricular tachycardia, Bi V ICD who recently had recurrent PAF. His dofetilide dose was increased and cardioversion was set up however he was in atrial paced rhythm at the time of the planned procedure and it was canceled. He now presents for follow-up. Today he reports he is feeling well with no concerning symptoms. When he had AFib he said he did not feel any different. He denies shortness of breath, PND, orthopnea or edema. He denies chest discomfort at rest or with activity. He has no heart palpitations, lightheadedness, presyncope, syncope. He says he is taking all his meds as directed. [facility] no bleeding issues reported. His primary concern today is of his significant other who fell and fractured her ankle. She is now in a rehab. [facility] Medical History Biventricular ICD (implantable cardioverter-defibrillator) in place COVID-19 vaccine series completed Collapsed lung Myocardial infarction GERD (gastroesophageal reflux disease) History of placement of internal cardiac defibrillator History of paroxysmal atrial tachycardia Asthma Dilated cardiomyopathy Osteopenia Arthritis Elevated cholesterol Sleep apnea COPD (chronic obstructive pulmonary disease) HTN (hypertension) Barretts esophagus Surgical History Aortic valve replaced History of repair of hiatal hernia Hx of aortic valve replacement History of esophagogastroduodenoscopy (EGD) H/O colonoscopy Social History Household Members: Spouse Housing: House Are you a primary elderly caregiver to a significant other at home: No Do you presently have visiting nurse or other home services: No Alcohol intake: never Patient Tobacco Use Status: Former Tobacco user Tobacco use type: Cigarette Cigarette Packs Per Day: 1 Years Smoked: 60 service: Yes Review of Systems Const All systems reviewed & are unremarkable except as noted in HPI and below ENT Denies dizziness Card Denies chest pain, Denies chest pain at rest, Denies chest pain with activity, Denies rapid heart rate, Denies pedal edema, Denies edema, Denies leg edema, Denies lightheadedness, Denies palpitations, Denies dyspnea, Denies dyspnea on exertion and Denies orthopnea Resp Denies cough, Denies dyspnea and Denies dyspnea on exertion GI Denies hematochezia and Denies change in stool character Musc Denies abnormal gait, Denies limited range of motion, Denies muscle cramps, Denies muscle weakness, Denies numbness, Denies radiating pain into limb, Denies stiffness and Denies tingling Neuro Denies abnormal gait, Denies dizziness, Denies numbness and Denies tingling Endo Denies palpitations Physical Exam Vital Signs: Last Vital Signs Pulse 81 03/06/25 14:08 BP 90/62 03/06/25 14:08 BMI result Body Mass Index 31.1 Const General: cooperative, healthy appearing, comfortable and no acute distress Orientation/consciousness: patient oriented x3 Neck Neck: Yes normal visual inspection Resp Effort & Inspection: normal respiratory effort Auscultation: clear to auscultation bilaterally, no rales, no rhonchi and no wheezes Cardio Rate: regular rate Rhythm: regular rhythm Heart sounds: S1 normal heart sound present, S2 normal heart sound present, Clicking heart sound present (crisp), no gallops, no murmurs and no rubs Neuro General: patient oriented x3 Extrem General: Yes normal to inspection, No no pedal edema and No calf tenderness Psych Appearance: grossly normal Mental Status: mental status grossly normal Speech and movement: Normal speech and movement present Assessment & Plan Assessment & Plan (1) Paroxysmal atrial fibrillation: Code(s): I48.0 - Paroxysmal atrial fibrillation Category: Medical Plan: History of paroxysmal atrial fibrillation with recent reoccurrence while on dofetilide. His dofetilide dose was increased. Cardioversion was arranged however he was in A paced, V paced rhythm at the time of the planned procedure. EKG done today showing AV dual paced rhythm, rate 81. Continue dofetilide for rhythm control. Continue metoprolol for heart rate control. Continue Coumadin for anticoagulation with INR goal 2-3. Follows with the [facility] for INRs monitoring. (2) Biventricular ICD (implantable cardioverter-defibrillator) in place: Code(s): Z95.810 - Presence of automatic (implantable) cardiac defibrillator Category: Medical Plan: History of Medtronic Bi V ICD. Has remote monitoring in use. Office int errogation last visit shows device is functioning normally. Next office interrogation due in 5 months. (3) Cardiomyopathy: Code(s): I42.9 - Cardiomyopathy, unspecified Category: Medical Plan: History of ischemic cardiomyopathy. Bi V ICD in place. Last echocardiogram 06/21/2024 shows EF 15-20% with regional wall motion abnormalities. 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 He has been managed medically. No reports of anginal symptoms. Labs 02/06/2025 shows potassium 4.5, which is high for him. Lasix had been recently added. Will have him recheck BMP. Continue valsartan and metoprolol for neurohormonal modulation. Signs and symptoms of heart failure reviewed with him. Will update echo prior to next visit. (4) Aortic valve replaced: Code(s): Z95.2 - Presence of prosthetic heart valve Category: Surgical Plan: History of mechanical aortic valve. The most recent echo shows it is functioning normally. Hudspeth click heard with auscultation. He is on Coumadin with INR goal 2-3. SBE prophylaxis reviewed. Plan During the visit, we discussed the normalization of the patient's heart rhythm, which led to the cancellation of the scheduled procedure for atrial fibrillation. The importance of medication adherence and regular monitoring of INR levels was emphasized, along with maintaining adequate hydration due to low blood pressure. We reviewed the signs of heart failure and the use of lasix to keep fluid in check. Most recent labs did show an elevation in kidney function so this will need to be rechecked. Orders: Orders Basic Metabolic Panel 03/06/25 I50.22 - Chronic systolic (congestive) heart failure Patient Instructions: - Continue taking all prescribed medications as directed. - Have labs drawn to reassess kidney function - Watch for signs of fluid retention - Report any new symptoms including chest discomfort or shortness of breath - Attend echo appointment prior to next visit - Cardiology follow up in 5 months. Patient was informed and verbally consented to the use of an ambient scribe for clinic note documentation during this visit. Visit time spent on chart review, interview, assessment, orders, documentation. Coding Level of Care Code Est Pt Level 4 (25313) Complex EM visit Add On G2211 Diagnoses Paroxysmal atrial fibrillation I48.0 Biventricular ICD (implantable cardioverter-defibrillator) in place Z95.810 Cardiomyopathy I42.9 Aortic valve replaced Z95.2 Time Spent (min) 32
--- OUTSIDE RECORDS SUMMARY | 2025-03-06 17:26 | XMS_ITS | Patient Health Record ---
Author Organization [facility] Address [address] [place] [address] Care Team Providers Care Neck Cutter Name Role Phone KATHE Arriaga, DOUG Primary Care Provider Konstantin Muñoz Jr Unavailable [phone] Allergies Allergen (clinical drug ingredient) Drug/Non Drug Allergy documented on EMR Reaction Allergy Type Onset Date Status Substance with 8-[place]gukah-4-methylgluta ryl-coenzyme A reductase inhibitor mechanism of action (substance) Statins Unknown Drug Allergy Active 12 Hour Nasal [place] Unknown Drug Allergy Active Reason For Referral Reason OFFICE VISIT Referring Provider First Name DOUG Referring Provider Last Name KATHE Referred Organization [facility] Referred Provider Konstantin Anderson Jr Referred Address [address],[place], [place],[address], Referred Provider Specialty Gastroentero logy General Notes [...] Section Notes: etoh quit 2005 etoh quit 2005 etoh quit 2004 Problems Problem Type SNOMED Code ICD Code Onset Dates Problem Status W/U Status Risk Notes Problem 232208264 Colon cancer screening (Z12.11) Active confirmed Problem 263824416 terminal gauger (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 [place] [address] 01/23/2025 Konstantin Anderson Jr Amaro's esophagus without dysplasia K22.70 and Colon cancer screening Z12.11 Assessments Encounter Date Diagnosis (ICD Code) Assessment Notes Treatment Notes Treatment Clinical Notes Section Notes 01/23/2025 Colon cancer screening (ICD-10 - Z12.11) Currently, Cuong martinez is doing well. We discussed gastroesophageal reflux disease today. We discussed Amaro's esophagus today. He is up-to-date on screening, and no further screening is recommended. He will continue omeprazole for his reflux. We discussed diet, lifestyle modifications, and weight management regarding the treatment of reflux. Will see him in follow-up in 1 year. He is also up-to-date on colorectal cancer screening. 01/23/2025 Amaro's esophagus without dysplasia (ICD-10 - K22.70) Currently, Cuong martinez is doing well. We discussed gastroesophageal reflux disease today. We discussed Amaro's esophagus today. He is up-to-date on screening, and no further screening is recommended. He will continue omeprazole for his reflux. We discussed diet, lifestyle modifications, and weight management regarding the treatment of reflux. Will see him in follow-up in 1 year. He is also up-to-date on colorectal cancer screening. Plan Of Treatment Future Test Test Name Order Date UPPER GI ENDOSCOPY 01/27/2021 COLONOSCOPY 01/27/2021 Insurance Providers Payer Name Payer Address Payer Phone Subscriber Number Group Number Insured Name Patient Relationship to Insured Coverage Start Date Coverage End Date [facility] [employer] [address] [place]NDSAY DENNIS [id number] ERIC HENSLEY Self - patient is the [...] valve 1983 hiatel hernia 1975 collapsed lung 1976
== END 2025-03-06 14:48 | disposition home or self-care (01) ==
LOC: HO.HCS 13:31
PROVIDERS: PCP Family Medicine; Visit Provider Nurse Practitioner Family
DX: I48.0 Paroxysmal atrial fibrillation (principal); Z95.810 Presence of automatic (implantable) cardiac defibrillator; I42.9 Cardiomyopathy, unspecified; Z95.2 Presence of prosthetic heart valve
CPT/HCPCS: 93010; 99214; G2211

== ENCOUNTER → 2025-03-06 13:31 | Outpatient (BNVA) | payer OTHER, SELFPAY | PROVIDERS: PCP Family Medicine; Visit Provider Nurse Practitioner Family | DX: I48.0 Paroxysmal atrial fibrillation (principal); I42.8 Other cardiomyopathies; I47.20 Ventricular tachycardia, unspecified; I11.0 Hypertensive heart disease with heart failure; I50.22 Chronic systolic (congestive) heart failure; Z95.2 Presence of prosthetic heart valve; Z95.810 Presence of automatic (implantable) cardiac defibrillator | CPT/HCPCS: 93005; 99212 ==

== ENCOUNTER → 2025-03-08 23:59 | Outpatient (BNV) | payer OTHER, SELFPAY ==
--- NOTE | 2025-03-12 13:13 | A.OFFVIS_ITS ---
Intake Visit Reasons: Remote HF monitoring- [employer] Allergies Hlkakqi-SAX-FtT Reductase Inhibitor (Sylflzp-Lzi-Cwa Reductase Inhibitor) Allergy (Intermediate, Verified 03/06/25 14:11) muscle cramping in ribcage [facility] Medical History Biventricular ICD (implantable cardioverter-defibrillator) in place COVID-19 vaccine series completed Collapsed lung Myocardial infarction GERD (gastroesophageal reflux disease) History of placement of internal cardiac defibrillator History of paroxysmal atrial tachycardia Asthma Dilated cardiomyopathy Osteopenia Arthritis Elevated cholesterol Sleep apnea COPD (chronic obstructive pulmonary disease) HTN (hypertension) Barretts esophagus Surgical History Aortic valve replaced History of repair of hiatal hernia Hx of aortic valve replacement History of esophagogastroduodenoscopy (EGD) H/O colonoscopy Social History Household Members: Spouse Housing: House Are you a primary health care technician to a significant other at home: No Do you presently have visiting nurse or other home services: No Alcohol intake: never Patient Tobacco Use Status: Former Tobacco user Tobacco use type: Cigarette Cigarette Packs Per Day: 1 Years Smoked: 60 service: Yes Office Procedures Cardiac Device Check Cardiac Device Check Details: Remote heart failure report generated 03/09/2025. Heart failure parameters are stable [id number] Cardiac Device Interrogation, cardio physiologic monitor Procedure code (CPT) selection complete Assessment & Plan Assessment & Plan (1) Biventricular ICD (implantable cardioverter-defibrillator) in place: Code(s): Z95.810 - Presence of automatic (implantable) cardiac defibrillator Category: Medical Plan: See above Coding Level of Care Code Procedure Only Diagnoses Biventricular ICD (implantable cardioverter-defibrillator) in place Z95.810 CPT Codes Cardiac Device Check - Cardiac Device 15: [id number] Cardiac Device Interrogation, cardio physiologic monitor ([id number])
== END ==
PROVIDERS: PCP Family Medicine; Visit Provider Internal Medicine Cardiovascular Disease
DX: Z45.02 Encounter for adjustment and management of automatic implantable cardiac defibrillator (principal)
CPT/HCPCS: 93297

== ENCOUNTER → 2025-04-08 23:59 | Outpatient (BNV) | payer OTHER, SELFPAY ==
--- NOTE | 2025-04-09 10:52 | A.OFFVIS_ITS ---
Intake Visit Reasons: Remote ICD check- [employer] Allergies Ucosdce-WLV-MiL Reductase Inhibitor (Srjavei-Zek-Xtw Reductase Inhibitor) Allergy (Intermediate, Verified 03/06/25 14:11) muscle cramping in ribcage ON LICENSE OF [facility] Medical History Biventricular ICD (implantable cardioverter-defibrillator) in place COVID-19 vaccine series completed Collapsed lung Myocardial infarction GERD (gastroesophageal reflux disease) History of placement of internal cardiac defibrillator History of paroxysmal atrial tachycardia Asthma Dilated cardiomyopathy Osteopenia Arthritis Elevated cholesterol Sleep apnea COPD (chronic obstructive pulmonary disease) HTN (hypertension) Barretts esophagus Surgical History Aortic valve replaced History of repair of hiatal hernia Hx of aortic valve replacement History of esophagogastroduodenoscopy (EGD) H/O colonoscopy Social History Household Members: Spouse Housing: House Are you a primary healthcare insurance sales agent to a significant other at home: No Do you presently have visiting nurse or other home services: No Alcohol intake: never Patient Tobacco Use Status: Former Tobacco user Tobacco use type: Cigarette Cigarette Packs Per Day: 1 Years Smoked: 60 service: Yes Office Procedures Cardiac Device Check Cardiac Device Check Details: Remote ICD report generated 04/08/2025. ICD function is adequate. Brief episodes of atrial fibrillation noted, total burden of 0.8%. Bi V pacing 99.6% of the time [id number] Cardiac Interrogation, implant defibrillator w/interim Procedure code (CPT) selection complete Assessment & Plan Assessment & Plan (1) Biventricular ICD (implantable cardioverter-defibrillator) in place: Code(s): Z95.810 - Presence of automatic (implantable) cardiac defibrillator Category: Medical Plan: See above Coding Level of Care Code Procedure Only Diagnoses Biventricular ICD (implantable cardioverter-defibrillator) in place Z95.810 CPT Codes Cardiac Device Check - Cardiac Device 13: [id number] Cardiac Interrogation, implant defibrillator w/interim ([id number])
== END ==
PROVIDERS: PCP Family Medicine; Visit Provider Internal Medicine Cardiovascular Disease
DX: I48.91 Unspecified atrial fibrillation (principal); Z95.810 Presence of automatic (implantable) cardiac defibrillator
CPT/HCPCS: 93295

== ENCOUNTER 2025-06-09 12:59 | Outpatient (AMB) | payer OTHER, SELFPAY ==
[2025-06-09 13:11] VITALS: BP 100/62; PULSE 88; O2SAT 99; BMI 31.6
--- NOTE | 2025-06-09 13:11 | A.OFFVIS_ITS ---
Vital Signs 06/09/25 13:11 Height 5 ft 3 in Weight 178 lb 9.191 oz BMI 31.6 BP 100/62 Blood Pressure Location Rt brachial Position Sitting Pulse 88 Pulse Source Pulse Oximeter Pulse Oximetry (%) 99 Oxygen Delivery Method Room Air Intake Visit Reasons: Shortness of breath Allergies Jzcczus-MNT-BwT Reductase Inhibitor (Netbols-Lso-Hvv Reductase Inhibitor) Allergy (Intermediate, Verified 06/09/25 13:14) muscle cramping in ribcage HPI Comments Details: Everette is a pleasant 79 year old male, former 60 pack year smoker, with underlying moderate COPD, severe ELENI on CPAP managed by DC, cardiomyopathy s/p ICD LVEF 15-20%, h/o aortic valve replacement, and paroxsymal atrial fibrillation on coumadin. Chest CT performed at [facility] 03/2024, RADS3, revealed mild to moderate emphysema with new 5.4 mm solid pulmonary nodule of PHILL with interval resolution of prior small scattered pulmonary nodules. Recommendation made for 6 month follow up chest CT which was performed in September 2024 through the [facility], report revealed stable nodule and will have repeat chest CT scheduled through the [facility] in March. LDCT 04/19 demonstrated new 4 cm pulmonary nodule of RUL, read as a 4B however patient with bronchitic symptoms at that time, favoring an infectious process and treated with abx from PCP. He has an upcoming repeat CT in June ordered from the [facility]. He reports no visits to urgent care or the hospital for breathing issues since his last appointment and denies any cough, wheezing, however continues with shortness of breath. His current medication regimen includes Spiriva two puffs in the morning and Xopenex as needed and has been taking Alvesco once daily, rather than the prescribed two puffs twice a day. He also takes Lasix daily. [facility] Medical History Biventricular ICD (implantable cardioverter-defibrillator) in place COVID-19 vaccine series completed Collapsed lung Myocardial infarction GERD (gastroesophageal reflux disease) History of placement of internal cardiac defibrillator History of paroxysmal atrial tachycardia Asthma Dilated cardiomyopathy Osteopenia Arthritis Elevated cholesterol Sleep apnea COPD (chronic obstructive pulmonary disease) HTN (hypertension) Barretts esophagus Surgical History Aortic valve replaced History of repair of hiatal hernia Hx of aortic valve replacement History of esophagogastroduodenoscopy (EGD) H/O colonoscopy Social History (Reviewed 06/09/25 @ 13:14 by Sandy Ramirez [facility]) Household Members: Spouse Housing: House Are you a primary reproductive healthcare assistant to a significant other at home: No Do you presently have visiting nurse or other home services: No Alcohol intake: never Patient Tobacco Use Status: Former Tobacco user Tobacco use type: Cigarette Cigarette Packs Per Day: 1 Years Smoked: 60 service: Yes Review of Systems Narrative Const Denies chills, Denies excessive sweating, Denies fever(s), Denies headache(s) and Denies night sweats Eyes Denies dry eyes, Denies irritation and Denies itchy eyes ENT Reports Normal hearing present, Denies headache(s), Denies nasal congestion, Denies nasal discharge, Denies post nasal drip and Denies sore throat Card Denies chest pain, Denies chest pain at rest, Denies chest pain with activity, Denies claudication, Denies orthopnea and Denies paroxysmal nocturnal dyspnea Resp Denies chest congestion, Denies cough, Denies excessive phlegm production, Denies pain on inspiration, Denies pain with cough, Denies stridor and Denies wheezing Musc Denies myalgias Neuro Reports Normal hearing present and Denies headache(s) Endo Denies excessive sweating Alejandro/Lymph Denies lymphadenopathy Aller/Immun Denies itchy eyes, Denies seasonal rhinorrhea and Denies wheezing Physical Exam Exam Exam: Vital Signs: Last Vital Signs Pulse 88 06/09/25 13:11 BP 100/62 06/09/25 13:11 Pulse Ox 99 06/09/25 13:11 Oxygen Delivery Method Room Air 06/09/25 13:11 BMI result Body Mass Index 31.6 Const General: cooperative, healthy appearing, comfortable, no acute distress, well developed and alert Nutritional Appearance: obese Orientation/consciousness: patient oriented x3 Limitations: no limitations HEENT Head: Yes normal to inspection, Yes normocephalic and Yes atraumatic Ears: hearing grossly normal bilaterally and external ears normal Eyes General: appearance normal, both eyes and all related structures Eyelids: Yes eyelids normal Sclerae: sclerae normal EOM: EOMs intact bilaterally Neck Neck: Yes normal visual inspection and Yes no lymphadenopathy Lymphatic: no lymphadenopathy noted Chest Chest palpation & inspection: normal inspection of the chest Resp Effort & Inspection: normal respiratory effort, able to speak in complete sentences, no audible wheezes, no cough, no stridor, not tachypneic, no tripod positioning and no use of accessory muscles Auscultation: clear to auscultation bilaterally Cardio Jugular venous distension: no JVD Rate: regular rate Rhythm: regular rhythm Skin Other: warm, dry General skin exam: no rashes or lesions noted Neuro General: patient oriented x3 Cranial nerves: Yes Normal hearing present Cognition (Neuro): normal cognition Gait exam (Neuro): Normal gait present Extrem General: Yes normal to inspection, Yes capillary refill normal, Yes no clubbing, cyanosis or edema and Yes no pedal edema Psych Appearance: grossly normal and well kempt Speech and movement: Normal speech and movement present and Clear speech present Affect: normal affect Attitude: cooperative Thought process: Normal thought process present Thought content: Normal thought content present Insight: Good insight present (Psych) Judgement: Good judgement present (Psych) Assessment & Plan Assessment & Plan (1) COPD (chronic obstructive pulmonary disease): Code(s): J44.9 - Chronic obstructive pulmonary disease, unspecified Category: Medical (2) Multiple pulmonary nodules: Code(s): R91.8 - Other nonspecific abnormal finding of lung field Category: Medical (3) Personal history of tobacco use: Code(s): Z87.891 - Personal history of nicotine dependence Category: Social Hx Plan Reviewed the patient's stable respiratory status and his current inhaler regimen. Advised him to increase his Alvesco dose to two puffs twice daily for optimal management and reminded him to rinse his mouth after use. We discussed the new pulmonary nodule found on his March CT scan, noting it was likely inflammatory given the clinical context. Explained that [facility] is appropriately timed to assess for resolution after his antibiotic treatment, will obtain and review those results, however [facility]. Recommended a follow-up appointment in three months, and he should call if any issues arise sooner. All questions were answered and patient is in agreement of plan. Patient was informed and verbally consented to the use of an ambient scribe for clinic note documentation during this visit. Medications: Refilled ciclesonide 160 mcg/actuation (Alvesco) 2 puffs inhalation BID 6.1 grams 6RF Coding Level of Care Code Est Pt Level 4 (01576) Diagnoses COPD (chronic obstructive pulmonary disease) J44.9 Multiple pulmonary nodules R91.8 Personal history of tobacco use Z87.891
== END 2025-06-09 13:36 | disposition home or self-care (01) ==
LOC: HO.HPS 12:59
PROVIDERS: PCP Family Medicine; Visit Provider Nurse Practitioner Family
DX: J44.9 Chronic obstructive pulmonary disease, unspecified (principal); R91.8 Other nonspecific abnormal finding of lung field; Z87.891 Personal history of nicotine dependence
CPT/HCPCS: 99214

== ENCOUNTER → 2025-06-09 12:59 | Outpatient (BNVA) | payer OTHER, SELFPAY | PROVIDERS: PCP Family Medicine; Visit Provider Nurse Practitioner Family | DX: J44.9 Chronic obstructive pulmonary disease, unspecified (principal); R91.8 Other nonspecific abnormal finding of lung field; Z87.891 Personal history of nicotine dependence | CPT/HCPCS: 99212 ==